=== PATIENT | male | born 1970 | race American Indian/Alaskan Native ===

== ENCOUNTER 2022-09-13 12:18 | Emergency (ER) | payer OTHER, SELFPAY ==
--- NOTE | ~2022-09-13 | XR_ITS ---
EXAMINATION: XR CHEST CLINICAL INFORMATION: Cough COMPARISON: 07/25/2019 TECHNIQUE: AP portable upright view of the chest was obtained. FINDINGS: Chronic airways disease. No focal pneumonia or effusion. Lung volumes improved compared with prior. Stable heart and mediastinum. Lordotic positioning. No pulmonary edema. Nonobstructive gas pattern. Idiopathic scoliosis. XR/XR chest 1V IMPRESSION: Chronic bronchial wall thickening.
[2022-09-13 12:23] VITALS: BP 174/91; PULSE 82; RESP 20; TEMP 36.9; O2SAT 96; BMI 29.2
--- NOTE | 2022-09-13 12:27 | ED_ITS ---
HPI - SOB/Dyspnea General Chief Complaint: Upper Respiratory Symptoms <RANULFO Olmedo - Last Filed: 09/13/22 12:30> Stated Complaint: cough, congestion <RANULFO Olmedo - Last Filed: 09/13/22 12:30> Time Seen by Provider: 09/13/22 13:21 <RANULFO Olmedo - Last Filed: 09/13/22 12:30> Source: patient <Day Mcmanus CNP - Last Filed: 09/13/22 16:51> Limitations: language barrier (Northern Irish-speaking medical payment poster utilized) <Day Mcmanus CNP - Last Filed: 09/13/22 16:51> History of Present Illness HPI Narrative: Patient is a 52-year-old male presents to emergency department for evaluation of fever, cough, congestion, of breath. Onset of symptoms was approximately 3 days ago. Denies any known sick contacts. However does report a history of asthma, he has been using his albuterol inhaler without significant improvement in his symptoms. Currently denies chest pain, palpitations, nausea, vomiting, abdominal pain, generalized weakness or fatigue. <Day muhammad CNP - Last Filed: 09/13/22 16:51> Related Data Home Medications: Previous Rx's Medication Instructions Recorded oseltamivir 75 mg capsule (Tamiflu) 75 mg PO BID 5 days #10 caps 09/13/22 prednisone 20 mg tablet 40 mg PO DAILY #10 tabs 09/13/22 <RANULFO Olmedo - Last Filed: 09/13/22 12:30> Allergies/Adverse Reactions: Allergies Allergy/AdvReac Type Severity Reaction Status Date / Time No Known Allergies Allergy Unverified 07/12/20 19:45 [No Known Allergies*] <RANULFO Olmedo - Last Filed: 09/13/22 12:30> Review of Systems Review of Systems: Constitutional : Positive Fever, No Chills ENT/Mouth : No Hoarseness, No sore throat, No Rhinorrhea Eyes: No Redness, No Discharge, No Vision Changes Cardiovascular : No Chest Pain, positive SOB, positive Dyspnea on Exertion, No Edema Respiratory : positive Cough, No Sputum, positive Wheezing, Gastrointestinal : No Nausea, No Vomiting, No Diarrhea, No abdominal Pain Genitourinary : No Dysuria, No Hematuria Musculoskeletal : No joint pain, No Myalgias Skin : No rash Neuro : No Weakness, No Numbness, No Headache Psych : No anxiety, depression Heme/Lymph: No Bruising, No Bleeding Endocrine : No Polyuria, No Polydipsia <Day Mcmanus CNP - Last Filed: 09/13/22 16:51> Yes all other systems are reviewed and are negative <Day Mcmanus CNP - Last Filed: 09/13/22 16:51> [facility] Past Medical History Attestation statement: The following information was validated with the patient. <Day Mcmanus CNP - Last Filed: 09/13/22 16:51> Source: old records reviewed <Day Mcmanus CNP - Last Filed: 09/13/22 16:51> Social History Social History: Social History Advance Directives: No Advance Directives Information Provided: No <RANULFO Olmedo - Last Filed: 09/13/22 12:30> Physical Exam Vital Signs: Vital Signs: Last Vital Signs Temp 98.0 F 09/13/22 14:26 Pulse 81 09/13/22 15:07 Resp 18 09/13/22 15:07 BP 157/80 H 09/13/22 14:26 Pulse Ox 96 09/13/22 14:26 O2 Del Method 09/13/22 14:26 BMI result Body Mass Index 29.2 <RANULFO Olmedo - Last Filed: 09/13/22 12:30> Vital Signs: Last Vital Signs Temp 98.0 F 09/13/22 14:26 Pulse 81 09/13/22 15:07 Resp 18 09/13/22 15:07 BP 157/80 H 09/13/22 14:26 Pulse Ox 96 09/13/22 14:26 O2 Del Method 09/13/22 14:26 BMI result Body Mass Index 29.2 <Day Mcmanus CNP - Last Filed: 09/13/22 16:51> Appearance: Alert.?Oriented to person, place and time. No acute distress.?Normal affect. Eyes: Pupils equal, round and reactive to light.? ENT: Pharynx normal.??TM normal bilaterally Neck: Normal inspection.? Neck supple.?? CVS: Heart sounds normal. Normal heart rate and rhythm.? Pulses normal.?? Respiratory: Increased work of breathing? Lung sounds with expiratory wheezing bilaterally Abdomen: Soft and non-tender. Normoactive bowel sounds. ? Skin: Skin warm and dry.? Normal skin color.? Extremities: No lower extremity edema.? No calf ttp? Neuro: Moves all extremities spontaneously. Sensation intact bilaterally. No focal neuro deficits. Ambulates with normal steady gait. <Day Mcmanus CNP - Last Filed: 09/13/22 16:51> Course Course Course Narrative: RME--52-year-old male with a past medical history of asthma presenting to the ED complaining of subjective fever, cough, chest congestion x3 days. Has been using inhalers without relief. It is currently visiting from [place]. Notable expiratory wheeze on exam Labs, COVID 19/influenza/RSV, CXR, DuoNeb and IV Solu-Medrol ordered in triage <RANULFO Olmedo - Last Filed: 09/13/22 12:30> Reevaluation(s) Reevaluation #1: Patient is a 52-year-old male with a past medical history of asthma presenting to the emergency department for evaluation of upper respiratory symptoms. Minimal improvement from use of albuterol inhaler. At time of initial examination patient with increased work of breathing, productive cough, expiratory wheezing throughout upon examination. Receive Solu-Medrol IV, DuoNeb updraft, noted to have improvement in work breathing, on subjective improvement in shortness of breath. CBC is overall unremarkable no leukocytosis or anemia. CMP overall unremarkable. Troponin 4.2, EKG reveals normal sinus rhythm no acute ischemic findings, unlikely ACS. PERC negative unlikely PE. Chest x-ray reveals chronic bronchial wall thickening no acute infiltrate consult they patient effusion. COVID-19 and RSV testing are negative, influenza a is positive. Symptoms most consistent with acute asthma exacerbation secondary to influenza virus. <Day Mcmanus CNP - Last Filed: 09/13/22 16:51> Time: 13:57 <Day Mcmanus CNP - Last Filed: 09/13/22 16:51> Reevaluation #2: Ambulatory O2 trial, O2 saturation down to 90% on room air, significant tachycardia into the 150s and reporting significant dyspnea. Will trial additio nal albuterol 10mg nebulizer addition of Mag 2 g IV <Day Mcmanus CNP - Last Filed: 09/13/22 16:51> Time: 14:51 <Day Mcmanus CNP - Last Filed: 09/13/22 16:51> Reevaluation #3: Patient ambulatory with steady gait, O2 saturation ranging between 93-100% on room air. Heart rate up to 110s. Reports feeling well enough to return home. Patient discharged with new prescription for prednisone and Tamiflu, has albuterol inhaler already. Reviewed worrisome signs and symptoms that he should return back to the emergency department for. Advised outpatient follow-up with primary care provider. All questions were answered, he was discharged home in stable condition, no apparent distress. <Day Mcmanus CNP - Last Filed: 09/13/22 16:51> Time: 16:50 <Day Mcmanus CNP - Last Filed: 09/13/22 16:51> Medications Administered Generic Name Dose Route Start Last Admin Trade Name Freq PRN Reason Stop Dose Admin Magnesium Sulfate 2 gm in 50 mls @ 25 mls/hr 09/13/22 15:10 09/13/22 15:56 Magnesium Sulfate/H2o IV 09/13/22 17:09 Infused ONCE ONE Infusion Discontinued Medications Generic Name Dose Route Start Last Admin Trade Name Freq PRN Reason Stop Dose Admin Acetaminophen 975 mg 09/13/22 15:12 09/13/22 15:36 Acetaminophen 325 Mg Tablet PO 09/13/22 15:13 975 mg ONCE ONE Administration Albuterol Sulfate 2.5 mg/ 5 mg 09/13/22 12:27 09/13/22 13:43 Albuterol Sulfate 2.5 mg INHALE 09/13/22 12:28 5 mg ONCE ONE Administration Albuterol Sulfate 7.5 mg/ 10 mg 09/13/22 14:51 09/13/22 15:05 Albuterol Sulfate 2.5 mg INHALE 09/13/22 14:52 5 mg ONCE ONE Administration Albuterol/Ipratropium 3 ml 09/13/22 12:27 09/13/22 13:43 Albuterol/Iprat 2.5/0.5mg 3 Ml Ampul.Neb INHALE 09/13/22 12:28 3 ml ONCE ONE Administration Methylprednisolone Sodium Succinate 125 mg 09/13/22 12:27 09/13/22 13:39 Methylprednisolone Sod Succ 125 Mg/2 Ml Vial IVPUSH 09/13/22 12:28 125 mg ONCE ONE Administration <RANULFO Olmedo - Last Filed: 09/13/22 12:30> Medications Administered Generic Name Dose Route Start Last Admin Trade Name Freq PRN Reason Stop Dose Admin Magnesium Sulfate 2 gm in 50 mls @ 25 mls/hr 09/13/22 15:10 09/13/22 15:56 Magnesium Sulfate/H2o IV 09/13/22 17:09 Infused ONCE ONE Infusion Discontinued Medications Generic Name Dose Route Start Last Admin Trade Name Freq PRN Reason Stop Dose Admin Acetaminophen 975 mg 09/13/22 15:12 09/13/22 15:36 Acetaminophen 325 Mg Tablet PO 09/13/22 15:13 975 mg ONCE ONE Administration Albuterol Sulfate 2.5 mg/ 5 mg 09/13/22 12:27 09/13/22 13:43 Albuterol Sulfate 2.5 mg INHALE 09/13/22 12:28 5 mg ONCE ONE Administration Albuterol Sulfate 7.5 mg/ 10 mg 09/13/22 14:51 09/13/22 15:05 Albuterol Sulfate 2.5 mg INHALE 09/13/22 14:52 5 mg ONCE ONE Administration Albuterol/Ipratropium 3 ml 09/13/22 12:27 09/13/22 13:43 Albuterol/Iprat 2.5/0.5mg 3 Ml Ampul.Neb INHALE 09/13/22 12:28 3 ml ONCE ONE Administration Methylprednisolone Sodium Succinate 125 mg 09/13/22 12:27 09/13/22 13:39 Methylprednisolone Sod Succ 125 Mg/2 Ml Vial IVPUSH 09/13/22 12:28 125 mg ONCE ONE Administration <Day Mcmanus CNP - Last Filed: 09/13/22 16:51> MDM - SOB/Dyspnea Medical Records Attestation: I reviewed the patient's medical records. <Day Mcmanus CNP - Last Filed: 09/13/22 16:51> Lab Data Attestation: I reviewed the patient's lab results. <Day Mcmanus CNP - Last Filed: 09/13/22 16:51> Result diagrams: : 09/13/22 12:35 09/13/22 12:35 <RANULFO Olmedo - Last Filed: 09/13/22 12:30> Labs: Lab Results 09/13/22 09/13/22 09/13/22 Range/Units 12:35 12:35 12:35 WBC 5.9 (4.8-10.8) X10*3/uL RBC 4.63 (4.60-5.80) X10*6/uL Hgb 14.3 (14.0-18.0) g/dl Hct 42.7 (42.0-52.0) % MCV 92.2 (80.0-98.0) fL MCH 30.9 (27.0-33.0) pg MCHC 33.5 (31.0-36.0) g/dl RDW 12.8 (11.0-16.0) % Plt Count 210 (160-400) X10*3/uL MPV 9.4 (9.4-12.4) fL Immature Gran % (Auto) 0.2 (0.0-0.4) % Neut % (Auto) 54.0 (45-73) % Lymph % (Auto) 29.6 (20-40) % [place] % (Auto) 15.4 H (2-11) % Eos % (Auto) 0.5 (0-4) % Baso % (Auto) 0.3 (0-2) % Lymph # (Auto) 1.8 (1.2-4.9) X10*3/uL [place] # (Auto) 0.9 (0.1-1.2) X10*3/uL Eos # (Auto) 0.0 (0.0-0.4) X10*3/uL Baso # (Auto) 0.0 (0.0-0.2) X10*3/uL Abs Immat Gran (auto) 0.01 (0.00-0.03) X10*3/uL Absolute Neuts (auto) 3.2 (2.0-8.3) x10*3/uL Absolute Nucleated RBC 0.000 (0.0-0.012) X10*3/uL Nucleated RBC % (auto) 0.0 (0.0-0.2) /100WBC Sodium 143 (135-145) mmol/L Potassium 3.2 L (3.3-5.1) mmol/L Chloride 106 (96-108) mmol/L Carbon Dioxide 28 (22-29) mmol/L Anion Gap 12 (12-20) BUN 10 (9-16) mg/dL Creatinine 0.91 (0.5-1.4) mg/dL Estim Creat Clear Calc 85.0 Estimated GFR > 60 Random Glucose 96 (60-115) mg/dL Calcium 9.3 (8.4-10.2) mg/dL Troponin I High Sens 4.2 (<3.5-35.0) ng/L B-Natriuretic Peptide (<100) pg/mL Influenza Type A (PCR) (Negative) Influenza Type B (PCR) (Negative) RSV RNA Qual (PCR) (Negative) SARS-CoV-2 RNA (RT-PCR) (Negative) 09/13/22 09/13/22 Range/Units 12:35 12:35 WBC (4.8-10.8) X10*3/uL RBC (4.60-5.80) X10*6/uL Hgb (14.0-18.0) g/dl Hct (42.0-52.0) % MCV (80.0-98.0) fL MCH (27.0-33.0) pg MCHC (31.0-36.0) g/dl RDW (11.0-16.0) % Plt Count (160-400) X10*3/uL MPV (9.4-12.4) fL Immature Gran % (Auto) (0.0-0.4) % Neut % (Auto) (45-73) % Lymph % (Auto) (20-40) % [place] % (Auto) (2-11) % Eos % (Auto) (0-4) % Baso % (Auto) (0-2) % Lymph # (Auto) (1.2-4.9) X10*3/uL [place] # (Auto) (0.1-1.2) X10*3/uL Eos # (Auto) (0.0-0.4) X10*3/uL Baso # (Auto) (0.0-0.2) X10*3/uL Abs Immat Gran (auto) (0.00-0.03) X10*3/uL Absolute Neuts (auto) (2.0-8.3) x10*3/uL Absolute Nucleated RBC (0.0-0.012) X10*3/uL Nucleated RBC % (auto) (0.0-0.2) /100WBC Sodium (135-145) mmol/L Potassium (3.3-5.1) mmol/L Chloride (96-108) mmol/L Carbon Dioxide (22-29) mmol/L Anion Gap (12-20) BUN (9-16) mg/dL Creatinine (0.5-1.4) mg/dL Estim Creat Clear Calc Estimated GFR Random Glucose (60-115) mg/dL Calcium (8.4-10.2) mg/dL Troponin I High Sens (<3.5-35.0) ng/L B-Natriuretic Peptide 12 (<100) pg/mL Influenza Type A (PCR) POSITIVE A (Negative) Influenza Type B (PCR) NEGATIVE (Negative) RSV RNA Qual (PCR) NEGATIVE (Negative) SARS-CoV-2 RNA (RT-PCR) NEGATIVE (Negative) <RANULFO Olmedo - Last Filed: 09/13/22 12:30> Lab Results 09/13/22 09/13/22 09/13/22 Range/Units 12:35 12:35 12:35 WBC 5.9 (4.8-10.8) X10*3/uL RBC 4.63 (4.60-5.80) X10*6/uL Hgb 14.3 (14.0-18.0) g/dl Hct 42.7 (42.0-52.0) % MCV 92.2 (80.0-98.0) fL MCH 30.9 (27.0-33.0) pg MCHC 33.5 (31.0-36.0) g/dl RDW 12.8 (11.0-16.0) % Plt Count 210 (160-400) X10*3/uL MPV 9.4 (9.4-12.4) fL Immature Gran % (Auto) 0.2 (0.0-0.4) % Neut % (Auto) 54.0 (45-73) % Lymph % (Auto) 29.6 (20-40) % [place] % (Auto) 15.4 H (2-11) % Eos % (Auto) 0.5 (0-4) % Baso % (Auto) 0.3 (0-2) % Lymph # (Auto) 1.8 (1.2-4.9) X10*3/uL [place] # (Auto) 0.9 (0.1-1.2) X10*3/uL Eos # (Auto) 0.0 (0.0-0.4) X10*3/uL Baso # (Auto) 0.0 (0.0-0.2) X10*3/uL Abs Immat Gran (auto) 0.01 (0.00-0.03) X10*3/uL Absolute Neuts (auto) 3.2 (2.0-8.3) x10*3/uL Absolute Nucleated RBC 0.000 (0.0-0.012) X10*3/uL Nucleated RBC % (auto) 0.0 (0.0-0.2) /100WBC Sodium 143 (135-145) mmol/L Potassium 3.2 L (3.3-5.1) mmol/L Chloride 106 (96-108) mmol/L Carbon Dioxide 28 (22-29) mmol/L Anion Gap 12 (12-20) BUN 10 (9-16) mg/dL Creatinine 0.91 (0.5-1.4) mg/dL Estim Creat Clear Calc 85.0 Estimated GFR > 60 Random Glucose 96 (60-115) mg/dL Calcium 9.3 (8.4-10.2) mg/dL Troponin I High Sens 4.2 (<3.5-35.0) ng/L B-Natriuretic Peptide (<100) pg/mL Influenza Type A (PCR) (Negative) Influenza Type B (PCR) (Negative) RSV RNA Qual (PCR) (Negative) SARS-CoV-2 RNA (RT-PCR) (Negative) 09/13/22 09/13/22 Range/Units 12:35 12:35 WBC (4.8-10.8) X10*3/uL RBC (4.60-5.80) X10*6/uL Hgb (14.0-18.0) g/dl Hct (42.0-52.0) % MCV (80.0-98.0) fL MCH (27.0-33.0) pg MCHC (31.0-36.0) g/dl RDW (11.0-16.0) % Plt Count (160-400) X10*3/uL MPV (9.4-12.4) fL Immature Gran % (Auto) (0.0-0.4) % Neut % (Auto) (45-73) % Lymph % (Auto) (20-40) % [place] % (Auto) (2-11) % Eos % (Auto) (0-4) % Baso % (Auto) (0-2) % Lymph # (Auto) (1.2-4.9) X10*3/uL [place] # (Auto) (0.1-1.2) X10*3/uL Eos # (Auto) (0.0-0.4) X10*3/uL Baso # (Auto) (0.0-0.2) X10*3/uL Abs Immat Gran (auto) (0.00-0.03) X10*3/uL Absolute Neuts (auto) (2.0-8.3) x10*3/uL Absolute Nucleated RBC (0.0-0.012) X10*3/uL Nucleated RBC % (auto) (0.0-0.2) /100WBC Sodium (135-145) mmol/L Potassium (3.3-5.1) mmol/L Chloride (96-108) mmol/L Carbon Dioxide (22-29) mmol/L Anion Gap (12-20) BUN (9-16) mg/dL Creatinine (0.5-1.4) mg/dL Estim Creat Clear Calc Estimated GFR Random Glucose (60-115) mg/dL Calcium (8.4-10.2) mg/dL Troponin I High Sens (<3.5-35.0) ng/L B-Natriuretic Peptide 12 (<100) pg/mL Influenza Type A (PCR) POSITIVE A (Negative) Influenza Type B (PCR) NEGATIVE (Negative) RSV RNA Qual (PCR) NEGATIVE (Negative) SARS-CoV-2 RNA (RT-PCR) NEGATIVE (Negative) <Day Mcmanus CNP - Last Filed: 09/13/22 16:51> Imaging Data Chest x-ray: Radiologist's impression: FINDINGS: Chronic airways disease. No focal pneumonia or effusion. Lung volumes improved compared with prior. Stable heart and mediastinum. Lordotic positioning. No pulmonary edema. Nonobstructive gas pattern. Idiopathic scoliosis. XR/XR chest 1V IMPRESSION: Chronic bronchial wall thickening. <Day Mcmanus CNP - Last Filed: 09/13/22 16:51> ECG Data Attestation: I personally reviewed and interpreted this ECG as follows: <Day Mcmanus CNP - Last Filed: 09/13/22 16:51> ECG interpretation date: 09/13/22 <Day Mcmanus CNP - Last Filed: 09/13/22 16:51> Interpretation: Rate: 73 Rhythm:? Normal sinus rhythm [place]:? Normal Normal P waves.? Normal TY.?? Normal QRS complex.?? ST T wave :??No ST elevation, no ST depression qTC: 425 prior studies:?2019 The study has been interpreted contemporaneously by me. <Day Mcmanus CNP - Last Filed: 09/13/22 16:51> Discharge Plan Discharge Clinical Impression: Influenza, Asthma exacerbation <RANULFO Olmedo - Last Filed: 09/13/22 12:30> Patient Disposition: Home, Self-Care <RANULFO Olmedo - Last Filed: 09/13/22 12:30> Instructions: Asthma (ED), Influenza (ED), How to Use a Nebulizer (ED) <RANULFO Olmedo - Last Filed: 09/13/22 12:30> Additional Instructions: Use albuterol inhaler every 4 hours as needed. For shortness of breath or wheezing. Take prednisone daily, beginning tomorrow. Take Tamiflu twice daily, beginning this evening. Sure to rest, stay well hydrated, eat small frequent meals. Return to emergency department with any new or worsening symptoms or concerns. Follow-up with primary care provider as needed for persistent symptoms. <RANULFO Olmedo - Last Filed: 09/13/22 12:30> Prescriptions: New prednisone 20 mg tablet 40 mg PO DAILY Qty: 10 0RF oseltamivir [Tamiflu] 75 mg capsule 75 mg PO BID 5 Days Qty: 10 0RF <RANULFO Olmedo - Last Filed: 09/13/22 12:30>
--- NOTE | 2022-09-13 12:27 | ECG_ITS ---
Test Reason : sob Blood Pressure : / mmHG Vent. Rate : 073 BPM Atrial Rate : 073 BPM P-R Int : 122 ms QRS Dur : 070 ms QT Int : 386 ms P-R-T Axes : 079 062 063 degrees QTc Int : 425 ms Poor data quality Normal sinus rhythm Normal ECG When compared with ECG of 25-JUL-2019 16:54, No significant changes seen Referred By: Sarahy Ruiz Electronically Signed By:GUANAKITO AUGUST MD
[2022-09-13 12:40] LABS: MANUAL DIFF FLAG NO
[2022-09-13 12:42] LABS: Basophils Percent Auto 0.3 % (0-2); Eosinophils Percent Auto 0.5 % (0-4); Hematocrit 42.7 % (42.0-52.0); Hemoglobin 14.3 g/dl (14.0-18.0); Imm Gran Abs Auto 0.01 X10*3/uL (0.00-0.03); Imm Gran Pct Auto 0.2 % (0.0-0.4); Lymphocytes Absolute Auto 1.8 X10*3/uL (1.2-4.9); Lymphocytes Percent Auto 29.6 % (20-40); Mean Corpuscular HGB Conc 33.5 g/dl (31.0-36.0); Mean Corpuscular Hemoglobin 30.9 pg (27.0-33.0); Mean Corpuscular Volume 92.2 fL (80.0-98.0); Mean Platelet Volume 9.4 fL (9.4-12.4); Monocytes Absolute Auto 0.9 X10*3/uL (0.1-1.2); Monocytes Percent Auto 15.4 % (2-11); Neutrophils Absolute Auto 3.2 x10*3/uL (2.0-8.3); Platelet Count 210 X10*3/uL (160-400); Red Blood Count 4.63 X10*6/uL (4.60-5.80); Red Cell Distribution Width 12.8 % (11.0-16.0); White Blood Count 5.9 X10*3/uL (4.8-10.8)
[2022-09-13 12:57] LABS: Anion Gap 12 (12-20); Blood Urea Nitrogen 10 mg/dL (9-16); Calcium 9.3 mg/dL (8.4-10.2); Carbon Dioxide 28 mmol/L (22-29); Chloride 106 mmol/L (96-108); Estimated Glomerular Filt Rate > 60; Glucose Random 96 mg/dL (60-115); Potassium 3.2 mmol/L (3.3-5.1); Sodium 143 mmol/L (135-145)
[2022-09-13 13:02] LABS: B Type Natriuretic Peptide 12 pg/mL (<100)
[2022-09-13 13:07] LABS: Troponin-I High Sensitivity 4.2 ng/L (<3.5-35.0)
[2022-09-13 13:31] LABS: Influenza A PCR POSITIVE (Negative); Influenza B PCR NEGATIVE (Negative); Resp Syncy Virus RNA Qual PCR NEGATIVE (Negative); SARS COV2 PCR INHOUSE NEGATIVE (Negative)
[2022-09-13] MEDS: methylPREDNISolone Sod Succ 125 MG/2 ML VIAL IVPUSH (13:39)
[2022-09-13 13:43] VITALS: RESP 22; O2SAT 96
[2022-09-13] MEDS: Albuterol Sulfate 2.5 MG, Albuterol Sulfate (0.083%) 2.5 MG 5 MG INHALE (13:43)
[2022-09-13] MEDS: Albuterol/Iprat 2.5/0.5MG 3 ML AMPUL.NEB INHALE (13:43)
[2022-09-13 14:26] VITALS: BP 157/80; PULSE 84; RESP 18; TEMP 36.7; O2SAT 96
[2022-09-13] MEDS: Albuterol Sulfate 7.5 MG, Albuterol Sulfate (0.083%) 2.5 MG 10 MG INHALE (15:05)
[2022-09-13 15:07] VITALS: PULSE 81; RESP 18; O2SAT 97
[2022-09-13] MEDS: Magnesium Sulfate/H2O 2 GM/50 ML PIGGYBACK IV (15:35)
[2022-09-13] MEDS: Acetaminophen 325 MG TABLET 975 MG PO (15:36)
== END 2022-09-13 16:58 | disposition home or self-care (01) ==
PROVIDERS: Physician Assistant; Emergency Provider Emergency Medicine Emergency Medical Services
DX: J10.1 Influenza due to other identified influenza virus with other respiratory manifestations (principal); J45.901 Unspecified asthma with (acute) exacerbation; R06.02 Shortness of breath; Z20.822 Contact with and (suspected) exposure to COVID-19
CPT/HCPCS: 0241U; 36415; 71045; 80048; 83880; 84484; 85025; 93005; 94640; 96365; 96375; 99285; J2930; J3475

== ENCOUNTER 2022-09-19 12:51 | Inpatient (IN) | payer MEDICAID, SELFPAY ==
[2022-09-19] VITALS (14 sets, daily range): BP systolic 135–172; BP diastolic 87–110; PULSE 75–95; RESP 14–33; TEMP 35.7–36.9; O2SAT 10–99; BMI 29.2
--- NOTE | ~2022-09-19 | XR_ITS ---
EXAMINATION: XR CHEST CLINICAL INFORMATION: Shortness of breath COMPARISON: None TECHNIQUE: 2 views of the chest were obtained. FINDINGS: No significant abnormality is noted involving the heart, lungs, mediastinum, bony thorax or soft tissues. XR/XR chest 2V IMPRESSION: Unremarkable chest examination.
--- NOTE | ~2022-09-19 | CT_ITS ---
EXAMINATION: CT CHEST WITHOUT CONTRAST CLINICAL INFORMATION: Shortness of breath COMPARISON: Chest radiograph earlier today and CT abdomen pelvis 05/13/2019 TECHNIQUE: Multidetector volumetric CT imaging of the chest was done. Axial MIP volume rendering provided. Sagittal and coronal reformatted images were obtained. This CT examination was performed using dose optimization techniques as appropriate, variously including the following: *Automated exposure control *Adjustment of mA and/or kV according to patient size (this includes techniques or standardized protocols for targeted exams where dose is matched to indication/reason for exam; i.e. extremities or head) *Use of iterative reconstruction technique DLP: 29 mGy-cm FINDINGS: LUNGS: Some small nodular densities in the left lung base are present suggesting [id number]-type abnormalities consistent with inflammatory disease (5:326). A tiny 2 mm nodule is present in the right lower lobe (5:263). The lungs are otherwise clear with no evidence of consolidation or worrisome mass. MEDIASTINUM: The mediastinum is normal. CORONARY ARTERY CALCIFICATION: None visualized on this study. PLEURA: There is no pleural effusion. No pleural mass or thickening. AXILLA: No lymphadenopathy. UPPER ABDOMEN: A tiny hiatal hernia is present. The gallbladder is contracted with rim calcification representing either gallstones or gallbladder wall calcification. Findings similar to the prior CT abdomen. OSSEOUS STRUCTURES: Mild degenerative changes noted in the spine. There is some narrowing minimal compression of the superior endplate of T5 along with some mild wedging of T4. No bony destructive lesions. CT/CT chest wo IV con IMPRESSION: 1. Some vvrr-vj-zwz-type abnormalities in the left lower lobe consistent with inflammatory disease. 2. Tiny 2 mm right lower lobe nodule. 3. Incidental note made of contracted gallbladder with either gallstones or gallbladder wall calcification, unchanged. 4. Mild degenerative changes in the spine with mild compression deformities of the superior endplate of T4 and T5. Fleischner guidelines were followed.
--- NOTE | 2022-09-19 13:36 | ED_ITS ---
HPI - SOB/Dyspnea General Chief Complaint: Dyspnea <Day Mcmanus CNP - Last Filed: 09/19/22 13:44> Stated Complaint: sob <Day Mcmanus CNP - Last Filed: 09/19/22 13:44> Time Seen by Provider: 09/19/22 14:07 <Day Mcmanus CNP - Last Filed: 09/19/22 13:44> Source: patient and converting operator <RANULFO Gold - Last Filed: 09/19/22 17:46> Mode of arrival: ambulatory <RANULFO Gold - Last Filed: 09/19/22 17:46> Limitations: no limitations and language barrier <RANULFO Gold - Last Filed: 09/19/22 17:46> History of Present Illness HPI Narrative: Patient is a 52 year old assigned male at with a history of asthma and hipolito's disease presenting to the emergency department today with worsening shortness of breath. Patient states that he was seen here last week and diagnosed with the flu and prescribed prednisone and tamilu but now it is getting worse. Patient denies any dizziness, lightheadedness, abdominal pain, nausea, vomiting, fever, chills, blurry vision, double vision, loss of vision, chest pain, back pain, night sweats, pain with urination, increased urinary frequency, increased urinary urgency, blood in his urine or stool, syncope or a near syncopal episode, recent trauma or falls, bowel incontinence, bladder incontinence, bowel retention, bladder retention, or any other complaints at this time. <RANULFO Gold - Last Filed: 09/19/22 17:46> MD elicited complaint: shortness of breath <RANULFO Gold - Last Filed: 09/19/22 17:46> Pertinent past history: asthma <RANULFO Gold - Last Filed: 09/19/22 17:46> Onset (ago): hour(s) <RANULFO Gold - Last Filed: 09/19/22 17:46> Context: recent illness <RANULFO Gold Last Filed: 09/19/22 17:46> Timing: constant <RANULFO Gold - Last Filed: 09/19/22 17:46> Severity: moderate <RANULFO Gold - Last Filed: 09/19/22 17:46> Exacerbating factors: lying flat and exertion <RANULFO Gold - Last Filed: 09/19/22 17:46> Relieving factors: oxygen and rest <RANULFO Gold - Last Filed: 09/19/22 17:46> Known history of: asthma <RANULFO Gold - Last Filed: 09/19/22 17:46> Associated symptoms: denies other symptoms <RANULFO Gold - Last Filed: 09/19/22 17:46> Treatment prior to arrival: none <RANULFO Gold - Last Filed: 09/19/22 17:46> Related Data Home oxygen amount: none <RANULFO Gold - Last Filed: 09/19/22 17:46> Home Medications: Previous Rx's Medication Instructions Recorded oseltamivir 75 mg capsule (Tamiflu) 75 mg PO BID 5 days #10 caps 09/13/22 prednisone 20 mg tablet 40 mg PO DAILY #10 tabs 09/13/22 <Day Mcmauns DISH PERSON - Last Filed: 09/19/22 13:44> Allergies/Adverse Reactions: Allergies Allergy/AdvReac Type Severity Reaction Status Date / Time No Known Allergies Allergy Verified 09/19/22 13:43 [No Known Allergies*] <Day Mcmanus [facility] - Last Filed: 09/19/22 13:44> Review of Systems Constitutional: Constitutional: Reports no additional constitutional complaints, Denies chills, Denies fever(s) and Denies night sweats <RANULFO Gold - Last Filed: 09/19/22 17:46> Eyes: Eyes: Reports no additional eye complaints, Denies blurry vision, Denies change in vision, Denies diplopia, Denies eye discharge, Denies loss of vision and Denies eye pain <RANULFO Gold - Last Filed: 09/19/22 17:46> ENT: Denies dizziness <RANULFO Gold Last Filed: 09/19/22 17:46> Cardiovascular: Cardiovascular: Reports no additional cardiovascular complaints, Denies chest pain, Denies lightheadedness, Denies Loss of Consciousness and Reports dyspnea <RANULFO Gold Last Filed: 09/19/22 17:46> Respiratory: Respiratory: Reports no additional respiratory complaints, Reports cough and Reports dyspnea <RANULFO Gold Last Filed: 09/19/22 17:46> Gastrointestinal: Gastrointestinal: Reports no additional gastrointestinal co mplaints, Denies abdominal pain, Denies melena, Denies hematochezia, Denies change in bowel habits and Denies change in stool character <RANULFO Gold Last Filed: 09/19/22 17:46> Genitourinary: Genitourinary: Reports no additional male genitourinary complaints, Denies hematuria, Denies oliguria, Denies difficulty urinating, Denies dysuria, Denies urinary frequency, Denies urinary hesitancy, Denies urinary incontinence and Denies urinary urgency <RANULFO Gold - Last Filed: 09/19/22 17:46> Musculoskeletal: Musculoskeletal: Reports no additional musculoskeletal complaints, Denies numbness and Denies tingling <RANULFO Gold Last Filed: 09/19/22 17:46> Neurologic: Denies dizziness, Denies loss of vision, Denies numbness and Denies tingling <RANULFO Gold Last Filed: 09/19/22 17:46> Psychiatric: Psychiatric: Reports no additional psychiatric complaints <RANULFO Gold Last Filed: 09/19/22 17:46> Endocrine: Endocrine: Reports no additional endocrine complaints <RANULFO Gold - Last Filed: 09/19/22 17:46> Hematologic/Lymphatic: Hematologic/Lymphatic: Reports no additional hematol ogic/lymphatic complaints <RANULFO Gold Last Filed: 09/19/22 17:46> Allergic/Immunologic: Allergic/Immunologic: Reports no additional allergic/immunologic complaints <RANULFO Gold Last Filed: 09/19/22 17:46> PMF Past Medical History Attestation statement: The following information was validated with the patient. 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 <Day Mcmanus CNP - Last Filed: 09/19/22 13:44> Social History Social History: Social History Advance Directives: No Advance Directives Information Provided: No <Day Mcmanus CNP - Last Filed: 09/19/22 13:44> Physical Exam Vital Signs: Vital Signs: Last Vital Signs Temp 96.3 F L 09/19/22 13:36 Pulse 83 09/19/22 16:08 Resp 16 09/19/22 16:08 BP 152/90 H 09/19/22 16:08 Pulse Ox 99 09/19/22 16:08 O2 Del Method 09/19/22 16:08 FiO2 24 09/19/22 16:08 BMI result Body Mass Index 29.2 <Day Mcmanus CNP - Last Filed: 09/19/22 13:44> Vital Signs: Last Vital Signs Temp 96.3 F L 09/19/22 13:36 Pulse 83 09/19/22 16:08 Resp 16 09/19/22 16:08 BP 152/90 H 09/19/22 16:08 Pulse Ox 99 09/19/22 16:08 O2 Del Method 09/19/22 16:08 FiO2 24 09/19/22 16:08 BMI result Body Mass Index 29.2 <RANULFO Gold - Last Filed: 09/19/22 17:46> Const: General: cooperative, no acute distress, alert and awake <RANULFO Gold - Last Filed: 09/19/22 17:46> Nutritional Appearance: well nourished <RANULFO Gold - Last Filed: 09/19/22 17:46> Orientation/consciousness: patient oriented x3 <RANULFO Gold - Last Filed: 09/19/22 17:46> Limitations: no limitations <RANULFO Gold - Last Filed: 09/19/22 17:46> HEENT: Head: Yes normal to inspection and Yes atraumatic <RANULFO Gold - Last Filed: 09/19/22 17:46> Ears: hearing grossly normal bilaterally and external ears normal <Cristina Townsend [place] - Last Filed: 09/19/22 17:46> General nose exam: Normal external nose present, no nasal discharge noted and no epistaxis <Cristina AdamsRANULFO forman Last Filed: 09/19/22 17:46> Face and sinus: Yes normal facial exam, No abrasion and No laceration <Cristina Adamsdasia [facility] Last Filed: 09/19/22 17:46> Mouth: Normal oral and palatal mucosa present, no drooling and no muffled voice <Cristinarossy Adamsdasia [place] - Last Filed: 09/19/22 17:46> Eyes: General: appearance normal, both eyes and all related structures <Cristina Townsend [place] - Last Filed: 09/19/22 17:46> Periorbital: periorbital findings normal <Cristina Adamsdasia [place] - Last Filed: 09/19/22 17:46> Eyelids: Yes eyelids normal <Cristina Townsend [place] - Last Filed: 09/19/22 17:46> Conjunctivae: conjunctivae normal <Cristinarossy Adamsdasia [place] - Last Filed: 09/19/22 17:46> Pupils: Equal, round and reactive pupils present <Cristinarossy Adamsdasia [place] - Last Filed: 09/19/22 17:46> EOM: EOMs intact bilaterally <Cristinarossy AdamsRANULFO forman - Last Filed: 09/19/22 1 7:46> Neck: Neck: Yes normal visual inspection, Yes full ROM and Yes no lymphadenopathy <Cristina Townsend [facility] Last Filed: 09/19/22 17:46> Chest: Chest palpation & inspection: normal inspection of the chest <Cristina Townsend [place] - Last Filed: 09/19/22 17:46> Resp: Effort & Inspection: able to speak in complete sentences, labored and tachypneic <RANULFO Gold - Last Filed: 09/19/22 17:46> Auscultation: diminished lung sounds bilateral and diffuse <RANULFO Gold - Last Filed: 09/19/22 17:46> GI: Inspection: Yes normal to inspection <RANULFO Gold - Last Filed: 09/19/22 17:46> Neuro: General: patient oriented x3 and moves all extremities <RANULFO Gold - Last Filed: 09/19/22 17:46> Cranial nerves: Yes Equal, round and reactive pupils present <Cristina ortiz PA - Last Filed: 09/19/22 17:46> Cognition (Neuro): normal cognition <Cristina TownsendRANULFO - Last Filed: 09/19/22 17:46> Motor exam (neuro): 5/5 motor strength present throughout <Cristina TownsendRANULFO - Last Filed: 09/19/22 17:46> Sensory Exam: Normal double simultaneous stimulation for sensation <Cristina TownsendRANULFO - Last Filed: 09/19/22 17:46> Coordination: [id number] test normal <Cristina TownsendRANULFO - Last Filed: 09/19/22 17:46> Extrem: General: Yes normal to inspection, Yes full ROM and Yes capillary refill normal <Cristina TownsendRANULFO - Last Filed: 09/19/22 17:46> Psych: Appearance: grossly normal <Cristina TownsendRANULFO - Last Filed: 09/19/22 17:46> Mental Status: mental status grossly normal <Cristina TownsendRANULFO - Last Filed: 09/19/22 17:46> Affect: normal affect <Cristina TownsendRANULFO - Last Filed: 09/19/22 17:46> Attitude: cooperative <Cristina TownsendRANULFO - Last Filed: 09/19/22 17:46> Thought process: Normal thought process present <Cristina TownsendRANULFO - Last Filed: 09/19/22 17:46> Thought content: Normal thought content present <Cristina TownsendRANULFO - Last Filed: 09/19/22 17:46> Insight: Good insight present (Psych) <Cristina TownsendRANULFO - Last Filed: 09/19/22 17:46> Course Course Course Narrative: RME: Patient is a 52-year-old male presents emergency department for evaluation of shortness of breath/asthma exacerbation. He was seen here 6 days ago diagnosed with influenza and asthma exacerbation. Who states that yesterday he completed the course of prednisone and Tamiflu. However he states that his symptoms started worsening again over the past 2 days. He has ran out of his albuterol inhaler. Reporting tactile fevers PE: Diffuse inspiratory and expiratory wheezing throughout. Increased work of breathing. Plan: Patient brought from triage to [facility], patient to receive albuterol nebulizer, Solu-Medrol, chest x-ray. <Day Mcmanus, DISH PERSON - Last Filed: 09/19/22 13:44> Medications Administered Generic Name Dose Route Start Last Admin Trade Name Freq PRN Reason Stop Dose Admin Dextrose/Lactated Ringer's 1,000 mls @ 100 mls/hr 09/19/22 16:00 09/19/22 17:11 D5lr IVCONT 100 mls/hr .Q10H CHAZ Administration Discontinued Medications Generic Name Dose Route Start Last Admin Trade Name Freq PRN Reason Stop Dose Admin Albuterol Sulfate 5 mg/ 7.5 mg 09/19/22 13:44 09/19/22 14:27 Albuterol Sulfate 2.5 mg INHALE 09/19/22 13:45 7.5 mg ONCE ONE Administration Albuterol/Ipratropium 3 ml 09/19/22 13:44 09/19/22 14:27 Albuterol/Iprat 2.5/0.5mg 3 Ml Ampul.Neb INHALE 09/19/22 13:45 3 ml ONCE ONE Administration Diphenhydramine HCl 25 mg 09/19/22 15:19 09/19/22 15:30 Diphenhydramine Hcl 50 Mg/Ml Vial IVPUSH 09/19/22 15:20 25 mg ONCE ONE Administration Fentanyl 50 mcg 09/19/22 14:28 09/19/22 14:51 Fentanyl Citrate/Pf 100 Mcg/2 Ml Vial IVPUSH 09/19/22 14:29 50 mcg ONCE ONE Administration Protocol Methylprednisolone Sodium Succinate 125 mg 09/19/22 13:44 09/19/22 14:51 Methylprednisolone Sod Succ 125 Mg/2 Ml Vial IVPUSH 09/19/22 13:45 125 mg ONCE ONE Administration Morphine Sulfate 4 mg 09/19/22 14:12 09/19/22 14:53 Morphine Sulfate 4 Mg/Ml Cartridge IVPUSH 09/19/22 14:13 Not Given ONCE ONE Protocol Ondansetron HCl 4 mg 09/19/22 14:12 09/19/22 14:51 Ondansetron Hcl 4 Mg/2 Ml Vial IVPUSH 09/19/22 14:13 4 mg ONCE ONE Administration <Day Mcmanus CNP - Last Filed: 09/19/22 13:44> Medications Administered Generic Name Dose Route Start Last Admin Trade Name Freq PRN Reason Stop Dose Admin Dextrose/Lactated Ringer's 1,000 mls @ 100 mls/hr 09/19/22 16:00 09/19/22 17:11 D5lr IVCONT 100 mls/hr .Q10H CHAZ Administration Discontinued Medications Generic Name Dose Route Start Last Admin Trade Name Freq PRN Reason Stop Dose Admin Albuterol Sulfate 5 mg/ 7.5 mg 09/19/22 13:44 09/19/22 14:27 Albuterol Sulfate 2.5 mg INHALE 09/19/22 13:45 7.5 mg ONCE ONE Administration Albuterol/Ipratropium 3 ml 09/19/22 13:44 09/19/22 14:27 Albuterol/Iprat 2.5/0.5mg 3 Ml Ampul.Neb INHALE 09/19/22 13:45 3 ml ONCE ONE Administration Diphenhydramine HCl 25 mg 09/19/22 15:19 09/19/22 15:30 Diphenhydramine Hcl 50 Mg/Ml Vial IVPUSH 09/19/22 15:20 25 mg ONCE ONE Administration Fentanyl 50 mcg 09/19/22 14:28 09/19/22 14:51 Fentanyl Citrate/Pf 100 Mcg/2 Ml Vial IVPUSH 09/19/22 14:29 50 mcg ONCE ONE Administration Protocol Methylprednisolone Sodium Succinate 125 mg 09/19/22 13:44 09/19/22 14:51 Methylprednisolone Sod Succ 125 Mg/2 Ml Vial IVPUSH 09/19/22 13:45 125 mg ONCE ONE Administration Morphine Sulfate 4 mg 09/19/22 14:12 09/19/22 14:53 Morphine Sulfate 4 Mg/Ml Cartridge IVPUSH 09/19/22 14:13 Not Given ONCE ONE Protocol Ondansetron HCl 4 mg 09/19/22 14:12 09/19/22 14:51 Ondansetron Hcl 4 Mg/2 Ml Vial IVPUSH 09/19/22 14:13 4 mg ONCE ONE Administration <Cristina Townsend PA - Last Filed: 09/19/22 17:46> MDM - SOB/Dyspnea MDM Narrative Medical decision making narrative: Patient is a 52 year old assigned male at with a history of asthma and hipolito's disease presenting to the emergency department today with shortness of breath. Patient's physical exam showed an individual with labored breathing. Patient's blood work showed an elevated WBC count of 20.3 which I believe is in part due to recent steroid use. Patient's EKG was unremarkable. Patient's chest x-ray showed no acute process. Patient's chest CT is pending. Patient is known influenza positive. Patient's clinical presentation is not consistent with sepsis. Patient was given IV magnesium, duoneb, and IV fentanyl. Patient was started on CPAP. I spoke to the pickling solution maker operations chief who agreed to admission. I explained my physical exam findings as well as all test results to the patient. I answered all questions asked by the patient. Patient verbalized agreement and understanding with this treatment plan and admission. <RANULFO Gold - Last Filed: 09/19/22 17:46> Medical Records Attestation: I reviewed the patient's medical records. <RANULFO Gold - Last Filed: 09/19/22 17:46> Lab Data Attestation: I reviewed the patient's lab results. <RANULFO Gold - Last Filed: 09/19/22 17:46> Result diagrams: : 09/19/22 14:39 09/19/22 14:39 <Day Mcmanus CNP - Last Filed: 09/19/22 13:44> Labs: Lab Results 09/19/22 09/19/22 09/19/22 Range/Units 14:38 14:39 14:39 WBC 20.3 H (4.8-10.8) X10*3/uL RBC 4.83 (4.60-5.80) X10*6/uL Hgb 14.7 (14.0-18.0) g/dl Hct 43.7 (42.0-52.0) % MCV 90.5 (80.0-98.0) fL MCH 30.4 (27.0-33.0) pg MCHC 33.6 (31.0-36.0) g/dl RDW 12.4 (11.0-16.0) % Plt Count 428 H D (160-400) X10*3/uL MPV 9.0 L (9.4-12.4) fL Immature Gran % (Auto) 0.5 H (0.0-0.4) % Neut % (Auto) 73.0 (45-73) % Lymph % (Auto) 17.0 L (20-40) % [place] % (Auto) 9.2 (2-11) % Eos % (Auto) 0.1 (0-4) % Baso % (Auto) 0.2 (0-2) % Lymph # (Auto) 3.5 (1.2-4.9) X10*3/uL [place] # (Auto) 1.9 H (0.1-1.2) X10*3/uL Eos # (Auto) 0.0 (0.0-0.4) X10*3/uL Baso # (Auto) 0.0 (0.0-0.2) X10*3/uL Abs Immat Gran (auto) 0.10 H (0.00-0.03) X10*3/uL Absolute Neuts (auto) 14.8 H (2.0-8.3) x10*3/uL Absolute Nucleated RBC 0.000 (0.0-0.012) X10*3/uL Nucleated RBC % (auto) 0.0 (0.0-0.2) /100WBC Smear Tech's Comments VERIFIED PT 11.4 (10.0-13.1) SEC INR 1.0 (0.9-1.1) VBG pH (7.32-7.43) VBG pCO2 mmHg VBG pO2 mmHg VBG HCO3 (22-26) mmol/L VBG O2 Saturation % VBG Base Excess mmol/L Sodium (135-145) mmol/L Potassium (3.3-5.1) mmol/L Chloride (96-108) mmol/L Carbon Dioxide (22-29) mmol/L Anion Gap (12-20) BUN (9-16) mg/dL Creatinine (0.5-1.4) mg/dL Estim Creat Clear Calc Estimated GFR Random Glucose (60-115) mg/dL Lactic Acid (0.5-2.0) mmol/L Calcium (8.4-10.2) mg/dL Total Bilirubin (0.0-1.0) mg/dL Direct Bilirubin (0.0-0.5) mg/dL AST (5-37) U/L ALT (0-40) U/L Alkaline Phosphatase (39-117) U/L Troponin I High Sens (<3.5-35.0) ng/L Total Protein (6.5-8.0) g/dL Albumin (3.5-5.0) g/dL COVID-19 (CRISTHIAN) Negative (Negative) COVID-19 Clin Com See Note 09/19/22 09/19/22 09/19/22 Range/Units 14:39 14:39 14:39 WBC (4.8-10.8) X10*3/uL RBC (4.60-5.80) X10*6/uL Hgb (14.0-18.0) g/dl Hct (42.0-52.0) % MCV (80.0-98.0) fL MCH (27.0-33.0) pg MCHC (31.0-36.0) g/dl RDW (11.0-16.0) % Plt Count (160-400) X10*3/uL MPV (9.4-12.4) fL Immature Gran % (Auto) (0.0-0.4) % Neut % (Auto) (45-73) % Lymph % (Auto) (20-40) % [place] % (Auto) (2-11) % Eos % (Auto) (0-4) % Baso % (Auto) (0-2) % Lymph # (Auto) (1.2-4.9) X10*3/uL [place] # (Auto) (0.1-1.2) X10*3/uL Eos # (Auto) (0.0-0.4) X10*3/uL Baso # (Auto) (0.0-0.2) X10*3/uL Abs Immat Gran (auto) (0.00-0.03) X10*3/uL Absolute Neuts (auto) (2.0-8.3) x10*3/uL Absolute Nucleated RBC (0.0-0.012) X10*3/uL Nucleated RBC % (auto) (0.0-0.2) /100WBC Smear Tech's Comments PT (10.0-13.1) SEC INR (0.9-1.1) VBG pH (7.32-7.43) VBG pCO2 mmHg VBG pO2 mmHg VBG HCO3 (22-26) mmol/L VBG O2 Saturation % VBG Base Excess mmol/L Sodium 142 (135-145) mmol/L Potassium 4.3 D (3.3-5.1) mmol/L Chloride 104 (96-108) mmol/L Carbon Dioxide 27 (22-29) mmol/L Anion Gap 15 (12-20) BUN 15 (9-16) mg/dL Creatinine 0.90 (0.5-1.4) mg/dL Estim Creat Clear Calc 86.0 Estimated GFR > 60 Random Glucose 83 (60-115) mg/dL Lactic Acid 1.4 (0.5-2.0) mmol/L Calcium 10.0 D (8.4-10.2) mg/dL Total Bilirubin 0.9 (0.0-1.0) mg/dL Direct Bilirubin 0.3 (0.0-0.5) mg/dL AST 18 (5-37) U/L ALT 39 (0-40) U/L Alkaline Phosphatase 93 (39-117) U/L Troponin I High Sens 6.1 (<3.5-35.0) ng/L Total Protein 7.5 (6.5-8.0) g/dL Albumin 4.4 (3.5-5.0) g/dL COVID-19 (CRISTHIAN) (Negative) COVID-19 Clin Com 09/19/22 Range/Units 15:45 WBC (4.8-10.8) X10*3/uL RBC (4.60-5.80) X10*6/uL Hgb (14.0-18.0) g/dl Hct (42.0-52.0) % MCV (80.0-98.0) fL MCH (27.0-33.0) pg MCHC (31.0-36.0) g/dl RDW (11.0-16.0) % Plt Count (160-400) X10*3/uL MPV (9.4-12.4) fL Immature Gran % (Auto) (0.0-0.4) % Neut % (Auto) (45-73) % Lymph % (Auto) (20-40) % [place] % (Auto) (2-11) % Eos % (Auto) (0-4) % Baso % (Auto) (0-2) % Lymph # (Auto) (1.2-4.9) X10*3/uL [place] # (Auto) (0.1-1.2) X10*3/uL Eos # (Auto) (0.0-0.4) X10*3/uL Baso # (Auto) (0.0-0.2) X10*3/uL Abs Immat Gran (auto) (0.00-0.03) X10*3/uL Absolute Neuts (auto) (2.0-8.3) x10*3/uL Absolute Nucleated RBC (0.0-0.012) X10*3/uL Nucleated RBC % (auto) (0.0-0.2) /100WBC Smear Tech's Comments PT (10.0-13.1) SEC INR (0.9-1.1) VBG pH 7.47 H (7.32-7.43) VBG pCO2 38 mmHg VBG pO2 48 mmHg VBG HCO3 28 H (22-26) mmol/L VBG O2 Saturation 76.0 % VBG Base Excess 4.3 mmol/L Sodium (135-145) mmol/L Potassium (3.3-5.1) mmol/L Chloride (96-108) mmol/L Carbon Dioxide (22-29) mmol/L Anion Gap (12-20) BUN (9-16) mg/dL Creatinine (0.5-1.4) mg/dL Estim Creat Clear Calc Estimated GFR Random Glucose (60-115) mg/dL Lactic Acid (0.5-2.0) mmol/L Calcium (8.4-10.2) mg/dL Total Bilirubin (0.0-1.0) mg/dL Direct Bilirubin (0.0-0.5) mg/dL AST (5-37) U/L ALT (0-40) U/L Alkaline Phosphatase (39-117) U/L Troponin I High Sens (<3.5-35.0) ng/L Total Protein (6.5-8.0) g/dL Albumin (3.5-5.0) g/dL COVID-19 (CRISTHIAN) (Negative) COVID-19 Clin Com <Day Mcmanus, DISH PERSON - Last Filed: 09/19/22 13:44> Lab Results 09/19/22 09/19/22 09/19/22 Range/Units 14:38 14:39 14:39 WBC 20.3 H (4.8-10.8) X10*3/uL RBC 4.83 (4.60-5.80) X10*6/uL Hgb 14.7 (14.0-18.0) g/dl Hct 43.7 (42.0-52.0) % MCV 90.5 (80.0-98.0) fL MCH 30.4 (27.0-33.0) pg MCHC 33.6 (31.0-36.0) g/dl RDW 12.4 (11.0-16.0) % Plt Count 428 H D (160-400) X10*3/uL MPV 9.0 L (9.4-12.4) fL Immature Gran % (Auto) 0.5 H (0.0-0.4) % Neut % (Auto) 73.0 (45-73) % Lymph % (Auto) 17.0 L (20-40) % [place] % (Auto) 9.2 (2-11) % Eos % (Auto) 0.1 (0-4) % Baso % (Auto) 0.2 (0-2) % Lymph # (Auto) 3.5 (1.2-4.9) X10*3/uL [place] # (Auto) 1.9 H (0.1-1.2) X10*3/uL Eos # (Auto) 0.0 (0.0-0.4) X10*3/uL Baso # (Auto) 0.0 (0.0-0.2) X10*3/uL Abs Immat Gran (auto) 0.10 H (0.00-0.03) X10*3/uL Absolute Neuts (auto) 14.8 H (2.0-8.3) x10*3/uL Absolute Nucleated RBC 0.000 (0.0-0.012) X10*3/uL Nucleated RBC % (auto) 0.0 (0.0-0.2) /100WBC Smear Tech's Comments VERIFIED PT 11.4 (10.0-13.1) SEC INR 1.0 (0.9-1.1) VBG pH (7.32-7.43) VBG pCO2 mmHg VBG pO2 mmHg VBG HCO3 (22-26) mmol/L VBG O2 Saturation % VBG Base Excess mmol/L Sodium (135-145) mmol/L Potassium (3.3-5.1) mmol/L Chloride (96-108) mmol/L Carbon Dioxide (22-29) mmol/L Anion Gap (12-20) BUN (9-16) mg/dL Creatinine (0.5-1.4) mg/dL Estim Creat Clear Calc Estimated GFR Random Glucose (60-115) mg/dL Lactic Acid (0.5-2.0) mmol/L Calcium (8.4-10.2) mg/dL Total Bilirubin (0.0-1.0) mg/dL Direct Bilirubin (0.0-0.5) mg/dL AST (5-37) U/L ALT (0-40) U/L Alkaline Phosphatase (39-117) U/L Troponin I High Sens (<3.5-35.0) ng/L Total Protein (6.5-8.0) g/dL Albumin (3.5-5.0) g/dL COVID-19 (CRISTHIAN) Negative (Negative) COVID-19 Clin Com See Note 09/19/22 09/19/22 09/19/22 Range/Units 14:39 14:39 14:39 WBC (4.8-10.8) X10*3/uL RBC (4.60-5.80) X10*6/uL Hgb (14.0-18.0) g/dl Hct (42.0-52.0) % MCV (80.0-98.0) fL MCH (27.0-33.0) pg MCHC (31.0-36.0) g/dl RDW (11.0-16.0) % Plt Count (160-400) X10*3/uL MPV (9.4-12.4) fL Immature Gran % (Auto) (0.0-0.4) % Neut % (Auto) (45-73) % Lymph % (Auto) (20-40) % [place] % (Auto) (2-11) % Eos % (Auto) (0-4) % Baso % (Auto) (0-2) % Lymph # (Auto) (1.2-4.9) X10*3/uL [place] # (Auto) (0.1-1.2) X10*3/uL Eos # (Auto) (0.0-0.4) X10*3/uL Baso # (Auto) (0.0-0.2) X10*3/uL Abs Immat Gran (auto) (0.00-0.03) X10*3/uL Absolute Neuts (auto) (2.0-8.3) x10*3/uL Absolute Nucleated RBC (0.0-0.012) X10*3/uL Nucleated RBC % (auto) (0.0-0.2) /100WBC Smear Tech's Comments PT (10.0-13.1) SEC INR (0.9-1.1) VBG pH (7.32-7.43) VBG pCO2 mmHg VBG pO2 mmHg VBG HCO3 (22-26) mmol/L VBG O2 Saturation % VBG Base Excess mmol/L Sodium 142 (135-145) mmol/L Potassium 4.3 D (3.3-5.1) mmol/L Chloride 104 (96-108) mmol/L Carbon Dioxide 27 (22-29) mmol/L Anion Gap 15 (12-20) BUN 15 (9-16) mg/dL Creatinine 0.90 (0.5-1.4) mg/dL Estim Creat Clear Calc 86.0 Estimated GFR > 60 Random Glucose 83 (60-115) mg/dL Lactic Acid 1.4 (0.5-2.0) mmol/L Calcium 10.0 D (8.4-10.2) mg/dL Total Bilirubin 0.9 (0.0-1.0) mg/dL Direct Bilirubin 0.3 (0.0-0.5) mg/dL AST 18 (5-37) U/L ALT 39 (0-40) U/L Alkaline Phosphatase 93 (39-117) U/L Troponin I High Sens 6.1 (<3.5-35.0) ng/L Total Protein 7.5 (6.5-8.0) g/dL Albumin 4.4 (3.5-5.0) g/dL COVID-19 (CRISTHIAN) (Negative) COVID-19 Clin Com 09/19/22 Range/Units 15:45 WBC (4.8-10.8) X10*3/uL RBC (4.60-5.80) X10*6/uL Hgb (14.0-18.0) g/dl Hct (42.0-52.0) % MCV (80.0-98.0) fL MCH (27.0-33.0) pg MCHC (31.0-36.0) g/dl RDW (11.0-16.0) % Plt Count (160-400) X10*3/uL MPV (9.4-12.4) fL Immature Gran % (Auto) (0.0-0.4) % Neut % (Auto) (45-73) % Lymph % (Auto) (20-40) % [place] % (Auto) (2-11) % Eos % (Auto) (0-4) % Baso % (Auto) (0-2) % Lymph # (Auto) (1.2-4.9) X10*3/uL [place] # (Auto) (0.1-1.2) X10*3/uL Eos # (Auto) (0.0-0.4) X10*3/uL Baso # (Auto) (0.0-0.2) X10*3/uL Abs Immat Gran (auto) (0.00-0.03) X10*3/uL Absolute Neuts (auto) (2.0-8.3) x10*3/uL Absolute Nucleated RBC (0.0-0.012) X10*3/uL Nucleated RBC % (auto) (0.0-0.2) /100WBC Smear Tech's Comments PT (10.0-13.1) SEC INR (0.9-1.1) VBG pH 7.47 H (7.32-7.43) VBG pCO2 38 mmHg VBG pO2 48 mmHg VBG HCO3 28 H (22-26) mmol/L VBG O2 Saturation 76.0 % VBG Base Excess 4.3 mmol/L Sodium (135-145) mmol/L Potassium (3.3-5.1) mmol/L Chloride (96-108) mmol/L Carbon Dioxide (22-29) mmol/L Anion Gap (12-20) BUN (9-16) mg/dL Creatinine (0.5-1.4) mg/dL Estim Creat Clear Calc Estimated GFR Random Glucose (60-115) mg/dL Lactic Acid (0.5-2.0) mmol/L Calcium (8.4-10.2) mg/dL Total Bilirubin (0.0-1.0) mg/dL Direct Bilirubin (0.0-0.5) mg/dL AST (5-37) U/L ALT (0-40) U/L Alkaline Phosphatase (39-117) U/L Troponin I High Sens (<3.5-35.0) ng/L Total Protein (6.5-8.0) g/dL Albumin (3.5-5.0) g/dL COVID-19 (CRISTHIAN) (Negative) COVID-19 Clin Com <RANULFO Gold - Last Filed: 09/19/22 17:46> Imaging Data Chest x-ray: Attestation: I personally reviewed and interpreted this imaging study as follows: <RANULFO Gold - Last Filed: 09/19/22 17:46> My impression: No acute process. <RANULFO Gold - Last Filed: 09/19/22 17:46> Radiologist's impression: EXAMINATION: XR CHEST CLINICAL INFORMATION: Shortness of breath COMPARISON: None TECHNIQUE: 2 views of the chest were obtained. FINDINGS: No significant abnormality is noted involving the heart, lungs, mediastinum, bony thorax or soft tissues. XR/XR chest 2V IMPRESSION: Unremarkable chest examination. Dictated By: Freddy Granados MD Signed By: Electronically signed by Freddy Granados MD 09/19/22 3222 <RANULFO Gold - Last Filed: 09/19/22 17:46> ECG Data Attestation: I personally reviewed and interpreted this ECG as follows: <RANULFO Gold - Last Filed: 09/19/22 17:46> ECG interpretation date: 09/19/22 <RANULFO Gold - Last Filed: 09/19/22 17:46> ECG interpretation time: 14:26 <RANULFO Gold - Last Filed: 09/19/22 17:46> Prior ECG tracings: available for review <RANULFO Gold - Last Filed: 09/19/22 17:46> Interpretation: Vent. Rate: 098 BPM ? ? Atrial Rate: 098 BPM P-R Int: 082 ms? QRS Dur: 082 ms QT Int: 354 ms ? ? ? P-R-T Axes: 090 044 061 degrees QTc Int: 451 ms ? Sinus rhythm with short SD with Premature supraventricular complexes Nonspecific ST and T wave abnormality Abnormal ECG When compared with ECG of 13-SEP-2022 13:37, Premature supraventricular complexes are now Present Nonspecific T wave abnormality now evident in Inferior leads DD/ 1422 <RANULFO Gold - Last Filed: 09/19/22 17:46> Critical Care Time Critical Care Time Critical Care Time: Yes <RANULFO Gold - Last Filed: 09/19/22 17:46> Total Critical Care Time: 30 <RANULFO Gold - Last Filed: 09/19/22 17:46> Attestation: I spent 30 minutes of Critical Care Time with this patient. This does not include time spent on separately reported billable procedures. <RANULFO Gold - Last Filed: 09/19/22 17:46> Discharge Plan Discharge Clinical Impression: Hipolito's chorea, Status asthmaticus, Influenza <Day Mcmanus CNP - Last Filed: 09/19/22 13:44> Patient Disposition: Admitted As Inpatient <Day Mcmanus CNP - Last Filed: 09/19/22 13:44>
--- NOTE | 2022-09-19 14:13 | ECG_ITS ---
Test Reason : SOB Blood Pressure : / mmHG Vent. Rate : 098 BPM Atrial Rate : 098 BPM P-R Int : 082 ms QRS Dur : 082 ms QT Int : 354 ms P-R-T Axes : 090 044 061 degrees QTc Int : 451 ms Poor data quality Sinus rhythm with short SD with Premature supraventricular complexes Nonspecific ST and T wave abnormality Abnormal ECG When compared with ECG of 13-SEP-2022 13:37, Premature supraventricular complexes are now Present Heart rate has increased Referred By: Tita Moon Electronically Signed By:GUANAKITO AUGUST MD
[2022-09-19] MEDS: Albuterol Sulfate 5 MG, Albuterol Sulfate (0.083%) 2.5 MG 7.5 MG INHALE (14:27)
[2022-09-19] MEDS: Albuterol/Iprat 2.5/0.5MG 3 ML AMPUL.NEB INHALE ×3 (14:27→23:09)
[2022-09-19 14:51] LABS: Basophils Percent Auto 0.2 % (0-2); Eosinophils Percent Auto 0.1 % (0-4); Hematocrit 43.7 % (42.0-52.0); Hemoglobin 14.7 g/dl (14.0-18.0); Imm Gran Pct Auto 0.5 % (0.0-0.4); Lymphocytes Absolute Auto 3.5 X10*3/uL (1.2-4.9); MANUAL DIFF FLAG SCAN; Mean Corpuscular HGB Conc 33.6 g/dl (31.0-36.0); Mean Corpuscular Hemoglobin 30.4 pg (27.0-33.0); Mean Corpuscular Volume 90.5 fL (80.0-98.0); Monocytes Absolute Auto 1.9 X10*3/uL (0.1-1.2); Monocytes Percent Auto 9.2 % (2-11); Neutrophils Absolute Auto 14.8 x10*3/uL (2.0-8.3); Platelet Count 428 X10*3/uL (160-400); Red Blood Count 4.83 X10*6/uL (4.60-5.80); Red Cell Distribution Width 12.4 % (11.0-16.0); SCAN SMEAR FLAG 1; White Blood Count 20.3 X10*3/uL (4.8-10.8)
[2022-09-19] MEDS: methylPREDNISolone Sod Succ 125 MG/2 ML VIAL IVPUSH (14:51)
[2022-09-19] MEDS: fentaNYL citrate/PF 100 MCG/2 ML VIAL 50 MCG IVPUSH (14:51)
[2022-09-19] MEDS: ondansetron HCL 4 MG/2 ML VIAL IVPUSH (14:51)
[2022-09-19 14:54] LABS: Prothrombin Time 11.4 SEC (10.0-13.1)
[2022-09-19 15:02] LABS: Lactic Acid 1.4 mmol/L (0.5-2.0)
[2022-09-19 15:02] LABS: COVID-19 Test Negative (Negative); IDNOW Serial# 9DB6401D
[2022-09-19 15:09] LABS: SLIDE REVIEW VERIFIED
[2022-09-19 15:10] LABS: Alanine Aminotransferase 39 U/L (0-40); Albumin Level 4.4 g/dL (3.5-5.0); Alkaline Phosphatase 93 U/L (39-117); Anion Gap 15 (12-20); Aspartate Amino Transferase 18 U/L (5-37); Bilirubin Direct 0.3 mg/dL (0.0-0.5); Bilirubin Total 0.9 mg/dL (0.0-1.0); Blood Urea Nitrogen 15 mg/dL (9-16); Carbon Dioxide 27 mmol/L (22-29); Chloride 104 mmol/L (96-108); Estimated Glomerular Filt Rate > 60; Glucose Random 83 mg/dL (60-115); Potassium 4.3 mmol/L (3.3-5.1); Sodium 142 mmol/L (135-145); Total Protein 7.5 g/dL (6.5-8.0)
[2022-09-19 15:13] LABS: Troponin-I High Sensitivity 6.1 ng/L (<3.5-35.0)
[2022-09-19] MEDS: diphenhydrAMINE HCL 50 MG/ML VIAL 25 MG IVPUSH (15:30)
--- NOTE | 2022-09-19 16:07 | PM.CCHP ---
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 and and interestingly when I 1st saw him I thought that they had wrong we interpreted some of the chest wall motion as respiratory extremis but this was not really prolonged diaphragmatic effort as much as it was a is sort of it and dyskinetic or choreiform movement involving his chest wall as well as his diaphragm and in the note the is head motion back and forth no and some of the peripheral twitching initial he also made me think that the genome may be and dyskinesis on the basis of antipsychotic toxicity and he is apparently on Seroquel 300 and trazodone 150 mg so I gave him 25 mg of Benadryl of course to no avail because this is all his choreiform movement so 80s on BiPAP he is subjectively better for with is with somewhat less tachypnea than he had before and since introducing the the the PEEP it seems that he is improving to a degree and he has already gotten albuterol at least 2 rounds of high-dose which I think has been helpful in his chest x-ray really does not demonstrate anything specific certainly not any infiltrates and no evidence of barotrauma but because of the chest asymmetry I am going to get a dry CT scan of his chest to make sure not missing a pneumothorax Bedside echo from subxiphoid view which was difficult shows preserved LV and RV function no segmental wall motion abnormality no primary valve or pericardial disease and his inferior vena cava is flat He was very specific that he really barely drinks at all certainly nothing that would precipitated withdrawal issue and he has no other stigmata of withdrawal Had he has no clonus he has no significant rigidity Review of Systems Review of Systems: Yes all other systems are reviewed and are negative [facility] Past Medical History Medical History (Updated 09/19/22 @ 16:12 by Cynthia Alex MD) Reagan's chorea Meds Allergies Allergy/AdvReac Type Severity Reaction Status Date / Time No Known Allergies Allergy Verified 09/19/22 13:43 [No Known Allergies*] Active Medications: Current Medications Albuterol/Ipratropium (Albuterol/Iprat 2.5/0.5mg 3 Ml Ampul.Neb) 3 ml INHALE RQ4H CHAZ Dextrose/Lactated Ringer's (D5lr) 1,000 mls @ 100 mls/hr IVCONT .Q10H CHAZ Physical Exam Vital Signs: Vital Signs: Last Vital Signs Temp 96.3 F L 09/19/22 13:36 Pulse 94 09/19/22 14:47 Resp 33 H 09/19/22 15:16 BP 172/87 H 09/19/22 14:47 Pulse Ox 97 09/19/22 14:47 O2 Del Method 09/19/22 14:47 BMI result Body Mass Index 29.2 His mental status is fine he is awake alert and appropriate but his choreiform movement is severe Cardiac exam by bedside echo is normal as I described including his EKG Chest very difficult to examine but no accessory muscle use and no excessive diaphragmatic effort Abdomen soft with no organomegaly Skin peripheral E no livedo no acrocyanosis no edema Results Labs CBC and Chem 7: 09/19/22 14:39 09/19/22 14:39 Labs: Laboratory Results - last 24 hr 09/19/22 09/19/22 09/19/22 14:38 14:39 14:39 MCV 90.5 MCH 30.4 MCHC 33.6 RDW 12.4 Plt Count 428 H D MPV 9.0 L Immature Gran % (Auto) 0.5 H Neut % (Auto) 73.0 Lymph % (Auto) 17.0 L [place] % (Auto) 9.2 Eos % (Auto) 0.1 Baso % (Auto) 0.2 Lymph # (Auto) 3.5 [place] # (Auto) 1.9 H Eos # (Auto) 0.0 Baso # (Auto) 0.0 Abs Immat Gran (auto) 0.10 H Absolute Neuts (auto) 14.8 H Absolute Nucleated RBC 0.000 Nucleated RBC % (auto) 0.0 Smear Tech's Comments VERIFIED PT 11.4 INR 1.0 Anion Gap Estim Creat Clear Calc Estimated GFR Random Glucose Lactic Acid Calcium Total Bilirubin Direct Bilirubin AST ALT Alkaline Phosphatase Troponin I High Sens Total Protein Albumin COVID-19 (CRISTHIAN) Negative COVID-19 Clin Com See Note 09/19/22 09/19/22 09/19/22 14:39 14:39 14:39 MCV MCH MCHC RDW Plt Count MPV Immature Gran % (Auto) Neut % (Auto) Lymph % (Auto) [place] % (Auto) Eos % (Auto) Baso % (Auto) Lymph # (Auto) [place] # (Auto) Eos # (Auto) Baso # (Auto) Abs Immat Gran (auto) Absolute Neuts (auto) Absolute Nucleated RBC Nucleated RBC % (auto) Smear Tech's Comments PT INR Anion Gap 15 Estim Creat Clear Calc 86.0 Estimated GFR > 60 Random Glucose 83 Lactic Acid 1.4 Calcium 10.0 D Total Bilirubin 0.9 Direct Bilirubin 0.3 AST 18 ALT 39 Alkaline Phosphatase 93 Troponin I High Sens 6.1 Total Protein 7.5 Albumin 4.4 COVID-19 (CRISTHIAN) COVID-19 Clin Com Imaging Radiologist's Impressions: Impressions Chest X-Ray 09/19/22 13:55 IMPRESSION: Unremarkable chest examination. Assessment and Plan (1) Status asthmaticus: Status: Acute (2) Influenza: Status: Acute (3) Reagan's chorea: Status: Acute Plan Difficult to interpret but on going to wait for his blood gas and his CT scan of his chest to be sure were not missing barotrauma and maintain him on BiPAP support along with aggressive bronchodilator therapy
[2022-09-19 16:13] LABS: VBG Base Excess 4.3 mmol/L; VBG HCO3 28 mmol/L (22-26); VBG pCO2 38 mmHg; VBG pH 7.47 (7.32-7.43); VBG pO2 48 mmHg
[2022-09-19 16:15] LABS: Venous Blood Gas Refer to POC result
--- NOTE | 2022-09-19 16:33 | PC.NURSE ---
Patient away for CT scan. Placed on nasal cannula (2 LPM), as instructed by respiratory therapist. Oxygenation remains stable at 98% at this time on nasal cannula. account liaison (Alise Jimenes) also aware of instructions by RT.
[2022-09-19 16:47] LABS: Amphetamine Screen Urine Not Detected (Not Detect); Barbiturates, Urine Not Detected (Not Detect); Benzodiazepines Screen Urine Not Detected (Not Detect); Cannabinoid Screen Urine POSITIVE (Not Detect); Cocaine Screen Urine Not Detected (Not Detect); Fentanyl, urine POSITIVE (Not Detect); Opiate Screen Urine Not Detected (Not Detect); Phencyclidine Screen Urine Not Detected (Not Detect)
[2022-09-19] MEDS: Dextrose 5 % and Lactated Ring 1,000 ML 100 ML IVCONT (17:11)
--- NOTE | 2022-09-19 17:52 | PHA.MEDREC ---
Pharmacy Consult ? Medication Reconciliation Pharmacy has completed the medication reconciliation. Spoke with patient via interpreter for the deaf. Patient states he recently moved from [place] to [place] and is visiting his son here in [place]. He was able to tell me the meds and strenghts of trazodone, seroquel and clonazepam but says he has not taken them in a while because the refills ran out. He could not tell me doctors who prescribed these medications or pharmacies he has used. He said he takes about 5 medications but could not remember all of the names. He said he was in the hospital in [place] and they prescribed him a Psychiatrist but never followed up.
[2022-09-19] MEDS: Acetaminophen 325 MG TABLET 650 MG PO (20:22)
[2022-09-19] MEDS: Famotidine/PF 20 MG/2 ML VIAL IVPUSH (21:09)
[2022-09-20] VITALS (21 sets, daily range): BP systolic 109–157; BP diastolic 47–111; PULSE 55–102; RESP 10–30; TEMP 36.4–37; O2SAT 90–98; BMI 30.3
[2022-09-20] MEDS: Dextrose 5 % and Lactated Ring 1,000 ML 100 ML IVCONT ×2 (04:10→13:46)
--- NOTE | 2022-09-20 05:15 | PC.NURSE ---
ASSUMED CARE OF PT AT 1900. PT ALERT AND ORIENTED TO SITUATION AND PERSON, VAGUE TO PLACE BUT KNEW HE WAS IN A HOSPITAL IN [place], VAGUE TO TIME. PT IN NO ACUTE DISTRESS. LUNGS WITH SCATTERED RHONCHI AND WHEEZING. INTERMITTENT NON PRODUCTIVE COUGH NOTED. RESPIRATIONS EASY AND REGULAR. UDN GIVEN BY RESP THERAPY. BIPAP APPLIED AT APPROX 2230 AND PT ABLE TO TOLERATE THE MASK ALL NIGHT. NO NAUSEA. PT C/O ACID REFLUX AND RECEIVED PEPCID IV. NO NAUSEA NOTED. HOB UP 30-40DEGREES. O2 SAT 97-98% ON O2 OF 24% WHILE ON BIPAP. PT STOOD AT SIDE OF BED TO VOID WITH 1 ASSIST. VOIDING 200-250 ML AT A TIME. D5LR INFUSING AT 100 ML/HR.
[2022-09-20 05:25] LABS: MANUAL DIFF FLAG NO
[2022-09-20 05:26] LABS: VBG Base Excess 8.8 mmol/L; VBG HCO3 35 mmol/L (22-26); VBG pCO2 59 mmHg; VBG pH 7.38 (7.32-7.43); VBG pO2 30 mmHg
[2022-09-20 05:31] LABS: Venous Blood Gas Refer to POC result
[2022-09-20] MEDS: Albuterol/Iprat 2.5/0.5MG 3 ML AMPUL.NEB INHALE ×5 (05:33→23:14)
[2022-09-20 05:41] LABS: Basophils Percent Auto 0.1 % (0-2); Hematocrit 36.3 % (42.0-52.0); Hemoglobin 12.2 g/dl (14.0-18.0); Imm Gran Abs Auto 0.09 X10*3/uL (0.00-0.03); Imm Gran Pct Auto 0.6 % (0.0-0.4); Lymphocytes Absolute Auto 1.5 X10*3/uL (1.2-4.9); Lymphocytes Percent Auto 9.5 % (20-40); Mean Corpuscular HGB Conc 33.6 g/dl (31.0-36.0); Mean Corpuscular Hemoglobin 30.8 pg (27.0-33.0); Mean Corpuscular Volume 91.7 fL (80.0-98.0); Mean Platelet Volume 9.2 fL (9.4-12.4); Monocytes Absolute Auto 0.9 X10*3/uL (0.1-1.2); Monocytes Percent Auto 5.6 % (2-11); Neutrophils Percent Auto 84.2 % (45-73); Platelet Count 352 X10*3/uL (160-400); Red Blood Count 3.96 X10*6/uL (4.60-5.80); Red Cell Distribution Width 12.5 % (11.0-16.0); White Blood Count 15.4 X10*3/uL (4.8-10.8)
[2022-09-20 05:47] LABS: Anion Gap 14 (12-20); Blood Urea Nitrogen 19 mg/dL (9-16); Calcium 9.3 mg/dL (8.4-10.2); Carbon Dioxide 26 mmol/L (22-29); Chloride 105 mmol/L (96-108); Creatinine Clr Calc Pharmacy 95.5; Estimated Glomerular Filt Rate > 60; Glucose Random 134 mg/dL (60-115); Phosphorus 3.4 mg/dL (2.7-4.5); Potassium 4.3 mmol/L (3.3-5.1); Sodium 141 mmol/L (135-145)
[2022-09-20] MEDS: Magnesium Hydrox/Alum Hydrox 30 ML ORAL.SUSP 15 ML PO (06:21)
--- NOTE | 2022-09-20 07:19 | PM.CCPN ---
Subjective Subjective Date of Service: 09/20/22 Interval History: He is 52-year-old with a background history of [place]'s chorea came to the ER because of dyspnea and 6 days earlier presented with influenza and has been treated with Tamiflu him on ice arm he looks severely dystonic a lot of movements that resembled torticollis and I thought there was some unusual movements of his chest wall and and his diaphragm as well as both upper extremities almost a pill rolling effect on the right side similar to a parkinsonism in and when I had the american sign language interpreter there an estimate about medication history he apparently is on Seroquel antipsychotic and he is on trazodone at 150 mg and clonazepam 0 mg t.i.d. and i.e. because of these movement disorder in sister also 1 a toxicology screen and a came up positive for fentanyl and he flatly denied a drinking history There was some degree of tachypnea but I think this combination of movement disorder looked to the ER people like respiratory effort and a really was not a concerted diaphragmatic effort in 0 4 prolonged expiratory time I really think that this was all done dyskinesia and I gave him IV Benadryl and kept him on the support of the of the BiPAP her just a modest inspiratory pressure of 10 but more importantly the peep was the was the benefit and he got some high-dose treatments of nebulized albuterol and that movement disorder disappeared so in retrospect it was not choreiform movement but rather it was a tardive dyskinesia and I believe his anti psychotic was the issue so he has been off the trazodone and the Seroquel and clearly looks much better he subjectively much improved so personally I would keep him off the antipsychotic even though he is actually asking for this medication He did not have significant rigidity he did not have clonus or anything that would make me worry about a serotonin syndrome but I did restore a smaller dose of clonazepam at 0.5 mg t.i.d. Critical Care Time (minutes): 40 Physical Exam Vital Signs: Vital Signs: Last Vital Signs Temp 98.6 F 09/20/22 01:59 Pulse 80 09/20/22 07:00 Resp 14 09/20/22 07:00 BP 118/78 09/20/22 07:00 Pulse Ox 96 09/20/22 07:00 O2 Del Method 09/20/22 06:00 O2 Flow Rate 2 09/19/22 22:00 FiO2 24 09/20/22 06:00 BMI result Body Mass Index 30.3 Vital signs are stable his O2 sat is excellent and he is awake alert nonfocal and just some residual upper extremity choreiform movement but he definitely does not have much of that dyskinesia He no longer has the appearance of respiratory effort No active wheeze and this is of course off the BiPAP Bedside echo with normal LV and RV function and no primary valve or pericardial disease Skin intact with no edema Objective Data Labs CBC & Chem 7: 09/20/22 05:13 09/20/22 05:13 Labs: Laboratory Results - last 24 hr 09/19/22 09/19/22 09/19/22 14:38 14:39 14:39 WBC 20.3 H RBC 4.83 Hgb 14.7 Hct 43.7 MCV 90.5 MCH 30.4 MCHC 33.6 RDW 12.4 Plt Count 428 H D MPV 9.0 L Immature Gran % (Auto) 0.5 H Neut % (Auto) 73.0 Lymph % (Auto) 17.0 L [place] % (Auto) 9.2 Eos % (Auto) 0.1 Baso % (Auto) 0.2 Lymph # (Auto) 3.5 [place] # (Auto) 1.9 H Eos # (Auto) 0.0 Baso # (Auto) 0.0 Abs Immat Gran (auto) 0.10 H Absolute Neuts (auto) 14.8 H Absolute Nucleated RBC 0.000 Nucleated RBC % (auto) 0.0 Smear Tech's Comments VERIFIED PT 11.4 INR 1.0 VBG pH VBG pCO2 VBG pO2 VBG HCO3 VBG O2 Saturation VBG Base Excess Sodium Potassium Chloride Carbon Dioxide Anion Gap BUN Creatinine Estim Creat Clear Calc Estimated GFR Random Glucose Lactic Acid Calcium Phosphorus Magnesium Total Bilirubin Direct Bilirubin AST ALT Alkaline Phosphatase Troponin I High Sens Total Protein Albumin Urine Opiates Screen Urine Fentanyl Screen Ur Barbiturates Screen Ur Phencyclidine Scrn Ur Amphetamines Screen U Benzodiazepines Scrn Urine Cocaine Screen U Marijuana (THC) Screen COVID-19 (CRISTHIAN) Negative COVID-19 Clin Com See Note 09/19/22 09/19/22 09/19/22 14:39 14:39 14:39 WBC RBC Hgb Hct MCV MCH MCHC RDW Plt Count MPV Immature Gran % (Auto) Neut % (Auto) Lymph % (Auto) [place] % (Auto) Eos % (Auto) Baso % (Auto) Lymph # (Auto) [place] # (Auto) Eos # (Auto) Baso # (Auto) Abs Immat Gran (auto) Absolute Neuts (auto) Absolute Nucleated RBC Nucleated RBC % (auto) Smear Tech's Comments PT INR VBG pH VBG pCO2 VBG pO2 VBG HCO3 VBG O2 Saturation VBG Base Excess Sodium 142 Potassium 4.3 D Chloride 104 Carbon Dioxide 27 Anion Gap 15 BUN 15 Creatinine 0.90 Estim Creat Clear Calc 86.0 Estimated GFR > 60 Random Glucose 83 Lactic Acid 1.4 Calcium 10.0 D Phosphorus Magnesium Total Bilirubin 0.9 Direct Bilirubin 0.3 AST 18 ALT 39 Alkaline Phosphatase 93 Troponin I High Sens 6.1 Total Protein 7.5 Albumin 4.4 Urine Opiates Screen Urine Fentanyl Screen Ur Barbiturates Screen Ur Phencyclidine Scrn Ur Amphetamines Screen U Benzodiazepines Scrn Urine Cocaine Screen U Marijuana (THC) Screen COVID-19 (CRISTHIAN) COVID-19 Clin Com 09/19/22 09/19/22 09/20/22 15:45 16:19 05:13 WBC 15.4 H RBC 3.96 L Hgb 12.2 L Hct 36.3 L MCV 91.7 MCH 30.8 MCHC 33.6 RDW 12.5 Plt Count 352 MPV 9.2 L Immature Gran % (Auto) 0.6 H Neut % (Auto) 84.2 H Lymph % (Auto) 9.5 L [place] % (Auto) 5.6 Eos % (Auto) 0.0 Baso % (Auto) 0.1 Lymph # (Auto) 1.5 [place] # (Auto) 0.9 Eos # (Auto) 0.0 Baso # (Auto) 0.0 Abs Immat Gran (auto) 0.09 H Absolute Neuts (auto) 13.0 H Absolute Nucleated RBC 0.000 Nucleated RBC % (auto) 0.0 Smear Tech's Comments PT INR VBG pH 7.47 H VBG pCO2 38 VBG pO2 48 VBG HCO3 28 H VBG O2 Saturation 76.0 VBG Base Excess 4.3 Sodium Potassium Chloride Carbon Dioxide Anion Gap BUN Creatinine Estim Creat Clear Calc Estimated GFR Random Glucose Lactic Acid Calcium Phosphorus Magnesium Total Bilirubin Direct Bilirubin AST ALT Alkaline Phosphatase Troponin I High Sens Total Protein Albumin Urine Opiates Screen Not Detected Urine Fentanyl Screen POSITIVE H Ur Barbiturates Screen Not Detected Ur Phencyclidine Scrn Not Detected Ur Amphetamines Screen Not Detected U Benzodiazepines Scrn Not Detected Urine Cocaine Screen Not Detected U Marijuana (THC) Screen POSITIVE H COVID-19 (CRISTHIAN) COVID-19 Clin Com 09/20/22 09/20/22 05:13 05:20 WBC RBC Hgb Hct MCV MCH MCHC RDW Plt Count MPV Immature Gran % (Auto) Neut % (Auto) Lymph % (Auto) [place] % (Auto) Eos % (Auto) Baso % (Auto) Lymph # (Auto) [place] # (Auto) Eos # (Auto) Baso # (Auto) Abs Immat Gran (auto) Absolute Neuts (auto) Absolute Nucleated RBC Nucleated RBC % (auto) Smear Tech's Comments PT INR VBG pH 7.38 VBG pCO2 59 VBG pO2 30 VBG HCO3 35 H VBG O2 Saturation 42.0 VBG Base Excess 8.8 Sodium 141 Potassium 4.3 Chloride 105 Carbon Dioxide 26 Anion Gap 14 BUN 19 H Creatinine 0.81 Estim Creat Clear Calc 95.5 Estimated GFR > 60 Random Glucose 134 H Lactic Acid Calcium 9.3 D Phosphorus 3.4 Magnesium 2.0 Total Bilirubin Direct Bilirubin AST ALT Alkaline Phosphatase Troponin I High Sens Total Protein Albumin Urine Opiates Screen Urine Fentanyl Screen Ur Barbiturates Screen Ur Phencyclidine Scrn Ur Amphetamines Screen U Benzodiazepines Scrn Urine Cocaine Screen U Marijuana (THC) Screen COVID-19 ([facility]AN) COVID-19 Clin Com Progress Note: A&P Assessment and plan (1) Raymond's chorea: Status: Acute (2) Influenza: Status: Acute (3) Status asthmaticus: Status: Acute (4) Neuroleptic-induced tardive dyskinesia: Status: Acute Plan So I would keep him off the antipsychotic or if he requires 1 I certainly would look to switch to a product that has less incidence of dyskinesia and I think upon reintroducing trazodone I would probably start a lower dose Quality Stroke Does the patient have a stroke diagnosis?: No VTE Prior VTE?: No VTE Risk Level:: Medical - low VTE Device Contraindication: N/A - Device Ordered VTE Drug Contraindication: Treatment Not Indicated
[2022-09-20 07:44] LABS: Venous Blood Gas Refer to POC result
[2022-09-20 07:45] LABS: VBG Base Excess 1.7 mmol/L; VBG HCO3 26 mmol/L (22-26); VBG pCO2 41 mmHg; VBG pH 7.41 (7.32-7.43); VBG pO2 42 mmHg
[2022-09-20] MEDS: clonazePAM 0.5 MG TABLET PO ×3 (08:23→20:55)
--- NOTE | 2022-09-20 08:23 | P.EN_ITS ---
Event Note Date of Service: 09/20/22 Event Note: Discussed with Abi associate genetics professor. Patient admitted with severe dyskinesia likely secondary to Seroquel symptoms relieved with Benadryl. Patient much better at this point. Will consult psychiatry for medication adjustments, will hold off on restarting Seroquel at this time pending recommendation from Psychiatry team.
[2022-09-20] MEDS: Ketorolac Tromethamine 15 MG/ML VIAL IVPUSH ×2 (09:30→21:40)
--- NOTE | 2022-09-20 12:05 | P.CNPS_ITS ---
History of Present Illness Date of Service: 09/21/2022 Chief Complaint: status asthmaticus Reason for Consult: dyskinesia Requesting physician: Cyndee Sykes Discussed with referring provider: Yes Sources of Information: patient interviewed, chart reviewed and crisis/core team assessment reviewed HPI Narrative: Mr. 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 Alex, with whom I spoke directly, described to me that neck was also twisted to side. Pt was given benadryl and symptoms subside. Based on this description and fact that it responded to benadryl makes me suspect pt had dystonic episode not dyskinesia. Then the question becomes whether episode of dystonia is related to antipsychotic use or Charlotte's disease. Today, pt lying in bed. Noticeable roll pin tremor more prominent on left hand but seen on both hands- s/s of parkinsonism. Pt reports seroquel was prescribed for auditory hallucinations with good effect. He also notes that seroquel decrease chorea. He reports problems swallowing. He reports history of suicidal ideation and attempts but denies any SI now. He reports he is here to visit his son but may plan to move here for good. 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 It is noted that he has difficulty remembering some of the history. Medical Evaluation Reviewed: Yes [facility] Medical History (Updated 09/20/22 @ 08:04 by Cynthia Alex MD) Hipolito's chorea Diagnostics Vital Signs (24Hr): Vital Signs - 24 hr 09/21/22 08:20 09/21/22 08:20 09/21/22 11:31 Temperature 99.1 F Pulse Rate 80 95 Respiratory Rate 18 18 18 Blood Pressure 166/89 H Pulse Oximetry 96 Oxygen Delivery Method Room Air 09/21/22 11:38 09/21/22 15:21 09/21/22 15:49 Temperature 98.0 F Pulse Rate 100 89 91 Respiratory Rate 18 18 17 Blood Pressure 137/81 Pulse Oximetry 94 Oxygen Delivery Method Room Air 09/21/22 19:42 09/21/22 19:50 09/22/22 00:00 Temperature 97.8 F 98.4 F Pulse Rate 98 98 78 Respiratory Rate 17 17 17 Blood Pressure 154/76 H Pulse Oximetry 94 94 Oxygen Delivery Method Room Air Room Air 09/22/22 03:38 09/22/22 04:25 09/22/22 07:46 Temperature 97.0 F Pulse Rate 69 69 104 H Respiratory Rate 18 18 18 Blood Pressure 142/86 H Pulse Oximetry 97 Oxygen Delivery Method Room Air BMI result Body Mass Index 30.4 Labs Results: 09/20/22 05:13 09/22/22 06:01 Labs: Laboratory Results - last 48 hr 09/22/22 06:01 Sodium 139 Potassium 4.3 Chloride 103 Carbon Dioxide 26 Anion Gap 14 BUN 16 Creatinine 0.78 Estim Creat Clear Calc 101.2 Estimated GFR > 60 Random Glucose 141 H Calcium 9.3 Imaging Radiology Impressions: ITS Impressions Chest X-Ray 09/19/22 13:55 IMPRESSION: Unremarkable chest examination. Chest CT 09/19/22 16:48 IMPRESSION: 1. Some nxdy-mg-wup-type abnormalities in the left lower lobe consistent with inflammatory disease. 2. Tiny 2 mm right lower lobe nodule. 3. Incidental note made of contracted gallbladder with either gallstones or gallbladder wall calcification, unchanged. 4. Mild degenerative changes in the spine with mild compression deformities of the superior endplate of T4 and T5. Fleischner guidelines were followed. Mental Status Exam Mental Status Exam Narrative: Appearance: lying in bed, wearing hospital gown, roll pin tremor on both hands more noticeable on left. Behavior: cooperative TP: mostly linear TC: no signs of psychosis, feeling better now that he can breath better Mood: good Affect: congruent SI: none HI: none Insight/judgment: none Memory/cog: alert, oriented x 3 but do suspect underlynig cognitive impairments s/s to hipolito's and pt struggling to recall some of history of his disease. Medications Medications Current Medications Albuterol/Ipratropium (Albuterol/Iprat 2.5/0.5mg 3 Ml Ampul.Neb) 3 ml INHALE RQ4H [facility] Last Admin: 09/22/22 07:45 Dose: 3 ml Baclofen (Baclofen 10 Mg Tablet) 10 mg PO TID [facility] Last Admin: 09/21/22 20:48 Dose: 10 mg Benzocaine (Throat Lozenge, Medicated Lozenge) 1 lozenge MUCOUS MEM Q2H PRN PRN Reason: Sore Throat Last Admin: 09/21/22 15:03 Dose: 1 lozenge Clonazepam (Clonazepam 0.5 Mg Tablet) 0.5 mg PO TID [facility] Last Admin: 09/21/22 20:48 Dose: 0.5 mg Enoxaparin Sodium (Enoxaparin Sodium 40 Mg/0.4 Ml Syringe) 40 mg SUBCUT Q24H [facility] Last Admin: 09/21/22 15:04 Dose: 40 mg Guaifenesin (Guaifenesin 100 Mg/5 Ml Liquid) 5 ml PO Q6H PRN PRN Reason: cough Last Admin: 09/22/22 05:01 Dose: 5 ml Methylprednisolone Sodium Succinate (Methylprednisolone Sod Succ 40 Mg/Ml Vial) 40 mg IVPUSH Q6H [facility] Last Admin: 09/22/22 03:46 Dose: 40 mg Quetiapine Fumarate (Quetiapine Fumarate 50 Mg Tablet) 150 mg PO BEDTIME [facility] Last Admin: 09/21/22 20:48 Dose: 150 mg Allergies Allergies Allergy/AdvReac Type Severity Reaction Status Date / Time No Known Allergies Allergy Verified 09/19/22 13:43 [No Known Allergies*] Assessment & Plan Assessment & Plan (1) Charlotte's chorea: Status: Acute Code(s): G10 - Charlotte's disease Plan Mr. Martinez is a 52 year-old male with hx of Charlotte's. Suspect episode witnessed yesterday was dystonia. It is known in Hipolito's to have aside from chorea also dystonia, parkinsonism (specially in late stages), dysphagia, hallucination/delusions, subcortical dementia. Treatment to target chorea mostly dopamine depletion medication like VMAT-inhibitor (like ingrezza) and antipsychotic than can worsen parkinsonism. It is possible dystonia from [place]'s worsened by seroquel to some extend. PLAN -I would recommend scheduling baclofen for dystonia management, lower seroquel to 150mg po qhs. In acute dystonia can give ativan IM, or benadryl IM or cogentin IM. Given that he has hx of suicide attempts and depression, I would be very cautious about starting VMAT-inhibitor as risk of worsening depression and suicidality is significant with this class of medications and in some cases is considered contraindicated. I also recommend that he stays on seroquel even lower dose as it seems to have therapeutic benefit and one of the less high potency antipsychotics. - consult neurology for further management of Charlotte's I spent minutes with the patient and/or on the patient floor today, greater than?50% of which was spent counseling/coordinating care.
[2022-09-20] MEDS: Baclofen 10 MG TABLET PO ×2 (15:09→20:55)
[2022-09-20] MEDS: predniSONE 20 MG TABLET 40 MG PO (15:10)
[2022-09-20] MEDS: QUEtiapine Fumarate 50 MG TABLET 150 MG PO (20:55)
[2022-09-20] MEDS: Magnesium Hydrox/Alum Hydrox 30 ML ORAL.SUSP PO (21:39)
[2022-09-21] VITALS (9 sets, daily range): BP systolic 137–166; BP diastolic 81–91; PULSE 76–100; RESP 17–18; TEMP 36.4–37.3; O2SAT 93–98; BMI 30.4
[2022-09-21] MEDS: Albuterol/Iprat 2.5/0.5MG 3 ML AMPUL.NEB INHALE ×4 (08:18→19:48)
[2022-09-21] MEDS: predniSONE 20 MG TABLET 40 MG PO (09:45)
[2022-09-21] MEDS: clonazePAM 0.5 MG TABLET PO ×3 (09:45→20:48)
[2022-09-21] MEDS: Baclofen 10 MG TABLET PO ×3 (09:45→20:48)
--- NOTE | 2022-09-21 11:04 | MHC.CM.PN ---
with kristopher met with pt who is from [place] he was visiting he is planning to move here from [place] he will stay with son whe he is dcd covid vax x 2
--- NOTE | 2022-09-21 14:17 | HO.PM.IMPN ---
Subjective Subjective Date of Service: 09/21/22 Review of Systems Follow-up dyskinesia, asthma exacerbation Still with coughing and wheeze Physical Exam Vital Signs: Vital Signs: Last Vital Signs Temp 99.1 F 09/21/22 11:31 Pulse 100 09/21/22 11:38 Resp 18 09/21/22 11:38 BP 166/89 H 09/21/22 11:31 Pulse Ox 96 09/21/22 11:31 O2 Del Method 09/21/22 11:31 O2 Flow Rate 2 09/19/22 22:00 FiO2 24 09/20/22 08:00 BMI result Body Mass Index 30.4 Appearing in no acute distress lung sounds are clear to auscultation exp wheezing heart regular rate rhythm, clear S1, S2 positive bowel sounds, abdomen is soft, nontender neuro patient is alert x3, no focal deficits Objective Data Active Medications Albuterol/Ipratropium (Albuterol/Iprat 2.5/0.5mg 3 Ml Ampul.Neb) 3 ml INHALE RQ4H [facility] Last Admin: 09/21/22 11:38 Dose: 3 ml Documented By: JANETTE Baclofen (Baclofen 10 Mg Tablet) 10 mg PO TID [facility] Last Admin: 09/21/22 09:45 Dose: 10 mg Documented By: CHRISTOPHER Benzocaine (Throat Lozenge, Medicated Lozenge) 1 lozenge MUCOUS MEM Q2H PRN PRN Reason: Sore Throat Clonazepam (Clonazepam 0.5 Mg Tablet) 0.5 mg PO TID [facility] Last Admin: 09/21/22 09:45 Dose: 0.5 mg Documented By: CHRISTOPHER Methylprednisolone Sodium Succinate (Methylprednisolone Sod Succ 40 Mg/Ml Vial) 40 mg IVPUSH Q6H [facility] Quetiapine Fumarate (Quetiapine Fumarate 50 Mg Tablet) 150 mg PO BEDTIME [facility] Last Admin: 09/20/22 20:55 Dose: 150 mg Documented By: NERI Labs CBC & Chem 7: 09/20/22 05:13 09/20/22 05:13 Microbiology Microbiology Results: Microbiology 09/19/22 14:38 Blood Culture - Preliminary Blood - Venous No growth after 24 hours. 09/19/22 14:38 Blood Culture - Preliminary Blood - Venous No growth after 24 hours. Assessment and Plan (1) Neuroleptic-induced tardive dyskinesia: Status: Acute (2) Status asthmaticus: Status: Acute Plan 52 year old man withA history [place]'s chorea presented to the ER with dyspnea and influenza treated with Tamiflu. He presented with severe dystonia with movements resembling torticollis and abnormal movements of the chest with parkinsonian type symptoms. He was initially admitted to the ICU due to dyspnea requiring BiPAP. He was treated with IV Benadryl which did see still dystonic type movements Asthma exacerbation, unspecified still with expiratory wheezing Solu-Medrol, scheduled DuoNebs Cepacol lozenges for sore throat May use supplemental oxygen if needed due to hypoxia Dystonia History of [place]'s chorea Discussed with psychiatric nurse practitioner with recommendation to decrease Seroquel to 150 mg bedtime, start baclofen 10 mg t.i.d. no further dystonic type movements noted Mental health Continue home medications DVT prophylaxis are Lovenox Attending Dr. Mckeon Continue hospitalization for treatment of acute asthma exacerbation requiring IV steroids and scheduled DuoNeb treatments Quality Stroke Does the patient have a stroke diagnosis?: No VTE Prior VTE?: No VTE Risk Level:: Medical - low VTE Device Contraindication: N/A - Device Ordered VTE Drug Contraindication: Treatment Not Indicated
[2022-09-21] MEDS: Throat Lozenge, Medicated LOZENGE 1 LOZENGE MUCOUS MEM (15:03)
[2022-09-21] MEDS: methylPREDNISolone Sod Succ 40 MG/ML VIAL IVPUSH ×2 (15:04→20:48)
[2022-09-21] MEDS: Enoxaparin Sodium 40 MG/0.4 ML SYRINGE SUBCUT (15:04)
[2022-09-21] MEDS: QUEtiapine Fumarate 50 MG TABLET 150 MG PO (20:48)
[2022-09-22] VITALS (11 sets, daily range): BP systolic 135–163; BP diastolic 76–97; PULSE 69–112; RESP 16–20; TEMP 36.1–37.4; O2SAT 92–98
[2022-09-22] MEDS: methylPREDNISolone Sod Succ 40 MG/ML VIAL IVPUSH ×4 (03:46→20:53)
[2022-09-22] MEDS: Albuterol/Iprat 2.5/0.5MG 3 ML AMPUL.NEB INHALE ×6 (04:22→23:58)
[2022-09-22] MEDS: guaiFENesin 100 MG/5 ML LIQUID PO (05:01)
[2022-09-22 07:02] LABS: Anion Gap 14 (12-20); Blood Urea Nitrogen 16 mg/dL (9-16); Calcium 9.3 mg/dL (8.4-10.2); Carbon Dioxide 26 mmol/L (22-29); Chloride 103 mmol/L (96-108); Creatinine Clr Calc Pharmacy 101.2; Estimated Glomerular Filt Rate > 60; Glucose Random 141 mg/dL (60-115); Potassium 4.3 mmol/L (3.3-5.1); Sodium 139 mmol/L (135-145)
--- NOTE | 2022-09-22 09:46 | HO.PM.IMPN ---
Subjective Subjective Date of Service: 09/22/22 Review of Systems Follow-up dyskinesia, asthma exacerbation Still with coughing and wheeze Physical Exam Vital Signs: Vital Signs: Last Vital Signs Temp 97.7 F 09/22/22 08:00 Pulse 84 09/22/22 08:00 Resp 20 09/22/22 08:00 BP 141/87 H 09/22/22 08:00 Pulse Ox 97 09/22/22 08:00 O2 Del Method 09/22/22 08:00 O2 Flow Rate 2 09/19/22 22:00 FiO2 24 09/20/22 08:00 BMI result Body Mass Index 30.4 Appearing in no acute distress lung sounds scattered exp wheezing heart regular rate rhythm, clear S1, S2 positive bowel sounds, abdomen is soft, nontender neuro patient is alert x3, no focal deficits Objective Data Active Medications Albuterol/Ipratropium (Albuterol/Iprat 2.5/0.5mg 3 Ml Ampul.Neb) 3 ml INHALE RQ4H [facility] Last Admin: 09/22/22 07:45 Dose: 3 ml Documented By: EMILY Baclofen (Baclofen 10 Mg Tablet) 10 mg PO TID [facility] Last Admin: 09/21/22 20:48 Dose: 10 mg Documented By: PEMA Benzocaine (Throat Lozenge, Medicated Lozenge) 1 lozenge MUCOUS MEM Q2H PRN PRN Reason: Sore Throat Last Admin: 09/21/22 15:03 Dose: 1 lozenge Documented By: CHRISTOPHER Clonazepam (Clonazepam 0.5 Mg Tablet) 0.5 mg PO TID [facility] Last Admin: 09/21/22 20:48 Dose: 0.5 mg Documented By: PEMA Enoxaparin Sodium (Enoxaparin Sodium 40 Mg/0.4 Ml Syringe) 40 mg SUBCUT Q24H [facility] Last Admin: 09/21/22 15:04 Dose: 40 mg Documented By: CHRISTOPHER Guaifenesin (Guaifenesin 100 Mg/5 Ml Liquid) 5 ml PO Q6H PRN PRN Reason: cough Last Admin: 09/22/22 05:01 Dose: 5 ml Documented By: PEMA Methylprednisolone Sodium Succinate (Methylprednisolone Sod Succ 40 Mg/Ml Vial) 40 mg IVPUSH Q6H [facility] Last Admin: 09/22/22 03:46 Dose: 40 mg Documented By: PEMA Quetiapine Fumarate (Quetiapine Fumarate 50 Mg Tablet) 150 mg PO BEDTIME [facility] Last Admin: 09/21/22 20:48 Dose: 150 mg Documented By: PEMA Labs CBC & Chem 7: 09/20/22 05:13 09/22/22 06:01 Labs: Laboratory Results - last 24 hr 09/22/22 06:01 Anion Gap 14 Estim Creat Clear Calc 101.2 Estimated GFR > 60 Random Glucose 141 H Calcium 9.3 Microbiology Microbiology Results: Microbiology 09/19/22 14:38 Blood Culture - Preliminary Blood - Venous No growth after 48 hours. 09/19/22 14:38 Blood Culture - Preliminary Blood - Venous No growth after 48 hours. Assessment and Plan (1) Neuroleptic-induced tardive dyskinesia: Status: Acute (2) Status asthmaticus: Status: Acute Plan 52 year old man withA history [place]'s chorea presented to the ER with dyspnea and influenza treated with Tamiflu. He presented with severe dystonia with movements resembling torticollis and abnormal movements of the chest with parkinsonian type symptoms. He was initially admitted to the ICU due to dyspnea requiring BiPAP. He was treated with IV Benadryl which did see still dystonic type movements Asthma exacerbation, unspecified improving still with expiratory wheezing Solu-Medrol, scheduled DuoNebs Cepacol lozenges for sore throat May use supplemental oxygen if needed due to hypoxia Dystonia History of [place]'s chorea (patients reports dx in [place] but saw another provider who said he didnt have it) f/u o/p with neurology Discussed with psychiatric nurse practitioner with recommendation to decrease Seroquel to 150 mg bedtime, start baclofen 10 mg t.i.d. no further dystonic type movements noted Mental health Continue home medications DVT prophylaxis are Lovenox Attending Dr. Rakesh REYNOLDS one more day of IV steroids then possibly home tomorrow when medically cleared Continue hospitalization for treatment of acute asthma exacerbation requiring IV steroids and scheduled DuoNeb treatments Quality Stroke Does the patient have a stroke diagnosis?: No VTE Prior VTE?: No VTE Risk Level:: Medical - low VTE Device Contraindication: N/A - Device Ordered VTE Drug Contraindication: Treatment Not Indicated
[2022-09-22] MEDS: clonazePAM 0.5 MG TABLET PO ×3 (10:05→20:53)
[2022-09-22] MEDS: Baclofen 10 MG TABLET PO ×3 (10:05→20:53)
--- NOTE | 2022-09-22 13:19 | MHC.CM.PN ---
Per ROUNDS discussion, Patient is on IV Steroids and is not yet medically cleared for dc. Home is the goal and CM will continue to follow.
[2022-09-22] MEDS: Enoxaparin Sodium 40 MG/0.4 ML SYRINGE SUBCUT (14:04)
[2022-09-22] MEDS: QUEtiapine Fumarate 50 MG TABLET 150 MG PO (20:53)
[2022-09-22] MEDS: traMADoL HCL 50 MG TABLET PO (22:59)
[2022-09-23] VITALS: BP 126/90; PULSE 96; PULSE 98; RESP 20; TEMP 37.2; O2SAT 93; O2SAT 94
[2022-09-23] MEDS: methylPREDNISolone Sod Succ 40 MG/ML VIAL IVPUSH (03:59)
[2022-09-23 04:00] VITALS: BP 164/81; PULSE 84; RESP 20; TEMP 36.8; O2SAT 94
[2022-09-23] MEDS: Albuterol/Iprat 2.5/0.5MG 3 ML AMPUL.NEB INHALE ×2 (04:24→07:34)
[2022-09-23 04:25] VITALS: PULSE 84; RESP 20; O2SAT 94
[2022-09-23 07:32] VITALS: BP 157/88; PULSE 89; RESP 20; TEMP 37; O2SAT 94
[2022-09-23 07:35] VITALS: PULSE 89; RESP 20; O2SAT 93
[2022-09-23] MEDS: Baclofen 10 MG TABLET PO (08:42)
[2022-09-23] MEDS: clonazePAM 0.5 MG TABLET PO (08:42)
[2022-09-23] MEDS: predniSONE 20 MG TABLET 40 MG PO (08:43)
--- NOTE | 2022-09-23 10:17 | P.DS_ITS ---
DS: Providers Provider Date of Service: 09/23/22 Date of admission: 09/19/22 16:00 Primary care physician: Unknown Physician Consults: 09/20/22 08:22 Consult to Psychiatry Routine Consulting Provider: Psych Covering Reason for consultation: Severe dyskinesia secondary to Seroquel Has provider been notified: No 09/20/22 14:15 Consult to Neurology Routine Consulting Provider: [facility] Reason for consultation: dystonia Has provider been notified: No Attending physician on discharge: Alonso Cameron Discharging clinician: Cyndee Sykes DS: Diagnosis Discharge Diagnosis (1) Neuroleptic-induced tardive dyskinesia: Status: Acute (2) Status asthmaticus: Status: Acute DS: Summary Hospital Course Hospital Course: History and physical as per admitting provider 52-year-old male who apparently has [place]'s chorea and and interestingly when I 1st saw him I thought that they had wrong we interpreted some of the chest wall motion as respiratory extremis but this was not really prolonged diaphragmatic effort as much as it was a is sort of it and dyskinetic or choreiform movement involving his chest wall as well as his diaphragm and in the note the is head motion back and forth no and some of the peripheral twitching initial he also made me think that the genome may be and dyskinesis on the basis of antipsychotic toxicity and he is apparently on Seroquel 300 and trazodone 150 mg so I gave him 25 mg of Benadryl of course to no avail because this is all his choreiform movement so 80s on BiPAP he is subjectively better for with is with somewhat less tachypnea than he had before and since introducing the the the PEEP it seems that he is improving to a degree and he has already gotten albuterol at least 2 rounds of high-dose which I think has been helpful in his chest x-ray really does not demonstrate anything specific certainly not any infiltrates and no evidence of barotrauma but because of the chest asymmetry I am going to get a dry CT scan of his chest to make sure not missing a pneumothorax Bedside echo from subxiphoid view which was difficult shows preserved LV and RV function no segmental wall motion abnormality no primary valve or pericardial disease and his inferior vena cava is flat He was very specific that he really barely drinks at all certainly nothing that would precipitated withdrawal issue and he has no other stigmata of withdrawal Had he has no clonus he has no significant rigidity Asthma exacerbation,? unspecified improving Treated with Solu-Medrol, scheduled DuoNebs Cepacol lozenges for sore throat Home with prednisone taper and 3 days of azithromycin May use Robitussin for cough Dystonia History of Raymond's chorea (patients reports dx in [place] but saw another provider who said he didnt have it) f/u o/p with neurology Discussed with psychiatric nurse practitioner with recommendation to decrease Seroquel to 150 mg bedtime, start baclofen 10 mg t.i.d. no further dystonic type movements noted Influenza a Treated with Tamiflu, supportive care Mental health Seroquel decreased to 150 mg daily Time Spent with Patient Time attestation: Total time spent providing and/or coordinating discharge services: Discharge coordination time: Greater than 30 minutes Quality: Safe Use of Opioids Does Pt have an Active Cancer Diagnosis on the Problem List?: No Quality: Stroke Does the patient have a stroke diagnosis?: No Physical Exam Vital Signs: Vital Signs: Last Vital Signs Temp 98.6 F 09/23/22 07:32 Pulse 89 09/23/22 07:35 Resp 20 09/23/22 07:35 BP 157/88 H 09/23/22 07:32 Pulse Ox 94 09/23/22 07:32 O2 Del Method 09/23/22 07:32 O2 Flow Rate 2 09/19/22 22:00 FiO2 24 09/20/22 08:00 BMI result Body Mass Index 30.4 Appearing in no acute distress head is normocephalic atraumatic eyes pupils are PERRLA sclera is anicteric mouth throat mucous membranes are intact and moist neck is supple no lymphadenopathy, no JVD noted lung sounds are clear to auscultation heart regular rate rhythm, clear S1, S2 positive bowel sounds, abdomen is soft, nontender neuro patient is alert x3, no focal deficits DS: Data Data Completed and Pending Labs on day of discharge: Preliminary micro results at discharge 09/19/22 14:38 Blood Culture - Preliminary Blood - Venous No growth after 48 hours. 09/19/22 14:38 Blood Culture - Preliminary Blood - Venous No growth after 48 hours. 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) Discharge Medications: New guaifenesin 100 mg/5 mL Liquid 100 mg PO Q6H PRN (Reason: cough) Qty: 473 0RF baclofen 10 mg Tablet 10 mg PO TID Qty: 90 0RF quetiapine 50 mg Tablet 150 mg PO BEDTIME Qty: 90 0RF azithromycin 500 mg tablet 500 mg PO DAILY 3 Days Qty: 3 0RF prednisone 10 mg tablet See Taper PO DAILY Qty: 30 0RF Taper: Prednisone 40 mg daily for 3 Days and 0 Hour 30 mg daily for 3 Days and 0 Hour 20 mg daily for 3 Days and 0 Hour 10 mg daily for 3 Days and 0 Hour Continued clonazepam 1 mg Tablet 1 mg PO TID PRN (Reason: Anxiety) ascorbic acid (vitamin C) 250 mg Tablet 500 mg PO DAILY trazodone 150 mg Tablet 150 mg PO BEDTIME PRN (Reason: Sleep) albuterol sulfate [ProAir HFA] 90 mcg/actuation Hfa Aerosol Inhaler 2 puff INHALATION Q4-6H PRN (Reason: Shortness Of Breath) Discontinued quetiapine [Seroquel] 300 mg Tablet 300 mg PO BEDTIME Discharge Orders: Discharge Order (Routine); Ordered 09/23/22 Ordered By: Cyndee Sykes Diet: Advance to usual diet Activity on Discharge: As tolerated Stand Alone Forms: Patient Portal Discharge page Care Plan Goals: Take all medications as prescribed Health Concerns: Asthma exacerbation/status asthmaticus Dystonia Influenza A Plan of Treatment: Follow-up with primary care provider as needed Follow-up with neurologist for further workup out of Sanders's Chorea You have been started on a new medication called baclofen should help with frequent body movements You will be on a prednisone taper for 12 days, take as prescribed Assessment: See discharge summary
== END 2022-09-23 11:15 | disposition home or self-care (01) | DRG 141 ==
LOC: HO.ED 16:29 → HO.EDOVER 16:34 → HO.ICU 16:35 → HO.IMC 09-21 00:30
PROVIDERS: Nurse Practitioner Family; Physician Assistant Medical; Admitting Provider Internal Medicine Cardiovascular Disease; Emergency Provider Emergency Medicine Emergency Medical Services; Visit Provider Nurse Practitioner Acute Care
DX: J45.901 Unspecified asthma with (acute) exacerbation (principal); G10 Huntington's disease; G24.09 Other drug induced dystonia; J10.1 Influenza due to other identified influenza virus with other respiratory manifestations; F17.210 Nicotine dependence, cigarettes, uncomplicated; G24.01 Drug induced subacute dyskinesia; T43.595A Adverse effect of other antipsychotics and neuroleptics, initial encounter; Z20.822 Contact with and (suspected) exposure to COVID-19; Z71.6 Tobacco abuse counseling; Z79.899 Other long term (current) drug therapy
CPT/HCPCS: 36415; 71046; 71250; 80048; 80076; 80307; 82803; 83605; 83735; 84100; 84484; 85025; 85610; 87040; 87635; 93005; 94640; 94660; 96374; 96375; 99285; J1200; J1650; J1885; J2405; J2920; J2930; J3010

== ENCOUNTER 2022-10-05 23:59 | Observation (INO) | payer MEDICAID, SELFPAY ==
--- NOTE | ~2022-10-05 | CT_ITS ---
EXAMINATION: CT HEAD WITHOUT CONTRAST CLINICAL INFORMATION: Altered mental status. Fall. History of [place]'s. COMPARISON: CT head 07/25/2019. TECHNIQUE: Contiguous axial imaging was performed from the skull base to vertex without intravenous administration of contrast. This CT examination was performed using dose optimization techniques as appropriate, variously including the following: *Automated exposure control *Adjustment of mA and/or kV according to patient size (this includes techniques or standardized protocols for targeted exams where dose is matched to indication/reason for exam; i.e. extremities or head) *Use of iterative reconstruction technique DLP: 705 mGy-cm FINDINGS: No intracranial hemorrhage, tumors or acute infarcts noted. Mild diffuse commensurate prominence of ventricles and sulci noted and is within expected limits of normal anatomic variation. No definitive atrophy of the caudate heads identified. The orbits and globes are normal in appearance. Partial visualization is made of a lobulated density likely representing mucosal retention cyst within the right maxillary sinus. No mastoid or middle ear cavity effusions identified. CT/CT head/brain wo IV con IMPRESSION: Normal unenhanced CT of the head.
--- NOTE | ~2022-10-05 | XR_ITS ---
EXAMINATION: XR CHEST CLINICAL INFORMATION: Mild bilateral crackles. COMPARISON: CT chest 09/19/2022. TECHNIQUE: Frontal view of the chest was obtained. FINDINGS: Low lung lines are present with the fifth anterior rib segments terminating projection with the lung bases. Normal appearance of the cardiomediastinal structures. No effusions or pneumothoraces. Normal pattern of pulmonary vasculature. No focal pulmonary consolidation. Making allowances for low lung volumes, no definitive reticulonodular pulmonary opacities identified. No definitive findings to correlate with the pulmonary findings noted on the comparison CT of the chest 09/19/2022. XR/XR chest 1V IMPRESSION: Low lung volumes; otherwise, normal chest.
[2022-10-06] VITALS (10 sets, daily range): BP systolic 127–174; BP diastolic 65–107; PULSE 57–112; RESP 12–18; TEMP 36.4–37; O2SAT 94–100; BMI 24.4; BMI 29.2
--- NOTE | 2022-10-06 00:28 | ECG_ITS ---
Test Reason : SYNCOPE Blood Pressure : / mmHG Vent. Rate : 107 BPM Atrial Rate : 107 BPM P-R Int : 126 ms QRS Dur : 072 ms QT Int : 308 ms P-R-T Axes : 045 023 028 degrees QTc Int : 411 ms Sinus tachycardia with Premature supraventricular complexes Otherwise normal ECG When compared with ECG of 19-SEP-2022 14:22, No significant changes seen Referred By: Janelle Chavez Electronically Signed By:QUINCY RILEY
--- NOTE | 2022-10-06 00:30 | ED_ITS ---
HPI - Syncope General Chief Complaint: Syncope Stated Complaint: AMS Time Seen by Provider: 10/06/22 00:18 Source: patient and EMS Mode of arrival: EMS Limitations: other (Raymond's disease) History of Present Illness HPI narrative: Patient comes to emergency room via ambulance after having a syncopal episode. EMS reports that the family found the patient in the bathroom. Patient went to the bathroom by himself, patient did not, out of the bathroom for 20+ minutes, family found him locked in the bathroom, the family had to break the door to get in. EMS states that the patient was found in his bed when they arrived to emergency room. Patient is awake and alert, states that he has no pain, no headache, no neck pain, no chest pain or shortness of breath. Related Data Home Medications Medication Instructions Recorded Confirmed albuterol sulfate 90 mcg/actuation 2 puff inhalation Q4-6H PRN 09/19/22 09/19/22 aerosol inhaler (ProAir HFA) Shortness Of Breath ascorbic acid (vitamin C) 250 mg 500 mg PO DAILY 09/19/22 09/19/22 tablet clonazepam 1 mg tablet 1 mg PO TID PRN Anxiety 09/19/22 09/19/22 trazodone 150 mg tablet 150 mg PO BEDTIME PRN Sleep 09/19/22 09/19/22 Previous Rx's Medication Instructions Recorded azithromycin 500 mg tablet 500 mg PO DAILY 3 days #3 tabs 09/23/22 baclofen 10 mg tablet 10 mg PO TID #90 tabs 09/23/22 guaifenesin 100 mg/5 mL oral liquid 100 mg (5 mL) PO Q6H PRN cough 09/23/22 #473 mL prednisone 10 mg tablet See Taper PO DAILY #30 tabs 09/23/22 quetiapine 50 mg tablet 150 mg PO BEDTIME #90 tabs 09/23/22 Allergies Allergy/AdvReac Type Severity Reaction Status Date / Time No Known Allergies Allergy Verified 09/19/22 13:43 [No Known Allergies*] Review of Systems Review of Systems: Constitutional : No Weight loss, No Fever, No Chills, No Night Sweats, No Fatigue, No Malaise ENT/Mouth : No Hearing loss, No Ear Pain, No Nasal Congestion, No Sinus Pain, No Hoarseness, No sore throat, No Rhinorrhea, No Swallowing Difficulty Eyes: No Eye Pain, No Swelling, No Redness, No Foreign Body, No Discharge, No Vision Changes Cardiovascular : No Chest Pain, No SOB, No Dyspnea on Exertion, No Orthopnea, No Edema, No Palpitations Respiratory : No Cough, No Sputum, No Wheezing, No Smoke Exposure, No Dyspnea Gastrointestinal : No Nausea, No Vomiting, No Diarrhea, No Constipation, No abdominal Pain, No Hematochezia, No Melena Genitourinary : no irregular bleeding, No Dysuria, No Urinary Frequency, No Hematuria, No Urinary Incontinence, No Urgency, No Flank Pain, No Urinary Flow Changes, No Hesitancy Musculoskeletal : No joint pain, No Myalgias, No Joint Swelling Skin : No Skin Lesions, No rash Neuro : No Weakness, No Numbness, No Paresthesias, No Loss of Consciousness, no dizziness, had 1 syncopal episode, no headache Psych : No Anxiety/Panic, No Depression, No SI/HI/AH/VH, No Social Issues, Heme/Lymph: No Bruising, No Bleeding,No Lymphadenopathy Endocrine : No Polyuria, No Polydipsia, No Temperature Intolerance [facility] Past Medical History Medical History Keller's chorea Social History Social History Household Members: Friend(s) Household Members Other:: 6 Housing: House Do you presently have visiting nurse or other home services: No Patient Tobacco Use Status: Current someday Tobacco user Tobacco use type: Cigarette Cigarettes Per Day: 3 Smoked in Last 30 Days: No e-Cigarette/Vaping Use: Never Used Substance Use Type: Marijuana Substance Use Frequency: Monthly Last Used Substance: Weeks (ago) Any prior treatment program specific to substance use: No Advance Directives: No service: No Physical Exam Vital Signs: Vital Signs: Last Vital Signs Temp 97.9 F 10/06/22 04:00 Pulse 86 10/06/22 04:00 Resp 14 10/06/22 04:00 BP 142/85 H 10/06/22 04:00 Pulse Ox 94 10/06/22 04:00 O2 Del Method 10/06/22 04:00 Oxygen Flow Rate 2 10/06/22 00:06 BMI result Body Mass Index 24.4 Const: Other: Appearance: Alert. Oriented X3. No acute distress. Patient is somnolent, keeps nodding off Eyes: Borderline pinpoint pupils, Pupils equal, round and reactive to light. ENT: Pharynx normal. Neck: Normal inspection. Neck supple. No lymph nodes noted. No crepitus CVS: Regular rhythm, tachycardic between 110 and 120, Pulses normal. Normal S1 and S2 Respiratory: No respiratory distress. Breath sounds normal. No Wheezing. No rales Abdomen: Soft and nontender. No rigidity. No distention. Skin: Skin warm and dry. Normal skin color. Normal skin turgor. Extremities: No lower extremity edema. No Lacerations. No Rash Neuro: Oriented X 2, patient has Raymond's chorea. Psych: calm, cooperative Course Course Course Narrative: It is unclear why patient is tachycardic, no fever. All of patient's labs and imaging pending. Patient answering questions appropriately D-dimer is negative. Patient's bowel blood cell count is trending downward from patient's previous admission. Patient's electrolytes within normal limits. Patient's troponin is slightly bumped at 41.7. However, patient has an elevation in creatinine kinase of 210, no renal dysfunction. We will repeat a 2nd troponin. EKG within normal limits Patient's urinalysis was positive for narcotics, fentanyl, marijuana. Patient takes several psychiatric meds, possibly giving a false positive for fentanyl. However, patient does not have any prescribed narcotics. Possibly it is a true positive test for fentanyl. Also, when patient arrived, physical exam, patient was dozing off, had borderline pinpoint pupils. A few hours after arrival, patient is alert and oriented Patient's 2nd troponin doubled from the 1st troponin. Patient remains asymptomatic. I discussed the patient with Dr. Dean, patient will be admitted under observation status. I discussed with the patient he tested positive for opiates and fentanyl. Patient states that he found an oxycodone tablet and ingested. Likely laced with fentanyl At this time, patient is awake, alert and oriented x4, no acute distress. Medical Decision Making Medical Decision Making Differential Diagnoses: Differential diagnosis (Syncope, pulmonary embolism, substance abuse, acute coronary syndrome) Consideration of admission/observation: Consideration of Admission/Observation (Patient's troponin doubled, patient remains asymptomatic, we will keep him under observation status) Discussion of management with other physician/healthcare provider/other source (e.g., hospitalist, product safety consultant, behavioral health): Discussion w/other physician/healthcare provider (I discussed the patient with Dr. Dean, will trend troponins, repeat EKG, admitted under observation) Management of the patient was discussed with: Hospitalist My interpretation is Lab Attestation: I reviewed the patient's lab results. (Patient's U tox positive for fentanyl, opiates, marijuana. Troponin doubled from the 1st troponin. Patient asymptomatic) Independent interpretation of EKG, rhythm strip, radiology study: Independent interp EKG,rhythm strip, radiology study I performed an independent interpretation of the: EKG My interpretation is sinus rhythm, heart rate 107, no ST segment depressions or elevations, nonspecific T-wave abnormalities, QTC 411 Critical Care Time Critical Care Time Critical Care Time: Yes Total Critical Care Time: 45 Attestation: I have personally provided critical care time. Time includes review of lab data, radiology results, discussion with consultants, and monitoring for potential decompensation. Intervention performed as documented. Discharge Plan Discharge Clinical Impression: Elevated troponin, Substance abuse, Accidental overdose Patient Disposition: Admitted as Observation Prescriptions: No Action clonazepam 1 mg Tablet 1 mg PO TID PRN (Reason: Anxiety) ascorbic acid (vitamin C) 250 mg Tablet 500 mg PO DAILY trazodone 150 mg Tablet 150 mg PO BEDTIME PRN (Reason: Sleep) albuterol sulfate [ProAir HFA] 90 mcg/actuation Hfa Aerosol Inhaler 2 puff INHALATION Q4-6H PRN (Reason: Shortness Of Breath) guaifenesin 100 mg/5 mL Liquid 100 mg PO Q6H PRN (Reason: cough) Qty: 473 0RF baclofen 10 mg Tablet 10 mg PO TID Qty: 90 0RF quetiapine 50 mg Tablet 150 mg PO BEDTIME Qty: 90 0RF azithromycin 500 mg tablet 500 mg PO DAILY 3 Days Qty: 3 0RF prednisone 10 mg tablet See Taper PO DAILY Qty: 30 0RF Taper: Prednisone 40 mg daily for 3 Days and 0 Hour 30 mg daily for 3 Days and 0 Hour 20 mg daily for 3 Days and 0 Hour 10 mg daily for 3 Days and 0 Hour
[2022-10-06 00:51] LABS: MANUAL DIFF FLAG NO
[2022-10-06 00:54] LABS: Basophils Percent Auto 0.3 % (0-2); Eosinophils Absolute Auto 0.1 X10*3/uL (0.0-0.4); Eosinophils Percent Auto 0.5 % (0-4); Hematocrit 43.7 % (42.0-52.0); Hemoglobin 13.9 g/dl (14.0-18.0); Imm Gran Abs Auto 0.13 X10*3/uL (0.00-0.03); Imm Gran Pct Auto 0.9 % (0.0-0.4); Lymphocytes Absolute Auto 1.9 X10*3/uL (1.2-4.9); Lymphocytes Percent Auto 13.6 % (20-40); Mean Corpuscular HGB Conc 31.8 g/dl (31.0-36.0); Mean Corpuscular Hemoglobin 30.3 pg (27.0-33.0); Mean Corpuscular Volume 95.2 fL (80.0-98.0); Mean Platelet Volume 8.7 fL (9.4-12.4); Monocytes Percent Auto 7.5 % (2-11); Neutrophils Absolute Auto 10.6 x10*3/uL (2.0-8.3); Neutrophils Percent Auto 77.2 % (45-73); Platelet Count 262 X10*3/uL (160-400); Red Blood Count 4.59 X10*6/uL (4.60-5.80); Red Cell Distribution Width 13.6 % (11.0-16.0); White Blood Count 13.7 X10*3/uL (4.8-10.8)
[2022-10-06 01:00] LABS: INTERNATIONAL NORM RATIO 0.9 (0.9-1.1); Prothrombin Time 10.4 SEC (10.0-13.1)
[2022-10-06 01:02] LABS: D Dimer High Sensitivity 198 NG/ML
[2022-10-06 01:03] LABS: Appearance Urine Cloudy; Color Urine Yellow; Glucose Urine UA Negative (Negative); Leukocyte Esterase Urine Negative (Negative); Nitrite Urine Negative (Negative); Specific Gravity - Urine 1.025 (1.005-1.025); UMIC TRIGGER UACC YES; Urine Blood Trace (Negative); Urine Ketones Negative (Negative); Urine Protein 30 (1+) mg/dL (Neg-Trace)
[2022-10-06 01:08] LABS: COVID-19 Test Negative (Negative); IDNOW Serial# BCCEAD1C
[2022-10-06 01:11] LABS: Lactic Acid 1.2 mmol/L (0.5-2.0)
[2022-10-06 01:16] LABS: Amphetamine Screen Urine Not Detected (Not Detect); Barbiturates, Urine Not Detected (Not Detect); Benzodiazepines Screen Urine Not Detected (Not Detect); Cannabinoid Screen Urine POSITIVE (Not Detect); Cocaine Screen Urine Not Detected (Not Detect); Fentanyl, urine POSITIVE (Not Detect); Opiate Screen Urine POSITIVE (Not Detect); Phencyclidine Screen Urine Not Detected (Not Detect)
[2022-10-06 01:17] LABS: Bacteria Urine None Seen (None Seen); Calcium Oxalate Crystals Urine Present; Granular Casts Urine Present; Hyaline Casts Urine >20 /LPF (0-2); WBC Urine 0-5 /HPF (0-5)
[2022-10-06 01:21] LABS: Alanine Aminotransferase 84 U/L (0-40); Alkaline Phosphatase 89 U/L (39-117); Anion Gap 16 (12-20); Aspartate Amino Transferase 43 U/L (5-37); B Type Natriuretic Peptide 17 pg/mL (<100); Bilirubin Direct 0.2 mg/dL (0.0-0.5); Bilirubin Total 0.5 mg/dL (0.0-1.0); Blood Urea Nitrogen 20 mg/dL (9-16); Calcium 9.1 mg/dL (8.4-10.2); Carbon Dioxide 27 mmol/L (22-29); Chloride 103 mmol/L (96-108); Creatinine Clr Calc Pharmacy 70.5; Estimated Glomerular Filt Rate 58; Ethanol < 10 mg/dL; Glucose Random 110 mg/dL (60-115); Magnesium 1.9 mg/dL (1.6-2.6); Potassium 4.1 mmol/L (3.3-5.1); Sodium 142 mmol/L (135-145); Total Protein 6.7 g/dL (6.5-8.0); Troponin-I High Sensitivity 41.7 ng/L (<3.5-35.0)
[2022-10-06 04:02] LABS: Troponin-I High Sensitivity 88.4 ng/L (<3.5-35.0)
--- NOTE | 2022-10-06 04:28 | P.HPHOSP_ITS ---
History of Present Illness Date of Service: 10/06/22 Chief Complaint: Altered mentation This is a 52-year-old male with pertinent history of opioid use disorder, tobacco use disorder, Spade's disease, asthma who was brought to the emergency department for decreased mentation. Patient is drowsy and lethargic at the time of my examination and hence history is limited. States he took some Percocet and passed out. Does not know how long he was passed out for. As per chart review, his family found him locked in the bathroom and had to break the door to get in. States he did not mean to harm himself. Only wanted to relieve his back pain. Does not have prescription for Percocet, gets it off the streets . He denies fever, chills, chest discomfort, palpitations, shortness of breath, abdominal pain, changes in urinary bowel habits. Denies injection of drugs. Denies alcohol use. Does smoke cigarettes occasionally. Review of Systems Review of Systems: Yes Unobtainable due to mental status [facility] Medical History (Updated 10/06/22 @ 05:31 by Jeanette Dean MD) Spade's chorea Pertinent family history: Unable to obtain Social History Household Members: Friend(s) Household Members Other:: 6 Housing: House Do you presently have visiting nurse or other home services: No Patient Tobacco Use Status: Current someday Tobacco user Tobacco use type: Cigarette Cigarettes Per Day: 3 Smoked in Last 30 Days: No e-Cigarette/Vaping Use: Never Used Substance Use Type: Marijuana Substance Use Frequency: Monthly Last Used Substance: Weeks (ago) Any prior treatment program specific to substance use: No Advance Directives: No service: No Meds Allergies Allergy/AdvReac Type Severity Reaction Status Date / Time No Known Allergies Allergy Verified 09/19/22 13:43 [No Known Allergies*] Home Medications Medication Instructions Recorded Confirmed Last Taken Type albuterol sulfate 90 mcg/actuation 2 puff inhalation Q4-6H PRN 09/19/22 09/19/22 Unknown History aerosol inhaler (ProAir HFA) Shortness Of Breath ascorbic acid (vitamin C) 250 mg 500 mg PO DAILY 09/19/22 09/19/22 Unknown History tablet clonazepam 1 mg tablet 1 mg PO TID PRN Anxiety 09/19/22 09/19/22 Unknown History trazodone 150 mg tablet 150 mg PO BEDTIME PRN Sleep 09/19/22 09/19/22 Unknown History Physical Exam Vital Signs and Narrative: Vital Signs: Last Vital Signs Temp 97.9 F 10/06/22 04:00 Pulse 86 10/06/22 04:00 Resp 14 10/06/22 04:00 BP 142/85 H 10/06/22 04:00 Pulse Ox 94 10/06/22 04:00 O2 Del Method 10/06/22 04:00 Oxygen Flow Rate 2 10/06/22 00:06 BMI result Body Mass Index 24.4 Middle-aged male lying in bed in no distress Neck supple, no JVD Regular rate and rhythm, S1-S2 heard Regular breath sounds bilaterally, no wheezing or crackles appreciated Abdomen soft nontender, no guarding, no rigidity Patient is drowsy awakens to verbal stimulus Results Labs CBC and Chem 7: 10/06/22 00:47 10/06/22 00:47 Labs: Laboratory Results - last 24 hr 10/06/22 10/06/22 10/06/22 00:46 00:47 00:47 MCV 95.2 MCH 30.3 MCHC 31.8 RDW 13.6 Plt Count 262 D MPV 8.7 L Immature Gran % (Auto) 0.9 H Neut % (Auto) 77.2 H Lymph % (Auto) 13.6 L [place] % (Auto) 7.5 Eos % (Auto) 0.5 Baso % (Auto) 0.3 Lymph # (Auto) 1.9 [place] # (Auto) 1.0 Eos # (Auto) 0.1 Baso # (Auto) 0.0 Abs Immat Gran (auto) 0.13 H Absolute Neuts (auto) 10.6 H Absolute Nucleated RBC 0.000 Nucleated RBC % (auto) 0.0 PT INR D-Dimer High Sensitivty 198 Anion Gap Estim Creat Clear Calc Estimated GFR Random Glucose Lactic Acid Calcium Magnesium Total Bilirubin Direct Bilirubin AST ALT Alkaline Phosphatase Total Creatine Kinase Troponin I High Sens B-Natriuretic Peptide Total Protein Albumin Urine Color Urine Appearance Urine pH Ur Specific [place] Urine Protein Urine Glucose (UA) Urine Ketones Urine Blood Urine Nitrite Ur Leukocyte Esterase Urine RBC Urine WBC Ur Squamous Epith Cells Calcium Oxalate Crystal Urine Bacteria Hyaline Casts Granular Casts Urine Opiates Screen Urine Fentanyl Screen Ur Barbiturates Screen Ur Phencyclidine Scrn Ur Amphetamines Screen U Benzodiazepines Scrn Urine Cocaine Screen U Marijuana (THC) Screen Ethyl Alcohol COVID-19 ([facility]) Negative COVID-[employer] See Note 10/06/22 10/06/22 10/06/22 00:47 00:47 00:47 MCV MCH MCHC RDW Plt Count MPV Immature Gran % (Auto) Neut % (Auto) Lymph % (Auto) [place] % (Auto) Eos % (Auto) Baso % (Auto) Lymph # (Auto) [place] # (Auto) Eos # (Auto) Baso # (Auto) Abs Immat Gran (auto) Absolute Neuts (auto) Absolute Nucleated RBC Nucleated RBC % (auto) PT 10.4 INR 0.9 D-Dimer High Sensitivty Anion Gap Cancelled Estim Creat Clear Calc Cancelled Estimated GFR Cancelled Random Glucose Cancelled Lactic Acid 1.2 Calcium Cancelled Magnesium Cancelled Total Bilirubin Cancelled Direct Bilirubin Cancelled AST Cancelled ALT Cancelled Alkaline Phosphatase Cancelled Total Creatine Kinase Troponin I High Sens B-Natriuretic Peptide Total Protein Cancelled Albumin Cancelled Urine Color Urine Appearance Urine pH Ur Specific [place] Urine Protein Urine Glucose (UA) Urine Ketones Urine Blood Urine Nitrite Ur Leukocyte Esterase Urine RBC Urine WBC Ur Squamous Epith Cells Calcium Oxalate Crystal Urine Bacteria Hyaline Casts Granular Casts Urine Opiates Screen Urine Fentanyl Screen Ur Barbiturates Screen Ur Phencyclidine Scrn Ur Amphetamines Screen U Benzodiazepines Scrn Urine Cocaine Screen U Marijuana (THC) Screen Ethyl Alcohol COVID-19 ([facility]) COVID-[employer] 10/06/22 10/06/22 10/06/22 00:47 00:47 00:47 MCV MCH MCHC RDW Plt Count MPV Immature Gran % (Auto) Neut % (Auto) Lymph % (Auto) [place] % (Auto) Eos % (Auto) Baso % (Auto) Lymph # (Auto) [place] # (Auto) Eos # (Auto) Baso # (Auto) Abs Immat Gran (auto) Absolute Neuts (auto) Absolute Nucleated RBC Nucleated RBC % (auto) PT INR D-Dimer High Sensitivty Anion Gap 16 Estim Creat Clear Calc 70.5 Estimated GFR 58 Random Glucose 110 Lactic Acid Calcium 9.1 Magnesium 1.9 Total Bilirubin 0.5 Direct Bilirubin 0.2 AST 43 H ALT 84 H Alkaline Phosphatase 89 Total Creatine Kinase 210 H Troponin I High Sens 41.7 H B-Natriuretic Peptide 17 Total Protein 6.7 Albumin 4.0 Urine Color Urine Appearance Urine pH Ur Specific [place] Urine Protein Urine Glucose (UA) Urine Ketones Urine Blood Urine Nitrite Ur Leukocyte Esterase Urine RBC Urine WBC Ur Squamous Epith Cells Calcium Oxalate Crystal Urine Bacteria Hyaline Casts Granular Casts Urine Opiates Screen Urine Fentanyl Screen Ur Barbiturates Screen Ur Phencyclidine Scrn Ur Amphetamines Screen U Benzodiazepines Scrn Urine Cocaine Screen U Marijuana (THC) Screen Ethyl Alcohol < 10 COVID-19 ([facility]) COVID-19 Clin Com 10/06/22 10/06/22 10/06/22 00:55 00:55 03:33 MCV MCH MCHC RDW Plt Count MPV Immature Gran % (Auto) Neut % (Auto) Lymph % (Auto) [place] % (Auto) Eos % (Auto) Baso % (Auto) Lymph # (Auto) [place] # (Auto) Eos # (Auto) Baso # (Auto) Abs Immat Gran (auto) Absolute Neuts (auto) Absolute Nucleated RBC Nucleated RBC % (auto) PT INR D-Dimer High Sensitivty Anion Gap Estim Creat Clear Calc Estimated GFR Random Glucose Lactic Acid Calcium Magnesium Total Bilirubin Direct Bilirubin AST ALT Alkaline Phosphatase Total Creatine Kinase Troponin I High Sens 88.4 H D B-Natriuretic Peptide Total Protein Albumin Urine Color Yellow Urine Appearance Cloudy Urine pH 5.0 Ur Specific [place] 1.025 Urine Protein 30 (1+) H Urine Glucose (UA) Negative Urine Ketones Negative Urine Blood Trace H Urine Nitrite Negative Ur Leukocyte Esterase Negative Urine RBC 3-5 H Urine WBC 0-5 Ur Squamous Epith Cells 3-5 Calcium Oxalate Crystal Present Urine Bacteria None Seen Hyaline Casts >20 Granular Casts Present Urine Opiates Screen POSITIVE H Urine Fentanyl Screen POSITIVE H Ur Barbiturates Screen Not Detected Ur Phencyclidine Scrn Not Detected Ur Amphetamines Screen Not Detected U Benzodiazepines Scrn Not Detected Urine Cocaine Screen Not Detected U Marijuana (THC) Screen POSITIVE H Ethyl Alcohol COVID-19 ([facility]) COVID-19 Clin Com Imaging Radiologist's Impressions: Impressions Head CT 10/06/22 01:31 IMPRESSION: Normal unenhanced CT of the head. Chest X-Ray 10/06/22 01:33 IMPRESSION: Low lung volumes; otherwise, normal chest. Assessment and Plan (1) Accidental overdose: Status: Acute (2) Substance abuse: Status: Acute (3) Elevated troponin: Status: Acute (4) Raymond's chorea: Status: Acute Plan This is a 52-year-old male with pertinent history of opioid use disorder, tobacco use disorder, Spade's disease, asthma who was brought to the emergency department for decreased mentation. #. Acute toxic encephalopathy due to opioid use disorder: Accidental overdose. Monitor for improvement over time. CARE team and addiction to consulted. Closely monitor hemodynamics and monitor withdrawal. #. Elevated troponin: Likely type 2 in the setting of increased demand. Patient without chest discomfort. Repeat troponin in a.m. #. Reactive leukocytosis DVT prophylaxis: Lovenox 40 mg daily NPO until mentation improves Full code Time Spent With Patient Time: Total time managing care of this patient today ____ minutes. Quality Stroke Does the patient have a stroke diagnosis?: No VTE Prior VTE?: No VTE Risk Level:: Medical - moderate - high VTE Device Contraindication: Treatment Not Indicated VTE Drug Contraindication: N/A - Med Ordered
[2022-10-06] MEDS: 0.9 % Sodium Chloride 1,000 ML 999 ML IV (04:48)
[2022-10-06] MEDS: Acetaminophen 325 MG TABLET 650 MG PO ×2 (05:11→20:27)
[2022-10-06] MEDS: Magnesium Hydrox/Alum Hydrox 30 ML ORAL.SUSP PO (05:41)
[2022-10-06 06:18] LABS: MANUAL DIFF FLAG NO
[2022-10-06 06:27] LABS: Basophils Percent Auto 0.4 % (0-2); Eosinophils Absolute Auto 0.1 X10*3/uL (0.0-0.4); Eosinophils Percent Auto 1.2 % (0-4); Hematocrit 37.5 % (42.0-52.0); Hemoglobin 11.8 g/dl (14.0-18.0); Imm Gran Abs Auto 0.07 X10*3/uL (0.00-0.03); Imm Gran Pct Auto 0.7 % (0.0-0.4); Lymphocytes Absolute Auto 2.6 X10*3/uL (1.2-4.9); Mean Corpuscular HGB Conc 31.5 g/dl (31.0-36.0); Mean Corpuscular Hemoglobin 30.3 pg (27.0-33.0); Mean Corpuscular Volume 96.4 fL (80.0-98.0); Mean Platelet Volume 9.3 fL (9.4-12.4); Monocytes Absolute Auto 0.8 X10*3/uL (0.1-1.2); Monocytes Percent Auto 8.6 % (2-11); Neutrophils Percent Auto 62.1 % (45-73); Platelet Count 228 X10*3/uL (160-400); Red Blood Count 3.89 X10*6/uL (4.60-5.80); Red Cell Distribution Width 13.4 % (11.0-16.0); White Blood Count 9.7 X10*3/uL (4.8-10.8)
[2022-10-06 06:44] LABS: Anion Gap 10 (12-20); Blood Urea Nitrogen 18 mg/dL (9-16); Calcium 8.6 mg/dL (8.4-10.2); Carbon Dioxide 26 mmol/L (22-29); Chloride 104 mmol/L (96-108); Creatinine Clr Calc Pharmacy 103.3; Estimated Glomerular Filt Rate > 60; Glucose Random 75 mg/dL (60-115); Potassium 4.1 mmol/L (3.3-5.1); Sodium 136 mmol/L (135-145)
--- NOTE | 2022-10-06 07:23 | PHA.MEDREC ---
Pharmacy Consult ? Medication Reconciliation Pharmacy has reviewed the medication reconciliation completed by Allison. Patient recently discharge 09/23. Home list matches discharge summary. Heydi Fields, [employer]
[2022-10-06] MEDS: Enoxaparin Sodium 40 MG/0.4 ML SYRINGE SUBCUT (08:14)
[2022-10-06] MEDS: 0.9 % Sodium Chloride Flush 3 ML SYRINGE IVFLUSH ×3 (08:15→20:10)
--- NOTE | 2022-10-06 09:50 | HO.PM.IMPN ---
Subjective Subjective Date of Service: 10/06/22 Interval History: Pt seen for f/u for lethargy and decreased mentation after accidental overdose on percocet. Interval history: Pt reports feeling much better. No longer drowsy or lethargic and capable of carrying on a full conversation. [employer] services used. Pt complains only of some minor wheezing. Denies F/C, N/V, lacrimation or rhinorrhea. No chest pain or pressure, palpitations, or shortness of breath. Denies SI. Patient capable self ambulating and was just seen returning from the bathroom. Review of Systems Minor wheezing No fevers or chills, nausea or vomiting Chest pain/pressure, palpitations, SOB Physical Exam Vital Signs: Vital Signs: Last Vital Signs Temp 97.9 F 10/06/22 05:59 Pulse 85 10/06/22 07:55 Resp 17 10/06/22 07:55 BP 134/65 10/06/22 07:55 Pulse Ox 99 10/06/22 07:55 O2 Del Method 10/06/22 05:59 Oxygen Flow Rate 2 10/06/22 00:06 BMI result Body Mass Index 24.4 General: AOx3, no acute distress Resp: Diffuse wheezing bilaterally CVS: S1, S2, RRR GI: +BS, NT, no distention Skin: No rash Neuro: Motor grossly intact Psych: Appropriate affect Objective Data Active Medications Acetaminophen (Acetaminophen 325 Mg Tablet) 650 mg PO Q6H PRN PRN Reason: Pain, Mild (Pain Scale 1-3) Last Admin: 10/06/22 05:11 Dose: 650 mg Documented By: TERRANCE Albuterol/Ipratropium (Albuterol/Iprat 2.5/0.5mg 3 Ml Ampul.Neb) 3 ml INHALE RQ4H PRN PRN Reason: wheezing Enoxaparin Sodium (Enoxaparin Sodium 40 Mg/0.4 Ml Syringe) 40 mg SUBCUT Q24H [facility] Last Admin: 10/06/22 08:14 Dose: 40 mg Documented By: JAMAAL Melatonin (Melatonin 3 Mg Tablet) 6 mg PO BEDTIME PRN PRN Reason: Insomnia Ondansetron HCl (Ondansetron Hcl 4 Mg/2 Ml Vial) 4 mg IVPUSH Q8H PRN PRN Reason: Nausea and Vomiting Pharmacy Consult (Consult Rx Perform Med Rec) 1 each MISCELLANE ONCE PRN PRN Reason: Consult order Sodium Chloride (0.9 % Sodium Chloride Flush 3 Ml Syringe) 3 ml IVFLUSH QSHIFT CHAZ Last Admin: 10/06/22 08:15 Dose: 3 ml Documented By: JAMAAL Labs CBC & Chem 7: 10/06/22 05:38 10/06/22 05:38 Labs: Laboratory Results - last 24 hr 10/06/22 10/06/22 10/06/22 00:46 00:47 00:47 MCV 95.2 MCH 30.3 MCHC 31.8 RDW 13.6 Plt Count 262 D MPV 8.7 L Immature Gran % (Auto) 0.9 H Neut % (Auto) 77.2 H Lymph % (Auto) 13.6 L Island % (Auto) 7.5 Eos % (Auto) 0.5 Baso % (Auto) 0.3 Lymph # (Auto) 1.9 Island # (Auto) 1.0 Eos # (Auto) 0.1 Baso # (Auto) 0.0 Abs Immat Gran (auto) 0.13 H Absolute Neuts (auto) 10.6 H Absolute Nucleated RBC 0.000 Nucleated RBC % (auto) 0.0 PT INR D-Dimer High Sensitivty 198 Anion Gap Estim Creat Clear Calc Estimated GFR Random Glucose Lactic Acid Calcium Magnesium Total Bilirubin Direct Bilirubin AST ALT Alkaline Phosphatase Total Creatine Kinase Troponin I High Sens B-Natriuretic Peptide Total Protein Albumin Urine Color Urine Appearance Urine pH Ur Specific [place] Urine Protein Urine Glucose (UA) Urine Ketones Urine Blood Urine Nitrite Ur Leukocyte Esterase Urine RBC Urine WBC Ur Squamous Epith Cells Calcium Oxalate Crystal Urine Bacteria Hyaline Casts Granular Casts Urine Opiates Screen Urine Fentanyl Screen Ur Barbiturates Screen Ur Phencyclidine Scrn Ur Amphetamines Screen U Benzodiazepines Scrn Urine Cocaine Screen U Marijuana (THC) Screen Ethyl Alcohol COVID-19 (CRISTHIAN) Negative COVID-19 Clin Com See Note 10/06/22 10/06/22 10/06/22 00:47 00:47 00:47 MCV MCH MCHC RDW Plt Count MPV Immature Gran % (Auto) Neut % (Auto) Lymph % (Auto) Island % (Auto) Eos % (Auto) Baso % (Auto) Lymph # (Auto) Island # (Auto) Eos # (Auto) Baso # (Auto) Abs Immat Gran (auto) Absolute Neuts (auto) Absolute Nucleated RBC Nucleated RBC % (auto) PT 10.4 INR 0.9 D-Dimer High Sensitivty Anion Gap Cancelled Estim Creat Clear Calc Cancelled Estimated GFR Cancelled Random Glucose Cancelled Lactic Acid 1.2 Calcium Cancelled Magnesium Cancelled Total Bilirubin Cancelled Direct Bilirubin Cancelled AST Cancelled ALT Cancelled Alkaline Phosphatase Cancelled Total Creatine Kinase Troponin I High Sens B-Natriuretic Peptide Total Protein Cancelled Albumin Cancelled Urine Color Urine Appearance Urine pH Ur Specific [place] Urine Protein Urine Glucose (UA) Urine Ketones Urine Blood Urine Nitrite Ur Leukocyte Esterase Urine RBC Urine WBC Ur Squamous Epith Cells Calcium Oxalate Crystal Urine Bacteria Hyaline Casts Granular Casts Urine Opiates Screen Urine Fentanyl Screen Ur Barbiturates Screen Ur Phencyclidine Scrn Ur Amphetamines Screen U Benzodiazepines Scrn Urine Cocaine Screen U Marijuana (THC) Screen Ethyl Alcohol COVID-19 ([facility]ISTHIAN) COVID-19 [place] 10/06/22 10/06/22 10/06/22 00:47 00:47 00:47 MCV MCH MCHC RDW Plt Count MPV Immature Gran % (Auto) Neut % (Auto) Lymph % (Auto) Island % (Auto) Eos % (Auto) Baso % (Auto) Lymph # (Auto) Island # (Auto) Eos # (Auto) Baso # (Auto) Abs Immat Gran (auto) Absolute Neuts (auto) Absolute Nucleated RBC Nucleated RBC % (auto) PT INR D-Dimer High Sensitivty Anion Gap 16 Estim Creat Clear Calc 70.5 Estimated GFR 58 Random Glucose 110 Lactic Acid Calcium 9.1 Magnesium 1.9 Total Bilirubin 0.5 Direct Bilirubin 0.2 AST 43 H ALT 84 H Alkaline Phosphatase 89 Total Creatine Kinase 210 H Troponin I High Sens 41.7 H B-Natriuretic Peptide 17 Total Protein 6.7 Albumin 4.0 Urine Color Urine Appearance Urine pH Ur Specific [place] Urine Protein Urine Glucose (UA) Urine Ketones Urine Blood Urine Nitrite Ur Leukocyte Esterase Urine RBC Urine WBC Ur Squamous Epith Cells Calcium Oxalate Crystal Urine Bacteria Hyaline Casts Granular Casts Urine Opiates Screen Urine Fentanyl Screen Ur Barbiturates Screen Ur Phencyclidine Scrn Ur Amphetamines Screen U Benzodiazepines Scrn Urine Cocaine Screen U Marijuana (THC) Screen Ethyl Alcohol < 10 COVID-19 (CRISTHIAN) COVID-19 [place] 10/06/22 10/06/22 10/06/22 00:55 00:55 03:33 MCV MCH MCHC RDW Plt Count MPV Immature Gran % (Auto) Neut % (Auto) Lymph % (Auto) Island % (Auto) Eos % (Auto) Baso % (Auto) Lymph # (Auto) Island # (Auto) Eos # (Auto) Baso # (Auto) Abs Immat Gran (auto) Absolute Neuts (auto) Absolute Nucleated RBC Nucleated RBC % (auto) PT INR D-Dimer High Sensitivty Anion Gap Estim Creat Clear Calc Estimated GFR Random Glucose Lactic Acid Calcium Magnesium Total Bilirubin Direct Bilirubin AST ALT Alkaline Phosphatase Total Creatine Kinase Troponin I High Sens 88.4 H D B-Natriuretic Peptide Total Protein Albumin Urine Color Yellow Urine Appearance Cloudy Urine pH 5.0 Ur Specific [place] 1.025 Urine Protein 30 (1+) H Urine Glucose (UA) Negative Urine Ketones Negative Urine Blood Trace H Urine Nitrite Negative Ur Leukocyte Esterase Negative Urine RBC 3-5 H Urine WBC 0-5 Ur Squamous Epith Cells 3-5 Calcium Oxalate Crystal Present Urine Bacteria None Seen Hyaline Casts >20 Granular Casts Present Urine Opiates Screen POSITIVE H Urine Fentanyl Screen POSITIVE H Ur Barbiturates Screen Not Detected Ur Phencyclidine Scrn Not Detected Ur Amphetamines Screen Not Detected U Benzodiazepines Scrn Not Detected Urine Cocaine Screen Not Detected U Marijuana (THC) Screen POSITIVE H Ethyl Alcohol COVID-19 (CRISTHIAN) COVID-19 Clin Com 10/06/22 10/06/22 10/06/22 05:38 05:38 05:38 MCV 96.4 MCH 30.3 MCHC 31.5 RDW 13.4 Plt Count 228 MPV 9.3 L Immature Gran % (Auto) 0.7 H Neut % (Auto) 62.1 Lymph % (Auto) 27.0 Island % (Auto) 8.6 Eos % (Auto) 1.2 Baso % (Auto) 0.4 Lymph # (Auto) 2.6 Island # (Auto) 0.8 Eos # (Auto) 0.1 Baso # (Auto) 0.0 Abs Immat Gran (auto) 0.07 H Absolute Neuts (auto) 6.0 Absolute Nucleated RBC 0.000 Nucleated RBC % (auto) 0.0 PT INR D-Dimer High Sensitivty Anion Gap 10 L Estim Creat Clear Calc 103.3 Estimated GFR > 60 Random Glucose 75 Lactic Acid Calcium 8.6 Magnesium Total Bilirubin Direct Bilirubin AST ALT Alkaline Phosphatase Total Creatine Kinase Troponin I High Sens 73.0 H B-Natriuretic Peptide Total Protein Albumin Urine Color Urine Appearance Urine pH Ur Specific [place] Urine Protein Urine Glucose (UA) Urine Ketones Urine Blood Urine Nitrite Ur Leukocyte Esterase Urine RBC Urine WBC Ur Squamous Epith Cells Calcium Oxalate Crystal Urine Bacteria Hyaline Casts Granular Casts Urine Opiates Screen Urine Fentanyl Screen Ur Barbiturates Screen Ur Phencyclidine Scrn Ur Amphetamines Screen U Benzodiazepines Scrn Urine Cocaine Screen U Marijuana (THC) Screen Ethyl Alcohol COVID-19 (CRISTHIAN) COVID-19 [place]IE[place] Com 10/06/22 05:38 MCV MCH MCHC RDW Plt Count MPV Immature Gran % (Auto) Neut % (Auto) Lymph % (Auto) Island % (Auto) Eos % (Auto) Baso % (Auto) Lymph # (Auto) Island # (Auto) Eos # (Auto) Baso # (Auto) Abs Immat Gran (auto) Absolute Neuts (auto) Absolute Nucleated RBC Nucleated RBC % (auto) PT INR D-Dimer High Sensitivty Anion Gap Estim Creat Clear Calc Estimated GFR Random Glucose Lactic Acid Calcium Magnesium Total Bilirubin Direct Bilirubin AST ALT Alkaline Phosphatase Total Creatine Kinase 327 H Troponin I High Sens B-Natriuretic Peptide Total Protein Albumin Urine Color Urine Appearance Urine pH Ur Specific [place] Urine Protein Urine Glucose (UA) Urine Ketones Urine Blood Urine Nitrite Ur Leukocyte Esterase Urine RBC Urine WBC Ur Squamous Epith Cells Calcium Oxalate Crystal Urine Bacteria Hyaline Casts Granular Casts Urine Opiates Screen Urine Fentanyl Screen Ur Barbiturates Screen Ur Phencyclidine Scrn Ur Amphetamines Screen U Benzodiazepines Scrn Urine Cocaine Screen U Marijuana (THC) Screen Ethyl Alcohol COVID-19 (CRISTHIAN) COVID-19 Clin Com Assessment and Plan (1) Substance abuse: Status: Acute (2) Accidental overdose: Status: Acute Plan Pt is a 52-year-old male with pertinent history of opioid use disorder, tobacco use disorder, [place]'s disease, and asthma who was brought to the emergency department for decreased mentation and lethargy after an accidental overdose on percocet. Pt states he only wanted to relieve the pain and does not know how many pills he took. Pt was admitted for observation for opioid withdrawal. #.? Acute toxic encephalopathy due to opioid use disorder -- accidental overdose -- continue to monitor for improvement over time -- closely monitor hemodynamics and monitor withdrawal -- CARE team and addiction consult #.? Elevated troponin:? -- likely type 2 in the setting of demand ischemia -- pt without chest pain/pressure -- third troponin decreasing #.? Reactive leukocytosis #. Asthma -- continue home meds DVT prophylaxis:? Lovenox 40 mg daily NPO until mentation improves Full code Time Spent With Patient Time: Total time managing care of this patient today ____ minutes. Quality Stroke Does the patient have a stroke diagnosis?: No VTE Prior VTE?: No VTE Risk Level:: Medical - moderate - high VTE Device Contraindication: Treatment Not Indicated VTE Drug Contraindication: N/A - Med Ordered
[2022-10-06] MEDS: Albuterol/Iprat 2.5/0.5MG 3 ML AMPUL.NEB INHALE (10:54)
--- NOTE | 2022-10-06 12:00 | MHC.CM.PN ---
pt lives with sister he is covid vax x 3 no servcies are expected to be needed dc plan home no servceis
--- NOTE | 2022-10-06 12:01 | MHC.RECOVRN ---
Met with pt in ED2 after consult placed to CARE Team and Addiction Medicine. Per reports, pt did not receive Narcan nor overdose, pt had syncopal episode. Upon reviewing the chart and meeting with pt, it does not appear that pt has OUD. Pt did, however, take an unknown pill this morning to help relieve back pain. Pt had tested positive for fentanyl on 09/19, however, this was after pt received fentanyl IV push. Per pt, this is the only time having taken an unknown pill and states Never again. Pt denies hx OUD or utilizing opiates for pain in the past. Pt educated regarding Narcan, fentanyl, risk for overdose. Denies questions or concerns at this time. Discussed with Shelby Duggan APRN.
--- NOTE | 2022-10-06 12:23 | MHC.CM.PN ---
pt lives with son is independent servceis are not expected cleo needed has own ride home
--- NOTE | 2022-10-06 14:09 | PM.EVENT ---
Event Note Date of Service: 10/06/22 Event Note: Addiction consult: Please see Recovery Support RN note Time Spent With Patient Time: Total time managing care of this patient today ____ minutes.
--- NOTE | 2022-10-06 14:13 | PC.NURSE ---
alert, speech clear, nad, no complaints, skin wpd, awaiting lunch
--- NOTE | 2022-10-06 16:12 | PC.NURSE ---
Pt is resting comfortably on stretcher at this time, awaiting bed placement. This RN talked with pt son in room and updated him on plan of care
[2022-10-06] MEDS: QUEtiapine Fumarate 50 MG TABLET 150 MG PO (22:06)
[2022-10-06] MEDS: traZODone HCL 50 MG TABLET 150 MG PO (22:06)
[2022-10-06] MEDS: clonazePAM 1 MG TABLET PO (22:06)
[2022-10-07 03:49] VITALS: BP 154/95; PULSE 92; RESP 18; TEMP 36.8; O2SAT 97
--- NOTE | 2022-10-07 04:11 | PC.NURSE ---
Pt seen at start of the shift alert and oriented, also noted with tics and tremors as relate to his [place]. Pt requested for his Klonopin, Seroquel and Trazodone for sleep, Dr. Beyer was notifed, meds ordered and tolerated, slept fairly.
[2022-10-07 07:30] VITALS: BP 130/77; PULSE 63; RESP 17; TEMP 36.8; O2SAT 96
[2022-10-07] MEDS: Enoxaparin Sodium 40 MG/0.4 ML SYRINGE SUBCUT (07:55)
[2022-10-07] MEDS: 0.9 % Sodium Chloride Flush 3 ML SYRINGE IVFLUSH (07:57)
--- NOTE | 2022-10-07 09:47 | PM.DS ---
DS: Providers Provider Date of Service: 10/07/22 Date of admission: 10/06/22 04:35 Date of discharge: 10/07/22 Primary care physician: Nonstaff Physician Consults: 10/06/22 05:30 Addiction Medicine Routine Consulting Provider: Erin Daily Reason for consultation: opioid use disorder Consult to Care Team Routine Comment: Reason for consultation: opioid use disorder DS: Diagnosis Discharge Diagnosis (1) Substance abuse: Status: Acute (2) Accidental overdose: Status: Acute DS: Summary Hospital Course Hospital Course: Presenting HPI: Chief Complaint: Altered mentation This is a 52-year-old male with pertinent history of opioid use disorder, tobacco use disorder, [place]'s disease, asthma who was brought to the emergency department for decreased mentation.? Patient is drowsy and lethargic at the time of my examination and hence history is limited. States he took some Percocet and passed out.? Does not know how long he was passed out for.? As per chart review, his family found him locked in the bathroom and had to break the door to get in.? States he did not mean to harm himself.? Only wanted to relieve his back pain.? Does not have prescription for Percocet, gets it off the streets.? He denies fever, chills, chest discomfort, palpitations, shortness of breath, abdominal pain, changes in urinary bowel habits.? Denies injection of drugs.? Denies alcohol use.? Does smoke cigarettes occasionally. Hospital Course: In the hospital labs showed leukocytosis, likely reactionary, and mildly elevated troponins, the 3rd which was already downtrending, likely type 2 in the setting of demand ischemia. The patient was treated with supportive care only and showed clinical improvement by the morning. Patient's mentation and lethargy improved, and patient was able to ambulate on his during the day. Patient never complained of any opioid withdrawal symptoms and was hemodynamically stable throughout his stay. Patient seen and evaluated by the care team and addiction medicine. Patient was educated concerning Narcan, fentanyl, and risk for overdose. Patient on DuoNeb at home and received 2 treatments in hospital for wheezing. Patient now appears back to baseline and will be discharged to home he should follow-up with his PCP about his back pain. Status at Discharge Functional status at discharge: independent ambulation Overall status at discharge: patient is back to baseline Time Spent with Patient Time attestation: Total time managing care of this patient today ____ minutes. Discharge coordination time: Greater than 30 minutes Quality: Safe Use of Opioids Does Pt have an Active Cancer Diagnosis on the Problem List?: No Quality: Stroke Does the patient have a stroke diagnosis?: No Physical Exam Vital Signs: Vital Signs: Last Vital Signs Temp 98.2 F 10/07/22 07:30 Pulse 63 10/07/22 07:30 Resp 17 10/07/22 07:30 BP 130/77 10/07/22 07:30 Pulse Ox 96 10/07/22 07:30 O2 Del Method 10/07/22 07:30 Oxygen Flow Rate 2 10/06/22 00:06 BMI result Body Mass Index 29.2 General: AOx3, no acute distress Resp: Diffuse wheezing bilaterally CVS: S1, S2, RRR GI: +BS, NT, no distention Skin: No rash Neuro: Motor grossly intact Psych: Appropriate affect DS: Data Data Completed and Pending Completed studies during hospitalization [Text1]: Procedures Assistance with Respiratory Ventilation, Less than 24 Consecutive Hours, Continuous Positive Airway Pressure (09/19/22) Discharge Plan Discharge Patient Disposition: Home, Self-Care Discharge Diagnosis: Accidental overdose Referrals: Physician,Nonstaff [Primary Care Provider] - 1 Week Discharge Medications: Continued clonazepam 1 mg Tablet 1 mg PO TID PRN (Reason: Anxiety) ascorbic acid (vitamin C) 250 mg Tablet 500 mg PO DAILY trazodone 150 mg Tablet 150 mg PO BEDTIME PRN (Reason: Sleep) albuterol sulfate [ProAir HFA] 90 mcg/actuation Hfa Aerosol Inhaler 2 puff INHALATION Q4-6H PRN (Reason: Shortness Of Breath) baclofen 10 mg Tablet 10 mg PO TID Qty: 90 0RF quetiapine 50 mg Tablet 150 mg PO BEDTIME Qty: 90 0RF Discharge Orders: Discharge Order (Routine); Ordered 10/07/22 Ordered By: Kimi Mir Diet: Advance to usual diet Activity on Discharge: As tolerated Stand Alone Forms: Patient Portal Discharge page Care Plan Goals: Full recover from altered mentation Resume all home meds Health Concerns: Monitor for symptoms of opioid withdrawal: Nausea/vomiting, headache, runny nose, excessive tearing, abdominal pain, diarrhea, rapid heart rate, excessive yawning Opioid use disorder Plan of Treatment: Follow-up with PCP about back pain Assessment: See discharge summary
[2022-10-07] MEDS: Albuterol/Iprat 2.5/0.5MG 3 ML AMPUL.NEB INHALE (10:00)
[2022-10-07 10:02] VITALS: PULSE 84; RESP 18; O2SAT 96
--- NOTE | 2022-10-07 10:13 | MHC.CM.PN ---
DP: PATIENT HAS BEEN MEDICALLY CLEARED FOR DISCHARGE HOME, NO SERVICES. PT HAS RIDE HOME.
== END 2022-10-07 11:37 | disposition home or self-care (01) ==
LOC: HO.ED 10-06 04:19 → HO.EDOVER 10-06 04:51 → HO.S3 10-06 18:04
PROVIDERS: Admitting Provider Student in an Organized Health Care Education/Training Program; Emergency Provider Emergency Medicine; Visit Provider Student in an Organized Health Care Education/Training Program
DX: T40.1X1A Poisoning by heroin, accidental (unintentional), initial encounter (principal); F11.19 Opioid abuse with unspecified opioid-induced disorder; G10 Huntington's disease; R41.82 Altered mental status, unspecified; R77.8 Other specified abnormalities of plasma proteins; R51.9 Headache, unspecified; R07.89 Other chest pain; R06.02 Shortness of breath; Y92.9 Unspecified place or not applicable; Z20.822 Contact with and (suspected) exposure to COVID-19; Z79.899 Other long term (current) drug therapy; Z71.51 Drug abuse counseling and surveillance of drug abuser
CPT/HCPCS: 36415; 70450; 71045; 80048; 80076; 80307; 81001; 82077; 82550; 83605; 83735; 83880; 84484; 85025; 85379; 85610; 87635; 93005; 94640; 96372; 96374; 99218; 99285; J1650

== ENCOUNTER 2022-10-08 12:36 | Emergency (ER) | payer MEDICAID, SELFPAY ==
--- NOTE | ~2022-10-08 | XR_ITS ---
EXAMINATION: XR CHEST CLINICAL INFORMATION: Shortness of breath COMPARISON: Previous chest x-ray 10/06/2022 TECHNIQUE: Frontal view of the chest was obtained. FINDINGS: No significant abnormality is noted involving the heart, lungs, mediastinum, bony thorax or soft tissues. XR/XR chest 1V IMPRESSION: Unremarkable examination.
[2022-10-08 12:40] VITALS: BP 00/00; PULSE 137; RESP 24; TEMP 36.7; O2SAT 98; BMI 29.7
--- NOTE | 2022-10-08 12:40 | ED_ITS ---
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 Patient reports some mild nausea and shortness of breath but otherwise denies any other symptoms. <Vilma Sanchez MD - Last Filed: 10/08/22 15:28> Related Data Home Medications: Home Medications Medication Instructions Recorded Confirmed albuterol sulfate 90 mcg/actuation 2 puff inhalation Q4-6H PRN 09/19/22 10/06/22 aerosol inhaler (ProAir HFA) Shortness Of Breath ascorbic acid (vitamin C) 250 mg 500 mg PO DAILY 09/19/22 10/06/22 tablet clonazepam 1 mg tablet 1 mg PO TID PRN Anxiety 09/19/22 10/06/22 trazodone 150 mg tablet 150 mg PO BEDTIME PRN Sleep 09/19/22 10/06/22 Previous Rx's Medication Instructions Recorded baclofen 10 mg tablet 10 mg PO TID #90 tabs 09/23/22 quetiapine 50 mg tablet 150 mg PO BEDTIME #90 tabs 09/23/22 clonazepam 1 mg tablet 1 mg PO TID PRN Anxiety #7 tabs 10/08/22 quetiapine 150 mg tablet 150 mg PO BEDTIME #14 tabs 10/08/22 trazodone 150 mg tablet 150 mg PO BEDTIME PRN sleep #7 tabs 10/08/22 <Tita Moon NP - Last Filed: 10/08/22 12:47> Allergies/Adverse Reactions: Allergies Allergy/AdvReac Type Severity Reaction Status Date / Time No Known Allergies Allergy Verified 10/06/22 05:45 [No Known Allergies*] <Tita Moon NP - Last Filed: 10/08/22 12:47> Review of Systems Review of Systems: Pertinent positives and negatives as stated in HPI 10 point review of systems is otherwise negative. <Vilma Sanchez MD - Last Filed: 10/08/22 15:28> PMFSH Past Medical History Source: nursing notes reviewed <Vilma Sanchez MD - Last Filed: 10/08/22 15:28> Medical History: Medical History Beemer's chorea <Tita Moon NP - Last Filed: 10/08/22 12:47> Social History Social History: Social History Household Members: Family Household Members Other:: son Housing: Apartment Do you presently have visiting nurse or other home services: No Patient Tobacco Use Status: Former Tobacco user Tobacco use type: Cigarette Cigarettes Per Day: 3 e-Cigarette/Vaping Use: Never Used Substance Use Type: Marijuana Advance Directives: No Advance Directives Information Provided: Yes service: No <Tita Moon NP - Last Filed: 10/08/22 12:47> Physical Exam Vital Signs: Vital Signs: Last Vital Signs Temp 98.0 F 10/08/22 12:40 Pulse 115 H 10/08/22 13:07 Resp 20 10/08/22 13:07 BP 00/00 L 10/08/22 12:40 Pulse Ox 98 10/08/22 12:40 O2 Del Method 10/08/22 12:40 BMI result Body Mass Index 29.7 <Tita Moon NP - Last Filed: 10/08/22 12:47> Vital Signs: Last Vital Signs Temp 98.0 F 10/08/22 12:40 Pulse 115 H 10/08/22 13:07 Resp 20 10/08/22 13:07 BP 00/00 L 10/08/22 12:40 Pulse Ox 98 10/08/22 12:40 O2 Del Method 10/08/22 12:40 BMI result Body Mass Index 29.7 VITAL SIGNS: Reviewed. GENERAL: Well developed, well nourished, in no acute distress. HEAD: Normocephalic/atraumatic EYES: PERRLA, EOMI EARS: Ext canals without abnormality OROPHARYNX: no oral lesions noted, posterior pharynx clear NECK: Supple, no adenopathy LUNGS: Decreased bilaterally with expiratory wheeze and tachypnea present no rhonchi or crackles noted. SpO2<98> CARDIOVASCULAR: Regular rate and rhythm without noted murmurs, no JVD or lower extremity edema. ABDOMEN: Soft, non-tender, non-distended with bowel sounds. MUSCULOSKELETAL: No tenderness, deformities, or effusions noted on gross inspection. EXTREMITIES: No cyanosis, clubbing or edema. SKIN: Inspection of the skin reveals no rashes, diaphoretic NEUROLOGIC: Alert and oriented x 4, abnormal chorea movements, appears somewhat tardive dyskinesis, Strength and sensation to light touch were grossly intact x 4. <Vilma Sanchez MD - Last Filed: 10/08/22 15:28> Course Course Course Narrative: This is a rapid medical exam. Deferred additional HPI, ROS, PE to primary provider. 52 yo male with history of asthma, huntingtons disease here with SOB since last evening. Denies cough, fever, chest pain. In triage +diaphoresis, tachypnea, tachycardia. Will obtain labs, EKG, CXR, covid/flu/covid screen. d/denzel 10/07 after being admitted for accidental drug overdose. Patient to be immediately brought back. Charge nurse aware. <Tita Moon NP - Last Filed: 10/08/22 12:47> This is a rapid medical exam. Deferred additional HPI, ROS, PE to primary provider. 52 yo male with history of asthma, huntingtons disease here with SOB since last evening. Denies cough, fever, chest pain. In triage +diaphoresis, tachypnea, tachycardia. Will obtain labs, EKG, CXR, covid/flu/covid screen. d/denzel 10/07 after being admitted for accidental drug overdose. Patient to be immediately brought back. Charge nurse aware. 52-year-old male who presents with unclear picture as to whether this is strictly Raymond's chorea or if there is a component of tardive dyskinesis. I reviewed psychiatry is note which describes the latter, but I do not see a note from Neurology as the son suggested. Patient with obvious signs asthma, will receive breathing treatment, chest x-ray and will evaluate for other contributing factors to his respiratory status as he was discharged yesterday. In addition, patient will be viral tested and received 25 mg of Benadryl IV for presumptive tardive dyskinesis component. I read psychiatry is note that is dated 09/22 wherein there is some suspicion for possible dystonia verses dyskinesia. The recommendation was that patient be started on baclofen for dystonia and lower Seroquel to 150 mg at bedtime. In addition for treatment of acute dystonia IM Ativan or Benadryl or recommended. Dr. Vasquez also recommended Neurology consult. The diagnosis on further discussion with the son and patient at bedside seems vague patient reports being evaluated further in [place] and being told that he did not have Beemer's. I read over the discharge summary which outlines a continuation of medications that patient states he did not have at home which includes his Seroquel, clonazepam, trazodone. Patient appears to be dystonic or dyskinetic and although he continues to complain of shortness of breath, he is oxygenating well on room air breath sounds are significantly improved after 10 mg DuoNeb, chest x-ray is negative for acute pathology. I went in and discussed with the patient and his son at bedside and informed them that I would be providing the patient with 2 weeks of his home medications under strict understanding that he was not to purchase any more oxycodone off of the street. Patient acknowledges and states that he will not do that again. Auscultation of breath sounds and re-evaluation tachypnea as well as oxygenation on room air with demonstrated improvement in all 3. Patient states that he is feeling better and is been speaking with his family at great length. His abnormal movements have improved after 50 mg of Benadryl. I did not appreciate a Neurology referral and patient is discharged from yesterday but will provide 1 today. <Vilma Sanchez MD - Last Filed: 10/08/22 15:28> Medications Administered Discontinued Medications Generic Name Dose Route Start Last Admin Trade Name Buddy PRN Reason Stop Dose Admin Al Hydroxide/Mg Hydroxide 30 ml 10/08/22 13:59 10/08/22 14:08 Magnesium Hydrox/Alum Hydrox 30 Ml Oral.Susp PO 10/08/22 14:00 30 ml ONCE ONE Administration Albuterol Sulfate 2 puff 10/08/22 14:21 10/08/22 14:57 Albuterol Sulfate 90 Mcg 8 Gm Inhaler INHALE 10/08/22 14:22 2 puff ONCE ONE Administration Albuterol Sulfate 7.5 mg/ 0 mg 10/08/22 12:53 10/08/22 13:06 Albuterol/Ipratropium 3 ml INHALE 10/08/22 12:54 10 each ONCE ONE Administration Diphenhydramine HCl 25 mg 10/08/22 13:08 10/08/22 13:29 Diphenhydramine Hcl 50 Mg/Ml Vial IVPUSH 10/08/22 13:09 25 mg ONCE ONE Administration Diphenhydramine HCl 25 mg 10/08/22 13:58 10/08/22 14:08 Diphenhydramine Hcl 50 Mg/Ml Vial IVPUSH 10/08/22 13:59 25 mg ONCE ONE Administration Lidocaine HCl 10 ml 10/08/22 13:59 10/08/22 14:08 Lidocaine Hcl Viscous 2 % 15 Ml Solution MUCOUS MEM 10/08/22 14:00 10 ml ONCE ONE Administration <Tita Moon NP - Last Filed: 10/08/22 12:47> Medications Administered Discontinued Medications Generic Name Dose Route Start Last Admin Trade Name Buddy PRN Reason Stop Dose Admin Al Hydroxide/Mg Hydroxide 30 ml 10/08/22 13:59 10/08/22 14:08 Magnesium Hydrox/Alum Hydrox 30 Ml Oral.Susp PO 10/08/22 14:00 30 ml ONCE ONE Administration Albuterol Sulfate 2 puff 10/08/22 14:21 10/08/22 14:57 Albuterol Sulfate 90 Mcg 8 Gm Inhaler INHALE 10/08/22 14:22 2 puff ONCE ONE Administration Albuterol Sulfate 7.5 mg/ 0 mg 10/08/22 12:53 10/08/22 13:06 Albuterol/Ipratropium 3 ml INHALE 10/08/22 12:54 10 each ONCE ONE Administration Diphenhydramine HCl 25 mg 10/08/22 13:08 10/08/22 13:29 Diphenhydramine Hcl 50 Mg/Ml Vial IVPUSH 10/08/22 13:09 25 mg ONCE ONE Administration Diphenhydramine HCl 25 mg 10/08/22 13:58 10/08/22 14:08 Diphenhydramine Hcl 50 Mg/Ml Vial IVPUSH 10/08/22 13:59 25 mg ONCE ONE Administration Lidocaine HCl 10 ml 10/08/22 13:59 10/08/22 14:08 Lidocaine Hcl Viscous 2 % 15 Ml Solution MUCOUS MEM 10/08/22 14:00 10 ml ONCE ONE Administration <Vilma Sanchez MD - Last Filed: 10/08/22 15:28> Medical Decision Making Lab Data Result Diagrams: : 10/08/22 13:22 10/08/22 14:01 <Tita Moon NP - Last Filed: 10/08/22 12:47> Labs: Lab Results 10/08/22 10/08/22 10/08/22 Range/Units 13:22 13:22 13:22 WBC 13.9 H (4.8-10.8) X10*3/uL RBC 4.86 D (4.60-5.80) X10*6/uL Hgb 14.8 D (14.0-18.0) g/dl Hct 45.4 D (42.0-52.0) % MCV 93.4 (80.0-98.0) fL MCH 30.5 (27.0-33.0) pg MCHC 32.6 (31.0-36.0) g/dl RDW 13.2 (11.0-16.0) % Plt Count 271 (160-400) X10*3/uL MPV 8.9 L (9.4-12.4) fL Immature Gran % (Auto) 0.6 H (0.0-0.4) % Neut % (Auto) 72.4 (45-73) % Lymph % (Auto) 19.4 L (20-40) % [place] % (Auto) 6.7 (2-11) % Eos % (Auto) 0.6 (0-4) % Baso % (Auto) 0.3 (0-2) % Lymph # (Auto) 2.7 (1.2-4.9) X10*3/uL [place] # (Auto) 0.9 (0.1-1.2) X10*3/uL Eos # (Auto) 0.1 (0.0-0.4) X10*3/uL Baso # (Auto) 0.0 (0.0-0.2) X10*3/uL Abs Immat Gran (auto) 0.08 H (0.00-0.03) X10*3/uL Absolute Neuts (auto) 10.1 H (2.0-8.3) x10*3/uL Absolute Nucleated RBC 0.000 (0.0-0.012) X10*3/uL Nucleated RBC % (auto) 0.0 (0.0-0.2) /100WBC PT 10.4 (10.0-13.1) SEC INR 0.9 (0.9-1.1) D-Dimer High Sensitivty 158 NG/ML Sodium (135-145) mmol/L Potassium (3.3-5.1) mmol/L Chloride (96-108) mmol/L Carbon Dioxide (22-29) mmol/L Anion Gap (12-20) BUN (9-16) mg/dL Creatinine (0.5-1.4) mg/dL Estim Creat Clear Calc Estimated GFR Random Glucose (60-115) mg/dL Lactic Acid (0.5-2.0) mmol/L Calcium (8.4-10.2) mg/dL Magnesium (1.6-2.6) mg/dL Total Bilirubin (0.0-1.0) mg/dL Direct Bilirubin (0.0-0.5) mg/dL AST (5-37) U/L ALT (0-40) U/L Alkaline Phosphatase (39-117) U/L Troponin I High Sens 7.0 D (<3.5-35.0) ng/L B-Natriuretic Peptide (<100) pg/mL Total Protein (6.5-8.0) g/dL Albumin (3.5-5.0) g/dL Influenza Type A (PCR) (Negative) Influenza Type B (PCR) (Negative) RSV RNA Qual (PCR) (Negative) SARS-CoV-2 RNA (RT-PCR) (Negative) 10/08/22 10/08/22 10/08/22 Range/Units 13:22 13:23 14:01 WBC (4.8-10.8) X10*3/uL RBC (4.60-5.80) X10*6/uL Hgb (14.0-18.0) g/dl Hct (42.0-52.0) % MCV (80.0-98.0) fL MCH (27.0-33.0) pg MCHC (31.0-36.0) g/dl RDW (11.0-16.0) % Plt Count (160-400) X10*3/uL MPV (9.4-12.4) fL Immature Gran % (Auto) (0.0-0.4) % Neut % (Auto) (45-73) % Lymph % (Auto) (20-40) % [place] % (Auto) (2-11) % Eos % (Auto) (0-4) % Baso % (Auto) (0-2) % Lymph # (Auto) (1.2-4.9) X10*3/uL [place] # (Auto) (0.1-1.2) X10*3/uL Eos # (Auto) (0.0-0.4) X10*3/uL Baso # (Auto) (0.0-0.2) X10*3/uL Abs Immat Gran (auto) (0.00-0.03) X10*3/uL Absolute Neuts (auto) (2.0-8.3) x10*3/uL Absolute Nucleated RBC (0.0-0.012) X10*3/uL Nucleated RBC % (auto) (0.0-0.2) /100WBC PT (10.0-13.1) SEC INR (0.9-1.1) D-Dimer High Sensitivty NG/ML Sodium 142 (135-145) mmol/L Potassium 4.5 (3.3-5.1) mmol/L Chloride 108 (96-108) mmol/L Carbon Dioxide 25 (22-29) mmol/L Anion Gap 14 (12-20) BUN 17 H (9-16) mg/dL Creatinine 1.01 (0.5-1.4) mg/dL Estim Creat Clear Calc 77.3 Estimated GFR > 60 Random Glucose 121 H (60-115) mg/dL Lactic Acid (0.5-2.0) mmol/L Calcium 9.8 D (8.4-10.2) mg/dL Magnesium 1.7 (1.6-2.6) mg/dL Total Bilirubin 0.5 (0.0-1.0) mg/dL Direct Bilirubin 0.2 (0.0-0.5) mg/dL AST 26 (5-37) U/L ALT 53 H (0-40) U/L Alkaline Phosphatase 90 (39-117) U/L Troponin I High Sens (<3.5-35.0) ng/L B-Natriuretic Peptide < 10 (<100) pg/mL Total Protein 6.9 (6.5-8.0) g/dL Albumin 4.2 (3.5-5.0) g/dL Influenza Type A (PCR) NEGATIVE (Negative) Influenza Type B (PCR) NEGATIVE (Negative) RSV RNA Qual (PCR) NEGATIVE (Negative) SARS-CoV-2 RNA (RT-PCR) NEGATIVE (Negative) 10/08/22 Range/Units 14:01 WBC (4.8-10.8) X10*3/uL RBC (4.60-5.80) X10*6/uL Hgb (14.0-18.0) g/dl Hct (42.0-52.0) % MCV (80.0-98.0) fL MCH (27.0-33.0) pg MCHC (31.0-36.0) g/dl RDW (11.0-16.0) % Plt Count (160-400) X10*3/uL MPV (9.4-12.4) fL Immature Gran % (Auto) (0.0-0.4) % Neut % (Auto) (45-73) % Lymph % (Auto) (20-40) % [place] % (Auto) (2-11) % Eos % (Auto) (0-4) % Baso % (Auto) (0-2) % Lymph # (Auto) (1.2-4.9) X10*3/uL [place] # (Auto) (0.1-1.2) X10*3/uL Eos # (Auto) (0.0-0.4) X10*3/uL Baso # (Auto) (0.0-0.2) X10*3/uL Abs Immat Gran (auto) (0.00-0.03) X10*3/uL Absolute Neuts (auto) (2.0-8.3) x10*3/uL Absolute Nucleated RBC (0.0-0.012) X10*3/uL Nucleated RBC % (auto) (0.0-0.2) /100WBC PT (10.0-13.1) SEC INR (0.9-1.1) D-Dimer High Sensitivty NG/ML Sodium (135-145) mmol/L Potassium (3.3-5.1) mmol/L Chloride (96-108) mmol/L Carbon Dioxide (22-29) mmol/L Anion Gap (12-20) BUN (9-16) mg/dL Creatinine (0.5-1.4) mg/dL Estim Creat Clear Calc Estimated GFR Random Glucose (60-115) mg/dL Lactic Acid 1.4 (0.5-2.0) mmol/L Calcium (8.4-10.2) mg/dL Magnesium (1.6-2.6) mg/dL Total Bilirubin (0.0-1.0) mg/dL Direct Bilirubin (0.0-0.5) mg/dL AST (5-37) U/L ALT (0-40) U/L Alkaline Phosphatase (39-117) U/L Troponin I High Sens (<3.5-35.0) ng/L B-Natriuretic Peptide (<100) pg/mL Total Protein (6.5-8.0) g/dL Albumin (3.5-5.0) g/dL Influenza Type A (PCR) (Negative) Influenza Type B (PCR) (Negative) RSV RNA Qual (PCR) (Negative) SARS-CoV-2 RNA (RT-PCR) (Negative) <Tita Moon, HONEY - Last Filed: 10/08/22 12:47> Lab Results 10/08/22 10/08/22 10/08/22 Range/Units 13:22 13:22 13:22 WBC 13.9 H (4.8-10.8) X10*3/uL RBC 4.86 D (4.60-5.80) X10*6/uL Hgb 14.8 D (14.0-18.0) g/dl Hct 45.4 D (42.0-52.0) % MCV 93.4 (80.0-98.0) fL MCH 30.5 (27.0-33.0) pg MCHC 32.6 (31.0-36.0) g/dl RDW 13.2 (11.0-16.0) % Plt Count 271 (160-400) X10*3/uL MPV 8.9 L (9.4-12.4) fL Immature Gran % (Auto) 0.6 H (0.0-0.4) % Neut % (Auto) 72.4 (45-73) % Lymph % (Auto) 19.4 L (20-40) % [place] % (Auto) 6.7 (2-11) % Eos % (Auto) 0.6 (0-4) % Baso % (Auto) 0.3 (0-2) % Lymph # (Auto) 2.7 (1.2-4.9) X10*3/uL [place] # (Auto) 0.9 (0.1-1.2) X10*3/uL Eos # (Auto) 0.1 (0.0-0.4) X10*3/uL Baso # (Auto) 0.0 (0.0-0.2) X10*3/uL Abs Immat Gran (auto) 0.08 H (0.00-0.03) X10*3/uL Absolute Neuts (auto) 10.1 H (2.0-8.3) x10*3/uL Absolute Nucleated RBC 0.000 (0.0-0.012) X10*3/uL Nucleated RBC % (auto) 0.0 (0.0-0.2) /100WBC PT 10.4 (10.0-13.1) SEC INR 0.9 (0.9-1.1) D-Dimer High Sensitivty 158 NG/ML Sodium (135-145) mmol/L Potassium (3.3-5.1) mmol/L Chloride (96-108) mmol/L Carbon Dioxide (22-29) mmol/L Anion Gap (12-20) BUN (9-16) mg/dL Creatinine (0.5-1.4) mg/dL Estim Creat Clear Calc Estimated GFR Random Glucose (60-115) mg/dL Lactic Acid (0.5-2.0) mmol/L Calcium (8.4-10.2) mg/dL Magnesium (1.6-2.6) mg/dL Total Bilirubin (0.0-1.0) mg/dL Direct Bilirubin (0.0-0.5) mg/dL AST (5-37) U/L ALT (0-40) U/L Alkaline Phosphatase (39-117) U/L Troponin I High Sens 7.0 D (<3.5-35.0) ng/L B-Natriuretic Peptide (<100) pg/mL Total Protein (6.5-8.0) g/dL Albumin (3.5-5.0) g/dL Influenza Type A (PCR) (Negative) Influenza Type B (PCR) (Negative) RSV RNA Qual (PCR) (Negative) SARS-CoV-2 RNA (RT-PCR) (Negative) 10/08/22 10/08/22 10/08/22 Range/Units 13:22 13:23 14:01 WBC (4.8-10.8) X10*3/uL RBC (4.60-5.80) X10*6/uL Hgb (14.0-18.0) g/dl Hct (42.0-52.0) % MCV (80.0-98.0) fL MCH (27.0-33.0) pg MCHC (31.0-36.0) g/dl RDW (11.0-16.0) % Plt Count (160-400) X10*3/uL MPV (9.4-12.4) fL Immature Gran % (Auto) (0.0-0.4) % Neut % (Auto) (45-73) % Lymph % (Auto) (20-40) % [place] % (Auto) (2-11) % Eos % (Auto) (0-4) % Baso % (Auto) (0-2) % Lymph # (Auto) (1.2-4.9) X10*3/uL [place] # (Auto) (0.1-1.2) X10*3/uL Eos # (Auto) (0.0-0.4) X10*3/uL Baso # (Auto) (0.0-0.2) X10*3/uL Abs Immat Gran (auto) (0.00-0.03) X10*3/uL Absolute Neuts (auto) (2.0-8.3) x10*3/uL Absolute Nucleated RBC (0.0-0.012) X10*3/uL Nucleated RBC % (auto) (0.0-0.2) /100WBC PT (10.0-13.1) SEC INR (0.9-1.1) D-Dimer High Sensitivty NG/ML Sodium 142 (135-145) mmol/L Potassium 4.5 (3.3-5.1) mmol/L Chloride 108 (96-108) mmol/L Carbon Dioxide 25 (22-29) mmol/L Anion Gap 14 (12-20) BUN 17 H (9-16) mg/dL Creatinine 1.01 (0.5-1.4) mg/dL Estim Creat Clear Calc 77.3 Estimated GFR > 60 Random Glucose 121 H (60-115) mg/dL Lactic Acid (0.5-2.0) mmol/L Calcium 9.8 D (8.4-10.2) mg/dL Magnesium 1.7 (1.6-2.6) mg/dL Total Bilirubin 0.5 (0.0-1.0) mg/dL Direct Bilirubin 0.2 (0.0-0.5) mg/dL AST 26 (5-37) U/L ALT 53 H (0-40) U/L Alkaline Phosphatase 90 (39-117) U/L Troponin I High Sens (<3.5-35.0) ng/L B-Natriuretic Peptide < 10 (<100) pg/mL Total Protein 6.9 (6.5-8.0) g/dL Albumin 4.2 (3.5-5.0) g/dL Influenza Type A (PCR) NEGATIVE (Negative) Influenza Type B (PCR) NEGATIVE (Negative) RSV RNA Qual (PCR) NEGATIVE (Negative) SARS-CoV-2 RNA (RT-PCR) NEGATIVE (Negative) 10/08/22 Range/Units 14:01 WBC (4.8-10.8) X10*3/uL RBC (4.60-5.80) X10*6/uL Hgb (14.0-18.0) g/dl Hct (42.0-52.0) % MCV (80.0-98.0) fL MCH (27.0-33.0) pg MCHC (31.0-36.0) g/dl RDW (11.0-16.0) % Plt Count (160-400) X10*3/uL MPV (9.4-12.4) fL Immature Gran % (Auto) (0.0-0.4) % Neut % (Auto) (45-73) % Lymph % (Auto) (20-40) % [place] % (Auto) (2-11) % Eos % (Auto) (0-4) % Baso % (Auto) (0-2) % Lymph # (Auto) (1.2-4.9) X10*3/uL [place] # (Auto) (0.1-1.2) X10*3/uL Eos # (Auto) (0.0-0.4) X10*3/uL Baso # (Auto) (0.0-0.2) X10*3/uL Abs Immat Gran (auto) (0.00-0.03) X10*3/uL Absolute Neuts (auto) (2.0-8.3) x10*3/uL Absolute Nucleated RBC (0.0-0.012) X10*3/uL Nucleated RBC % (auto) (0.0-0.2) /100WBC PT (10.0-13.1) SEC INR (0.9-1.1) D-Dimer High Sensitivty NG/ML Sodium (135-145) mmol/L Potassium (3.3-5.1) mmol/L Chloride (96-108) mmol/L Carbon Dioxide (22-29) mmol/L Anion Gap (12-20) BUN (9-16) mg/dL Creatinine (0.5-1.4) mg/dL Estim Creat Clear Calc Estimated GFR Random Glucose (60-115) mg/dL Lactic Acid 1.4 (0.5-2.0) mmol/L Calcium (8.4-10.2) mg/dL Magnesium (1.6-2.6) mg/dL Total Bilirubin (0.0-1.0) mg/dL Direct Bilirubin (0.0-0.5) mg/dL AST (5-37) U/L ALT (0-40) U/L Alkaline Phosphatase (39-117) U/L Troponin I High Sens (<3.5-35.0) ng/L B-Natriuretic Peptide (<100) pg/mL Total Protein (6.5-8.0) g/dL Albumin (3.5-5.0) g/dL Influenza Type A (PCR) (Negative) Influenza Type B (PCR) (Negative) RSV RNA Qual (PCR) (Negative) SARS-CoV-2 RNA (RT-PCR) (Negative) <Vilma Sanchez MD - Last Filed: 10/08/22 15:28> Independent Interpretation I performed an independent interpretation of an: EKG <Vilma Sanchez MD - Last Filed: 10/08/22 15:28> Interpretation: Poor data quality due to underlying dyskinetic movement, this is not a junctional rhythm, HR-113, no STEMI, NV/QRS/QTC is within normal limits. <Vilma Sanchez MD - Last Filed: 10/08/22 15:28> Critical Care Time Critical Care Time Critical Care Time: Yes <Vilma Sanchez MD - Last Filed: 10/08/22 15:28> Total Critical Care Time: 30 <Vilma Sanchez MD - Last Filed: 10/08/22 15:28> Attestation: I personally attest to this time spent taking care of the patient. <Vilma Sanchez MD - Last Filed: 10/08/22 15:28> Discharge Plan Discharge Clinical Impression: Raymond's chorea, Neuroleptic-induced tardive dyskinesia, Substance abuse, Asthma <Tita Moon NP - Last Filed: 10/08/22 12:47> Patient Disposition: Home, Self-Care <Tita Moon NP - Last Filed: 10/08/22 12:47> Instructions: Asthma (ED), Extrapyramidal Symptoms (ED) <Tita Moon NP - Last Filed: 10/08/22 12:47> Additional Instructions: 1. Reanudar todos los medicamentos caseros seg?n lo prescrito. 2. Se le sunshine proporcionado jessica referencia para Neurolog?a, debe llamar a la oficina por la ma?kailee para programar jessica giovanni para jessica reevaluaci?n. 3. Complete el curso de esteroides que le tse recetado para thomas asma. Regrese a la susan de emergencias por cualquier empeoramiento de los s?ntomas. 1. Resume all home medications as prescribed. 2. You have been provided with a referral for Neurology, you should call the office in the morning to set up an appointment for re-evaluation. 3. Complete the course of steroids that you have been prescribed for your asthma. Return to the ER for any worsening of symptoms. <Tita Moon NP - Last Filed: 10/08/22 12:47> Prescriptions: New clonazepam 1 mg tablet 1 mg PO TID PRN (Reason: Anxiety) Qty: 7 0RF trazodone 150 mg tablet 150 mg PO BEDTIME PRN (Reason: sleep) Qty: 7 0RF quetiapine 150 mg tablet 150 mg PO BEDTIME Qty: 14 0RF No Action clonazepam 1 mg Tablet 1 mg PO TID PRN (Reason: Anxiety) ascorbic acid (vitamin C) 250 mg Tablet 500 mg PO DAILY trazodone 150 mg Tablet 150 mg PO BEDTIME PRN (Reason: Sleep) albuterol sulfate [ProAir HFA] 90 mcg/actuation Hfa Aerosol Inhaler 2 puff INHALATION Q4-6H PRN (Reason: Shortness Of Breath) baclofen 10 mg Tablet 10 mg PO TID Qty: 90 0RF quetiapine 50 mg Tablet 150 mg PO BEDTIME Qty: 90 0RF <Tita Moon NP - Last Filed: 10/08/22 12:47> Referrals: Abe Cornejo MD [Physician] - (52M with dystonic vs dyskinesis and recently moved here from [place] with a vague history of Beemer's. He was recently admitted and during his stay was evaluated by Dr Vasquez. Thank you for evaluating this patient.) <Tita Moon NP - Last Filed: 10/08/22 12:47> Print Language: Macedonian <Tita Moon NP - Last Filed: 10/08/22 12:47>
--- NOTE | 2022-10-08 12:42 | ECG_ITS ---
Test Reason : SOB Blood Pressure : / mmHG Vent. Rate : 113 BPM Atrial Rate : 000 BPM P-R Int : 000 ms QRS Dur : 066 ms QT Int : 312 ms P-R-T Axes : 000 039 042 degrees QTc Int : 427 ms Artifact in tracing Normal sinus rhythm Likely normal EKG When compared with ECG of 06-OCT-2022 00:26, No significant changes seen Referred By: Tita Moon Electronically Signed By:QUINCY RILEY
[2022-10-08] MEDS: Albuterol Sulfate 7.5 MG, Albuterol/Iprat 2.5/0.5MG 3 ML 3 ML INHALE (13:06)
[2022-10-08 13:07] VITALS: PULSE 115; RESP 20
[2022-10-08] MEDS: diphenhydrAMINE HCL 50 MG/ML VIAL 25 MG IVPUSH ×2 (13:29→14:08)
[2022-10-08 13:30] LABS: MANUAL DIFF FLAG NO
[2022-10-08 13:31] LABS: Basophils Percent Auto 0.3 % (0-2); Eosinophils Absolute Auto 0.1 X10*3/uL (0.0-0.4); Eosinophils Percent Auto 0.6 % (0-4); Hematocrit 45.4 % (42.0-52.0); Hemoglobin 14.8 g/dl (14.0-18.0); Imm Gran Abs Auto 0.08 X10*3/uL (0.00-0.03); Imm Gran Pct Auto 0.6 % (0.0-0.4); Lymphocytes Absolute Auto 2.7 X10*3/uL (1.2-4.9); Lymphocytes Percent Auto 19.4 % (20-40); Mean Corpuscular HGB Conc 32.6 g/dl (31.0-36.0); Mean Corpuscular Hemoglobin 30.5 pg (27.0-33.0); Mean Corpuscular Volume 93.4 fL (80.0-98.0); Mean Platelet Volume 8.9 fL (9.4-12.4); Monocytes Absolute Auto 0.9 X10*3/uL (0.1-1.2); Monocytes Percent Auto 6.7 % (2-11); Neutrophils Absolute Auto 10.1 x10*3/uL (2.0-8.3); Neutrophils Percent Auto 72.4 % (45-73); Platelet Count 271 X10*3/uL (160-400); Red Blood Count 4.86 X10*6/uL (4.60-5.80); Red Cell Distribution Width 13.2 % (11.0-16.0); White Blood Count 13.9 X10*3/uL (4.8-10.8)
[2022-10-08 13:42] LABS: INTERNATIONAL NORM RATIO 0.9 (0.9-1.1); Prothrombin Time 10.4 SEC (10.0-13.1)
[2022-10-08 13:58] LABS: B Type Natriuretic Peptide < 10 pg/mL (<100)
[2022-10-08] MEDS: Magnesium Hydrox/Alum Hydrox 30 ML ORAL.SUSP PO (14:08)
[2022-10-08] MEDS: Lidocaine HCl Viscous 2 % 15 ML SOLUTION 10 ML MUCOUS MEM (14:08)
[2022-10-08 14:16] LABS: Lactic Acid 1.4 mmol/L (0.5-2.0)
[2022-10-08 14:27] LABS: Influenza A PCR NEGATIVE (Negative); Influenza B PCR NEGATIVE (Negative); Resp Syncy Virus RNA Qual PCR NEGATIVE (Negative); SARS COV2 PCR INHOUSE NEGATIVE (Negative)
[2022-10-08 14:29] LABS: Alanine Aminotransferase 53 U/L (0-40); Albumin Level 4.2 g/dL (3.5-5.0); Alkaline Phosphatase 90 U/L (39-117); Anion Gap 14 (12-20); Aspartate Amino Transferase 26 U/L (5-37); Bilirubin Direct 0.2 mg/dL (0.0-0.5); Bilirubin Total 0.5 mg/dL (0.0-1.0); Blood Urea Nitrogen 17 mg/dL (9-16); Calcium 9.8 mg/dL (8.4-10.2); Carbon Dioxide 25 mmol/L (22-29); Chloride 108 mmol/L (96-108); Creatinine Clr Calc Pharmacy 77.3; Estimated Glomerular Filt Rate > 60; Glucose Random 121 mg/dL (60-115); Magnesium 1.7 mg/dL (1.6-2.6); Potassium 4.5 mmol/L (3.3-5.1); Sodium 142 mmol/L (135-145); Total Protein 6.9 g/dL (6.5-8.0)
[2022-10-08] MEDS: Albuterol Sulfate 90 MCG 8 GM INHALER 2 PUFF INHALE (14:57)
[2022-10-08 15:01] LABS: D Dimer High Sensitivity 158 NG/ML
== END 2022-10-08 16:12 | disposition home or self-care (01) ==
PROVIDERS: Nurse Practitioner Family; Emergency Provider Student in an Organized Health Care Education/Training Program
DX: G10 Huntington's disease (principal); G24.01 Drug induced subacute dyskinesia; F19.10 Other psychoactive substance abuse, uncomplicated; J45.909 Unspecified asthma, uncomplicated; R06.02 Shortness of breath; Z20.822 Contact with and (suspected) exposure to COVID-19; Z87.891 Personal history of nicotine dependence
CPT/HCPCS: 0241U; 36415; 71045; 80048; 80076; 83605; 83735; 83880; 84484; 85025; 85379; 85610; 87040; 93005; 94640; 96374; 96376; 99284; 99285; J1200

== ENCOUNTER 2022-10-26 13:48 | Emergency (ER) | payer MEDICAID, SELFPAY ==
--- NOTE | ~2022-10-26 | XR_ITS ---
EXAMINATION: XR chest 1V CLINICAL INFORMATION: Reason for Exam SOB COMPARISON: 10/08/2022 TECHNIQUE: XR chest 1V Tubes and lines: None Lungs and pleura: Both lungs are clear. Heart and mediastinum: The mediastinum is within normal limits.. Bones/soft tissue: Skeletal structures included are normal for patient's age. XR/XR chest 1V IMPRESSION: No radiographic evidence of acute cardiopulmonary disease.
[2022-10-26 13:55] VITALS: PULSE 91; RESP 24; TEMP 36.6; O2SAT 98; BMI 30.9
--- NOTE | 2022-10-26 14:02 | ED.GENADULT ---
HPI - General Adult General Chief complaint: Upper Respiratory Symptoms <RANULFO Gold - Last Filed: 10/26/22 14:05> Stated complaint: trouble breathing <RANULFO Gold - Last Filed: 10/26/22 14:05> Time Seen by Provider: 10/26/22 14:13 <RANULFO Gold Last Filed: 10/26/22 14:05> Source: patient and transit man <RANULFO Gold Last Filed: 10/26/22 14:05> Mode of arrival: ambulatory <RANULFO Gold Last Filed: 10/26/22 14:05> Limitations: language barrier <RANULFO Gold Last Filed: 10/26/22 14:05> History of Present Illness HPI narrative: 52yoM c PMHx of opioid use disorder, tobacco use disorder, Raymond disease, asthma who is [place]-speaking who is presenting to the ER with son at bedside with complaints of generalized fatigue/malaise, sore throat with a cough with shortness of breath/wheezing for the past few days worse today. Son reports that he has been using his albuterol inhalers and albuterol updraft and no symptomatic relief. They deny any recent drug usage. Patient reports that he tried to make the appointment with a new primary care provider at [facility] although they told him it will take up to 3 months. He ran out of his Seroquel, clonazepam and trazodone that he needs a refill on. He denies any measured fevers, dizziness, headaches, neck pain/stiffness, trouble swallowing, chest pain, palpitations, paresthesias, nausea/vomiting/diarrhea constipation, black or bloody stools, abdominal pain, back pain, flank pain, dysuria, lower extremity edema or calf tenderness, recent travel or sick contacts, rashes or any other symptoms complaints or concerns at this time. <RANULFO Aviles - Last Filed: 10/26/22 17:58> MD complaint: URI symptoms/asthma exacerbation <RANLUFO Aviles - Last Filed: 10/26/22 17:58> Onset (ago): day(s) (For the past few days worse today) <RANULFO Aviles Last Filed: 10/26/22 17:58> Related Data Home medications: Home Medications Medication Instructions Recorded Confirmed albuterol sulfate 90 mcg/actuation 2 puff inhalation Q4-6H PRN 09/19/22 10/06/22 aerosol inhaler (ProAir HFA) Shortness Of Breath ascorbic acid (vitamin C) 250 mg 500 mg PO DAILY 09/19/22 10/06/22 tablet clonazepam 1 mg tablet 1 mg PO TID PRN Anxiety 09/19/22 10/06/22 trazodone 150 mg tablet 150 mg PO BEDTIME PRN Sleep 09/19/22 10/06/22 Previous Rx's Medication Instructions Recorded baclofen 10 mg tablet 10 mg PO TID #90 tabs 09/23/22 quetiapine 50 mg tablet 150 mg PO BEDTIME #90 tabs 09/23/22 clonazepam 1 mg tablet 1 mg PO TID PRN Anxiety #7 tabs 10/08/22 quetiapine 150 mg tablet 150 mg PO BEDTIME #14 tabs 10/08/22 trazodone 150 mg tablet 150 mg PO BEDTIME PRN sleep #7 tabs 10/08/22 albuterol sulfate 0.63 mg/3 mL 0.63 mg (3 mL) inhalation QID PRN 10/26/22 solution for nebulization shortness of breath or wheezing #75 mL albuterol sulfate 90 mcg/actuation 1 inh inhalation QID PRN shortness 10/26/22 aerosol inhaler of breath or wheezing #8.5 grams cefuroxime axetil 500 mg tablet 500 mg PO BID 10 days #20 tabs 10/26/22 clonazepam 1 mg tablet 1 mg PO TID #90 tabs 10/26/22 prednisone 20 mg tablet 40 mg PO DAILY inflammation 5 days 10/26/22 #10 tabs quetiapine 150 mg tablet,extended 150 mg PO BEDTIME #30 tabs 10/26/22 release 24 hr (Seroquel XR) trazodone 150 mg tablet 150 mg PO BEDTIME PRN insomnia #30 10/26/22 tabs <RANULFO Gold - Last Filed: 10/26/22 14:05> Allergies/adverse reactions: Allergies Allergy/AdvReac Type Severity Reaction Status Date / Time No Known Allergies Allergy Verified 10/06/22 05:45 [No Known Allergies*] <RANULFO Gold - Last Filed: 10/26/22 14:05> Review of Systems Review of Systems: Constitutional : + chills/fatigue/malaise, No Weight loss, No Fever, No Night Sweats ENT/Mouth : No Hearing loss, No Ear Pain, No Nasal Congestion, No Sinus Pain, No Hoarseness, + sore throat, No Rhinorrhea, No Swallowing Difficulty Eyes: No Eye Pain, No Swelling, No Redness, No Foreign Body, No Discharge, No Vision Changes Cardiovascular : No Chest Pain, + SOB, No Dyspnea on Exertion, No Orthopnea, No Edema, No Palpitations Respiratory : + Cough, No Sputum, + Wheezing, No Smoke Exposure, + Dyspnea Gastrointestinal : No Nausea, No Vomiting, No Diarrhea, No Constipation, No abdominal Pain, No Hematochezia, No Melena Genitourinary : no irregular bleeding, No Dysuria, No Urinary Frequency, No Hematuria, No Urinary Incontinence, No Urgency, No Flank Pain, No Urinary Flow Changes, No Hesitancy Musculoskeletal : No joint pain, + Myalgias, No Joint Swelling Skin : No Skin Lesions, No rash Neuro : No Weakness, No Numbness, No Paresthesias, No Loss of Consciousness, No Dizziness, No Headache Psych : No Anxiety/Panic, No Depression, No SI/HI/AH/VH, No Social Issues, Heme/Lymph: No Bruising, No Bleeding,No Lymphadenopathy Endocrine : No Polyuria, No Polydipsia, No Temperature Intolerance <RANULFO Aviles - Last Filed: 10/26/22 17:58> Yes all other systems are reviewed and are negative <RANULFO Aviles - Last Filed: 10/26/22 17:58> [facility] Past Medical History Attestation statement: The following information was validated with the patient. <RANULFO Aviles - Last Filed: 10/26/22 17:58> Source: old records reviewed, obtained from family and nursing notes reviewed <RANULFO Aviles - Last Filed: 10/26/22 17:58> Medical History: Medical History Raymond's chorea Substance abuse <RANULFO Gold - Last Filed: 10/26/22 14:05> Social History Social History: Social History Household Members: Family Household Members Other:: son Housing: Apartment Do you presently have visiting nurse or other home services: No Patient Tobacco Use Status: Former Tobacco user Tobacco use type: Cigarette Cigarettes Per Day: 3 e-Cigarette/Vaping Use: Never Used Substance Use Type: Marijuana Advance Directives: No Advance Directives Information Provided: Yes service: No <RANULFO Gold - Last Filed: 10/26/22 14:05> Physical Exam ED Vital Signs: Vital Signs - 24 hr 10/26/22 13:55 10/26/22 14:12 10/26/22 14:32 Temperature 98 F Pulse Rate 91 93 Respiratory Rate 24 H 27 H 29 H Blood Pressure Pulse Oximetry 98 Oxygen Delivery Method Room Air 10/26/22 17:17 Temperature 98.1 F Pulse Rate 78 Respiratory Rate 14 Blood Pressure 120/65 Pulse Oximetry 98 Oxygen Delivery Method Room Air BMI result Body Mass Index 30.9 <RANULFO Gold - Last Filed: 10/26/22 14:05> Vital Signs - 24 hr 10/26/22 13:55 10/26/22 14:12 10/26/22 14:32 Temperature 98 F Pulse Rate 91 93 Respiratory Rate 24 H 27 H 29 H Blood Pressure Pulse Oximetry 98 Oxygen Delivery Method Room Air 10/26/22 17:17 Temperature 98.1 F Pulse Rate 78 Respiratory Rate 14 Blood Pressure 120/65 Pulse Oximetry 98 Oxygen Delivery Method Room Air BMI result Body Mass Index 30.9 vital signs have been reviewed as normal and appeared to be correct. Blood pressure normal. Heart rate normal. Respiration rate 24. Temperature normal. Oxygen saturation normal. <RANULFO Aviles - Last Filed: 10/26/22 17:58> Appearance: Alert. Oriented X3. In acute respiratory distress. Head: Normal external exam. Normocephalic. Atraumatic. Eyes: PERRLA. EOMI. Conjunctiva and sclera normal. Eyelids normal. ENT: EAC normal. TM's Normal. Pharynx normal. Uvula midline. Moist mucous membranes. No lesions/ulcerations or masses noted on the tongue. Normal voice. No trismus noted. No drooling noted. No muffled voice noted. Neck: Normal inspection. Neck supple. FROM. No adenopathy. Thyroid Normal. No tracheal deviation noted. No crepitus is noted. No meningeal signs. No neck mass noted. No signs of trauma noted. CVS: Normal heart rate and rhythm. Heart sound normal. Pulses normal throughout. No murmurs/rales/gallops. Respiratory: In acute respiratory distress with decreased breath sounds and inspiratory and expiratory wheezing throughout. No rales/rhonchi noted. No crepitus is noted. Chest is nontender. No signs of trauma noted. Patient noted to have accessory muscle usage along with tracheal tugging and abdominal retractions. Abdomen: Soft and nontender. Bowel sounds normal in all 4 quadrants. No distention noted. No organomegaly noted. No visible injury noted. Back: No CVA tenderness. Full range of motion noted. Nontender. No signs of trauma. Patient neuro intact bilaterally and distally on all 4 extremities. Patient's reflexes intact bilaterally and distally on all 4 extremities. No rashes/lesion/induration/fluctuance or signs of infection noted. Skin: Skin warm and dry. Normal skin color. Normal skin turgor. No rashes/lesions/lacerations noted. Extremities: No lower extremity edema. No calf tenderness is noted. Extremities exhibit normal range of motion and nontender. Neuro: Oriented X 3. No motor deficit. No sensory deficit. Reflexes normal. Normal steady gait. No focal neuro deficits noted. CN's II-XII intact bilaterally? Vascular: + radial pulses/+ 2 distal pedal pulses/+2 dorsalis pedis b/l. Normal cap refill. No cyanosis noted to upper extremity nails and lower extremity toes nails. <RANULFO Aviles - Last Filed: 10/26/22 17:58> Course Course Course Narrative: RME performed by Cristina Townsend PA-C. Patient is a 52 year old male with an extensive admission history here presenting to the ED with shortness of breath. Work up ordered - patient taken directly back to a room. <RANULFO Gold - Last Filed: 10/26/22 14:05> Reevaluation(s) Reevaluation #1: 52yoM c PMHx of opioid use disorder, tobacco use disorder, [place] disease, asthma who is [place]-speaking who is presenting to the ER with son at bedside with complaints of generalized fatigue/malaise, sore throat with a cough with shortness of breath/wheezing for the past few days worse today. Son reports that he has been using his albuterol inhalers and albuterol updraft and no symptomatic relief. They deny any recent drug usage. Patient reports that he tried to make the appointment with a new primary care provider at [facility] although they told him it will take up to 3 months. He ran out of his Seroquel, clonazepam and trazodone that he needs a refill on. Patient had labs, chest x-ray, blood cultures, lactic acid, 125 mg Solu-Medrol IV, an hour long breathing treatment and 2 g of magnesium ordered while he was in triage. On evaluation patient noted to be in acute respiratory distress with decreased breath sounds and inspiratory and expiratory wheezing throughout therefore the patient went directly to a room was placed on a BiPAP. He is also requesting his medications to control his [place]'s movements. Therefore will give him his prescribed Seroquel 150 mg and clonazepam 1 mg and re-evaluate. <RANULFO Aviles - Last Filed: 10/26/22 17:58> Time: 14:30 <RANULFO Aviles - Last Filed: 10/26/22 17:58> Reevaluation #2: Labs reviewed - anemia with an H&H of 13.7/40.6 which is similar compared to prior. - chloride 109. - anion gap 10. - troponin 5.7. Otherwise all other labs are within normal limits. Imaging Chest x-ray WNL acute processes are noted. EKG is normal sinus rhythm with ventricular rate of 92 with normal UT interval normal QRS duration normal QT/QTC interval. No acute ischemic change are noted. Mild artifact due to patient's movement due to his [place]'s disease. Similar compared to prior EKGs. The BiPAP was removed and patient's oxygen saturations 97-98% on room air. He appears much better and comfortable. Reports he feels much better. Therefore will monitor for approximately 1 hour if he continues to feel better the patient can possibly be discharge. <RANULFO Aviles - Last Filed: 10/26/22 17:58> Time: 16:01 <RANULFO Aviles - Last Filed: 10/26/22 17:58> Reevaluation #3: Oxygen saturation is still at 98% on room air. Patient is much better. Therefore at this time will DC home with prednisone cough medicine and refill on his medications and instructions return if any new or worsening symptoms to follow up with primary care provider. Patient understands agrees with this plan. <RANULFO Aviles - Last Filed: 10/26/22 17:58> Time: 17:51 <RANULFO Aviles - Last Filed: 10/26/22 17:58> Medications Administered Discontinued Medications Generic Name Dose Route Start Last Admin Trade Name Freq PRN Reason Stop Dose Admin Albuterol Sulfate 2.5 mg/ 5 mg 10/26/22 14:23 10/26/22 14:30 Albuterol Sulfate 2.5 mg INHALE 10/26/22 14:24 5 mg ONCE ONE Administration Clonazepam 1 mg 10/26/22 14:22 10/26/22 14:35 Clonazepam 1 Mg Tablet PO 10/26/22 14:23 1 mg ONCE ONE Administration Albuterol Sulfate 5 mg/ 0 mg 10/26/22 14:02 10/26/22 14:09 Albuterol/Ipratropium 3 ml INHALE 10/26/22 14:03 5 each ONCE ONE Administration Magnesium Sulfate 2 gm in 50 mls @ 25 mls/hr 10/26/22 14:02 10/26/22 16:57 Magnesium Sulfate/H2o IV 10/26/22 16:01 Infused ONCE ONE Infusion Methylprednisolone Sodium Succinate 125 mg 10/26/22 14:17 10/26/22 14:36 Methylprednisolone Sod Succ 125 Mg/2 Ml Vial IVPUSH 10/26/22 14:18 125 mg ONCE ONE Administration Quetiapine Fumarate 150 mg 10/26/22 14:22 10/26/22 14:35 Quetiapine Fumarate 50 Mg Tablet PO 10/26/22 14:23 150 mg ONCE ONE Administration <RANULFO Gold - Last Filed: 10/26/22 14:05> Medications Administered Discontinued Medications Generic Name Dose Route Start Last Admin Trade Name Freq PRN Reason Stop Dose Admin Albuterol Sulfate 2.5 mg/ 5 mg 10/26/22 14:23 10/26/22 14:30 Albuterol Sulfate 2.5 mg INHALE 10/26/22 14:24 5 mg ONCE ONE Administration Clonazepam 1 mg 10/26/22 14:22 10/26/22 14:35 Clonazepam 1 Mg Tablet PO 10/26/22 14:23 1 mg ONCE ONE Administration Albuterol Sulfate 5 mg/ 0 mg 10/26/22 14:02 10/26/22 14:09 Albuterol/Ipratropium 3 ml INHALE 10/26/22 14:03 5 each ONCE ONE Administration Magnesium Sulfate 2 gm in 50 mls @ 25 mls/hr 10/26/22 14:02 10/26/22 16:57 Magnesium Sulfate/H2o IV 10/26/22 16:01 Infused ONCE ONE Infusion Methylprednisolone Sodium Succinate 125 mg 10/26/22 14:17 10/26/22 14:36 Methylprednisolone Sod Succ 125 Mg/2 Ml Vial IVPUSH 10/26/22 14:18 125 mg ONCE ONE Administration Quetiapine Fumarate 150 mg 10/26/22 14:22 10/26/22 14:35 Quetiapine Fumarate 50 Mg Tablet PO 10/26/22 14:23 150 mg ONCE ONE Administration <RANULFO Aviles - Last Filed: 10/26/22 17:58> Medical Decision Making Differential Diagnosis Differential Diagnoses: The differential diagnosis associated with the presentation includes <RANULFO Aviles - Last Filed: 10/26/22 17:58> This patient presents with dyspnea, most likely secondary to asthma exacerbation. Differential diagnosis includes but not limited to viral syndrome versus pneumonia. Presentation not consistent with acute cardiac etiologies to include ACS, CHF, pericardial effusion / tamponade . Presentation not consistent with acute respiratory etiologies to include acute PE, pneumothorax , allergic etiologies. Presentation also not consistent with non-cardiopulmonary causes to include toxidromes, metabolic etiologies such as acidemia or electrolyte derangements, sepsis, neurologic causes (i.e. demyelinating diseases). <RANULFO Aviles - Last Filed: 10/26/22 17:58> Lab Data MDM Lab Attestation statement: I reviewed the patient's lab results. <RANULFO Aviles - Last Filed: 10/26/22 17:58> Result Diagrams: : 10/26/22 14:23 10/26/22 14:23 <RANULFO Gold - Last Filed: 10/26/22 14:05> Labs: Lab Results 01/01/23 01/01/23 01/01/23 Range/Units 14:23 14:23 14:23 WBC 9.4 (4.8-10.8) X10*3/uL RBC 4.45 L (4.60-5.80) X10*6/uL Hgb 13.7 L (14.0-18.0) g/dl Hct 40.6 L (42.0-52.0) % MCV 91.2 (80.0-98.0) fL MCH 30.8 (27.0-33.0) pg MCHC 33.7 (31.0-36.0) g/dl RDW 12.8 (11.0-16.0) % Plt Count 295 (160-400) X10*3/uL MPV 9.1 L (9.4-12.4) fL Immature Gran % (Auto) 0.4 (0.0-0.4) % Neut % (Auto) 71.0 (45-73) % Lymph % (Auto) 16.3 L (20-40) % [place] % (Auto) 10.5 (2-11) % Eos % (Auto) 1.4 (0-4) % Baso % (Auto) 0.4 (0-2) % Lymph # (Auto) 1.5 (1.2-4.9) X10*3/uL [place] # (Auto) 1.0 (0.1-1.2) X10*3/uL Eos # (Auto) 0.1 (0.0-0.4) X10*3/uL Baso # (Auto) 0.0 (0.0-0.2) X10*3/uL Abs Immat Gran (auto) 0.04 H (0.00-0.03) X10*3/uL Absolute Neuts (auto) 6.7 (2.0-8.3) x10*3/uL Absolute Nucleated RBC 0.000 (0.0-0.012) X10*3/uL Nucleated RBC % (auto) 0.0 (0.0-0.2) /100WBC Sodium 142 (135-145) mmol/L Potassium 4.3 (3.3-5.1) mmol/L Chloride 109 H (96-108) mmol/L Carbon Dioxide 27 (22-29) mmol/L Anion Gap 10 L (12-20) BUN 15 (9-16) mg/dL Creatinine 0.87 (0.5-1.4) mg/dL Estim Creat Clear Calc 91.5 Estimated GFR > 60 Random Glucose 100 (60-115) mg/dL Lactic Acid 1.4 (0.5-2.0) mmol/L Calcium 9.3 (8.4-10.2) mg/dL Magnesium 1.7 (1.6-2.6) mg/dL Total Bilirubin 0.6 (0.0-1.0) mg/dL AST 18 (5-37) U/L ALT 17 (0-40) U/L Alkaline Phosphatase 84 (39-117) U/L Troponin I High Sens (<3.5-35.0) ng/L B-Natriuretic Peptide (<100) pg/mL Total Protein 6.5 (6.5-8.0) g/dL Albumin 4.2 (3.5-5.0) g/dL Ethyl Alcohol < 10 mg/dL Influenza Type A (PCR) (Negative) Influenza Type B (PCR) (Negative) RSV RNA Qual (PCR) (Negative) SARS-CoV-2 RNA (RT-PCR) (Negative) 10/26/22 10/26/22 10/26/22 Range/Units 14:23 14:23 15:07 WBC (4.8-10.8) X10*3/uL RBC (4.60-5.80) X10*6/uL Hgb (14.0-18.0) g/dl Hct (42.0-52.0) % MCV (80.0-98.0) fL MCH (27.0-33.0) pg MCHC (31.0-36.0) g/dl RDW (11.0-16.0) % Plt Count (160-400) X10*3/uL MPV (9.4-12.4) fL Immature Gran % (Auto) (0.0-0.4) % Neut % (Auto) (45-73) % Lymph % (Auto) (20-40) % [place] % (Auto) (2-11) % Eos % (Auto) (0-4) % Baso % (Auto) (0-2) % Lymph # (Auto) (1.2-4.9) X10*3/uL [place] # (Auto) (0.1-1.2) X10*3/uL Eos # (Auto) (0.0-0.4) X10*3/uL Baso # (Auto) (0.0-0.2) X10*3/uL Abs Immat Gran (auto) (0.00-0.03) X10*3/uL Absolute Neuts (auto) (2.0-8.3) x10*3/uL Absolute Nucleated RBC (0.0-0.012) X10*3/uL Nucleated RBC % (auto) (0.0-0.2) /100WBC Sodium (135-145) mmol/L Potassium (3.3-5.1) mmol/L Chloride (96-108) mmol/L Carbon Dioxide (22-29) mmol/L Anion Gap (12-20) BUN (9-16) mg/dL Creatinine (0.5-1.4) mg/dL Estim Creat Clear Calc Estimated GFR Random Glucose (60-115) mg/dL Lactic Acid (0.5-2.0) mmol/L Calcium (8.4-10.2) mg/dL Magnesium (1.6-2.6) mg/dL Total Bilirubin (0.0-1.0) mg/dL AST (5-37) U/L ALT (0-40) U/L Alkaline Phosphatase (39-117) U/L Troponin I High Sens 5.7 (<3.5-35.0) ng/L B-Natriuretic Peptide 12 (<100) pg/mL Total Protein (6.5-8.0) g/dL Albumin (3.5-5.0) g/dL Ethyl Alcohol mg/dL Influenza Type A (PCR) NEGATIVE (Negative) Influenza Type B (PCR) NEGATIVE (Negative) RSV RNA Qual (PCR) NEGATIVE (Negative) SARS-CoV-2 RNA (RT-PCR) NEGATIVE (Negative) <RANULFO Gold - Last Filed: 10/26/22 14:05> Lab Results 10/26/22 10/26/22 10/26/22 Range/Units 14:23 14:23 14:23 WBC 9.4 (4.8-10.8) X10*3/uL RBC 4.45 L (4.60-5.80) X10*6/uL Hgb 13.7 L (14.0-18.0) g/dl Hct 40.6 L (42.0-52.0) % MCV 91.2 (80.0-98.0) fL MCH 30.8 (27.0-33.0) pg MCHC 33.7 (31.0-36.0) g/dl RDW 12.8 (11.0-16.0) % Plt Count 295 (160-400) X10*3/uL MPV 9.1 L (9.4-12.4) fL Immature Gran % (Auto) 0.4 (0.0-0.4) % Neut % (Auto) 71.0 (45-73) % Lymph % (Auto) 16.3 L (20-40) % [place] % (Auto) 10.5 (2-11) % Eos % (Auto) 1.4 (0-4) % Baso % (Auto) 0.4 (0-2) % Lymph # (Auto) 1.5 (1.2-4.9) X10*3/uL [place] # (Auto) 1.0 (0.1-1.2) X10*3/uL Eos # (Auto) 0.1 (0.0-0.4) X10*3/uL Baso # (Auto) 0.0 (0.0-0.2) X10*3/uL Abs Immat Gran (auto) 0.04 H (0.00-0.03) X10*3/uL Absolute Neuts (auto) 6.7 (2.0-8.3) x10*3/uL Absolute Nucleated RBC 0.000 (0.0-0.012) X10*3/uL Nucleated RBC % (auto) 0.0 (0.0-0.2) /100WBC Sodium 142 (135-145) mmol/L Potassium 4.3 (3.3-5.1) mmol/L Chloride 109 H (96-108) mmol/L Carbon Dioxide 27 (22-29) mmol/L Anion Gap 10 L (12-20) BUN 15 (9-16) mg/dL Creatinine 0.87 (0.5-1.4) mg/dL Estim Creat Clear Calc 91.5 Estimated GFR > 60 Random Glucose 100 (60-115) mg/dL Lactic Acid 1.4 (0.5-2.0) mmol/L Calcium 9.3 (8.4-10.2) mg/dL Magnesium 1.7 (1.6-2.6) mg/dL Total Bilirubin 0.6 (0.0-1.0) mg/dL AST 18 (5-37) U/L ALT 17 (0-40) U/L Alkaline Phosphatase 84 (39-117) U/L Troponin I High Sens (<3.5-35.0) ng/L B-Natriuretic Peptide (<100) pg/mL Total Protein 6.5 (6.5-8.0) g/dL Albumin 4.2 (3.5-5.0) g/dL Ethyl Alcohol < 10 mg/dL Influenza Type A (PCR) (Negative) Influenza Type B (PCR) (Negative) RSV RNA Qual (PCR) (Negative) SARS-CoV-2 RNA (RT-PCR) (Negative) 10/26/22 10/26/22 10/26/22 Range/Units 14:23 14:23 15:07 WBC (4.8-10.8) X10*3/uL RBC (4.60-5.80) X10*6/uL Hgb (14.0-18.0) g/dl Hct (42.0-52.0) % MCV (80.0-98.0) fL MCH (27.0-33.0) pg MCHC (31.0-36.0) g/dl RDW (11.0-16.0) % Plt Count (160-400) X10*3/uL MPV (9.4-12.4) fL Immature Gran % (Auto) (0.0-0.4) % Neut % (Auto) (45-73) % Lymph % (Auto) (20-40) % [place] % (Auto) (2-11) % Eos % (Auto) (0-4) % Baso % (Auto) (0-2) % Lymph # (Auto) (1.2-4.9) X10*3/uL [place] # (Auto) (0.1-1.2) X10*3/uL Eos # (Auto) (0.0-0.4) X10*3/uL Baso # (Auto) (0.0-0.2) X10*3/uL Abs Immat Gran (auto) (0.00-0.03) X10*3/uL Absolute Neuts (auto) (2.0-8.3) x10*3/uL Absolute Nucleated RBC (0.0-0.012) X10*3/uL Nucleated RBC % (auto) (0.0-0.2) /100WBC Sodium (135-145) mmol/L Potassium (3.3-5.1) mmol/L Chloride (96-108) mmol/L Carbon Dioxide (22-29) mmol/L Anion Gap (12-20) BUN (9-16) mg/dL Creatinine (0.5-1.4) mg/dL Estim Creat Clear Calc Estimated GFR Random Glucose (60-115) mg/dL Lactic Acid (0.5-2.0) mmol/L Calcium (8.4-10.2) mg/dL Magnesium (1.6-2.6) mg/dL Total Bilirubin (0.0-1.0) mg/dL AST (5-37) U/L ALT (0-40) U/L Alkaline Phosphatase (39-117) U/L Troponin I High Sens 5.7 (<3.5-35.0) ng/L B-Natriuretic Peptide 12 (<100) pg/mL Total Protein (6.5-8.0) g/dL Albumin (3.5-5.0) g/dL Ethyl Alcohol mg/dL Influenza Type A (PCR) NEGATIVE (Negative) Influenza Type B (PCR) NEGATIVE (Negative) RSV RNA Qual (PCR) NEGATIVE (Negative) SARS-CoV-2 RNA (RT-PCR) NEGATIVE (Negative) <RANULFO Aviles - Last Filed: 10/26/22 17:58> Independent Interpretation I performed an independent interpretation of an: EKG (Normal sinus rhythm with ventricular rate of 92 with a normal UT interval normal QRS duration normal QT/QTC interval. No acute ischemic change are noted. Similar compared to prior EKG 10/08/2022. Mild artifact noted.) and Plain X-Ray <RANULFO Aviles - Last Filed: 10/26/22 17:58> Interpretation: Chest x-ray TECHNIQUE: XR chest 1V Tubes and lines: None Lungs and pleura: Both lungs are clear. Heart and mediastinum: The mediastinum is within normal limits.. Bones/soft tissue: Skeletal structures included are normal for patient's age. XR/XR chest 1V IMPRESSION: No radiographic evidence of acute cardiopulmonary disease. <RANULFO Aviles - Last Filed: 10/26/22 17:58> Radiology Impression Discussion of test interpretation with radiology: I have reviewed the radiologist's reading. <RANULFO Aviles - Last Filed: 10/26/22 17:58> Independent Historian Clinical information obtained from an independent historian. History obtained from or confirmed by: Other (Son) <RANULFO Aviles - Last Filed: 10/26/22 17:58> External Record Review External record reviewed: Inpatient record, Office record, Outpatient record, Prior outpatient labs, Prior outpatient radiology, Primary care record and Outside ED record <RANULFO Aviles - Last Filed: 10/26/22 17:58> Critical Care Time Critical Care Time Critical Care Time: Yes <RANULFO Aviles - Last Filed: 10/26/22 17:58> Total Critical Care Time: 60 <RANULFO Aviles - Last Filed: 10/26/22 17:58> Attestation: I personally attest to this time spent taking care of the patient <RANULFO Aviles - Last Filed: 10/26/22 17:58> Discharge Plan Discharge Clinical Impression: Asthma exacerbation, Acute bronchospasm, Medication refill <RANULFO Gold Last Filed: 10/26/22 14:05> Patient Disposition: Home, Self-Care <RANULFO Gold Last Filed: 10/26/22 14:05> Instructions: Asthma (ED), Bronchospasm (ED), Medicine Refill (ED) <RANULFO Gold Last Filed: 10/26/22 14:05> Prescriptions: New cefuroxime axetil 500 mg tablet 500 mg PO BID 10 Days Qty: 20 0RF prednisone 20 mg tablet 40 mg PO DAILY 5 Days Qty: 10 0RF albuterol sulfate 0.63 mg/3 mL solution for nebulization 0.63 mg inhalation QID PRN (Reason: shortness of breath or wheezing) Qty: 75 0RF albuterol sulfate 90 mcg/actuation HFA aerosol inhaler 1 inh inhalation QID PRN (Reason: shortness of breath or wheezing) Qty: 8.5 0RF trazodone 150 mg tablet 150 mg PO BEDTIME PRN (Reason: insomnia) Qty: 30 2RF quetiapine [Seroquel XR] 150 mg tablet extended release 24 hr 150 mg PO BEDTIME Qty: 30 2RF clonazepam 1 mg tablet 1 mg PO TID Qty: 90 2RF No Action clonazepam 1 mg Tablet 1 mg PO TID PRN (Reason: Anxiety) ascorbic acid (vitamin C) 250 mg Tablet 500 mg PO DAILY trazodone 150 mg Tablet 150 mg PO BEDTIME PRN (Reason: Sleep) albuterol sulfate [ProAir HFA] 90 mcg/actuation Hfa Aerosol Inhaler 2 puff INHALATION Q4-6H PRN (Reason: Shortness Of Breath) baclofen 10 mg Tablet 10 mg PO TID Qty: 90 0RF quetiapine 50 mg Tablet 150 mg PO BEDTIME Qty: 90 0RF clonazepam 1 mg tablet 1 mg PO TID PRN (Reason: Anxiety) Qty: 7 0RF trazodone 150 mg tablet 150 mg PO BEDTIME PRN (Reason: sleep) Qty: 7 0RF quetiapine 150 mg tablet 150 mg PO BEDTIME Qty: 14 0RF <RANULFO Gold - Last Filed: 10/26/22 14:05> Referrals: Physician,None [Primary Care Provider] - (Your PCP when you establish 1) <RANULFO Gold - Last Filed: 10/26/22 14:05> Print Language: Kittitian <RANULFO Gold - Last Filed: 10/26/22 14:05>
--- NOTE | 2022-10-26 14:03 | ECG_ITS ---
Test Reason : SOB Blood Pressure : / mmHG Vent. Rate : 092 BPM Atrial Rate : 092 BPM P-R Int : 140 ms QRS Dur : 072 ms QT Int : 338 ms P-R-T Axes : 049 049 037 degrees QTc Int : 417 ms Poor data quality Possible Normal sinus rhythm Likely Normal ECG When compared with ECG of 08-OCT-2022 13:09, Poor data quality in current ECG precludes serial comparison Referred By: Cristina Townsend Electronically Signed By:ED ANGLIN MD
[2022-10-26] MEDS: Albuterol Sulfate 5 MG, Albuterol/Iprat 2.5/0.5MG 3 ML 3 ML INHALE (14:09)
[2022-10-26 14:12] VITALS: PULSE 93; RESP 27; O2SAT 97
[2022-10-26 14:29] LABS: MANUAL DIFF FLAG NO
[2022-10-26 14:30] LABS: Basophils Percent Auto 0.4 % (0-2); Eosinophils Absolute Auto 0.1 X10*3/uL (0.0-0.4); Eosinophils Percent Auto 1.4 % (0-4); Hematocrit 40.6 % (42.0-52.0); Hemoglobin 13.7 g/dl (14.0-18.0); Imm Gran Abs Auto 0.04 X10*3/uL (0.00-0.03); Imm Gran Pct Auto 0.4 % (0.0-0.4); Lymphocytes Absolute Auto 1.5 X10*3/uL (1.2-4.9); Lymphocytes Percent Auto 16.3 % (20-40); Mean Corpuscular HGB Conc 33.7 g/dl (31.0-36.0); Mean Corpuscular Hemoglobin 30.8 pg (27.0-33.0); Mean Corpuscular Volume 91.2 fL (80.0-98.0); Mean Platelet Volume 9.1 fL (9.4-12.4); Monocytes Percent Auto 10.5 % (2-11); Neutrophils Absolute Auto 6.7 x10*3/uL (2.0-8.3); Platelet Count 295 X10*3/uL (160-400); Red Blood Count 4.45 X10*6/uL (4.60-5.80); Red Cell Distribution Width 12.8 % (11.0-16.0); White Blood Count 9.4 X10*3/uL (4.8-10.8)
[2022-10-26] MEDS: Albuterol Sulfate 2.5 MG, Albuterol Sulfate (0.083%) 2.5 MG 5 MG INHALE (14:30)
[2022-10-26 14:32] VITALS: PULSE 100; RESP 29; O2SAT 93
[2022-10-26] MEDS: clonazePAM 1 MG TABLET PO (14:35)
[2022-10-26] MEDS: QUEtiapine Fumarate 50 MG TABLET 150 MG PO (14:35)
[2022-10-26] MEDS: methylPREDNISolone Sod Succ 125 MG/2 ML VIAL IVPUSH (14:36)
[2022-10-26] MEDS: Magnesium Sulfate/H2O 2 GM/50 ML PIGGYBACK IV (14:36)
--- NOTE | 2022-10-26 14:40 | PC.NURSE ---
pt tremorous - hx hipolito's, vss, 20G IV placed left AC, labs drawn, medicated per provider order. pt needs cultures drawn. resp at bedside w breathing treatment/bipap.
[2022-10-26 14:41] LABS: Lactic Acid 1.4 mmol/L (0.5-2.0)
[2022-10-26 14:48] LABS: Alanine Aminotransferase 17 U/L (0-40); Albumin Level 4.2 g/dL (3.5-5.0); Alkaline Phosphatase 84 U/L (39-117); Anion Gap 10 (12-20); Aspartate Amino Transferase 18 U/L (5-37); Bilirubin Total 0.6 mg/dL (0.0-1.0); Blood Urea Nitrogen 15 mg/dL (9-16); Calcium 9.3 mg/dL (8.4-10.2); Carbon Dioxide 27 mmol/L (22-29); Chloride 109 mmol/L (96-108); Creatinine Clr Calc Pharmacy 91.5; Estimated Glomerular Filt Rate > 60; Ethanol < 10 mg/dL; Glucose Random 100 mg/dL (60-115); Magnesium 1.7 mg/dL (1.6-2.6); Potassium 4.3 mmol/L (3.3-5.1); Sodium 142 mmol/L (135-145); Total Protein 6.5 g/dL (6.5-8.0)
[2022-10-26 14:52] LABS: Troponin-I High Sensitivity 5.7 ng/L (<3.5-35.0)
[2022-10-26 16:21] LABS: Influenza A PCR NEGATIVE (Negative); Influenza B PCR NEGATIVE (Negative); Resp Syncy Virus RNA Qual PCR NEGATIVE (Negative); SARS COV2 PCR INHOUSE NEGATIVE (Negative)
[2022-10-26 16:34] LABS: B Type Natriuretic Peptide 12 pg/mL (<100)
--- NOTE | 2022-10-26 16:58 | PC.NURSE ---
pt resting comfortably off bipap, vss, pt pending urine.
[2022-10-26 17:17] VITALS: BP 120/65; PULSE 78; RESP 14; TEMP 36.7; O2SAT 98
== END 2022-10-26 19:49 | disposition home or self-care (01) ==
PROVIDERS: Physician Assistant Medical; Emergency Provider Emergency Medicine
DX: J45.901 Unspecified asthma with (acute) exacerbation (principal); R06.02 Shortness of breath; R53.81 Other malaise; Z76.0 Encounter for issue of repeat prescription; Z20.822 Contact with and (suspected) exposure to COVID-19; Z79.899 Other long term (current) drug therapy
CPT/HCPCS: 0241U; 71045; 80053; 82077; 83605; 83735; 83880; 84484; 85025; 87040; 93005; 94640; 94660; 96365; 96366; 96372; 99284; J2930; J3475

== ENCOUNTER 2023-02-11 15:00 | Outpatient (RCR) | payer MEDICAID, SELFPAY ==
[2022-12-10 11:52] VITALS: BP 117/78; PULSE 86; O2SAT 98
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
--- NOTE | 2023-02-11 15:59 | MHC.PT.DC ---
[facility] [place] Office [place] Office [place] Office [address] Lino Huntley [address] [phone] F: [phone] F: [phone] F: [phone] F: [phone] Physical Therapy Discharge Report Diagnosis: Acute bilateral thoracic back pain Date of Surgery: N/A Date of Evaluation: 12/10/22 Date of Discharge: 02/11/23 Treatments to Date: 9 Cancellations to Date: No Shows to Date: Discharge Status: Improved Function Independent with HEP Discharge Summary: Pt was seen for PT from 12/10/22-02/11/23. He has made fair progress since SOC. He continues to have back pain that is likely related to chorea movements that may be contributing to muscle spasms and pain. He followed up with PCP today and reports he was prescribed a new medication and is also being referred to pain management. Pt is being D/C from PT as he has reached a functional plateau with skilled PT. He is I with HEP. He has printed copy of HEP and GTB. Pt is being D/C from PT at this time. Pt reports no further questions or concerns for PT at this time. Electronically signed by: Bebe Mahoney, PT, DPT Please sign and return to therapist. Thank you for your referral.
== END 2023-02-11 15:59 | disposition home or self-care (01) ==
LOC: HO.PT 15:00
PROVIDERS: PCP Registered Nurse; Visit Provider Registered Nurse
DX: M54.6 Pain in thoracic spine (principal)
CPT/HCPCS: 97110; 97140; 97162

== ENCOUNTER → 2023-03-09 12:44 | Outpatient (BNVA) | payer MEDICAID, SELFPAY | PROVIDERS: PCP Registered Nurse; Visit Provider Nurse Practitioner Family | DX: M25.512 Pain in left shoulder (principal); M47.816 Spondylosis without myelopathy or radiculopathy, lumbar region; M54.6 Pain in thoracic spine; M47.812 Spondylosis without myelopathy or radiculopathy, cervical region; G10 Huntington's disease; R06.09 Other forms of dyspnea | CPT/HCPCS: 99202 ==

== ENCOUNTER 2023-03-09 13:53 | Emergency (ER) | payer MEDICAID, SELFPAY ==
--- NOTE | ~2023-03-09 | XR_ITS ---
EXAMINATION: XR CHEST CLINICAL INFORMATION: SOB COMPARISON: Chest x-ray 10/26/2022 TECHNIQUE: Frontal view of the chest was obtained. FINDINGS: No significant abnormality is noted involving the heart, lungs, mediastinum, bony thorax or soft tissues. XR/XR chest 1V IMPRESSION: Unremarkable chest examination.
[2023-03-09 13:58] VITALS: BP 131/64; BP 162/81; PULSE 87; PULSE 90; RESP 24; TEMP 36.8; O2SAT 100; O2SAT 99; BMI 34.2
--- NOTE | 2023-03-09 14:06 | ECG_ITS ---
Test Reason : SOB Blood Pressure : / mmHG Vent. Rate : 089 BPM Atrial Rate : 089 BPM P-R Int : 128 ms QRS Dur : 072 ms QT Int : 402 ms P-R-T Axes : 085 038 070 degrees QTc Int : 489 ms Normal sinus rhythm Nonspecific T wave abnormality Abnormal ECG When compared with ECG of 26-OCT-2022 14:12, Nonspecific T wave abnormality now evident in Anterolateral leads QT has lengthened Referred By: Yevgeniy Vitale Electronically Signed By:Reggie Rodriguez
[2023-03-09 14:10] VITALS: PULSE 86; RESP 20; O2SAT 100
[2023-03-09] MEDS: Albuterol Sulfate (0.083%) 2.5 MG/3 ML VIAL.NEB 10 MG INHALE (14:11)
--- NOTE | 2023-03-09 14:13 | ED_ITS ---
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 Patient follows with the Pain Management Clinic for chronic neck/lower back pain no procedure was done today on the patient. Patient is a smoker about 2 cigarettes a day, known history of asthma, do not feel flu-like symptoms, coughing with some production of clear sputum, no fever, no chills. Patient was admitted in the past for dystonic reaction of antipsychotic medication. Related Data Home Medications Medication Instructions Recorded Confirmed albuterol sulfate 90 mcg/actuation 2 puff inhalation Q4-6H PRN 09/19/22 10/06/22 aerosol inhaler (ProAir HFA) Shortness Of Breath ascorbic acid (vitamin C) 250 mg 500 mg PO DAILY 09/19/22 10/06/22 tablet clonazepam 1 mg tablet 1 mg PO TID PRN Anxiety 09/19/22 10/06/22 trazodone 150 mg tablet 150 mg PO BEDTIME PRN Sleep 09/19/22 10/06/22 celecoxib 200 mg capsule mg PO BID 03/09/23 diclofenac sodium 1 % topical gel g topical BID 03/09/23 fluticasone propionate 110 2 puff inhalation BID 03/09/23 mcg/actuation HFA aerosol inhaler (Flovent HFA) Previous Rx's Medication Instructions Recorded baclofen 10 mg tablet 10 mg PO TID #90 tabs 09/23/22 quetiapine 50 mg tablet 150 mg PO BEDTIME #90 tabs 09/23/22 clonazepam 1 mg tablet 1 mg PO TID PRN Anxiety #7 tabs 10/08/22 quetiapine 150 mg tablet 150 mg PO BEDTIME #14 tabs 10/08/22 trazodone 150 mg tablet 150 mg PO BEDTIME PRN sleep #7 tabs 10/08/22 albuterol sulfate 0.63 mg/3 mL 0.63 mg (3 mL) inhalation QID PRN 10/26/22 solution for nebulization shortness of breath or wheezing #75 mL albuterol sulfate 90 mcg/actuation 1 inh inhalation QID PRN shortness 10/26/22 aerosol inhaler of breath or wheezing #8.5 grams cefuroxime axetil 500 mg tablet 500 mg PO BID 10 days #20 tabs 10/26/22 clonazepam 1 mg tablet 1 mg PO TID #90 tabs 10/26/22 prednisone 20 mg tablet 40 mg PO DAILY inflammation 5 days 10/26/22 #10 tabs quetiapine 150 mg tablet,extended 150 mg PO BEDTIME #30 tabs 10/26/22 release 24 hr (Seroquel XR) trazodone 150 mg tablet 150 mg PO BEDTIME PRN insomnia #30 10/26/22 tabs albuterol sulfate 2.5 mg/3 mL 2.5 mg (3 mL) inhalation Q4-6H PRN 03/09/23 (0.083 %) solution for nebulization shortness of breath or wheezing #90 mL albuterol sulfate 90 mcg/actuation 1 inh inhalation QID PRN shortness 03/09/23 aerosol inhaler of breath or wheezing #8.5 grams azithromycin 250 mg tablet See Rx Instructions PO .COMPLEX #6 03/09/23 (Zithromax Z-Aníbal) tabs nabumetone 750 mg tablet 750 mg PO BID pain #60 tabs 03/09/23 prednisone 20 mg tablet 20 mg PO BID #10 tabs 03/09/23 Allergies Allergy/AdvReac Type Severity Reaction Status Date / Time No Known Allergies Allergy Verified 03/09/23 13:04 [No Known Allergies*] Review of Systems Review of Systems: All other systems are reviewed and are negative Constitutional: Reports as per HPI and Reports no additional constitutional complaints Eyes: Reports as per HPI and Reports no additional eye complaints Reports system reviewed and no additional complaints, except as documented Cardiovascular: Reports as per HPI and Reports no additional cardiovascular complaints Respiratory: Reports as per HPI and Reports no additional respiratory complaints Gastrointestinal: Reports as per HPI and Reports no additional gastrointestinal complaints Genitourinary: Reports no additional female genitourinary complaints Musculoskeletal: Reports no additional musculoskeletal complaints Skin/Breast: Reports system reviewed and no additional complaints, except as docu Psychiatric: Reports no additional psychiatric complaints Endocrine: Reports no additional endocrine complaints Hematologic/Lymphatic: Reports no additional hematologic/lymphatic complaints Allergic/Immunologic: Reports no additional allergic/immunologic complaints Reports system reviewed and no additional complaints, except as documented and Reports Abnormal speech present [facility] Past Medical History Medical History Mahoning's chorea Substance abuse Social History Social History Household Members: Family Household Members Other:: son Housing: Apartment Do you presently have visiting nurse or other home services: No Patient Tobacco Use Status: Former Tobacco user Tobacco use type: Cigarette Cigarettes Per Day: 3 Smoked in Last 30 Days: Yes e-Cigarette/Vaping Use: Never Used Substance Use Type: Marijuana Advance Directives: No Advance Directives Information Provided: Yes service: No Physical Exam Vital Signs: Vital Signs: Last Vital Signs Temp 98.2 F 03/09/23 13:58 Pulse 86 03/09/23 14:10 Resp 20 03/09/23 14:10 BP 131/64 03/09/23 13:58 Pulse Ox 94 03/09/23 16:50 O2 Del Method Aerosol Mask 03/09/23 13:58 BMI result Body Mass Index 34.2 Vital signs have been reviewed as appeared to be correct. Blood pressure normal. Heart rate normal. Respiration rate normal. Temperature normal. Oxygen saturation normal. Appearance: Alert. Oriented X3. No acute distress. Head: Normal external exam. Normocephalic. Atraumatic. No Waters signs noted. No raccoon eyes noted Eyes: PERRLA. EOMI. Conjunctiva and sclera normal. Eyelids normal. ENT: TM's Normal. Pharynx normal. Uvula midline. Moist mucous membranes. No trismus noted. No drooling noted. No muffled voice noted. Neck: Normal inspection. Neck supple. FROM. No adenopathy. Thyroid Normal. No meningeal signs. No neck mass noted. CVS: Normal heart rate and rhythm. Heart sound normal. No murmurs noted. Pulses normal throughout. Respiratory: Mild respiratory distress. Painless inspiration. Breath sounds normal. Diffuse bilateral expiratory wheezing with prolonged expiration.. No accessory muscle usage noted or decreased air movement noted. Abdomen: Soft and nontender. Bowel sounds normal in all 4 quadrants. No distention noted. No organomegaly noted. No visible injury noted. Back: No CVA tenderness. Full range of motion noted. Skin: Skin warm and dry. Normal skin color. Normal skin turgor. No rashes/lesions/lacerations noted. Extremities: No lower extremity edema. Extremities exhibit normal range of motion. Extremities nontender. Neuro: Oriented X 3. Cranial nerve exam: II-XII are grossly intact No motor deficit. No sensory deficit. Reflexes normal. Course Course Course Narrative: 53-year-old male with history of asthma, currently active smoker came in for shortness of breath and asthma exacerbation, x-ray showing no pneumonia, unremarkable labs, patient received bronchodilator and prednisone, patient feels better able to ambulate in the emergency department with O2 sat of 94-96 on room air with ambulation. Improvement of the wheezing will discharge the patient on Z-Aníbal/prednisone/bronchodilator. Medications Administered Discontinued Medications Generic Name Dose Route Start Last Admin Trade Name Freq PRN Reason Stop Dose Admin Albuterol Sulfate 10 mg 03/09/23 14:06 03/09/23 14:11 Albuterol Sulfate (0.083%) 2.5 Mg/3 Ml Vial.Neb INHALE 03/09/23 14:07 10 mg ONCE ONE Administration Methylprednisolone Sodium Succinate 125 mg 03/09/23 14:06 03/09/23 14:36 Methylprednisolone Sod Succ 125 Mg/2 Ml Vial IVPUSH 03/09/23 14:07 125 mg ONCE ONE Administration Medical Decision Making Differential Diagnosis Differential Diagnoses: The differential diagnosis associated with the presentation includes (Acute asthma exacerbation, pneumonia, pneumothorax, elec trolyte abnormalities, severe anemia.) Admission/Observation Consideration of admission/observation: Escalation of care including admission/observation considered Lab Data MDM Lab Attestation statement: I reviewed the patient's lab results. 03/09/23 14:33 03/09/23 14:32 Labs: Lab Results 03/09/23 03/09/23 03/09/23 Range/Units 14:32 14:32 14:32 WBC (4.8-10.8) X10*3/uL RBC (4.60-5.80) X10*6/uL Hgb (14.0-18.0) g/dl Hct (42.0-52.0) % MCV (80.0-98.0) fL MCH (27.0-33.0) pg MCHC (31.0-36.0) g/dl RDW (11.0-16.0) % Plt Count (160-400) X10*3/uL MPV (9.4-12.4) fL Immature Gran % (Auto) (0.0-0.4) % Neut % (Auto) (45-73) % Lymph % (Auto) (20-40) % Baldwin % (Auto) (2-11) % Eos % (Auto) (0-4) % Baso % (Auto) (0-2) % Lymph # (Auto) (1.2-4.9) X10*3/uL Baldwin # (Auto) (0.1-1.2) X10*3/uL Eos # (Auto) (0.0-0.4) X10*3/uL Baso # (Auto) (0.0-0.2) X10*3/uL Abs Immat Gran (auto) (0.00-0.03) X10*3/uL Absolute Neuts (auto) (2.0-8.3) x10*3/uL Absolute Nucleated RBC (0.0-0.012) X10*3/uL Nucleated RBC % (auto) (0.0-0.2) /100WBC Sodium 142 (135-145) mmol/L Potassium 3.6 (3.3-5.1) mmol/L Chloride 107 (96-108) mmol/L Carbon Dioxide 27 (22-29) mmol/L Anion Gap 12 (12-20) BUN 14 (9-16) mg/dL Creatinine 0.96 (0.5-1.4) mg/dL Estim Creat Clear Calc 86.0 Estimated GFR > 60 Random Glucose 109 (60-115) mg/dL Lactic Acid (0.5-2.0) mmol/L Calcium 9.0 (8.4-10.2) mg/dL Total Bilirubin 0.8 (0.0-1.0) mg/dL Direct Bilirubin 0.2 (0.0-0.5) mg/dL AST 21 (5-37) U/L ALT 15 (0-40) U/L Alkaline Phosphatase 81 (39-117) U/L Troponin I High Sens 5.8 (<3.5-35.0) ng/L B-Natriuretic Peptide 20 (<100) pg/mL Total Protein 6.1 L (6.5-8.0) g/dL Albumin 3.8 (3.5-5.0) g/dL Lipase 29 (8-78) U/L COVID-19 (CRISTHIAN) (Negative) COVID-19 Clin Com 03/09/23 03/09/23 03/09/23 Range/Units 14:33 14:33 14:33 WBC 7.4 (4.8-10.8) X10*3/uL RBC 4.42 L (4.60-5.80) X10*6/uL Hgb 13.0 L (14.0-18.0) g/dl Hct 39.9 L (42.0-52.0) % MCV 90.3 (80.0-98.0) fL MCH 29.4 (27.0-33.0) pg MCHC 32.6 (31.0-36.0) g/dl RDW 12.9 (11.0-16.0) % Plt Count 284 (160-400) X10*3/uL MPV 8.8 L (9.4-12.4) fL Immature Gran % (Auto) 0.3 (0.0-0.4) % Neut % (Auto) 44.7 L (45-73) % Lymph % (Auto) 42.7 H (20-40) % Baldwin % (Auto) 9.2 (2-11) % Eos % (Auto) 2.6 (0-4) % Baso % (Auto) 0.5 (0-2) % Lymph # (Auto) 3.2 (1.2-4.9) X10*3/uL Baldwin # (Auto) 0.7 (0.1-1.2) X10*3/uL Eos # (Auto) 0.2 (0.0-0.4) X10*3/uL Baso # (Auto) 0.0 (0.0-0.2) X10*3/uL Abs Immat Gran (auto) 0.02 (0.00-0.03) X10*3/uL Absolute Neuts (auto) 3.3 (2.0-8.3) x10*3/uL Absolute Nucleated RBC 0.000 (0.0-0.012) X10*3/uL Nucleated RBC % (auto) 0.0 (0.0-0.2) /100WBC Sodium (135-145) mmol/L Potassium (3.3-5.1) mmol/L Chloride (96-108) mmol/L Carbon Dioxide (22-29) mmol/L Anion Gap (12-20) BUN (9-16) mg/dL Creatinine (0.5-1.4) mg/dL Estim Creat Clear Calc Estimated GFR Random Glucose (60-115) mg/dL Lactic Acid 2.0 (0.5-2.0) mmol/L Calcium (8.4-10.2) mg/dL Total Bilirubin (0.0-1.0) mg/dL Direct Bilirubin (0.0-0.5) mg/dL AST (5-37) U/L ALT (0-40) U/L Alkaline Phosphatase (39-117) U/L Troponin I High Sens (<3.5-35.0) ng/L B-Natriuretic Peptide (<100) pg/mL Total Protein (6.5-8.0) g/dL Albumin (3.5-5.0) g/dL Lipase (8-78) U/L COVID-19 (CRISTHIAN) Negative (Negative) COVID-19 Clin Com See Note Independent Interpretation I performed an independent interpretation of an: Plain X-Ray (Chest: No acute intrathoracic pathology.) Radiology Impression Discussion of test interpretation with radiology: I have reviewed the radiologist's reading. Discharge Plan Discharge Clinical Impression: Asthma with exacerbation Patient Disposition: Home, Self-Care Instructions: Wheezing (ED) Prescriptions: New albuterol sulfate 2.5 mg /3 mL (0.083 %) solution for nebulization 2.5 mg inhalation Q4-6H PRN (Reason: shortness of breath or wheezing) Qty: 90 0RF albuterol sulfate 90 mcg/actuation HFA aerosol inhaler 1 inh inhalation QID PRN (Reason: shortness of breath or wheezing) Qty: 8.5 0RF azithromycin [Zithromax Z-Aníbal] 250 mg tablet See Rx Instructions .ROUTE .COMPLEX Qty: 6 0RF Rx Instructions: For 250 mg dose pack: take 500 mg today (day 1), then 250 mg for 4 days (days 2-5) prednisone 20 mg tablet 20 mg PO BID Qty: 10 0RF No Action clonazepam 1 mg Tablet 1 mg PO TID PRN (Reason: Anxiety) ascorbic acid (vitamin C) 250 mg Tablet 500 mg PO DAILY trazodone 150 mg Tablet 150 mg PO BEDTIME PRN (Reason: Sleep) albuterol sulfate [ProAir HFA] 90 mcg/actuation Hfa Aerosol Inhaler 2 puff INHALATION Q4-6H PRN (Reason: Shortness Of Breath) baclofen 10 mg Tablet 10 mg PO TID Qty: 90 0RF quetiapine 50 mg Tablet 150 mg PO BEDTIME Qty: 90 0RF clonazepam 1 mg tablet 1 mg PO TID PRN (Reason: Anxiety) Qty: 7 0RF trazodone 150 mg tablet 150 mg PO BEDTIME PRN (Reason: sleep) Qty: 7 0RF quetiapine 150 mg tablet 150 mg PO BEDTIME Qty: 14 0RF cefuroxime axetil 500 mg tablet 500 mg PO BID 10 Days Qty: 20 0RF prednisone 20 mg tablet 40 mg PO DAILY 5 Days Qty: 10 0RF albuterol sulfate 0.63 mg/3 mL solution for nebulization 0.63 mg inhalation QID PRN (Reason: shortness of breath or wheezing) Qty: 75 0RF albuterol sulfate 90 mcg/actuation HFA aerosol inhaler 1 inh inhalation QID PRN (Reason: shortness of breath or wheezing) Qty: 8.5 0RF trazodone 150 mg tablet 150 mg PO BEDTIME PRN (Reason: insomnia) Qty: 30 2RF quetiapine [Seroquel XR] 150 mg tablet extended release 24 hr 150 mg PO BEDTIME Qty: 30 2RF clonazepam 1 mg tablet 1 mg PO TID Qty: 90 2RF nabumetone 750 mg tablet 750 mg PO BID Qty: 60 0RF Rx Instructions: Take it with food and glass of water. diclofenac sodium 1 % gel topical BID celecoxib 200 mg capsule PO BID fluticasone propionate [Flovent HFA] 110 mcg/actuation HFA aerosol inhaler 2 puff inhalation BID Referrals: Physician,Unknown J [Primary Care Provider] -
[2023-03-09] MEDS: methylPREDNISolone Sod Succ 125 MG/2 ML VIAL IVPUSH (14:36)
[2023-03-09 14:45] LABS: MANUAL DIFF FLAG NO
[2023-03-09 14:50] LABS: Basophils Percent Auto 0.5 % (0-2); Eosinophils Absolute Auto 0.2 X10*3/uL (0.0-0.4); Eosinophils Percent Auto 2.6 % (0-4); Hematocrit 39.9 % (42.0-52.0); Imm Gran Abs Auto 0.02 X10*3/uL (0.00-0.03); Imm Gran Pct Auto 0.3 % (0.0-0.4); Lymphocytes Absolute Auto 3.2 X10*3/uL (1.2-4.9); Lymphocytes Percent Auto 42.7 % (20-40); Mean Corpuscular HGB Conc 32.6 g/dl (31.0-36.0); Mean Corpuscular Hemoglobin 29.4 pg (27.0-33.0); Mean Corpuscular Volume 90.3 fL (80.0-98.0); Mean Platelet Volume 8.8 fL (9.4-12.4); Monocytes Absolute Auto 0.7 X10*3/uL (0.1-1.2); Monocytes Percent Auto 9.2 % (2-11); Neutrophils Absolute Auto 3.3 x10*3/uL (2.0-8.3); Neutrophils Percent Auto 44.7 % (45-73); Platelet Count 284 X10*3/uL (160-400); Red Blood Count 4.42 X10*6/uL (4.60-5.80); Red Cell Distribution Width 12.9 % (11.0-16.0); White Blood Count 7.4 X10*3/uL (4.8-10.8)
[2023-03-09 14:59] LABS: COVID-19 Test Negative (Negative); IDNOW Serial# 08D9AD1C
[2023-03-09 15:02] LABS: Alanine Aminotransferase 15 U/L (0-40); Albumin Level 3.8 g/dL (3.5-5.0); Alkaline Phosphatase 81 U/L (39-117); Anion Gap 12 (12-20); Aspartate Amino Transferase 21 U/L (5-37); Bilirubin Direct 0.2 mg/dL (0.0-0.5); Bilirubin Total 0.8 mg/dL (0.0-1.0); Blood Urea Nitrogen 14 mg/dL (9-16); Carbon Dioxide 27 mmol/L (22-29); Chloride 107 mmol/L (96-108); Estimated Glomerular Filt Rate > 60; Glucose Random 109 mg/dL (60-115); Lipase 29 U/L (8-78); Potassium 3.6 mmol/L (3.3-5.1); Sodium 142 mmol/L (135-145); Total Protein 6.1 g/dL (6.5-8.0)
[2023-03-09 15:08] LABS: B Type Natriuretic Peptide 20 pg/mL (<100)
[2023-03-09 15:09] LABS: Troponin-I High Sensitivity 5.8 ng/L (<3.5-35.0)
[2023-03-09 16:50] VITALS: O2SAT 94
== END 2023-03-09 18:13 | disposition home or self-care (01) ==
PROVIDERS: Emergency Provider Emergency Medicine
DX: J45.901 Unspecified asthma with (acute) exacerbation (principal); R94.31 Abnormal electrocardiogram [ECG] [EKG]; R06.02 Shortness of breath; Z20.822 Contact with and (suspected) exposure to COVID-19; Z20.828 Contact with and (suspected) exposure to other viral communicable diseases; Z79.899 Other long term (current) drug therapy
CPT/HCPCS: 36415; 71045; 80048; 80076; 83605; 83690; 83880; 84484; 85025; 87040; 87635; 93005; 94640; 96374; 99284; 99285; J2930

== ENCOUNTER → 2023-04-16 09:47 | Outpatient (BNVA) | payer MEDICAID, SELFPAY | PROVIDERS: PCP Registered Nurse; Visit Provider Internal Medicine Pulmonary Disease | DX: R06.09 Other forms of dyspnea (principal); J45.909 Unspecified asthma, uncomplicated; R91.8 Other nonspecific abnormal finding of lung field; G10 Huntington's disease; Z79.899 Other long term (current) drug therapy | CPT/HCPCS: 99202 ==

== ENCOUNTER 2023-04-23 14:14 | Outpatient (REF) | payer MEDICAID, SELFPAY ==
--- NOTE | 2023-04-23 | PFT_ITS ---
FLOWS: 1. FEV1 86% of predicted at 2.51 L. 2. FVC 92% of predicted at 3.49 L. 3. FEV1 to FVC ratio of 0.72. 4. Positive bronchodilator response. LUNG VOLUMES: 1. Patient was unable to perform lung volume maneuver secondary to frequent coughing. 2. Diffusion capacity is normal. IMPRESSION: Reversible moderate obstructive ventilatory defect with positive bronchodilator response. Patient was unable to perform lung volume maneuver secondary to significant coughing. Maximilian Trevino MD AP/MODL / [id number]
== END 2023-04-23 14:15 | disposition home or self-care (01) ==
LOC: HO.RESP 14:14
PROVIDERS: Visit Provider Internal Medicine Pulmonary Disease
DX: J45.909 Unspecified asthma, uncomplicated (principal)
CPT/HCPCS: 94060; 94727; 94729

== ENCOUNTER 2023-05-22 08:48 | Outpatient (REF) | payer MEDICAID, SELFPAY ==
[2023-05-22 12:05] LABS: Alanine Aminotransferase 18 U/L (0-40); Alkaline Phosphatase 86 U/L (39-117); Anion Gap 18 (12-20); Aspartate Amino Transferase 24 U/L (5-37); Bilirubin Total 1.2 mg/dL (0.0-1.0); Blood Urea Nitrogen 13 mg/dL (9-16); Calcium 9.6 mg/dL (8.4-10.2); Carbon Dioxide 23 mmol/L (22-29); Chloride 100 mmol/L (96-108); Cholesterol 116 mg/dL; Estimated Glomerular Filt Rate > 60; Glucose Random 103 mg/dL (60-115); HDL Cholesterol 50 mg/dL; LDL Cholesterol Calculated 55 mg/dl; Potassium 3.5 mmol/L (3.3-5.1); Sodium 137 mmol/L (135-145); Total Protein 7.1 g/dL (6.5-8.0); Triglycerides 56 mg/dL
== END 2023-05-22 08:49 | disposition home or self-care (01) ==
LOC: HO.HHCL 08:48
PROVIDERS: Visit Provider Registered Nurse
DX: E78.1 Pure hyperglyceridemia (principal)
CPT/HCPCS: 36415; 80053; 80061

== ENCOUNTER 2023-05-28 19:40 | Emergency (ER) | payer MEDICAID, SELFPAY ==
--- NOTE | ~2023-05-28 | US_ITS ---
EXAMINATION: US SCROTUM CLINICAL INFORMATION: Pain, swelling. COMPARISON: CT abdomen/pelvis 05/13/2019. Scrotal ultrasound 05/13/2019. TECHNIQUE: A sonogram of the scrotum was performed assessing auguste-scale appearance and color Doppler flow. Spectral Doppler analysis of the arterial and venous flow were performed in the testes bilaterally. FINDINGS: RIGHT: Limited examination secondary to compression from a large right hydrocele. Right testicle measures 3.9 x 2.1 x 3.6 cm, volume 16 mL. No focal testicular parenchymal lesions are visualized. Spectral Doppler analysis of the arterial and venous flow is normal in the right testis. Right epididymal head is not well visualized in view of limitations secondary to a large hydrocele. Very large complex hydrocele with thickened britt and floating debris. No varicocele. LEFT: Left testicle measures 4.1 x 2.3 x 2.3 cm, volume 11.2 mL. No focal testicular parenchymal lesions are visualized. Spectral Doppler analysis of the arterial and venous flow is normal in the left testis. Left epididymal head is normal in size. No left hydrocele or varicocele is seen. Left epididymal Doppler flow is normal. US/US scrotum doppler IMPRESSION: Very large complex right hydrocele with thickened britt and floating debris suggesting of pyocele/hematocele in the appropriate clinical context.
--- NOTE | ~2023-05-28 | US_ITS ---
EXAMINATION: US SCROTUM CLINICAL INFORMATION: Pain, swelling. COMPARISON: CT abdomen/pelvis 05/13/2019. Scrotal ultrasound 05/13/2019. TECHNIQUE: A sonogram of the scrotum was performed assessing auguste-scale appearance and color Doppler flow. Spectral Doppler analysis of the arterial and venous flow were performed in the testes bilaterally. FINDINGS: RIGHT: Limited examination secondary to compression from a large right hydrocele. Right testicle measures 3.9 x 2.1 x 3.6 cm, volume 16 mL. No focal testicular parenchymal lesions are visualized. Spectral Doppler analysis of the arterial and venous flow is normal in the right testis. Right epididymal head is not well visualized in view of limitations secondary to a large hydrocele. Very large complex hydrocele with thickened britt and floating debris. No varicocele. LEFT: Left testicle measures 4.1 x 2.3 x 2.3 cm, volume 11.2 mL. No focal testicular parenchymal lesions are visualized. Spectral Doppler analysis of the arterial and venous flow is normal in the left testis. Left epididymal head is normal in size. No left hydrocele or varicocele is seen. Left epididymal Doppler flow is normal. US/US scrotum IMPRESSION: Very large complex right hydrocele with thickened britt and floating debris suggesting of pyocele/hematocele in the appropriate clinical context.
[2023-05-28 19:43] VITALS: BP 143/92; PULSE 84; RESP 18; TEMP 36; O2SAT 97; BMI 31.0
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
[2023-05-28 20:28] VITALS: PULSE 95; RESP 18; TEMP 37; O2SAT 94
[2023-05-28 21:07] VITALS: RESP 16
[2023-05-28] MEDS: Morphine Sulfate 4 MG/ML CARTRIDGE IVPUSH (21:07)
[2023-05-28 21:08] LABS: MANUAL DIFF FLAG NO
[2023-05-28] MEDS: 0.9 % Sodium Chloride 1,000 ML 999 ML IV (21:08)
[2023-05-28 21:10] LABS: Basophils Absolute Auto 0.1 X10*3/uL (0.0-0.2); Basophils Percent Auto 0.8 % (0-2); Eosinophils Absolute Auto 0.1 X10*3/uL (0.0-0.4); Eosinophils Percent Auto 1.1 % (0-4); Hematocrit 40.1 % (42.0-52.0); Hemoglobin 13.3 g/dl (14.0-18.0); Imm Gran Abs Auto 0.03 X10*3/uL (0.00-0.03); Imm Gran Pct Auto 0.4 % (0.0-0.4); Lymphocytes Absolute Auto 2.1 X10*3/uL (1.2-4.9); Lymphocytes Percent Auto 27.9 % (20-40); Mean Corpuscular HGB Conc 33.2 g/dl (31.0-36.0); Mean Corpuscular Hemoglobin 29.8 pg (27.0-33.0); Mean Corpuscular Volume 89.9 fL (80.0-98.0); Mean Platelet Volume 8.6 fL (9.4-12.4); Monocytes Absolute Auto 0.6 X10*3/uL (0.1-1.2); Monocytes Percent Auto 8.2 % (2-11); Neutrophils Absolute Auto 4.7 x10*3/uL (2.0-8.3); Neutrophils Percent Auto 61.6 % (45-73); Platelet Count 328 X10*3/uL (160-400); Red Blood Count 4.46 X10*6/uL (4.60-5.80); Red Cell Distribution Width 12.2 % (11.0-16.0); White Blood Count 7.6 X10*3/uL (4.8-10.8)
[2023-05-28 21:17] LABS: Prothrombin Time 12.1 SEC (11.1-13.3)
[2023-05-28 21:20] LABS: Partial Thromboplastin Time 36.4 SEC (26.0-36.4)
[2023-05-28 21:26] LABS: Alanine Aminotransferase 17 U/L (0-40); Albumin Level 4.1 g/dL (3.5-5.0); Alkaline Phosphatase 88 U/L (39-117); Anion Gap 16 (12-20); Aspartate Amino Transferase 22 U/L (5-37); Bilirubin Total 0.4 mg/dL (0.0-1.0); Blood Urea Nitrogen 13 mg/dL (9-16); Calcium 9.6 mg/dL (8.4-10.2); Carbon Dioxide 25 mmol/L (22-29); Chloride 109 mmol/L (96-108); Creatinine Clr Calc Pharmacy 100.9; Estimated Glomerular Filt Rate > 60; Glucose Random 94 mg/dL (60-115); Potassium 3.9 mmol/L (3.3-5.1); Sodium 146 mmol/L (135-145)
[2023-05-28 21:35] VITALS: BP 136/89; PULSE 88; RESP 18; TEMP 36.8; O2SAT 97
[2023-05-28 21:59] LABS: Appearance Urine Cloudy; Color Urine Yellow; Glucose Urine UA Negative (Negative); Leukocyte Esterase Urine Negative (Negative); Nitrite Urine Negative (Negative); Urine Blood Negative (Negative); Urine Ketones Negative (Negative); Urine Protein Negative (Neg-Trace)
--- NOTE | 2023-05-28 22:06 | PHA.MEDREC ---
Pharmacy Consult ? Medication Reconciliation Pharmacy has completed the medication reconciliation. Pt was being discharged as med rec was being done.
== END 2023-05-28 22:11 | disposition home or self-care (01) ==
PROVIDERS: Emergency Provider Emergency Medicine
DX: K40.90 Unilateral inguinal hernia, without obstruction or gangrene, not specified as recurrent (principal); M54.50 Low back pain, unspecified; N50.89 Other specified disorders of the male genital organs; N43.3 Hydrocele, unspecified; R10.2 Pelvic and perineal pain; Z79.899 Other long term (current) drug therapy
CPT/HCPCS: 36415; 76870; 80053; 81003; 85025; 85610; 85730; 93975; 96374; 99284; J2270

== ENCOUNTER 2023-05-29 12:44 | Outpatient (REF) | payer MEDICAID, SELFPAY ==
--- NOTE | ~2023-05-29 | XR_ITS ---
EXAMINATION: XR SHOULDER, LEFT CLINICAL INFORMATION: Left shoulder pain. COMPARISON: None available. TECHNIQUE: Three views of the left shoulder. FINDINGS: The bones and soft tissues appear unremarkable. No fracture appreciated. Glenohumeral and acromioclavicular alignment is anatomic with normal joint space. No abnormal soft tissue calcifications. XR/XR shoulder LT min 2V IMPRESSION: Normal plain film examination of the left shoulder.
--- NOTE | ~2023-05-29 | CT_ITS ---
EXAMINATION: CT CHEST WITHOUT CONTRAST CLINICAL INFORMATION: Pulmonary nodules with dyspnea on exertion. COMPARISON: CT chest 09/19/2022. TECHNIQUE: Multidetector volumetric CT imaging of the chest was done. Axial MIP volume rendering provided. Sagittal and coronal reformatted images were obtained. This CT examination was performed using dose optimization techniques as appropriate, variously including the following: *Automated exposure control *Adjustment of mA and/or kV according to patient size (this includes techniques or standardized protocols for targeted exams where dose is matched to indication/reason for exam; i.e. extremities or head) *Use of iterative reconstruction technique. DLP: 239 mGy-cm. FINDINGS: LUNGS: The previously seen tree-in-bud densities at the left lung base (5:326). A tiny 2 mm nodule is present in the right lower lobe (prior 5:263) have resolved consistent with inflammatory disease. There is some new minimal lingular and right middle lobe atelectasis (6:345 and 360). A small 4 mm nodule at the right lung base has decreased in size from 5 mm (6:381 compare prior 5:328 (The lungs are otherwise clear with no evidence of consolidation or new/worrisome mass. MEDIASTINUM: The mediastinum is normal. CORONARY ARTERY CALCIFICATION: None visualized on this study. PLEURA: There is no pleural effusion. No pleural mass or thickening. AXILLA: No lymphadenopathy. UPPER ABDOMEN: A tiny hiatal hernia is present. The gallbladder is again noted to be contracted with rim calcification representing either gallstones or gallbladder wall calcification. There is marked respiratory motion artifact interfering with diagnostic quality. Small punctate calcifications in the left kidney seen previously are not included on the current study. OSSEOUS STRUCTURES: Mild degenerative changes noted in the spine. Unchanged minimal compression of the superior endplate of T5. No bony destructive lesions. CT/CT chest wo IV con IMPRESSION: 1. Previously seen tree-in-bud densities at the left lung base have resolved. 2. A small 4 mm nodule at the right lung base has decreased in size from 5 mm to 4 mm. 3. Incidental note made of contracted gallbladder with either gallstones or gallbladder wall calcification, tiny hiatal hernia and degenerative changes in the spine with unchanged minimal compression of T5. 4. No worrisome pulmonary nodules are seen. Fleischner guidelines were followed.
--- NOTE | ~2023-05-29 | XR_ITS ---
EXAMINATION: XR CERVICAL SPINE CLINICAL INFORMATION: Neck pain. COMPARISON: None available. TECHNIQUE: 3 views of the cervical spine were obtained. FINDINGS: Moderate disc degenerative change and anterior osteophyte formation are most notable at C5-C7. Mild disc space narrowing and anterior osteophyte formation are seen at C3-C5. There may be mild reversal of the normal cervical doses centered at C4-C5. No fracture or subluxation is seen. No lytic or sclerotic bony lesion is identified. The prevertebral soft tissues appear unremarkable. XR/XR cervical spine 3V IMPRESSION: Degenerative change.
--- NOTE | ~2023-05-29 | XR_ITS ---
EXAMINATION: XR THORACIC SPINE CLINICAL INFORMATION: Thoracic spinal pain. COMPARISON: None available. TECHNIQUE: 3 views of the thoracic spine were obtained. FINDINGS: No fracture or bone destruction is seen, and the vertebral alignment appears unremarkable. Mild mid thoracic disc space narrowing. No abnormality of the paraspinal soft tissues is appreciated. XR/XR thoracic spine 3V IMPRESSION: Mild degenerative change.
--- NOTE | ~2023-05-29 | XR_ITS ---
EXAMINATION: XR LUMBOSACRAL SPINE WITH OBLIQUES CLINICAL INFORMATION: Lumbar spondylolysis without myelopathy or radiculopathy. COMPARISON: None available. TECHNIQUE: AP, both oblique, and lateral views of the lumbar spine. Lateral views obtained in flexion, neutral, and extension. Lateral view of the lumbosacral junction. 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 Moderate disc space narrowing and Grade 1-grade 2 anterolisthesis at this level, stable in flexion, neutral, extension. Mild to moderate disc space narrowing at L3-L5. Vertebral body heights appear maintained. No lytic or sclerotic bony lesion identified. Mildly atherosclerotic aorta.
== END 2023-05-29 12:45 | disposition home or self-care (01) ==
LOC: HO.CT 12:44
PROVIDERS: Visit Provider Internal Medicine Pulmonary Disease
DX: R06.09 Other forms of dyspnea (principal); R91.8 Other nonspecific abnormal finding of lung field; M25.512 Pain in left shoulder; M54.6 Pain in thoracic spine; M47.812 Spondylosis without myelopathy or radiculopathy, cervical region; M47.816 Spondylosis without myelopathy or radiculopathy, lumbar region
CPT/HCPCS: 71250; 72040; 72072; 72114; 73030

== ENCOUNTER 2023-06-19 09:25 | Outpatient (AMB) | payer MEDICAID, SELFPAY ==
[2023-06-19 09:27] VITALS: BP 132/70; PULSE 67; O2SAT 97; BMI 30.3
--- NOTE | 2023-06-19 09:27 | MHC.OFFVIS ---
Intake Vital Signs 06/19/23 09:27 Height 5 ft 3 in Weight 170 lb 13.732 oz BMI 30.3 BP 132/70 Blood Pressure Location Rt brachial Position Sitting Pulse 67 Pulse Source Pulse Oximeter Pulse Oximetry (%) 97 Oxygen Delivery Method Room Air Intake Visit Reasons: CT Chest Follow Up Allergies No Known Allergies [No Known Allergies*] Allergy (Verified 06/19/23 09:28) HPI CT Chest Follow Up HPI Details 53-year-old gentleman, recent 30 pack-year smoker, followed for asthma/COPD overlap syndrome with significant bronchodilator response and pulmonary nodules. At the last office visit patient was switched to Trelegy, but has not received it yet. He did completed his pulmonary function test and CT chest. He denies recent exacerbations. [facility] Medical History Asthma Cumberland's chorea Substance abuse Social History (Updated 06/19/23 @ 09:30 by LAUREN Silva) Household Members: Family Household Members Other:: son Housing: Apartment Do you presently have visiting nurse or other home services: No Patient Tobacco Use Status: Current everyday Tobacco user Tobacco use type: Cigarette Cigarettes Per Day: 3 e-Cigarette/Vaping Use: Never Used Substance Use Type: Marijuana service: No Review of Systems Const Denies daytime sleepiness, Denies excessive sweating, Denies fatigue, Denies fever(s), Denies lethargy, Denies malaise, Denies night sweats, Denies snoring and Denies weight loss Eyes Denies blurry vision and Denies itchy eyes ENT Denies nasal congestion, Denies post nasal drip, Denies sinus pain, Denies sinus pressure and Denies other ( Thrush) Card Denies chest pain, Denies pedal edema, Denies dyspnea, Denies orthopnea and Denies paroxysmal nocturnal dyspnea Resp Denies cough, Denies hemoptysis, Denies excessive phlegm production, Denies dyspnea, Denies snoring and Denies wheezing GI Denies abdominal pain and Denies heartburn Musc Denies myalgias, Denies arthralgias and Denies joint swelling Skin/Breast Denies rash Neuro Denies memory loss Psych Denies abnormal sleep pattern, Denies anxiety and Denies memory loss Endo Denies excessive sweating, Denies fatigue and Denies heat intolerance Johnnie/Lymph Denies easy bruising Aller/Immun Denies itchy eyes, Denies seasonal rhinorrhea and Denies wheezing Physical Exam Vital Signs: Last Vital Signs Pulse 67 06/19/23 09:27 BP 132/70 06/19/23 09:27 Pulse Ox 97 06/19/23 09:27 Oxygen Delivery Method Room Air 06/19/23 09:27 BMI result Body Mass Index 30.3 Const General: no acute distress and alert Nutritional Appearance: not obese Orientation/consciousness: Other orientation findings ( oriented) HEENT Head: Yes atraumatic Eyes General: appearance normal, both eyes and all related structures Sclerae: sclerae normal EOM: EOMs intact bilaterally Neck Neck: Yes supple Lymphatic: no lymphadenopathy noted Resp Effort & Inspection: normal respiratory effort and no use of accessory muscles Auscultation: clear to auscultation bilaterally Cardio Rate: regular rate Rhythm: regular rhythm Heart sounds: no gallops, no murmurs and no rubs Skin General skin exam: other ( warm) Extrem General: No clubbing, No cyanosis and No edema Assessment & Plan Assessment & Plan (1) Pulmonary nodules: Code(s): R91.8 - Other nonspecific abnormal finding of lung field Plan: Results of CT chest reviewed. No worrysome nodules at this time. Will repeat CT chest in 12 months. (2) Asthma-COPD overlap syndrome: Code(s): J44.9 - Chronic obstructive pulmonary disease, unspecified Plan: Suboptimal control Symbicort, switched to Trelegy. Continue albuterol MDI/nebs. Coding Level of Care Code Est Pt Level 4 (83604) Diagnoses Pulmonary nodules R91.8 Asthma-COPD overlap syndrome J44.9
== END 2023-06-19 09:42 | disposition home or self-care (01) ==
PROVIDERS: Visit Provider Internal Medicine Pulmonary Disease
DX: R91.8 Other nonspecific abnormal finding of lung field (principal); J44.9 Chronic obstructive pulmonary disease, unspecified
CPT/HCPCS: 99214

== ENCOUNTER → 2023-06-19 09:25 | Outpatient (BNVA) | payer MEDICAID, SELFPAY | PROVIDERS: Visit Provider Internal Medicine Pulmonary Disease | DX: J44.9 Chronic obstructive pulmonary disease, unspecified (principal); R91.8 Other nonspecific abnormal finding of lung field | CPT/HCPCS: 99212 ==

== ENCOUNTER 2023-06-21 18:55 | Emergency (ER) | payer MEDICAID, SELFPAY ==
--- NOTE | ~2023-06-21 | XR_ITS ---
EXAMINATION: XR CHEST CLINICAL INFORMATION: Shortness of breath COMPARISON: None available. TECHNIQUE: 2 views of the chest were obtained. FINDINGS: No significant abnormality is noted involving the heart, lungs, mediastinum, bony thorax or soft tissues. XR/XR chest 2V IMPRESSION: Unremarkable examination.
[2023-06-21 19:01] VITALS: BP 160/90; PULSE 87; RESP 22; TEMP 36.1; O2SAT 97; BMI 31.0
--- NOTE | 2023-06-21 19:01 | ED.SOB ---
HPI - SOB/Dyspnea General Chief Complaint: Dyspnea Stated Complaint: Diff breathing Time Seen by Provider: 06/21/23 21:08 Source: patient and family Mode of arrival: wheelchair Limitations: no limitations History of Present Illness HPI Narrative: Patient comes to the emergency room accompanied by his son. For about a week, patient has been having worsening Raymond chorea movements. Patient states that he was recently cut off from his Klonopin supply. Patient usually takes 1 mg Klonopin t.i.d.. Patient states that he does not know why his Klonopin was no longer prescribed. However, patient does admit that he used cocaine, and it is possible that he tested positive and possibly the reason that he got cut off from a supply. And states that he has been using Klonopin for many years. Patient states that since he stopped taking Klonopin, the chorea movements have gotten much worse. Patient has been having control his movements, patient now invite system more often and has difficulty time eating. Related Data Home Medications Medication Instructions Recorded Confirmed ascorbic acid (vitamin C) 250 mg 500 mg PO DAILY 09/19/22 10/06/22 tablet celecoxib 200 mg capsule mg PO BID 03/09/23 diclofenac sodium 1 % topical gel 2 g topical BID 03/09/23 amlodipine 2.5 mg tablet 5 mg PO QAM 05/28/23 atorvastatin 10 mg tablet 10 mg PO QAM 05/28/23 budesonide-formoterol HFA 80 inh inhalation BID 05/28/23 mcg-4.5 mcg/actuation aerosol inhaler (Symbicort) montelukast 10 mg tablet 10 mg PO BEDTIME 05/28/23 omeprazole 20 mg capsule,delayed 20 mg PO DAILY@0630 05/28/23 release ipratropium bromide 17 0 mcg inhalation 06/19/23 mcg/actuation HFA aerosol inhaler (Atrovent HFA) Previous Rx's Medication Instructions Recorded baclofen 10 mg tablet 10 mg PO TID #90 tabs 09/23/22 quetiapine 150 mg tablet 150 mg PO BEDTIME #14 tabs 10/08/22 clonazepam 1 mg tablet 1 mg PO TID #90 tabs 10/26/22 quetiapine 150 mg tablet,extended 150 mg PO BEDTIME #30 tabs 10/26/22 release 24 hr (Seroquel XR) albuterol sulfate 90 mcg/actuation 1 inh inhalation QID PRN shortness 03/09/23 aerosol inhaler of breath or wheezing #8.5 grams albuterol sulfate 2.5 mg/3 mL 2.5 mg (3 mL) inhalation Q4-6H PRN 04/16/23 (0.083 %) solution for nebulization shortness of breath or wheezing #270 mL fluticasone fur. 200 mcg-umeclid 1 inh inhalation DAILY 30 days #1 04/16/23 62.5 mcg-vilant 25 mcg ea inhalat.powder (Trelegy Ellipta) oxycodone 5 mg tablet 5 mg PO Q8H PRN pain #10 tabs 05/28/23 clonazepam 1 mg tablet 1 mg PO TID #9 tabs 06/21/23 Allergies Allergy/AdvReac Type Severity Reaction Status Date / Time No Known Allergies Allergy Verified 06/21/23 19:06 [No Known Allergies*] Review of Systems Review of Systems: Constitutional : No Weight loss, No Fever, No Chills, No Night Sweats, No Fatigue, No Malaise ENT/Mouth : No Hearing loss, No Ear Pain, No Nasal Congestion, No Sinus Pain, No Hoarseness, No sore throat, No Rhinorrhea, No Swallowing Difficulty Eyes: No Eye Pain, No Swelling, No Redness, No Foreign Body, No Discharge, No Vision Changes Cardiovascular : No Chest Pain, No SOB, No Dyspnea on Exertion, No Orthopnea, No Edema, No Palpitations Respiratory : No cough, complaining of wheezing, mild shortness of breath Gastrointestinal : No Nausea, No Vomiting, No Diarrhea, No Constipation, No abdominal Pain, No Hematochezia, No Melena Genitourinary : no irregular bleeding, No Dysuria, No Urinary Frequency, No Hematuria, No Urinary Incontinence, No Urgency, No Flank Pain, No Urinary Flow Changes, No Hesitancy Musculoskeletal : No joint pain, No Myalgias, No Joint Swelling Skin : No Skin Lesions, No rash Neuro : Complaining of worsening Triplett's chorea movements, No Weakness, No Numbness, No Paresthesias, No Loss of Consciousness, No Dizziness, No Headache Psych : Complaining of worsening anxiety, no depression, no SI or HI Heme/Lymph: No Bruising, No Bleeding,No Lymphadenopathy Endocrine : No Polyuria, No Polydipsia, No Temperature Intolerance PMFSH Past Medical History Medical History Asthma Raymond's chorea Substance abuse Social History Social History (Updated 06/19/23 @ 09:30 by Sindy Evans Channing) Household Members: Family Household Members Other:: son Housing: Apartment Do you presently have visiting nurse or other home services: No Alcohol intake: never Patient Tobacco Use Status: Current everyday Tobacco user Tobacco use type: Cigarette Cigarettes Per Day: 3 Smoked in Last 30 Days: Yes e-Cigarette/Vaping Use: Never Used Use of substances other than those prescribed or required for medical reasons: No Substance Use Type: Marijuana Advance Directives: No Advance Directives Information Provided: No service: No Physical Exam Vital Signs: Vital Signs: Last Vital Signs Temp 97.0 F 06/21/23 19:01 Pulse 77 06/21/23 20:57 Resp 14 06/21/23 20:57 BP 142/99 H 06/21/23 20:57 Pulse Ox 98 06/21/23 20:57 O2 Del Method Room Air 06/21/23 20:57 BMI result Body Mass Index 31.0 Const: Other: Appearance: Alert. Oriented X3. No acute distress. Eyes: Pupils equal, round and reactive to light. ENT: Pharynx normal. Neck: Normal inspection. Neck supple. No lymph nodes noted. No crepitus CVS: Normal heart rate and rhythm. Pulses normal. Normal S1 and S2 Respiratory: No respiratory distress. Speaking in full sentences, oxygen saturation 90% on room air, bilateral wheezing Abdomen: Soft and nontender. No rigidity. No distention. Skin: Skin warm and dry. Normal skin color. Normal skin turgor. Extremities: No lower extremity edema. No Lacerations. No Rash Neuro: Oriented X 3. No motor deficit. No sensory deficit. Moving all extremities. No slurred speech. CN 2 through 12 grossly intact, chorea like movements present Psych: calm, cooperative, normal affect Course Course Course Narrative: This is an RME: Additional HPI, ROS, PE not included below will be deferred to primary provider. Patient is a 53 old male presents emergency department for evaluation of difficulty breathing. He reports that this has been progressing over the past week. Per his family member this began after he stopped taking Klonopin that was previously being prescribed by his primary care provider reportedly due to concern for Triplett's. He has been using his inhalers with minimal relief. Denies CP. LS with rhonchi and exp wheezing. Plan: labs, CXR, EKG Medications Administered Generic Name Dose Route Start Last Admin Trade Name Freq PRN Reason Stop Dose Admin Magnesium Sulfate 2 gm in 50 mls @ 25 mls/hr 06/21/23 21:31 06/21/23 21:57 Magnesium Sulfate/H2o IV 06/21/23 23:30 25 mls/hr ONCE ONE Administration Discontinued Medications Generic Name Dose Route Start Last Admin Trade Name Freq PRN Reason Stop Dose Admin Clonazepam 1 mg 06/21/23 21:31 06/21/23 21:56 Clonazepam 1 Mg Tablet PO 06/21/23 21:32 1 mg ONCE ONE Administration Methylprednisolone Sodium Succinate 125 mg 06/21/23 21:31 06/21/23 21:57 Methylprednisolone Sod Succ 125 Mg/2 Ml Vial IVPUSH 06/21/23 21:32 125 mg ONCE ONE Administration Medical Decision Making Medical Decision Making MDM Narrative: -my interpretation of chest x-ray: No infiltrates -my interpretation of EKG: Normal sinus rhythm, heart rate 80, notices the patient elevation, no T-wave inversion, QTC 470 -patient receiving an albuterol treatment, Solu-Medrol, magnesium. Patient likely having an asthma exacerbation rather than COPD, patient does not have increased cough or sputum production, patient not in need of additional oxygen -discussed with the patient that he will get 1 dose of Klonopin here, and a small prescription for the next couple of days until he can talk to his primary care physician about Klonopin. Id discussed with the patient that if he tests positive for drugs, there is a chance that he will not be getting any further prescriptions for Klonopin to his primary care physician. Patient states that he has not used cocaine, states he was a 1 time thing to help with the pain in the tongue after biting himself -I checked [facility], patient was getting 1 mg t.i.d. -physical exam on discharge, patient breathing much better. Patient being treated for asthma exacerbation, not COPD. Patient states that he has all of his inhalers at home. Differential Diagnosis Differential Diagnoses: The differential diagnosis associated with the presentation includes (-Klonopin withdrawal, Raymond's disease. Also, asthma, chronic lung disease, reactive airway) Admission/Observation Consideration of admission/observation: Escalation of care including admission/observation considered (Patient quite wheezy on arrival, admission has been considered) Lab Data MDM Lab Attestation statement: I reviewed the patient's lab results. 06/21/23 20:12 06/21/23 20:12 Labs: Lab Results 06/21/23 06/21/23 06/21/23 Range/Units 20:12 20:12 20:12 WBC 7.5 (4.8-10.8) X10*3/uL RBC 4.44 L (4.60-5.80) X10*6/uL Hgb 13.1 L (14.0-18.0) g/dl Hct 39.9 L (42.0-52.0) % MCV 89.9 (80.0-98.0) fL MCH 29.5 (27.0-33.0) pg MCHC 32.8 (31.0-36.0) g/dl RDW 12.4 (11.0-16.0) % Plt Count 266 (160-400) X10*3/uL MPV 9.1 L (9.4-12.4) fL Immature Gran % (Auto) 0.3 (0.0-0.4) % Neut % (Auto) 56.0 (45-73) % Lymph % (Auto) 31.9 (20-40) % [place] % (Auto) 10.1 (2-11) % Eos % (Auto) 1.3 (0-4) % Baso % (Auto) 0.4 (0-2) % Lymph # (Auto) 2.4 (1.2-4.9) X10*3/uL [place] # (Auto) 0.8 (0.1-1.2) X10*3/uL Eos # (Auto) 0.1 (0.0-0.4) X10*3/uL Baso # (Auto) 0.0 (0.0-0.2) X10*3/uL Abs Immat Gran (auto) 0.02 (0.00-0.03) X10*3/uL Absolute Neuts (auto) 4.2 (2.0-8.3) x10*3/uL Absolute Nucleated RBC 0.000 (0.0-0.012) X10*3/uL Nucleated RBC % (auto) 0.0 (0.0-0.2) /100WBC Sodium 145 (135-145) mmol/L Potassium 3.7 (3.3-5.1) mmol/L Chloride 111 H (96-108) mmol/L Carbon Dioxide 27 (22-29) mmol/L Anion Gap 11 L (12-20) BUN 11 (9-16) mg/dL Creatinine 0.95 (0.5-1.4) mg/dL Estim Creat Clear Calc 82.8 Estimated GFR > 60 Random Glucose 97 (60-115) mg/dL Calcium 9.6 (8.4-10.2) mg/dL Total Bilirubin 0.6 (0.0-1.0) mg/dL AST 41 H (5-37) U/L ALT 37 (0-40) U/L Alkaline Phosphatase 84 (39-117) U/L Troponin I High Sens (<3.5-35.0) ng/L B-Natriuretic Peptide (<100) pg/mL Total Protein 7.3 (6.5-8.0) g/dL Albumin 4.4 (3.5-5.0) g/dL COVID-19 ([facility]HIAN) Negative (Negative) COVID-19 Clin Com See Note 06/21/23 06/21/23 Range/Units 20:12 20:12 WBC (4.8-10.8) X10*3/uL RBC (4.60-5.80) X10*6/uL Hgb (14.0-18.0) g/dl Hct (42.0-52.0) % MCV (80.0-98.0) fL MCH (27.0-33.0) pg MCHC (31.0-36.0) g/dl RDW (11.0-16.0) % Plt Count (160-400) X10*3/uL MPV (9.4-12.4) fL Immature Gran % (Auto) (0.0-0.4) % Neut % (Auto) (45-73) % Lymph % (Auto) (20-40) % [place] % (Auto) (2-11) % Eos % (Auto) (0-4) % Baso % (Auto) (0-2) % Lymph # (Auto) (1.2-4.9) X10*3/uL [place] # (Auto) (0.1-1.2) X10*3/uL Eos # (Auto) (0.0-0.4) X10*3/uL Baso # (Auto) (0.0-0.2) X10*3/uL Abs Immat Gran (auto) (0.00-0.03) X10*3/uL Absolute Neuts (auto) (2.0-8.3) x10*3/uL Absolute Nucleated RBC (0.0-0.012) X10*3/uL Nucleated RBC % (auto) (0.0-0.2) /100WBC Sodium (135-145) mmol/L Potassium (3.3-5.1) mmol/L Chloride (96-108) mmol/L Carbon Dioxide (22-29) mmol/L Anion Gap (12-20) BUN (9-16) mg/dL Creatinine (0.5-1.4) mg/dL Estim Creat Clear Calc Estimated GFR Random Glucose (60-115) mg/dL Calcium (8.4-10.2) mg/dL Total Bilirubin (0.0-1.0) mg/dL AST (5-37) U/L ALT (0-40) U/L Alkaline Phosphatase (39-117) U/L Troponin I High Sens 8.3 (<3.5-35.0) ng/L B-Natriuretic Peptide 29 (<100) pg/mL Total Protein (6.5-8.0) g/dL Albumin (3.5-5.0) g/dL COVID-19 ([facility]AN) (Negative) COVID-19 Clin Com Independent Historian Clinical information obtained from an independent historian. History obtained from or confirmed by: Other (Son) External Record Review External record reviewed: Inpatient record (Psychiatric consult is and recommendations for medications for Triplett's) Chronic Conditions Patient?s care impacted by: Other (Triplett's and parkinsonism) Critical Care Time Critical Care Time Critical Care Time: Yes Total Critical Care Time: 60 Attestation: I have personally provided critical care time. Time includes review of lab data, radiology results, discussion with consultants, and monitoring for potential decompensation. Intervention performed as documented. Discharge Plan Discharge Clinical Impression: Benzodiazepine withdrawal, Chronic lung disease Patient Disposition: Home, Self-Care Instructions: Clonazepam (By mouth) Additional Instructions: Please do not use any street drugs. If you test positive with your PCP, it is likely that you will not be getting any further prescriptions for clonazepam. Please follow-up with your primary care physician tomorrow. If you have any worsening or new symptoms, please return to the emergency room or call 911 Prescriptions: New clonazepam 1 mg tablet 1 mg PO TID Qty: 9 0RF No Action ascorbic acid (vitamin C) 250 mg Tablet 500 mg PO DAILY baclofen 10 mg Tablet 10 mg PO TID Qty: 90 0RF quetiapine 150 mg tablet 150 mg PO BEDTIME Qty: 14 0RF quetiapine [Seroquel XR] 150 mg tablet extended release 24 hr 150 mg PO BEDTIME Qty: 30 2RF clonazepam 1 mg tablet 1 mg PO TID Qty: 90 2RF albuterol sulfate 90 mcg/actuation HFA aerosol inhaler 1 inh inhalation QID PRN (Reason: shortness of breath or wheezing) Qty: 8.5 0RF atorvastatin 10 mg tablet 10 mg PO QAM amlodipine 2.5 mg tablet 5 mg PO QAM omeprazole 20 mg capsule,delayed release(DR/EC) 20 mg PO DAILY@0630 montelukast 10 mg tablet 10 mg PO BEDTIME budesonide-formoterol [Symbicort] 80-4.5 mcg/actuation HFA aerosol inhaler inhalation BID oxycodone 5 mg tablet 5 mg PO Q8H PRN (Reason: pain) Qty: 10 0RF Rx Instructions: Partial Fill upon patient request. diclofenac sodium 1 % gel 2 g topical BID celecoxib 200 mg capsule PO BID Atrovent HFA 17 mcg/actuation HFA aerosol inhaler 0 mcg inhalation Trelegy Ellipta 200-62.5-25 mcg blister with device 1 inh inhalation DAILY 30 Days Qty: 1 6RF albuterol sulfate 2.5 mg /3 mL (0.083 %) solution for nebulization 2.5 mg inhalation Q4-6H PRN (Reason: shortness of breath or wheezing) Qty: 270 6RF
--- NOTE | 2023-06-21 19:06 | ECG_ITS ---
Test Reason : CHEST PAIN Blood Pressure : / mmHG Vent. Rate : 080 BPM Atrial Rate : 080 BPM P-R Int : 128 ms QRS Dur : 072 ms QT Int : 408 ms P-R-T Axes : 087 031 011 degrees QTc Int : 470 ms Normal sinus rhythm Normal ECG When compared with ECG of 09-MAR-2023 14:24, Nonspecific T wave abnormality no longer evident in Anterolateral leads Referred By: Day Mcmanus Electronically Signed By:ROSE ROSAS
[2023-06-21 20:19] LABS: MANUAL DIFF FLAG NO
[2023-06-21 20:20] LABS: Basophils Percent Auto 0.4 % (0-2); Eosinophils Absolute Auto 0.1 X10*3/uL (0.0-0.4); Eosinophils Percent Auto 1.3 % (0-4); Hematocrit 39.9 % (42.0-52.0); Hemoglobin 13.1 g/dl (14.0-18.0); Imm Gran Abs Auto 0.02 X10*3/uL (0.00-0.03); Imm Gran Pct Auto 0.3 % (0.0-0.4); Lymphocytes Absolute Auto 2.4 X10*3/uL (1.2-4.9); Lymphocytes Percent Auto 31.9 % (20-40); Mean Corpuscular HGB Conc 32.8 g/dl (31.0-36.0); Mean Corpuscular Hemoglobin 29.5 pg (27.0-33.0); Mean Corpuscular Volume 89.9 fL (80.0-98.0); Mean Platelet Volume 9.1 fL (9.4-12.4); Monocytes Absolute Auto 0.8 X10*3/uL (0.1-1.2); Monocytes Percent Auto 10.1 % (2-11); Neutrophils Absolute Auto 4.2 x10*3/uL (2.0-8.3); Platelet Count 266 X10*3/uL (160-400); Red Blood Count 4.44 X10*6/uL (4.60-5.80); Red Cell Distribution Width 12.4 % (11.0-16.0); White Blood Count 7.5 X10*3/uL (4.8-10.8)
[2023-06-21 20:34] LABS: COVID-19 Test Negative (Negative); IDNOW Serial# BCCEAD1C
[2023-06-21 20:47] LABS: Alanine Aminotransferase 37 U/L (0-40); Albumin Level 4.4 g/dL (3.5-5.0); Alkaline Phosphatase 84 U/L (39-117); Anion Gap 11 (12-20); Aspartate Amino Transferase 41 U/L (5-37); Bilirubin Total 0.6 mg/dL (0.0-1.0); Blood Urea Nitrogen 11 mg/dL (9-16); Calcium 9.6 mg/dL (8.4-10.2); Carbon Dioxide 27 mmol/L (22-29); Chloride 111 mmol/L (96-108); Creatinine Clr Calc Pharmacy 82.8; Estimated Glomerular Filt Rate > 60; Glucose Random 97 mg/dL (60-115); Potassium 3.7 mmol/L (3.3-5.1); Sodium 145 mmol/L (135-145); Total Protein 7.3 g/dL (6.5-8.0)
[2023-06-21 20:53] LABS: B Type Natriuretic Peptide 29 pg/mL (<100)
[2023-06-21 20:54] LABS: Troponin-I High Sensitivity 8.3 ng/L (<3.5-35.0)
[2023-06-21 20:57] VITALS: BP 142/99; PULSE 77; RESP 14; O2SAT 98
[2023-06-21] MEDS: clonazePAM 1 MG TABLET PO (21:56)
[2023-06-21] MEDS: Magnesium Sulfate/H2O 2 GM/50 ML PIGGYBACK IV (21:57)
[2023-06-21] MEDS: methylPREDNISolone Sod Succ 125 MG/2 ML VIAL IVPUSH (21:57)
[2023-06-21] MEDS: Albuterol Sulfate (0.083%) 2.5 MG/3 ML VIAL.NEB 10 MG INHALE (22:40)
[2023-06-21 22:41] VITALS: PULSE 77; RESP 98; O2SAT 18
--- NOTE | 2023-06-21 22:54 | PC.NURSE ---
Pt's discharge papers are ready. Per Dr Chavez, pt will finish IV medication then can be discharged.
== END 2023-06-21 23:56 | disposition home or self-care (01) ==
PROVIDERS: Nurse Practitioner Family; Emergency Provider Emergency Medicine; PCP Registered Nurse
DX: F15.93 Other stimulant use, unspecified with withdrawal (principal); J98.4 Other disorders of lung; G10 Huntington's disease
CPT/HCPCS: 36415; 71046; 80053; 83880; 84484; 85025; 87635; 93005; 94640; 96365; 96375; 99285; J2930; J3475

== ENCOUNTER 2023-12-31 17:48 | Outpatient (REF) | payer MEDICAID, SELFPAY ==
--- NOTE | ~2023-12-31 | MR_ITS ---
EXAMINATION: MR LUMBAR SPINE WITHOUT CONTRAST Motion degraded sagittal T1 and sagittal T2 images acquired, which are nondiagnostic for interpretation. Patient with significant tremors. This study was prematurely terminated and aborted.
== END 2023-12-31 17:49 | disposition home or self-care (01) ==
LOC: HO.MRI 17:48
PROVIDERS: PCP Registered Nurse; Visit Provider Nurse Practitioner Family
DX: M47.816 Spondylosis without myelopathy or radiculopathy, lumbar region (principal); M43.17 Spondylolisthesis, lumbosacral region
CPT/HCPCS: 72148

== ENCOUNTER 2024-04-01 11:15 | Outpatient (AMB) | payer MEDICAID, SELFPAY ==
--- NOTE | 2024-04-01 11:18 | A.OFFVIS_ITS ---
Vital Signs 04/01/24 11:21 Height 5 ft 3 in Weight 175 lb 6 oz BMI 31.1 BP 129/70 Blood Pressure Location Lt brachial Position Sitting Pulse 85 Pulse Source Pulse Oximeter Pulse Oximetry (%) 98 Oxygen Delivery Method Room Air Intake Visit Reasons: MUSCLE SPASMS OF NECK Intake Note: Pain today 08/04 Stock Supervisor Required: Yes Stock Supervisor Language: Android Ios Developer Name: Son Accompanied by: Son Allergies No Known Allergies [No Known Allergies*] Allergy (Verified 04/01/24 11:21) HPI Comments Details: Patient presents today for follow-up for worsening neck pain. Denies any recent trauma, injury, or falls. He was initially seen in our office one year ago and completed spine x-rays in the summer of 2022 and attempted to complete lumbar spine MRI in December, which was canceled due to significant tremors. He states he completed physical therapy and neck trigger point injections at his PCP office without any improvement. Patient reports his neck pain has been more troublesome and he is interested to proceed with interventional treatments to address his axial cervical spine pain. He requests injections to be done under sedation due to Red River's chorea and significant tremors which will not allow him to stay still for the procedure. Patient denies any numbness, tingling, or weakness in his upper extremities. He reports low back pain is leg pain and uses cane with ambulation. Denies any bladder or bowel dysfunction or saddle anesthesia. PRIOR 03/09/23: Patient is a 53 years old Sudanese with prior history of Red River's chorea, asthma and arthritis presents today for initial evaluation of neck and back pain. Patient's son is present during this visit and assists with translation per patient's request. Denies any previous trauma, injury or falls. Patient and family reports patient did not make any gains regarding pain or function with physical therapy for the past 2 months. Denies any bladder or bowel incontinence or saddle anesthesia. Patient presents in acute respiratory, wears facial masks and is noted to have hard time breathing and becomes diaphoretic during history intake and limited exam. Upon rechecking of his vital signs, his heart rate is noted to be 180-206, tachypneic, pale and lightheaded. Patient denies any chest pain, tightness or pressure. Audible wheezing is presents with inspiration. O2 at 2L via nasal cannula was applied. Patient's family reports his father moved from [place] to [place] 6 months ago and has been seen by hr administrator Dr. Reynoso several times and that his inhalers have been changed due to persistent asthma exacerbations and shortness of breaths. Family states that due to Raymond's chorea disease, his breathing with shortness of breaths has been chronic but family is concerned that patient becomes dyspneic with minimal exertion, activity or increase in his pain. Given acute respiratory distress, immediate call was placed to [facility] and [facility] was given verbal report to triage staff via phone. Report was handed off to EMS personal as well. Patient was transferred via stretcher and ambulance to local ER. [facility] Medical History Asthma Substance abuse Red River's chorea Social History Household Members: Family Household Members Other:: son Housing: Apartment Do you presently have visiting nurse or other home services: No Alcohol intake: never Patient Tobacco Use Status: Current everyday Tobacco user Tobacco use type: Cigarette Cigarettes Per Day: 3 e-Cigarette/Vaping Use: Never Used Substance Use Type: Marijuana service: No Review of Systems Const All systems reviewed & are unremarkable except as noted in HPI and below Denies body aches, Denies chills, Reports difficulty sleeping, Denies fatigue, Denies fever(s), Reports headache(s), Denies malaise, Denies night sweats and Denies weight loss ENT Reports headache(s) and Reports neck pain Card Denies dyspnea on exertion Resp Denies cough and Denies dyspnea on exertion Musc Reports as per HPI, Reports back pain, Denies myalgias, Reports arthralgias, Denies joint swelling, Reports limited range of motion, Denies muscle weakness, Reports neck pain, Denies numbness, Denies radiating pain into limb, Reports stiffness and Denies tingling Neuro Reports headache(s), Denies numbness and Denies tingling Endo Denies fatigue Physical Exam Vital Signs: Last Vital Signs Pulse 85 04/01/24 11:21 BP 129/70 04/01/24 11:21 Pulse Ox 98 04/01/24 11:21 Oxygen Delivery Method Room Air 04/01/24 11:21 BMI result Body Mass Index 31.1 Results Reviewed Results Reviewed: XR CERVICAL SPINE 05/29/23 CLINICAL INFORMATION: Neck pain. FINDINGS: Moderate disc degenerative change and anterior osteophyte formation are most notable at C5-C7. Mild disc space narrowing and anterior osteophyte formation are seen at C3-C5. There may be mild reversal of the normal cervical doses centered at C4-C5. No fracture or subluxation is seen. No lytic or sclerotic bony lesion is identified. The prevertebral soft tissues appear unremarkable. IMPRESSION: Degenerative change. XR THORACIC SPINE 05/29/24 CLINICAL INFORMATION: Thoracic spinal pain. FINDINGS: No fracture or bone destruction is seen, and the vertebral alignment appears unremarkable. Mild mid thoracic disc space narrowing. No abnormality of the paraspinal soft tissues is appreciated. IMPRESSION: Mild degenerative change. XR LUMBOSACRAL SPINE WITH OBLIQUES 05/29/23 CLINICAL INFORMATION: Lumbar spondylolysis without myelopathy or radiculopathy. FINDINGS/IMPRESSION: Suspect bilateral spondylolysis at L5-S1. Moderate disc space narrowing and Grade 1-grade 2 anterolisthesis at this level, stable in flexion, neutral, extension. Mild to moderate disc space narrowing at L3-L5. Vertebral body heights appear maintained. No lytic or sclerotic bony lesion identified. Mildly atherosclerotic aorta. MR LUMBAR SPINE WITHOUT CONTRAST 12/31/23 Motion degraded sagittal T1 and sagittal T2 images acquired, which are nondiagnostic for interpretation. Patient with significant tremors. This study was prematurely terminated and aborted. 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 Category: Medical (2) Lumbar spondylosis: Code(s): M47.816 - Spondylosis without myelopathy or radiculopathy, lumbar region Category: Medical (3) Cervical spondylosis: Code(s): M47.812 - Spondylosis without myelopathy or radiculopathy, cervical region Category: Medical (4) Muscle spasm: Code(s): M62.838 - Other muscle spasm Category: Medical (5) Degenerative disc disease, cervical: Code(s): M50.30 - Other cervical disc degeneration, unspecified cervical region Category: Medical Plan Schedule Bilateral Diagnostic C4-C5-C6 MBB with sedation (Raymond chorea with significant tremors) and fluoroscopy for potential therapeutic or RFA procedures. Sprint PNS trial was also reviewed, patient declined. Expectations, risks and benefits were reviewed with patient and his son. Patient and family are aware that patient will be contacted to schedule this procedure. Script sent for tizanidine p.r.n. muscle spasms and neck stiffness. Side effects and precautions were reviewed with patient and his family. All questions were answered and the patient is in agreement of plan. Follow-up after injections and sooner as needed. Medications: New tizanidine 2 mg PO TID 30 days PRN 90 tabs 0RF muscle spasm G10 - Red River's disease, M47.812 - Spondylosis without myelopathy or radiculopathy, cervical region, M47.816 - Spondylosis without myelopathy or radiculopathy, lumbar region, M62.838 - Other muscle spasm Discontinued baclofen Discontinued Reason: Patient no longer taking 10 mg PO TID 90 tabs 0RF G10 - Red River's disease, G24.01 - Drug induced subacute dyskinesia, T43.505A - Adverse effect of unspecified antipsychotics and neuroleptics, initial encounter Coding Level of Care Code Est Pt Level 4 (78920) Diagnoses Red River's chorea G10 Lumbar spondylosis M47.816 Cervical spondylosis M47.812 Muscle spasm M62.838 Degenerative disc disease, cervical M50.30
[2024-04-01 11:21] VITALS: BP 129/70; PULSE 85; O2SAT 98; BMI 31.1
== END 2024-04-01 11:49 | disposition home or self-care (01) ==
PROVIDERS: PCP General Practice; Referring Provider General Practice; Visit Provider Nurse Practitioner Family
DX: G10 Huntington's disease (principal); M47.816 Spondylosis without myelopathy or radiculopathy, lumbar region; M47.812 Spondylosis without myelopathy or radiculopathy, cervical region; M62.838 Other muscle spasm; M50.30 Other cervical disc degeneration, unspecified cervical region
CPT/HCPCS: 99214

== ENCOUNTER → 2024-04-01 11:15 | Outpatient (BNVA) | payer MEDICAID, SELFPAY | PROVIDERS: PCP General Practice; Referring Provider General Practice; Visit Provider Nurse Practitioner Family | DX: G10 Huntington's disease (principal); M47.816 Spondylosis without myelopathy or radiculopathy, lumbar region; M47.812 Spondylosis without myelopathy or radiculopathy, cervical region; M62.838 Other muscle spasm; M50.30 Other cervical disc degeneration, unspecified cervical region | CPT/HCPCS: 99212 ==

== ENCOUNTER 2024-12-05 18:08 | Outpatient (REF) | payer MEDICAID, SELFPAY ==
--- OUTSIDE RECORDS SUMMARY | 2024-12-05 18:10 | XMS_ITS | Encounter Summary ---
Author Organization [email or web address] Address [address] [facility] 7t [place] [address] Care Team Providers Care Identifier Horse Name Role Phone Lolis Augustine MD Primary Care Provider [phone] Reason for Visit * Reason Comments Med Refill Encounter Details Date Type Department Care Team ([facility] Contact Info) Description 10/26/2024 Refill [facility] [address] [place], [place] [phone] Lolis Augustine MD [address] [place] [address] Social History Tobacco Use Types Packs/Day Years Used Date Smoking Tobacco: Some Days Cigarettes Smokeless Tobacco: Never Alcohol Use Standard Drinks/Week Comments Never 0 (1 standard drink = 0.6 oz pur e alcohol) Depression Answer Date Recorded Patient Health Questionnaire-9 Score 0 07/18/2024 Patient Health Questionnaire-9 Score 0 07/18/2024 Last PHQ-9: Questionnaire Data Not on file 0 07/18/2024 Housing Stability Answer Date Recorded What is your housing situation today? I have lis bosch 08/17/[address] you li ve. Do you have problems with any of the following? None of the above 08/17/2023 Food Insecurity Answer Date Recorded Within the past 12 months, y ou worried that your food would run out before you got money to buy more: Never True 08/17/2023 Within the past 12 months,th e food you bought just didn't last and you didn't have enough money to get more: Never True Transportation Answer Date Recorded In the past 12 months, has l ack of transportation kept you from medical appts, meetings, work or from getting things needed for daily living? No 08/17/2023 Utilities Answer Date Recorded In the past 12 months, has t he electric, gas, oil or water company threatened to shut off services in your home? No 08/17/2023 Depression Answer Date Recorded Patient Health Questionnaire-2 Score 0 07/18/2024 Sex and Gender Information Value Date Recorded Sex Assigned at Male 11/13/2022 2:00 PM EST Legal Sex Male 11:05 AM EST Gender Identity Male 11/13/2022 2:00 PM EST Sexual Orientation Straight 11/13/2022 2: 01 PM EST documented as of this encounter Plan of Treatment Upcoming Encounters Date Type Department Care Team (Late st Contact Info) Description 12/07/2024 4:00 PM EST Office Visit [facility] [address] [place] [address] Lolis Augustine MD [address] [place] [address] 12/08/2024 9:00 AM EST Office Visit [facility] [address] [place] [address] Omid Jacinto, ARVIND [address] [place] [address] 12/14/2024 2:00 PM EST Clinical Support [facility] [address] [place] [address] Kim Donald RN 01/11/2025 2:00 PM EDT Office Visit [facility] [address] [place] [address] Gaviota Mendes [address] [place] [address] documented as of this encounter Visit Diagnoses Not on filedocumented in this encounter Additional Health Concerns Assessment Noted Time PHQ-9 Depression Total Score: 0 07/18/20 24 2:10 PM EDT documented as of this encounter Care Teams Identifier Horse Relationship Specialty Start Date End Date Lolis Augustine MD [address] [place] [address] PCP - General Family Medicine 07/16/23 documented as of this encounter
--- OUTSIDE RECORDS SUMMARY | 2024-12-05 18:10 | XMS_ITS | Encounter Summary ---
Author Organization [employer] Address [address] [facility] 7t [place] [address] Care Team Providers Care Battery Assembler Dry Cell Name Role Phone Lolis Augustine MD Primary Care Provider [phone] Reason for Visit * Reason Onset Date Comments Recomend PROCESS PUMPER Tier 1 12/05/2024 Encounter Details Date Type Department Care Team (Late st Contact Info) Description 12/05/2024 Telephone [facility] [address] [place] [address] Kim Donald, TAZ Recomend PROCESS PUMPER Tier 1 Social History Tobacco Use Types Packs/Day Years [...] PM EST documented as of this encounter Miscellaneous Notes * Telephone Encounter - Kim Donald RN - 12/05/2024 7:45 AM EST What PROCESS PUMPER Tier would you like this patient to be? I recommend Tier 1, please let me know if you agree or would rather patient be in another PROCESS PUMPER Tier. Tier 1 = HIGH RISK, Monthly PROCESS PUMPER visits Tier 2 = MODerate RISK, Q3 Month visits Tier 3 = LOW RISK = Q4-6 month visits documented in this encounter Plan of Treatment Upcoming Encounters Date Type Department Care Team (Late st Contact Info) Description 12/07/2024 4:00 PM EST Office Visit [facility] [address] [place] [phone] Lolis Augustine MD [address] [place] [address] 12/08/2024 9:00 AM EST Office Visit [facility] ADULT DENTAL [address] [place] [address] Omid Jacinto, ARVIND [address] [place] [address] 12/14/2024 2:00 PM EST Clinical Support [facility] [address] [place] [address] Kim Donald RN 01/11/2025 2:00 PM EDT Office Visit [facility] [address] [place] [address] Gaviota Mendes [address] [place] [address] documented as of this encounter Visit Diagnoses Not on filedocumented in this encounter Additional Health Concerns Assessment Noted Time PHQ-9 Depression Total Score: 0 07/18/20 24 2:10 PM EDT documented as of this encounter Care Teams Battery Assembler Dry Cell Relationship Specialty Start Date End Date Lolis Augustine MD [address] [place] [address] PCP - General Family Medicine 07/16/23 documented as of this encounter
--- OUTSIDE RECORDS SUMMARY | 2024-12-05 18:10 | XMS_ITS | Encounter Summary ---
Author Organization [employer] Address [address] [place] [address] 7 [place] [address] Care Team Providers Care Sheep Farm Worker Name Role Phone Vargas Reynoso Primary Care Provider Unavail Avril Richey Primary Care Provider [phone] Lolis Augustine MD Primary Care Provider [phone] Encounter Details Date Type Department Care Team ([facility] Contact Info) Description 03/24/2023 Abstract [facility] ADULT DENTAL [address] [place] [address] Cinthya, Gaviota [address] [place] [address] Social History Tobacco Use Types Packs/Day Years Used Date Smoking Tobacco: Some Days Cigarettes Smokeless Tobacco: Never Alcohol Use Standard Drinks/Week Comments Never 0 (1 standard drink = 0.6 oz pur e alcohol) Depression Answer Date Recorded Patient Health Questionnaire-9 Score 5 12/12/2022 Depression Answer Date Recorded Patient Health Questionnaire-2 Score 2 12/12/2022 Sex and Gender Information Value Date Recorded Sex Assigned at Male 11/13/2022 2:00 PM EST Legal Sex Male 11:05 AM EST Gender Identity Male 11/13/2022 2:00 PM EST Sexual Orientation Straight 11/13/2022 2: 01 PM EST COVID-19 Exposure Response Date Recorded In the last 10 days, have yo u been in contact with someone who was confirmed or suspected to have Coronavirus/COVID-19? No / Unsure 03/27/2023 1:16 PM EDT documented as of this encounter Plan of Treatment Upcoming Encounters Date Type Department Care Team ([facility] Contact Info) Description 12/07/2024 4:00 PM EST Office Visit [facility] [address] [facility] [place] [address] Lolis Augustine MD [address] [facility] [place] [address] 12/08/2024 9:00 AM EST Office Visit [facility]ULT DENT[facility] [address] [place] [address] Omid Jacinto, DMD [address] [place] [address] 12/14/2024 2:00 PM EST Clinical Support [facility] [address] [place] [address] Kim Donald RN 01/11/2025 2:00 PM EDT Office Visit [facility]ULT DENT[facility] [address] [place] [address] Gaviota Mendes [address] [place] [address] documented as of this encounter Visit Diagnoses Not on filedocumented in this encounter Additional Health Concerns Assessment Noted Time PHQ-9 Depression Total Score: 5 12/12/19 23 2:22 PM EST documented as of this encounter Care Teams Sheep Farm Worker Relationship Specialty Start Date End Date Vargas Reynoso AGNP PCP - General Family Medicine 12/01/22 07/05/23 Avril Campa FNP [facility] [place] [place] [address] PCP - General Family Medicine 07/06/23 07/15/23 Lolis Augustine MD [facility] [place], [place] [phone] PCP - General Family Medicine 07/16/23 documented as of this encounter
--- OUTSIDE RECORDS SUMMARY | 2024-12-05 18:10 | XMS_ITS | Encounter Summary ---
Author Organization [employer] Address [address] [facility] 7 [place] [address] Care Team Providers Care Golf Teacher Name Role Phone Lolis Augustine MD Primary Care Provider [phone] Reason for Visit * Reason Onset Date Comments Med Refill Schedule FLOOR WINDER Initial appt 11/07/2024 Encounter Details Date Type Department Care Team ([facility] st Contact Info) Description 11/07/2024 Refill [facility] [address] [place] [address] Lolis Augustine MD [address] [place], [place] [phone] Anxiety Social History Tobacco Use Types Packs/Day Years [...] is your housing situation today? I have lisalicia bosch 08/17/[address] you [...] Telephone Encounter - Kim Donald RN - 11/07/2024 2:57 PM EST TC to pat, interpretation by SHIRA Granda Initial appt scheduled for 12/05/24 @ 1:30pm. Reminded to bring his Clonazepam to the appt and to check in on red team. documented in this encounter Plan of Treatment Upcoming Encounters Date Type Department Care Team (Late st Contact Info) Description 12/07/2024 4:00 PM EST Office Visit [facility] [address] [place] [address] Lolis Augustine MD [address] [place] [address] 12/08/2024 9:00 AM EST Office Visit [facility] ADULT DENTAL [address] [place] [address] Omid Jacinto, ARVIND [address] [place] [address] 12/14/2024 2:00 PM EST Clinical Support [facility] [address] [place] [address] Kim Donald RN 01/11/2025 2:00 PM EDT Office Visit [facility]ULT D[facility] [address] [place] [address] Gaviota Mendes [address] [place] [address] documented as of this encounter Visit Diagnoses Diagnosis Anxiety Anxiety state, unspecified documented in this encounter Additional Health Concerns Assessment Noted Time PHQ-9 Depression Total Score: 0 07/18/20 24 2:10 PM EDT documented as of this encounter Care Teams Golf Teacher Relationship Specialty Start Date End Date Lolis Augustine MD 230 [place] [address] PCP - General Family Medicine 07/16/23 documented as of this encounter
--- OUTSIDE RECORDS SUMMARY | 2024-12-05 18:10 | XMS_ITS | Encounter Summary ---
Author Organization [employer] Address [address] [place] [address] 7 [place] [address] Care Team Providers Care Director Of Corporate Marketing Name Role Phone Vargas Reynoso Primary Care Provider Unavail Avril Richey Primary Care Provider [phone] Lolis Augustine MD Primary Care Provider [phone] Encounter Details Date Type Department Care Team (Late Contact Info) Description 03/04/2023 Abstract [facility] ADULT DENTAL [address] [place] [address] Cinthya, Gaviota [address] [place] [address] Social History Tobacco Use Types Packs/Day Years Used Date Smoking Tobacco: Former Cigarettes Smokeless Tobacco: Never Alcohol Use Standard [...] suspected to have Coronavirus/COVID-19? No / Unsure 02/27/2023 10:01 AM EDT documented as of this encounter Plan of Treatment Upcoming Encounters Date Type Department Care Team ([facility] Contact Info) Description 12/07/2024 4:00 PM EST Office Visit [facility] [address] [place] [address] Lolis Augustine MD 230 [facility] [place] [address] 12/08/2024 9:00 AM EST Office Visit [facility] ADULT DENTAL [address] [place] [address] Omid Jacinto, DMD [address] [place] [address] 12/14/2024 2:00 PM EST Clinical Support [facility] [address] [place] [address] Kim Donald RN 01/11/2025 2:00 PM EDT Office Visit [facility] ADULT DENT[facility] [address] [place] [address] Gaviota Mendes [address] [place] [address] documented as of this encounter Visit Diagnoses Not on filedocumented in this encounter Additional Health Concerns Assessment Noted Time PHQ-9 Depression Total Score: 5 12/12/19 2:22 PM EST documented as of this encounter Care Teams Director Of Corporate Marketing Relationship Specialty Start Date End Date Vargas Reynoso AGNP PCP - General Family Medicine 12/01/22 07/05/23 Avril [place] [address] PCP - General Family Medicine 07/06/23 07/15/23 Lolis Augustine MD [address] [place] [phone] PCP - General Family Medicine 07/16/23 documented as of this encounter
--- OUTSIDE RECORDS SUMMARY | 2024-12-05 18:10 | XMS_ITS | Encounter Summary ---
Author Organization [employer] Address [address] [facility] 7t [place] [address] Care Team Providers Care Painting Technician Name Role Phone Lolis Augustine MD Primary Care Provider [phone] Reason for Visit * Reason Comments STRAW BOSS Initial STRAW BOSS Initial Encounter Details Date Type Department Care Team (Latest Contact Info) Description 12/05/2024 1:30 PM EST Clinical Support [facility] [address] [place] [address] Kim Donald RN Anxiety (Primary Dx) Social History Tobacco Use Types Packs/Day Years [...] PM EST documented as of this encounter Progress Notes * Kim Donald RN - 12/05/2024 1:30 PM EST S: Pt here for initial STRAW BOSS Visit, accompanied by his son/PHP WORDPRESS DEVELOPER Marky Rangel and his girlfriend [place]. Interpretation provided by medical record assistant Xi. Prescribed Clonazepam 1mg Q8hr PRN. States he has been taking medication as prescribed, last dose taken was this morning at 8am. He smokes 2 cigarettes a day and has smoked since he was 11 years old. He denies ETOH and illicit drug use. He smokes marijuana nightly to help him sleep. He and his son state he gets his marijuana from a dispensary only and denies having a medical marijuana card. He has been diagnosed with Catawba's disease afew years ago. He relocated to this area from [place] a few years ago as well. States he's traveling to [place] 12/20/24 and has no date for return as of now. O: STRAW BOSS Tier 1. Pt currently prescribed Clonazepam 1mg Q8hr PRN. W[employer]ANT MECHANIC verified today. Rx last filled on 11/09/24. Pill count performed. Pt has 8.5 pills as this time, 5 at least expected. Medication is not overused by Pt. UTOX completed. Positive for BZO, ALMA, FENT and THC, Negative for AMP, BAR, BUP,MDMA, MET, MOP, MTD, OXY, PCP, TCA. UTOX not as expected. Reviewed his UTOX results. Patient initially stated he doesn't know why his urine tested positive for ALMA. After a few minutes he said he used cocaine recently. Asked patient if he smokes it or sniffs it, he stated he sniffs it. He initiallystated he was using cocaine monthly. After further discussion, he stated he did street drugs years ago and only recently did it one time. Discussed the dangers FENT being found in street drugs. Provided some FENT test strips, educated on how to test his drugs prior to use. Offered referral to [facility] and educated on cocaine support group offered as well. Pt stated he doesn't need this because he doesn't have a problem with drugs. STEFFEN-7 assessment completed this visit. Pt scored 14. Opioid risk asses sment completed, pt scored a 4. Narcan medication reviewed, how it's administered and when it's used. Pt, son and son's gf stated they understood and asked how they could get some. Call placed to ,pt scheduled to speak with a clinician 12/15/24 @ 1:30pm. Pt asking about a psychiatrist, said he had one in [place] but hasn't been able to get one here. Will update PCP with UTOX results, request Narcan Rx and a referral to Pablo Collado technical report writer prescriber. Last PCP visit was 07/18/24, scheduled next 12/07/24. A: STRAW BOSS Contract Initiation Visit, Chronic BZO use r/t anxiety. P: STRAW BOSS contract reviewed and signed, pt declined copy. Pt to continue taking medication only as prescribed; Next STRAW BOSS RV appointment scheduled for 12/14/24 @ 2pm, F/U sooner PRN. Appointment reminder given. Pt verbalized understanding and agreed to plan. documented in this encounter Plan of Treatment Upcoming Encounters Date Type Department Care Team (Late st Contact Info) Description 12/07/2024 4:00 PM EST Office Visit [facility] [address] [place] [address] Lolis Augustine MD 230 [place] [address] 12/08/2024 9:00 AM EST Office Visit [facility] ADULT DENTAL [address] [place] [address] Omid Jacinto DMD [address] [place] [address] 12/14/2024 2:00 PM EST Clinical Support [facility] [address] [place] [address] Kim Donald RN 01/11/2025 2:00 PM EDT Office Visit [facility] ADULT DENT[facility] [address] [place] [address] Gaviota Mendes [address] [place] [address] Scheduled Orders Name Type Priority Associated Diagnoses Orde r Schedule Drug Monitoring, Cocaine Metabolite, Quantitative, Urine Lab Routine Anxiety Ordered: 12/05/2024 Drug Monitoring, Fentanyl, with Confirmation, Urine Lab Routine Anxiety Ordered: 12/05/2024 documented as of this encounter Procedures Procedure Name Priority Date/Time Associated Diagnosis Comments POCT MARIA G-14 URINE DRUG SCREEN Routine 12/05/2024 1:44 PM EST Anxiety documented in this encounter Results * (ABNORMAL) POCT MARIA G-14 Urine Drug Screen (12/05/2024 1:44 PM EST) THC Positive Cocaine Screen, Urine Positive Benzodiazepines Screen, Urine Positive Fentanyl, Urine Positive Urine Urine specimen obtained by clean catch procedure / Unknown 12/05/2024 1:44 PM EST Narrative Kim Donald, RN - 12/05/2024 1:44 PM EST UTOX cup Lot#[id number] Exp. 07/20/26 Internal Pass Control Lolis Augustine MD POINT OF CARE TEST ENTER/EDIT ORDERABLES Final Result documented in this encounter Visit Diagnoses Diagnosis Anxiety- Primary Anxiety state, unspecified documented in this encounter Additional Health Concerns Assessment Noted Time PHQ-9 Depression Total Score: 0 07/18/20 24 2:10 PM EDT documented as of this encounter Care Teams Painting Technician Relationship Specialty Start Date End Date Lolis Augustine MD [address] [place] [address] PCP - General Family Medicine 07/16/23 documented as of this encounter
--- OUTSIDE RECORDS SUMMARY | 2024-12-05 18:10 | XMS_ITS | Encounter Summary ---
Author Organization [employer] Address [address] [facility] 7t [place] [address] Care Team Providers Care Window Installer Name Role Phone Lolis Augustine MD Primary Care Provider [phone] Reason for Visit * Reason Comments Med Refill Encounter Details Date Type Department Care Team ([facility] Contact Info) Description 11/24/2024 Refill [facility] [address] [place], [place] [phone] Lolis Augustine MD [address] [place] [address] Unspecified mood (affective) disorder (CMS/HCC) Social History Tobacco Use Types Packs/Day Years [...] Description 12/07/2024 4:00 PM EST Office Visit [facility] [address] [place] [address] Lolis Augustine MD [address] [place] [address] 12/08/2024 9:00 AM EST Office Visit [facility] [address] [place] [address] Omid Jacinto DMD [address] [place] [address] 12/14/2024 2:00 PM EST Clinical Support [facility] [address] [place] [address] Kim Donald RN 01/11/2025 2:00 PM EDT Office Visit [facility] [address] [place] [address] Gaviota Mendes [address] [place] [address] documented as of this encounter Visit Diagnoses Diagnosis Unspecified mood (affective) disorder (CMS/HCC) documented in this encounter Additional Health Concerns Assessment Noted Time PHQ-9 Depression Total Score: 0 07/18/20 24 2:10 PM EDT documented as of this encounter Care Teams Window Installer Relationship Specialty Start Date End Date Lolis Augustine MD [address] [place] [address] PCP - General Family Medicine 07/16/23 documented as of this encounter
--- OUTSIDE RECORDS SUMMARY | 2024-12-05 18:10 | XMS_ITS | Encounter Summary ---
Author Organization [employer] Address [address] [place] [address] 7 [place] [address] Care Team Providers Care Glove Maker Name Role Phone Avril Campa Primary Care Provider [phone] Lolis Augustine MD Primary Care Provider [phone] Encounter Details Date Type Department Care Team (Late Contact Info) Description 07/07/2023 Orders Only [facility] [address] [place], [place] [phone] Avril Campa FNP [address] [place] [address] Social History Tobacco Use Types Packs/Day Years [...] Encounters Date Type Department Care Team (Late Contact Info) Description 12/07/2024 4:00 PM EST Office Visit [facility] MED[facility] [address] [place], [place] [phone] Lolis Augustine MD [address] [place] [address] 12/08/2024 9:00 AM EST Office Visit [facility] ADULT DENTAL [address] [place] [address] Omid Jacinto, DMD [address] [place] [address] 12/14/2024 2:00 PM EST Clinical Support [facility] MED[facility] [address] [place] [address] Kim Donald, TAZ 01/11/2025 2:00 PM EDT Office Visit [facility] ADULT DENTAL [address] [place] [address] Gaviota Mendes [address] [place] [address] documented as of this encounter Visit Diagnoses Not on filedocumented in this encounter Additional Health Concerns Assessment Noted Time PHQ-9 Depression Total Score: 5 12/12/19 23 2:22 PM EST documented as of this encounter Care Teams Glove Maker Relationship Specialty Start Date End Date Avril Campa FNP [address] [place] [address] PCP - General Family Medicine 07/06/23 07/15/23 Lolis Augustine MD [address] [place] [address] PCP - General Family Medicine 07/16/23 documented as of this encounter
--- OUTSIDE RECORDS SUMMARY | 2024-12-05 18:10 | XMS_ITS | Continuity of Care Document ---
Author Organization [facility] Address [address] [place] [address] Phone Care Team Providers Care Fundraising Assistant Name Role Phone José Miguel Posada Unavailable Unavailable Procedures Procedure Date INITIAL HOSPITAL VISIT LEVEL 2 16 Advance Directives Directive Yes / No Effective Date File Name No Information Encounters Encounter Description Practice Location Reason(s) For Visit Diagnoses Date Provider Providers Copied on Encounter INITIAL HOSPITAL VISIT LEVEL 2 [facility], [address] [place], [id number], tel:[phone] [facility] No Information 4-201 [address] [place], [place], [id number] , [place]. tel:[phone] Referring Provider: Emma [address], [address]. tel:[phone] Family History Family Member Type Diagnosis Age At Onset No Information Payers Payer name Insurance type Covered republican ID Authoriza tiglo(s) [place] Medicaid Plan [id number] Social History Type Description Quantity Date Captured Comments Sex Male Smoking Status No Information Chief Complaint And Reason For Visit No Information Reason For Referral Reason For Referral No Information History Of Present Illness Encounter Date Complaint History Of Prese nt Illness No Information Functional Status Date Functional Assessmen t No Information Instructions Date Instruction Additional Infor mation No Information Assessments Type Assessment Date No Information Patient Care Teams Name Effective Dates (start - stop) Status Members No Information
--- OUTSIDE RECORDS SUMMARY | 2024-12-05 18:10 | XMS_ITS | Encounter Summary ---
Author Organization [employer] Address [address] [facility] 7t [place] [address] Care Team Providers Care Sewing Machine Repairer Name Role Phone Lolis Augustine MD Primary Care Provider Encounter Details Date Type Department Care Team (Latest Contact Info) Description 12/05/2024 Travel Social History Tobacco Use Types Packs/Day Years [...] Description 12/07/2024 4:00 PM EST Office Visit [facility] [address] [place] [address] Lolis Augustine MD [address] [place] [address] 12/08/2024 9:00 AM EST Office Visit [facility] [address] [place] [address] Omid Jacinto DMD [address] [place] [address] 12/14/2024 2:00 PM EST Clinical Support [facility] [address] [place] [address] Kim Donald, TAZ 01/11/2025 2:00 PM EDT Office Visit [facility] [address] [place] [address] Gaviota Mendes [address] [place] [address] documented as of this encounter Visit Diagnoses Not on filedocumented in this encounter Additional Health Concerns Assessment Noted Time PHQ-9 Depression Total Score: 0 07/18/20 24 2:10 PM EDT documented as of this encounter Care Teams Sewing Machine Repairer Relationship Specialty Start Date End Date Lolis Augustine MD [address] [place] [address] PCP - General Family Medicine 07/16/23 documented as of this encounter
--- OUTSIDE RECORDS SUMMARY | 2024-12-05 18:10 | XMS_ITS | Encounter Summary ---
Author Organization [facility] Address [address] [place] [address] 7t [place] [address] Care Team Providers Care Production Manager Name Role Phone Vargas Reynoso Primary Care Provider Unavail Avril Richey Primary Care Provider [phone] Lolis Augustine MD Primary Care Provider [phone] Reason for Visit * Reason Comments Med Refill Encounter Details Date Type Department Care Team (Late st Contact Info) Description 03/10/2023 Refill [facility] [address] [place] [address] Vargas Reynoso AGNP Acute bilateral thoracic back pain Social History Tobacco Use Types Packs/Day Years [...] suspected to have Coronavirus/COVID-19? No / Unsure 03/13/2023 1:39 PM EDT documented as of this encounter Miscellaneous Notes * Telephone Encounter - JONAS Martinez - 03/10/2023 1:59 PM EDT Patient was referred to pain management. This was a short term prescription. documented in this encounter Plan of Treatment Upcoming Encounters Date Type Department Care Team (Late st Contact Info) Description 12/07/2024 4:00 PM EST Office Visit [facility] [address] [place] [address] Lolis Augustine MD [address] [place] [address] 12/08/2024 9:00 AM EST Office Visit [facility] [address] [place] [address] Omid Jacinto DMD [address] [place] [address] 12/14/2024 2:00 PM EST Clinical Support [facility] [address] [place] [address] Kim Donald, TAZ 01/11/2025 2:00 PM EDT Office Visit [facility] [address] [place] [address] Gaviota Mendes [address] [place] [address] documented as of this encounter Visit Diagnoses Diagnosis Acute bilateral thoracic back pain documented in this encounter Additional Health Concerns Assessment Noted Time PHQ-9 Depression Total Score: 5 12/12/19 2:22 PM EST documented as of this encounter Care Teams Production Manager Relationship Specialty Start Date End Date Vargas Reynoso AGNP PCP - General Family Medicine 12/01/22 07/05/23 Avril Campa FNP [address] [place] [address] PCP - General Family Medicine 07/06/23 07/15/23 Lolis Augustine MD [address] [place] [address] PCP - General Family Medicine 07/16/23 documented as of this encounter
--- OUTSIDE RECORDS SUMMARY | 2024-12-05 18:10 | XMS_ITS | Encounter Summary ---
Author Organization [employer] Address [address] [facility] 7t [place] [address] Care Team Providers Care Stamp Clerk Name Role Phone Lolis Augustine MD Primary Care Provider [phone] Reason for Visit * Reason Onset Date Comments BOWL SANDER Initial appt today 12/05/2024 UTOX Pos ALMA & FENT 12/05/2024 Pt would like referral to Pablo Ramirez TALENT ACQUISITION LEAD 12/05 Med Refill 12/05/2024 Encounter Details Date Type Department Care Team (Late st Contact Info) Description 12/05/2024 Refill [facility] [address] [place] [address] Kim Donald RN Anxiety (Primary Dx) Social [...] your housing situation today? I have lis sing 08/17/[address] you li [...] Encounter - Kim Donald RN - 12/05/2024 2:20 PM EST Pt had BOWL SANDER Initial appt today UTOX pos BZO, ALMA, FENT and THC. Sent out for confirmation. STEFFEN-7 assessment completed this visit. Pt scored 14. Opioid risk assessment completed, pt scored a 4. Call placed to , pt scheduled to speak with a clinician 12/15/24 @ 1:30pm. Pt asking about a psychiatrist, said he had one in [place] but hasn't been able to get one here. Would you send referral for Pablo Ramirez TALENT ACQUISITION LEAD documented in this encounter Plan of Treatment Upcoming Encounters Date Type Department Care Team (Late st Contact Info) Description 12/07/2024 4:00 PM EST Office Visit [facility] [address] [place] [address] Lolis Augustine MD [address] [place] [address] 12/08/2024 9:00 AM EST Office Visit [facility] [address] [place] [address] Omid Jacinto DMD [address] [place] [address] 12/14/2024 2:00 PM EST Clinical Support [facility] [address] [place] [address] Kim Donald RN 01/11/2025 2:00 PM EDT Office Visit [facility] [address] [place] [address] CinthyaGaviota [address] [place] [address] documented as of this encounter Visit Diagnoses Diagnosis Anxiety- Primary Anxiety state, unspecified documented in this encounter Additional Health Concerns Assessment Noted Time PHQ-9 Depression Total Score: 0 07/18/20 24 2:10 PM EDT documented as of this encounter Care Teams Stamp Clerk Relationship Specialty Start Date End Date Lolis Augustine MD [address] [place] [address] PCP - General Family Medicine 07/16/23 documented as of this encounter
--- OUTSIDE RECORDS SUMMARY | 2024-12-05 18:10 | XMS_ITS | Clinical Summary ---
Author Organization [employer] Address [address] [facility] 7t [place] [address] Care Team Providers Care Insurance Verifier Name Role Phone Lolis Augustine MD Primary Care Provider [phone] Allergies No known active allergies Medications * This document contains information received from the source organization and may not represent a complete record from that organization. Blood Pressure Monitoring (Blood Pressure Monitor 3) deviceIndication s:Elevated blood pressure reading USE TWICE DAILY 1 each 03/16/20 23 Active Spacer/Aero-Hold ing Chambers (Pro Comfort Spacer Adult) miscIndications: Moderate persistent asthma without complication Use as directed with inhaler 1 each 03/27/20 23 Active albuterol (2.5 MG/3ML) 0.083% nebulizer solution INHALE 2.5 MG (3 ML) INHALED EVERY 4 TO 6 HOURS NEEDED FOR SHORTNESS OF BREATH OR WHEEZING 07/05/20 23 Active omeprazole (PriLOSEC) [address] capsule TOME RANGEL CAPSULA TODOS LOS SANCHES EN LA MANANA 90 capsule 3 01/20/20 24 Active Atrovent HFA 17 MCG/ACT inhalerIndicatio ns:Moderate persistent asthma without complication INHALE 2 PUFFS IN THE MORNING, AT NOON, IN THE EVENING, AND AT BEDTIME. 12.9 g 02/01/20 24 Active traZODone (Desyrel) 150 MG tablet TAKE 1 TABLET BY MOUTH AT BEDTIME 90 tablet 3 02/24/20 24 Active atorvastatin (Lipitor) 10 MG tabletIndication s:Hypertriglycer idemia Take 1 tablet (10 mg) by mouth Once per day. 90 tablet 3 03/18/20 24 025 Active budesonide-formo terol (Symbicort) 80-4.5 MCG/ACT inhalerIndicatio ns:Moderate persistent asthma without complication Inhale 2 puffs in the morning and at bedtime. Rinse mouth with water after use to reduce aftertaste and incidence of candidiasis. Do not swallow. 1 each 11 03/18/20 24 025 Active montelukast (Singulair) 10 MG tabletIndication s:Moderate persistent asthma without complication Take 1 tablet (10 mg) by mouth at bedtime. 90 tablet 3 03/18/20 24 025 Active amLODIPine (Norvasc) 2.5 MG tabletIndication s:Elevated blood pressure reading TAKE 2 TABLETS BY MOUTH EVERY MORNING 180 tablet 3 04/26/20 24 Active tiZANidine (Zanaflex) 2 MG tablet TOME 1 TABLETA POR V A ORAL DANE VECES AL D A PARA EL ESPASMO MUSCULAR CUANDO SEA NECESARIO 06/02/20 24 Active Diclofenac Sodium 1 % gelIndications:A cute bilateral thoracic back pain APPLY 2 G TOPICALLY IF NEEDED IN THE MORNING AND AT BEDTIME (MUSCLE PAIN). 100 g 3 08/30/20 24 Active albuterol (Ventolin HFA) 108 (90 Base) MCG/ACT inhalerIndicatio ns:Moderate persistent asthma without complication INHALE 2 PUFFS EVERY 6 HOURS IF NEEDED FOR WHEEZING OR SHORTNESS OF BREATH 18 g 3 09/09/20 24 Active clonazePAM (KlonoPIN) 1 MG tabletIndication s:Anxiety TOME 1 TABLETA POR VIA ORAL DANE VECES AL FILI 84 tablet 11/07/19 25 Active celecoxib (CeleBREX) 50 MG capsule TAKE 1 CAPSULE (50 MG) BY MOUTH 2 TIMES DAILY. FOR ARTHRITIS PAIN 60 capsule 3 11/25/19 25 025 Active QUEtiapine XR (SEROquel XR) 150 MG 24 hr tabletIndication s:Unspecified mood (affective) disorder (CMS/HCC) TOME 1 TABLETA POR VIA ORAL TODOS LOS SANCHES AL ACOSTARSE 90 tablet 3 11/25/19 25 Active QUEtiapine XR (SEROquel XR) 150 MG 24 hr tabletIndication s:Unspecified mood (affective) disorder (CMS/HCC) TAKE 1 TABLET BY MOUTH AT BEDTIME 90 tablet 3 02/24/20 24 025 Discontinued celecoxib (CeleBREX) 50 MG capsule Take 1 capsule (50 mg) by mouth 2 times daily. For arthritis pain 60 capsule 3 07/18/20 24 025 Discontinued clonazePAM (KlonoPIN) 1 MG tabletIndication s:Anxiety TOME 1 TABLETA POR VIA ORAL DANE VECES AL FILI 21 tablet 10/28/19 25 025 Discontinued Active Problems Problem Noted Date Diagnosed Date Generalized gingival recession 07/07/2024 Missing teeth, acquired 04/05/2024 Jerking movements of extremities 03/22/2024 Assessment & Plan (07/20/2024 10:44 AM EDT): The differential for this is tardive dyskinesia verus Raymond's. Patient would be a candidate for VMAT2 inhibitors once either diagnosis is established. - explained to son that we need neurology to make the distinction between these two diagnoses before we can request a PA for specific therapy - in the meantime will continue to current regimen of low dose Seroquel and benzodiazepine TID Muscle spasms of neck 12/09/2023 Assessment & Plan (01/21/2024 12:37 PM EDT): Trigger point injections as above Continue to try to get into Neuro clinic Assessment & Plan (12/09/2023 1:04 PM EST): Declines muscle relaxer medications Naproxen sent for anti-inflammatory Continue patches and creams Trigger point injections at next available Anxiety 07/23/2023 Assessment & Plan (07/20/2024 10:42 AM EDT): Instructed son to call psychiatry provider in [place] where patient was referred To continue low dose Seroquel 150mg for auditory hallucinations, with Klonopin 1mg TID Assessment & Plan (03/22/2024 1:40 PM EDT): Sent a message to to reach out to him for OP therapy and psych prescriber referrals Assessment & Plan (01/21/2024 12:37 PM EDT): Currently taking Klonopin 1mg TID Elevated blood pressure reading 03/13/2023 Assessment & Plan (05/15/2023 9:23 AM EDT): Blood pressure in stable today in clinic. I have not seen his home blood pressures. Counseled low-salt diet, advised increase in exercise to 30 min/ day most days, weight loss if applicable. Call clinic for high BP >170/90 or low <90/60. Assessment & Plan (03/27/2023 2:48 PM EDT): BP not well managed, but close. He is to start amlodipine 2.5 mg daily and report back with BP logs in one month. Counseled low-salt diet, advised increase in exercise to 30 min/ day most days, weight loss if applicable. Call clinic for high BP >170/90 or low <90/60. Assessment & Plan (03/13/2023 3:21 PM EDT): Ordered patient BP cuff and gave log and instructions to check BP twice a day and come back in 2. Shortness of breath 03/13/2023 Periodontal disease 02/13/2023 Dental calculus 02/13/2023 Sleep apnea 02/11/2023 Assessment & Plan (02/11/2023 1:20 PM EDT): Patient concerned about difficulty sleeping. First step in sleep study, they we will discuss other options. Stop bang score = 4 [place] = 9 F/up: 1 month Gastroesophageal reflux disease 02/11/2023 Assessment & Plan (03/13/2023 6:12 PM EDT): Patient ran out of omeprazole. I try not to keep patients on it for long periods of time. This jacob has so much going on though, I decided to give him 2 months worth. At least give him some relief. We will address stopping then. Assessment & Plan (02/11/2023 1:12 PM EDT): I had placed patient on famotidine to try and manage her GERD. He states is in not helping. He also mentioned that the Omeprazole he took before helped him a lot. I explained to him that I put him on the famotidine because I wanted to avoid placing him on usp omeprazole. skilled nursing omeprazole use can have negative side effects such as reduced magnesium levels the levels of magnesium in your blood may fall. Low magnesium can make you feel tired, confused, dizzy and cause muscle twitches, shakiness and an irregular heartbeat. He stated he understood this and wanted the omeprazole. Acute bilateral thoracic back pain 02/11/2023 Assessment & Plan (02/11/2023 1:23 PM EDT): Back pain is still not managed. Patient has failed conservative treatments. I sent a referral to pain management, refilled patients diclofenac gel and prescribed him some baclofen to help bridge his pain management until he can get to pain management. Hypertriglyceridemia 02/10/2023 Assessment & Plan (05/15/2023 8:44 AM EDT): Patient was instructed at last visit to have labs drawn one week prior to this visit. He was unable to do this. We will print out new lab orders for him. Assessment & Plan (03/27/2023 1:25 PM EDT): Ordered new lipid panel, instructed patient to get labs drawn 1 week before next visit. CMP for statin. Assessment & Plan (03/13/2023 6:13 PM EDT): The 10-year ASCVD risk score (Zhanna DK, et al., 2019) is: 6.3% Values used to calculate the score: Age: 53 years Sex: Male Is Non- : No Diabetic: No Tobacco smoker: No Systolic Blood Pressure: 162 mmHg Is BP treated: No HDL Cholesterol: 47 mg/dL Total Cholesterol: 162 mg/dL ASCVD risk calculator: states May consider moderate intensity statin for patients with LDL 70-189 mg/dL (1.7 to 4.8 mmol/L) and presence of risk-enhancing factors. - (IIb, B-R) Patients LDL = 82 Component Ref Range & Units 1 mo ago Cholesterol, Total <200 mg/dL 162 HDL Cholesterol > OR = 40 mg/dL 47 Triglycerides <150 mg/dL 238??High?? Comment: ?? If a non-fasting specimen was collected, consider repeat triglyceride testing on a fasting specimen if clinically indicated. Bishop et al. J. of Clin. Lipidol. 2015;9:129-169. ?? LDL Cholesterol mg/dL (calc) 82 Prescribed atorvastatin 10 mg and follow up in 6 weeks. Hallucinations 12/12/2022 Assessment & Plan (12/12/2022 6:06 PM EST): Patient reports hearing voices. Denies SI/HI. Referral to [facility] sent Crawford disease 11/13/2022 Assessment & Plan (12/09/2023 1:03 PM EST): Per pt, no records available Gave son number to call neurology again Assessment & Plan (05/15/2023 5:17 PM EDT): Patient reports that he never heard from neurology. His son reports that he had gone to neurology back in October but due to how poor his breathing was they sent him to the ED and there was no follow up. His previous referral is closed, I will send a new referral. Assessment & Plan (12/12/2022 6:00 PM EST): Patient has a lot of passive physical movement. He understands all of my questions and gives appropriate answers. Patient has active referral to Neurology. Asthma 11/13/2022 Assessment & Plan (05/15/2023 5:15 PM EDT): ACT = 8 Patient reports breathing is greatly improved from earlier in the year, and they are very grateful for the progress we have made. However, his asthma is still not well controlled and he really needs to see pulmonology. Patients report they still haven't heard from pulmonology. We gave patient the contact information for pulmonology. He had missed an appointment previously but his referral is still active. F/up 2 months RTC PRN if symptoms worsen ED precautions advised. Assessment & Plan (03/27/2023 2:50 PM EDT): Patients asthma is not well controlled. I added Symbicort and gave him a referral to pulmonology. F/up 1 month. Assessment & Plan (03/13/2023 6:10 PM EDT): DDx: procixmal nocturna dyspnea? Hf? He is only using his rescue inhaler around sleep. Before bed and when he gets up in the morning. Trying montelukast to help address his asthma, ordering an echo incase this is CHF. Assessment & Plan (12/12/2022 5:58 PM EST): Patient still waiting on PFT. Heartburn 11/13/2022 Full thickness burn of back 11/13/2022 Encounters Date Type Department Care Team Description 12/05/2024 1:30 PM EST Clinical Support [facility] [address] [place] [address] Kim Donald RN Anxiety (Primary Dx) 12/05/2024 Refill [facility] [address] [place] [address] Kim Donald RN Anxiety (Primary Dx) 12/05/2024 Travel 12/05/2024 Telephone [facility] [address] [place] [address] Kim Donald RN Recomend BILL OF MATERIALS CLERK Tier 1 11/24/2024 Refill [facility] [address] [place] [address] Lolis Augustine MD Unspecified mood (affective) disorder ([facility]) 11/07/2024 Refill [facility] [address] [place] [address] Lolis Augustine MD Anxiety 11/04/2024 Telephone [facility] [address] [place] [address] Lolis Augustine MD No Show 11/03/2024 Travel 10/27/2024 Refill [facility] [address] [place] [address] Lolis Augustine MD Anxiety 10/26/2024 Refill [facility] [address] [place] [address] Lolis Augustine MD 09/19/2024 Refill [facility] [address] [place] [address] Lolis Augustine MD Anxiety 09/09/2024 Refill [facility] [address] [place] [address] Shelby Galvan MD Moderate persistent asthma without complication from Last 3 Months Immunizations Name Administration Dates Next Due Influenza, seasonal, injectable, preservative fr ee 07/18/2024 Social History Tobacco Use Types Packs/Day Years Used Date Smoking Tobacco: Some Days Cigarettes Smokeless Tobacco: Never Tobacco Cessation:Ready to Q uit: Not Asked; Counseling Given: Not Answered Alcohol Use Standard Drinks/Week Comments Never 0 [...] Orientation Straight 11/13/2022 2: 01 PM EST Last Filed Vital Signs Vital Sign Reading Time Taken Comments Blood Pressure 111/74 07/18/2024 2:09 PM EDT Pulse 84 07/18/2024 2:09 PM EDT Temperature 36.6 ??C (97.8 ??F) 07/18/2024 2:09 PM ED T Respiratory Rate 20 07/18/2024 2:09 PM EDT Oxygen Saturation 98% 07/18/2024 2:09 PM EDT Inhaled Oxygen Concentration - - Weight 74.8 kg (164 lb 12.8 oz) 07/18/2024 2:09 PM EDT Height 160 cm (5' 3 ) 07/18/2024 2:09 PM EDT Body Mass Index 29.19 07/18/2024 2:09 PM EDT Plan of Treatment Upcoming Encounters Date Type Department Care Team (Late st Contact Info) Description 12/07/2024 4:00 PM EST Office Visit [facility] [address] [place] [address] Lolis Augustine MD [address] [place] [address] 12/08/2024 9:00 AM EST Office Visit [facility] [address] [place] [address] Omid Jacinto DMD [address] [place] [address] 12/14/2024 2:00 PM EST Clinical Support [facility] [address] [place] [address] Kim Donald, TAZ 01/11/2025 2:00 PM EDT Office Visit [facility] [address] [place] [address] Gaviota Mendes [address] [place] [address] Health Maintenance Due Date Last Done Comments CT Colonography 1969 Colonoscopy 1969 Colorectal Cancer Screening 1969 FIT DNA/Cologuard 1969 FIT 1969 FOBT 1969 HIV Screening 1969 Sigmoidoscopy 1969 Alcohol/Substance Use Screening 1981 Hepatitis C Screening 1987 DTaP/Tdap/Td Vaccines (1 - Tdap) 01/05/1988 Hepatitis A Vaccines (1 of 2 - Risk 2-dose series) 01/05/1988 Hepatitis B Vaccines (1 of 3 - 19+ 3-dose series) 01/05/1988 Pneumococcal Vaccine: 50+ Years (1 of 2 - PCV) 01/05/1988 Zoster Vaccines (1 of 2) 2019 Dental X-Ray: Bitewings 12/28/2023 12/26/2022 COVID-19 Vaccine (1 - 2023-2 5 season) 2024 SDOH Screening 12/02/2024 12/02/2023 Dental Oral Exam 12/17/2024 06/15/2024, 01/01/2024, 12/26/2022 Dental Prophylaxis 01/05/2025 07/07/2024, 02/13/2023 Depression Screening 07/18/2025 07/18/2024, 07/18/2024 Tobacco Screening 07/18/2025 07/18/2024 Dental X-Ray: Full Mouth 12/27/2025 12/26/2022 Lipid Panel 05/22/2028 05/22/2023, 02/02/2023 RSV Patients and Patients Aged 60 years or older (1 - 1-dose 75+ series) 01/05/2044 Influenza Vaccine Completed 07/18/2024 Anal Pap Discontinued HIB Vaccines Aged Out No longer eligi ble based on patient's age to complete this topic HPV Vaccines Aged Out No longer eligi ble based on patient's age to complete this topic IPV Vaccines Aged Out No longer eligi ble based on patient's age to complete this topic Meningococcal Vaccine Aged Out No lex tish eligible based on patient's age to complete this topic RSV under 20 months Aged Out No longe r eligible based on patient's age to complete this topic Rotavirus Vaccines Aged Out No longer eligible based on patient's age to complete this topic Procedures Procedure Name Priority Date/Time Associated Diagnosis Comments POCT MARIA G-14 URINE DRUG SCREEN Routine 12/05/2024 1:44 PM EST Anxiety PROPHYLAXIS - ADULT Routine 07/07/2024 1 0:00 AM EDT Periodontal disease PERIODIC ORAL EVALUATION - ESTABLISHED PATIENT Routine 06/15/2024 11:00 AM EDT LIPID PANEL, STANDARD Routine 05/22/2023 8:53 AM EDT Hypertriglyceridem ia DIAGNOSTIC - DIAGNOSTIC IMAGING - INTRAORAL - COMPREHENSIVE SERIES OF RADIOGRAPHIC IMAGES Routine 12/26/2022 9:00 AM EST from Last 3 Months or Most Recently Relevant to Health Maintenance Results * (ABNORMAL) POCT MARIA G-14 Urine Drug Screen (12/05/2024 1:44 PM EST) THC Positive Cocaine Screen, Urine Positive Benzodiazepines Screen, Urine Positive Fentanyl, Urine Positive Urine Urine specimen obtained by clean catch procedure / Unknown 12/05/2024 1:44 PM EST Kim Bartlett RN - 12/05/2024 1:44 PM EST UTOX cup Lot#[id number] Exp. 07/20/26 Internal Pass Control Lolis Augustine MD POINT OF CARE TEST ENTER/EDIT ORDERABLES Final Result * Lipid Panel, Standard (05/22/2023 8:53 AM EDT) Triglycerides 56 mg/dL [facility] Comment:Desirable Triglyceri de: less than 150 mg/dLBorderline High Triglyceride 150-199 mg/dLHigh Triglyceride: 200-499 mg/dLVery High Triglyceride: greater than or equal to 5OO mg/dL Cholesterol 116 mg/dL [facility] Comment:Desirable Cholestero l: less than 200 mg/dLBorderline High Cholesterol: 200-239 mg/dLHigh Cholesterol: greater than 239 mg/dL LDL Cholesterol Calculated 55 mg/dl [facility] Comment:Desirable LDL: less than 100 mg/dLNear Optimal/Above Optimal LDL: 110- 129 mg/dLBorderline High LDL: 130-159 mg/dLHigh LDL: 160-189 mg/dLVery High LDL: greater than or equal to 190 mg/dL HDL Cholesterol 50 mg/dL [facility] Comment:Desirable HDL: great er than 40 mg/dL Note: This HDL assay may give artificially low results in patients with liver disease. Blood Venous blood specimen / Unknown 05/22/2023 8:53 AM EDT 05/22/2023 11:20 AM EDT Vargas MCDANIEL LAB BLOOD ORDERABLES Final Res ult [facility] [address] [place] [address] [phone] from Last 3 Months or Most Recently Relevant to Health Maintenance [place] [address] [place] [address] C3 D[facility]AL[facility] MEDICAID STAND ADULT Advance Directives Documents on File Type Date Recorded Patient Teletype Operator Expl anation Advance Directives and Living Will 05/07/2023 HCP Care Teams Insurance Verifier Relationship Specialty Start Date End Date Lolis Augustine MD [address] [place] [address] PCP - General Family Medicine 07/16/23
--- OUTSIDE RECORDS SUMMARY | 2024-12-05 18:10 | XMS_ITS | Continuity of Care Document ---
Author Organization [facility] Address [address] [place] [address] Phone Care Team Providers Care Gymnastic Coach Name Role Phone Jaren SANTIAGO MD, Jose Luis Unavailable Unavailabl e Procedures Procedure Date TTE W/DOPPLER, COMPLETE HOSPITAL DISCHARGE DAY SUBSEQUENT HOSPITAL CARE SUBSEQUENT HOSPITAL CARE SUBSEQUENT HOSPITAL CARE SUBSEQUENT HOSPITAL CARE OBSERVATION CARE SUBSEQUENT OBSERVATION CARE Advance Directives Directive Yes / No Effective Date File Name No Information Encounters Encounter Description Practice Location Reason(s) For Visit Diagnoses Date Provider Providers Copied on Encounter [facility], [address] [place], [place], [id number], [place] tel:[phone] [facility] No Information Jaren Amaya. [address] [place], [place], [id number], [place]. tel:[phone] Referring Provider: Kiana Oscar, [facility] [place], [address]. tel:[phone] HOSPITAL DISCHARGE DAY [facility], [address] [place] [address], [place], [id number], [place] tel:[phone] [facility] No Information Radha Figueroa. [address] [place], [place], [id number], [place]. tel:[phone] SUBSEQUENT HOSPITAL CARE [facility], [address] [place] [address], [place], [id number], [place] tel:[phone] [facility] No Information Shamim Jim. [address], [place], [id number], [place]. tel:[phone] SUBSEQUENT HOSPITAL CARE [facility], [address] [place] [address], [place], [id number], [place] tel:[phone] [facility] No Information Cam Elena. [address] [place], [place], [id number], [place]. tel:[phone] OBSERVATION CARE [facility], [address] [place] [address], [place], [id number], [place] tel:[phone] [facility] No Information Shamim Jim. [address] [place], [place], [id number], [place]. tel:[phone] Family History Family Member Type Diagnosis Age At Onset No Information Payers Payer name Insurance type Covered alliance party ID Ronald swartzglo(s) [place] [id number] Social History Type Description Quantity Date Captured Comments Sex Female Smoking Status No Information Chief Complaint And [...]
--- OUTSIDE RECORDS SUMMARY | 2024-12-05 18:10 | XMS_ITS | Encounter Summary ---
Author Organization [facility] Address [address] [place] [address] 7 [place] [address] Care Team Providers Care Broadcast News Producer Name Role Phone Vargas Reynoso Primary Care Provider Unavail able Avril Campa Primary Care Provider [phone] Lolis Augustine MD Primary Care Provider [phone] Reason for Visit * Reason Comments Med Change Request Encounter Details Date Type Department Care Team ([facility] Contact Info) Description 03/13/2023 Refill [facility] MEDICINE [address] [place] [address] Vargas Reynoso AGNP Gastroesophageal reflux disease, unspecified whether esophagitis present Social History Tobacco Use Types Packs/Day Years [...] Upcoming Encounters Date Type Department Care Team ([facility] Contact Info) Description 12/07/2024 4:00 PM EST Office Visit [facility] MEDICINE [address] [place] [address] Lolis Augustine MD [address] [place] [address] 12/08/2024 9:00 AM EST Office Visit [facility] ADULT DENTAL [address] [place] [address] Omid Jacinto, ARVIND [address] [place] [address] 12/14/2024 2:00 PM EST Clinical Support [facility] MEDICINE [address] [place] [address] Kmi Donald RN 01/11/2025 2:00 PM EDT Office Visit [facility] ADULT DENTAL [address] [place] [address] Gaviota Mendes [address] [place] [address] documented as of this encounter Visit Diagnoses Diagnosis Gastroesophageal reflux disease, unspecified whether esophagitis present documented in this encounter Additional Health Concerns Assessment Noted Time PHQ-9 Depression Total Score: 5 12/12/19 2:22 PM EST documented as of this encounter Care Teams Broadcast News Producer Relationship Specialty Start Date End Date Vargas Reynoso AGNP PCP - General Family Medicine 12/01/22 07/05/23 Avril Campa FNP [address] [place] [address] PCP - General Family Medicine 07/06/23 07/15/23 Lolis Augustine MD [address] [place] [address] PCP - General Family Medicine 07/16/23 documented as of this encounter
[2024-12-09 11:00] LABS: Benzoylecgonine 559
[2024-12-12 11:41] LABS: Fentanyl, Ur 0.5; Norfentanyl, Ur 5.6
== END 2024-12-05 18:09 | disposition home or self-care (01) ==
LOC: HO.HHCLNP 18:08
PROVIDERS: Visit Provider General Practice
DX: F41.9 Anxiety disorder, unspecified (principal)
CPT/HCPCS: 80353; 80354

== ENCOUNTER 2024-12-14 16:38 | Outpatient (REF) | payer MEDICAID, SELFPAY ==
--- OUTSIDE RECORDS SUMMARY | 2024-12-14 16:41 | XMS_ITS | Encounter Summary ---
Author Organization [employer] Address [address] [place] [address] 7 [place] [address] Care Team Providers Care Materials Management Manager Name Role Phone Avril Campa Primary Care Provider [phone] Lolis Augustine MD Primary Care Provider [phone] Encounter Details Date Type Department Care Team (Late Contact Info) Description 07/07/2023 Orders Only [facility] CH[facility] MED & PEDS [address] [place], [place] [phone] Avril Campa FNP [address] [place] [address] Social History Tobacco Use Types Packs/Day Years [...] Department Care Team (Late Contact Info) Description 01/11/2025 2:00 PM EDT Office Visit [facility] ADULT DENTAL [address] [place], [place] [phone] Gaviota Mendes [address] [place] [address] 01/19/2025 2:00 PM EDT Clinical Support [facility] MEDICINE [address] [place] [address] Kim Donald RN 03/07/2025 11:00 AM EDT Office Visit [address] [address] Lolis Augustine MD [address] [place] [address] documented as of this encounter Visit Diagnoses Not on filedocumented in this encounter Additional Health Concerns Assessment Noted Time PHQ-9 Depression Total Score: 5 12/12/19 23 2:22 PM EST documented as of this encounter Care Teams Materials Management Manager Relationship Specialty Start Date End Date Avril Campa FNP [address] [place] [address] PCP - General Family Medicine 07/06/23 07/15/23 Lolis Augustine MD [address] [place] [address] PCP - General Family Medicine 07/16/23 documented as of this encounter
--- OUTSIDE RECORDS SUMMARY | 2024-12-14 16:41 | XMS_ITS | Encounter Summary ---
Author Organization [facility] Address [address] [place] [address] 7 [place] [address] Care Team Providers Care Ghost Writer Name Role Phone Vargas Reynoso Primary Care Provider Unavail able Avril Campa Primary Care Provider [phone] Lolis Augustine MD Primary Care Provider [phone] Reason for Visit * Reason Comments Med Refill Encounter Details Date Type Department Care Team (Late Contact Info) Description 06/12/2023 Refill [facility] [address] [place] [address] Avril Campa FNP [address] [place] [address] Acute bilateral thoracic back pain Social History [...] Description 01/11/2025 2:00 PM EDT Office Visit [facility] ADULT DENTAL [address] [place] [address] Vipul Mendesaris [address] [place] [address] 01/19/2025 2:00 PM EDT Clinical Support [address] [phone] Kim Donald, RN 03/07/2025 11:00 AM EDT Office Visit [address] [address] Lolis Augustine MD [address] [place] [address] documented as of this encounter Visit Diagnoses Diagnosis Acute bilateral thoracic back pain documented in this encounter Additional Health Concerns Assessment Noted Time PHQ-9 Depression Total Score: 5 12/12/19 2:22 PM EST documented as of this encounter Care Teams Ghost Writer Relationship Specialty Start Date End Date Vargas Reynoso AGNP PCP - General Family Medicine 12/01/22 07/05/23 Avril Campa FNP [address] [place] [address] PCP - General Family Medicine 07/06/23 07/15/23 Lolis Augustine MD [address] [place] [address] [phone] PCP - General Family Medicine 07/16/23 documented as of this encounter
--- OUTSIDE RECORDS SUMMARY | 2024-12-14 16:43 | XMS_ITS | Encounter Summary ---
Author Organization [employer] Address [address] [facility] 7t [place] [address] Care Team Providers Care Six Pack Loader Operator Name Role Phone Lolis Augustine MD Primary Care Provider [phone] Reason for Visit * Reason Onset Date Comments Recomend AGENTS' RECORDS CLERK Tier 1 12/05/2024 Encounter Details Date Type Department Care Team (Late st Contact Info) Description 12/05/2024 Telephone [facility] MEDICINE [address] [place] [address] Kim Donald, TAZ Recomend AGENTS' RECORDS CLERK Tier 1 Social History Tobacco Use Types [...] RN - 12/05/2024 7:45 AM EST What AGENTS' RECORDS CLERK Tier would you like this patient to be? I recommend Tier 1, please let me know if you agree or would rather patient be in another AGENTS' RECORDS CLERK Tier. Tier 1 = HIGH RISK, Monthly AGENTS' RECORDS CLERK visits Tier 2 = MODerate RISK, Q3 Month visits Tier 3 = LOW RISK = Q4-6 month visits documented in this encounter Plan of Treatment Upcoming Encounters Date Type Department Care Team (Late st Contact Info) Description 01/11/2025 2:00 PM EDT Office Visit [facility] ADULT DENTAL [address] [place] [address] Gaviota Mendes [address] [place] [address] 01/19/2025 2:00 PM EDT Clinical Support [facility] MEDICINE [address] [place] [address] Kim Donald RN 03/07/2025 11:00 AM EDT Office Visit [facility] MEDICINE [address] [place] [address] Lolis Augustine MD [address] [place] [address] documented as of this encounter Visit Diagnoses Not on filedocumented in this encounter Additional Health Concerns Assessment Noted Time PHQ-9 Depression Total Score: 0 07/18/20 24 2:10 PM EDT documented as of this encounter Care Teams Six Pack Loader Operator Relationship Specialty Start Date End Date Lolis Augustine MD [address] [place] [address] PCP - General Family Medicine 07/16/23 documented as of this encounter
--- OUTSIDE RECORDS SUMMARY | 2024-12-14 16:43 | XMS_ITS | Encounter Summary ---
Author Organization [employer] Address [address] [place] [address] 7t [place] [address] Care Team Providers Care Student Assistant Name Role Phone Lolis Augustine MD Primary Care Provider [phone] Reason for Referral * Consultation (Routine) - Pending Review Specialty Diagnoses / Procedures Referred By Geovany t Referred To Contact Psychiatry Diagnoses Anxiety Lolis Augustine MD [address] [place] [address] Phone: tel: fax: Pablo Collado, PMHNP [address] [place] [address] Phone: tel: fax: Referral ID Status Reason Start Date Expiration Date Visits Requested Visits Authorized [id number] Pending Review Specialty Services Required 12/06/2024 12/06/2025 1 1 Reason for Visit * Reason Onset Date Comments Results 12/06/2024 + utox Encounter Details Date Type Department Care Team (Late st Contact Info) Description 12/06/2024 Telephone [facility] MED[facility]INE [address] [place], [place] [phone] Lolis Augustine MD [address] [place], [place] [phone] Results (+ utox) Social History Tobacco Use Types Packs/Day Years [...] encounter Miscellaneous Notes * Telephone Encounter - Lolis Augustine MD - 12/06/2024 12:03 PM EST Patient seen for initial SIGN CARPENTER visit 12/05/24 with positive utox at visit for cocaine and fentanyl. Clonazepam count was correct. Due to severity of possible interactions with cocaine, fentanyl, and benzo, I ordered short term 10-day script to provide medication to patient until his next SIGN CARPENTER visit. Also sent patient referral to psychiatrist. documented in this encounter Plan of Treatment Upcoming Encounters Date Type Department Care Team (Late st Contact Info) Description 01/11/2025 2:00 PM EDT Office Visit [facility] ADULT DENTAL [address] [place] [address] Vipul Mendesaris [address] [place] [address] 01/19/2025 2:00 PM EDT Clinical Support [facility] MEDICINE [address] [place] [address] Kim Donald RN 03/07/2025 11:00 AM EDT Office Visit [facility] MEDICINE [address] [place] [address] Lolis Augustine MD [address] [place] [address] Scheduled Referrals Name Type Priority Associated Diagnoses Order Schedule Referral to Psychiatry Outpatient Referral Routine Anxiety Expected: 12/06/2024 (Approximate), Expires: 12/06/2025 documented as of this encounter Visit Diagnoses Diagnosis Anxiety- Primary Anxiety state, unspecified documented in this encounter Additional Health Concerns Assessment Noted Time PHQ-9 Depression Total Score: 0 07/18/20 24 2:10 PM EDT documented as of this encounter Care Teams Student Assistant Relationship Specialty Start Date End Date Lolis Augustine MD [address] [place] [address] PCP - General Family Medicine 07/16/23 documented as of this encounter
--- OUTSIDE RECORDS SUMMARY | 2024-12-14 16:43 | XMS_ITS | Encounter Summary ---
Author Organization [employer] Address [address] [facility] 7t [place] [address] Care Team Providers Care Sign Painter Helper Name Role Phone Lolis Augustine MD Primary Care Provider [phone] Reason for Visit * Reason Onset Date Comments [facility] Initial appt today 12/05/2024 UTOX Pos ALMA & FENT 12/05/2024 Pt would like referral to Pablo Ramirez JUNIOR LINUX ADMINISTRATOR 12/05 Med Refill 12/05/2024 Encounter Details Date Type Department Care Team (Late st Contact Info) Description 12/05/2024 Refill [facility] MEDICINE [address] [place] [address] Kim Donald RN Anxiety (Primary Dx) Social [...] - 12/05/2024 2:20 PM EST Pt had [facility]ORATORY [facility] Initial appt today UTOX pos BZO, ALMA, FENT and THC. Sent out for confirmation. STEFFEN-7 assessment completed this visit. Pt scored 14. Opioid risk assessment completed, pt scored a 4. Call placed to , pt scheduled to speak with a clinician 12/15/24 @ 1:30pm. Pt asking about a psychiatrist, said he had one in [place] but hasn't been able to get one here. Would you send referral for Pablo Ramirez JUNIOR LINUX ADMINISTRATOR documented in this encounter Plan of Treatment Upcoming Encounters Date Type Department Care Team (Late st Contact Info) Description 01/11/2025 2:00 PM EDT Office Visit [facility] ADULT DENTAL [address] [place] [address] Gaviota Mendes [address] [place] [address] 01/19/2025 2:00 PM EDT Clinical Support [facility] MEDICINE [address] [place] [address] Kim Donald RN 03/07/2025 11:00 AM EDT Office Visit [facility] MED[facility]INE [address] [place] [address] Lolis Augustine MD [address] [place] [address] documented as of this encounter Visit Diagnoses Diagnosis Anxiety- Primary Anxiety state, unspecified documented in this encounter Additional Health Concerns Assessment Noted Time PHQ-9 Depression Total Score: 0 07/18/20 24 2:10 PM EDT documented as of this encounter Care Teams Sign Painter Helper Relationship Specialty Start Date End Date Lolis Augustine MD [address] [place] [address] PCP - General Family Medicine 07/16/23 documented as of this encounter
--- OUTSIDE RECORDS SUMMARY | 2024-12-14 16:43 | XMS_ITS | Encounter Summary ---
Author Organization [employer] Address [address] [facility] 7t [place] [address] Care Team Providers Care Supplemental Manager Name Role Phone Lolis Augustine MD Primary Care Provider [phone] Encounter Details Date Type Department Care Team [...] Description 01/11/2025 2:00 PM EDT Office Visit [facility] ADULT DENTAL [address] [place] [address] Cinthya Gaviota [address] [place] [address] 01/19/2025 2:00 PM EDT Clinical Support [facility] MEDICINE [address] [place] [address] Kim Donald RN 03/07/2025 11:00 AM EDT Office Visit [facility] MEDICINE [address] [place] [address] Lolis Augustine MD [address] [place] [address] documented as of this encounter Visit Diagnoses Not on filedocumented in this encounter Additional Health Concerns Assessment Noted Time PHQ-9 Depression Total Score: 0 07/18/20 24 2:10 PM EDT documented as of this encounter Care Teams Supplemental Manager Relationship Specialty Start Date End Date Lolis Augustine MD [address] [place] [address] PCP - General Family Medicine 07/16/23 documented as of this encounter
--- OUTSIDE RECORDS SUMMARY | 2024-12-14 16:43 | XMS_ITS | Encounter Summary ---
Author Organization [employer] Address [address] [place] [address] 7 [place] [address] Care Team Providers Care Zigzagger Name Role Phone Vargas Reynoso Primary Care Provider Unavail Avril Richey Primary Care Provider [phone] Lolis Augustine MD Primary Care Provider [phone] Encounter Details Date Type Department Care Team ([facility] Contact Info) Description 03/24/2023 Abstract [facility] ADULT DENTAL [address] [place] [address] Cinthya, Gaviota [address] [place] [address] Social History Tobacco Use Types Packs/Day Years [...] Upcoming Encounters Date Type Department Care Team ([facility] Contact Info) Description 01/11/2025 2:00 PM EDT Office Visit [facility] ADULT DENTAL [address] [place] [address] Vipul Mendesaris [address] [place] [address] 01/19/2025 2:00 PM EDT Clinical Support [facility] [address] [place] [address] Kim Donald RN 03/07/2025 11:00 AM EDT Office Visit [address] [address] Lolis Augustine MD [address] [place], [place] [phone] documented as of this encounter Visit Diagnoses Not on filedocumented in this encounter Additional Health Concerns Assessment Noted Time PHQ-9 Depression Total Score: 5 12/12/19 23 2:22 PM EST documented as of this encounter Care Teams Zigzagger Relationship Specialty Start Date End Date Vargas Reynoso AGNP PCP - General Family Medicine 12/01/22 07/05/23 Avril Campa FNP [address] [place] [phone] PCP - General Family Medicine 07/06/23 07/15/23 Lolis Augustine MD [address] [place] [phone] PCP - General Family Medicine 07/16/23 documented as of this encounter
--- OUTSIDE RECORDS SUMMARY | 2024-12-14 16:43 | XMS_ITS | Encounter Summary ---
Author Organization [employer] Address [address] [place] [address] 7 [place] [address] Care Team Providers Care Clerk Television Production Name Role Phone Lolis Augustine MD Primary Care Provider [phone] Reason for Referral * Consultation (Routine) - Authorized Specialty Diagnoses / Procedures Referred By Contjn egan Referred To Contact Psychiatry Diagnoses Anxiety Jerking movements of extremities Lolis Augustine MD [address] [place] [address] Phone: tel: fax: Referral ID Status Reason Start Date Expiration Date Visits Requested Visits Authorized [id number] Authorized Specialty Services Required 12/12/2024 12/12/2025 1 1 Reason for Visit * Reason Comments Follow-up Encounter Details Date Type Department Care Team (Latest Contact Info) Description 12/07/2024 4:00 PM EST Office Visit [facility] [address] [place] [address] [phone] Lolis Augustine MD [address] [place], [place] [phone] Jerking movements of extremities (Primary Dx); Moderate persistent asthma without complication; Dietary counseling; Exercise counseling; Overweight; Raymond disease (CMS/HCC); Tardive dyskinesia; Chronic prescription benzodiazepine use; Anxiety Social History Tobacco Use Types Packs/Day [...] PM EST documented as of this encounter Last Filed Vital Signs Vital Sign Reading Time Taken Comments Blood Pressure 151/88 12/07/2024 3:39 PM EST Pulse 75 12/07/2024 3:39 PM EST Temperature 36.6 ??C (97.8 ??F) 12/07/2024 3:39 PM ES T Respiratory Rate 18 12/07/2024 3:39 PM EST Oxygen Saturation 96% 12/07/2024 3:39 PM EST Inhaled Oxygen Concentration - - Weight 75.3 kg (166 lb) 12/07/2024 3:39 PM EST Height 160 cm (5' 3 ) 12/07/2024 3:39 PM EST Body Mass Index 29.41 12/07/2024 3:39 PM EST documented in this encounter Progress Notes * Lolis Augustine MD - 12/07/2024 4:00 PM EST SUBJECTIVE: Marky Pérez is a 54 y.o. year old male who presents for chronic disease management. Denies recent illness, ER visit, or hospitalization. Acute Concerns: He cannot get into [facility] neurology for appointments-- I will call and see what is happening. Interim Updates: Neck pain is very painful, his arthritis is bothering him. On Celebrex 50mg BID, would like to increase dose. - Increase Celebrex to 100mg BID States that Tylenol, Motrin, and muscle relaxers are unhelpful for pain. - tried trigger point injections 03/2024, which was not helpful - saw Pain Mgmtm 03/2024 but was unable to obtain MRI images of neck due to jerking movememnts. 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 Son is unclear if patient has actually been tested for Raymond's, he took over his dad's care when he moved up from [place], but has no medical records from that time. PT reports that these symptoms of jerking in [place] Started while on high dose Seroquel (800mgdaily) for auditory hallucinations He denies being on specific therapy for Minot's. He no-showed two appointment for neurology (12/2022 and 05/2023) - Has not been able to book into Neurology referral from 11/2023 He says all muscle relaxer medications make him jump or cramp more Anxiety Reports previous care with psychiatry in [place], moved here and has not re-established. Son says they were never able to book into [facility] referral - he was on Seroquel 150mg and Klonopin 1mg TID in [place], I have continued those prescriptions. He no-showed several [facility] appointments, first one 12/05/24 and urine positive for Cocaine and Fentanyl,send-outs pending Reports getting Klonopin from a friend when he is not prescribed it Klonopin 1mg TID, asked for at ER visit 06/21/23. He reports that he was being treated for anxiety and to calm his mind with Klonopin, review of PDMP shows several Klonopin prescriptions over the pastyear, all from ER and primary care providers. He denies establishing care with a psychiatrist here in [place]. He moved here about one year ago from [place], and previously lived in [place]. There is are notes in [facility] about patient being admitted for altered mental status 08/2023 to ICU for unclear etiology (opioid overdose? Resp status?) and confusion over the Minot's diagnosis at that point as well. HTN Not at goal here with diastolic elevated Checking BP as home Asthma: ACT = 8 On GOMEZ and Symbicort HLD: due for lipid panel On Atorvastatin 10mg daily Hydrocele/hernia: L groin Told by surgeon that they would not drain or operate on it Health Maintenance STI screening- ordered Colon- DUE, declines Imms- DUE for PCV, COVID, Zoster, Td Patient Active Problem List Diagnosis Raymond disease (CMS/HCC) Asthma Heartburn Full thickness burn of back Hallucinations Hypertriglyceridemia Sleep apnea Gastroesophageal reflux disease Acute bilateral thoracic back pain Periodontal disease Dental calculus Elevated blood pressure reading Shortness of breath Anxiety Muscle spasms of neck Jerking movements of extremities Missing teeth, acquired Generalized gingival recession Tardive dyskinesia Chronic prescription benzodiazepine use History reviewed. No pertinent surgical history. No family history on file. Social History Social History Narrative Not on file Review of Systems OBJECTIVE: Vitals: 12/07/24 1539 BP: (!) 151/88 BP Location: Left arm Patient Position: Sitting BP Cuff Size: Adult Pulse: 75 Resp: 18 Temp: 97.8 ??F (36.6 ??C) TempSrc: Temporal SpO2: 96% Weight: 166 lb (75.3 kg) Height: 5' 3 (1.6 m) Physical Exam ASSESSMENT/PLAN Problem List Items Addressed This Visit Raymond disease (CMS/HCC) Asthma Current Assessment & Plan Currently with exacerbation Prednisone 40mg daily x 5 days GOMEZ prn, nebulizer broken so ordered a new one Relevant Medications budesonide-formoterol (Symbicort) 80-4.5 MCG/ACT inhaler Anxiety Relevant Orders Referral to Psychiatry Jerking movements of extremities - Primary Current Assessment & Plan The differential for this is tardive dyskinesia verus Raymond's. Patient would be a candidate for VMAT2 inhibitors once either diagnosis is established. - explained to son that we need neurology to make the distinction between these two diagnoses before we can request a PA for specific therapy - in the meantime will continue to current regimen of low dose Seroquel and benzodiazepine TID - I will call [facility] Neurology as son says they have not been able to book there Relevant Orders Referral to Psychiatry Tardive dyskinesia Chronic prescription benzodiazepine use Overview Dx: Anxiety (? TD versus Minot's) Rx: Klonopin 1mg TID Last [facility] agreement: 12/05/24 Tier I (visit every 3 months) Additional considerations: Cocaine and fentanyl positive 12/05/24 Timeline: Current Assessment & Plan With concerning UDS on initial [facility] visit, I reviewed with patient that combining Klonopin with cocaine and Fentanyl is extremely dangerous and can result in respiratory depression and - he denies intentional use of Fentanyl, admits to cocaine use - I explained that if he uses cocaine continuously, he will be tapered off Klonopin - referred to psychiatry for anxiety prescribing, already enrolled in [facility] Other Visit Diagnoses Dietary counseling Exercise counseling Overweight Follow Up: 4 months or sooner prn No Known Allergies Current Outpatient Medications: albuterol (2.5 MG/3ML) 0.083% nebulizer solution, Take 3 mL (2.5 mg) by nebulization every 6 (six) hours if needed for wheezing., Disp: 75 mL, Rfl: 3 albuterol (Ventolin HFA) 108 (90 Base) MCG/ACT inhaler, INHALE 2 PUFFS EVERY 6 HOURS IF NEEDED FOR WHEEZING OR SHORTNESS OF BREATH, Disp: 18 g, Rfl: 3 amLODIPine (Norvasc) 2.5 MG tablet, TAKE 2 TABLETS BY MOUTH EVERY MORNING, Disp: 180 tablet, Rfl: 3 atorvastatin (Lipitor) 10 MG tablet, Take 1 tablet (10 mg) by mouth Once per day., Disp: 90 tablet,Rfl: 3 Atrovent HFA 17 MCG/ACT inhaler, INHALE 2 PUFFS IN THE MORNING, AT NOON, IN THE EVENING, AND AT BEDTIME., Disp: 12.9 g, Rfl: 0 Blood Pressure Monitoring (Blood Pressure Monitor 3) device, USE TWICE DAILY, Disp: 1 each, Rfl: 0 budesonide-formoterol (Symbicort) 80-4.5 MCG/ACT inhaler, Inhale 2 puffs in the morning and at bedtime. Rinse mouth with water after use to reduce aftertaste and incidence of candidiasis. Do not swallow., Disp: 1 each, Rfl: 11 celecoxib (CeleBREX) 100 MG capsule, Take 1 capsule (100 mg) by mouth 2 times daily., Disp: 60 capsule, Rfl: 0 clonazePAM (KlonoPIN) 1 MG tablet, Take 1 tablet (1 mg) by mouth every 8 (eight) hours if needed for anxiety for up to 10 days. Do not start before December 07, 2024., Disp: 30 tablet, Rfl: 0 Diclofenac Sodium 1 % gel, APPLY 2 G TOPICALLY IF NEEDED IN THE MORNING AND AT BEDTIME (MUSCLE PAIN)., Disp: 100 g, Rfl: 3 Humidifier misc, 1 each Once per day., Disp: 1 each, Rfl: 0 montelukast (Singulair) 10 MG tablet, Take 1 tablet (10 mg) by mouth at bedtime., Disp: 90 tablet, Rfl: 3 naloxone (Narcan) 4 mg/0.1 mL nasal spray, Administer 1 spray (4 mg) into affected nostril(s) if needed for opioid reversal. May repeat every 2-3 minutes if needed, alternating nostrils, until medical assistance becomes available., Disp: 2 each, Rfl: 3 omeprazole (PriLOSEC) [address] capsule, TOME RANGEL CAPSULA TODOS LOS SANCHES EN LA KINGSTONANA, Disp: 90 capsule, Rfl: 3 predniSONE (Deltasone) 20 MG tablet, Take 2 tablets (40 mg) by mouth Once per day for 5 days., Disp: 10 tablet, Rfl: 0 QUEtiapine XR (SEROquel XR) 150 MG 24 hr tablet, TOME 1 TABLETA POR VIA ORAL TODOS LOS SANCHES AL ACOSTARSE, Disp: 90 tablet, Rfl: 3 Spacer/Aero-Holding Chambers (Pro Comfort Spacer Adult) [facility] [place], Use as directed with inhaler, Disp: 1each, Rfl: 0 tiZANidine (Zanaflex) 2 MG tablet, TOME 1 TABLETA POR V A ORAL DANE VECES AL D A PARA EL ESPASMO MUSCULAR CUANDO SEA NECESARIO, Disp: , Rfl: traZODone (Desyrel) 150 MG tablet, TAKE 1 TABLET BY MOUTH AT BEDTIME, Disp: 90 tablet, Rfl: 3 Cuban Translation: Provided by [facility] staff member LAUREN Krause documented in this encounter Miscellaneous Notes * Assessment & Plan Note - Lolis Augustine MD - 12/12/2024 10:16 AM EST Associated Problem(s): Asthma Currently with exacerbation Prednisone 40mg daily x 5 days GOMEZ prn, nebulizer broken so ordered a new one * Assessment & Plan Note - Lolis Augustine MD - 12/12/2024 10:15 AM EST Associated Problem(s): Jerking movements of extremities The differential for this is tardive dyskinesia verus Minot's. Patient would be a candidate for VMAT2 inhibitors once either diagnosis is established. - explained to son that we need neurology to make the distinction between these two diagnoses before we can request a PA for specific therapy - in the meantime will continue to current regimen of low dose Seroquel and benzodiazepine TID - I will call [facility] Neurology as son says they have not been able to book there * Assessment & Plan Note - Lolis Augustine MD - 12/12/2024 10:12 AM EST Associated Problem(s): Chronic prescription benzodiazepine use With concerning UDS on initial [facility] visit, I reviewed with patient that combining Klonopin with cocaine and Fentanyl is extremely dangerous and can result in respiratory depression and - he denies intentional use of Fentanyl, admits to cocaine use - I explained that if he uses cocaine continuously, he will be tapered off Klonopin - referred to psychiatry for anxiety prescribing, already enrolled in [facility] documented in this encounter Plan of Treatment Upcoming Encounters Date Type Department Care Team (Late st Contact Info) Description 01/11/2025 2:00 PM EDT Office Visit [facility] 230 [place] [address] Gaviota Mendes 230 [place] [address] 01/19/2025 2:00 PM EDT Clinical Support [address] [address] Kim Donald RN 03/07/2025 11:00 AM EDT Office Visit [address] [address] Lolis Augustine MD [address] [place] [address] Scheduled Referrals Name Type Priority Associated Diagnoses Orde r Schedule Referral to Psychiatry Outpatient Referral Routine Anxiety Jerking movements of extremities Expected: 12/12/2024 (Approximate), Expires: 12/12/2025 documented as of this encounter Visit Diagnoses Diagnosis Jerking movements of extremities- Primary Moderate persistent asthma without complication Dietary counseling Dietary surveillance and counseling Exercise counseling Overweight 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
--- OUTSIDE RECORDS SUMMARY | 2024-12-14 16:43 | XMS_ITS | Encounter Summary ---
Author Organization [employer] Address [address] [facility] 7t [place] [address] Care Team Providers Care Product Introduction Manager Name Role Phone Lolis Augustine MD Primary Care Provider [phone] Encounter Details Date Type Department Care Team (Latest Contact Info) Description 12/14/2024 Travel Social History Tobacco Use Types Packs/Day [...] Description 01/11/2025 2:00 PM EDT Office Visit [facility] 230 [place] [address] Cinthya Gaviota 230 [place] [address] 01/19/2025 2:00 PM EDT Clinical Support [facility] [address] [place] [phone] Kim Donald RN 03/07/2025 11:00 AM EDT Office Visit [facility] [address] [place] [address] Lolis Augustine MD 230 [place] [address] documented as of this encounter Visit Diagnoses Not on filedocumented in this encounter Additional Health Concerns Assessment Noted Time PHQ-9 Depression Total Score: 0 07/18/20 24 2:10 PM EDT documented as of this encounter Care Teams Product Introduction Manager Relationship Specialty Start Date End Date Lolis Augustine MD [address] [place] [phone] PCP - General Family Medicine 07/16/23 documented as of this encounter
--- OUTSIDE RECORDS SUMMARY | 2024-12-14 16:43 | XMS_ITS | Encounter Summary ---
Author Organization [employer] Address [address] [facility] 7t [place] [address] Care Team Providers Care Sample Paster Name Role Phone Lolis Augustine MD Primary Care Provider Encounter Details Date Type Department Care Team (Latest Contact Info) Description 12/07/2024 Travel Social History Tobacco Use Types Packs/Day [...] Description 01/11/2025 2:00 PM EDT Office Visit [facility] 230 [place] [address] Cinthya Gaviota [address] [place] [address] 01/19/2025 2:00 PM EDT Clinical Support [facility] [address] [place] [address] Kim Donald RN 03/07/2025 11:00 AM EDT Office Visit [facility] [address] [place] [phone] Lolis Augustine MD 230 [place] [address] documented as of this encounter Visit Diagnoses Not on filedocumented in this encounter Additional Health Concerns Assessment Noted Time PHQ-9 Depression Total Score: 0 07/18/20 24 2:10 PM EDT documented as of this encounter Care Teams Sample Paster Relationship Specialty Start Date End Date Lolis Augustine MD [address] [place] [address] PCP - General Family Medicine 07/16/23 documented as of this encounter
--- OUTSIDE RECORDS SUMMARY | 2024-12-14 16:43 | XMS_ITS | Encounter Summary ---
Author Organization [employer] Address [address] [place] [address] 7 [place] [address] Care Team Providers Care Unemployment Examiner Name Role Phone Vargas Reynoso Primary Care Provider Unavail Avril Richey Primary Care Provider [phone] Lolis Augustine MD Primary Care Provider [phone] Encounter Details Date Type Department Care Team (Late Contact Info) Description 03/04/2023 Abstract [facility] [address] [place] [address] Cinthya, Gaviota [address] [place] [address] Social History Tobacco Use Types Packs/Day Years [...] Upcoming Encounters Date Type Department Care Team ([facility] Contact Info) Description 01/11/2025 2:00 PM EDT Office Visit [facility] [address] [place], [place] [phone] Vipul Mendesaris [address] [place] [address] 01/19/2025 2:00 PM EDT Clinical Support [facility] [address] [place] [address] Kim Donald, TAZ 03/07/2025 11:00 AM EDT Office Visit [address] [address] Lolis Augustine MD 230 [place], [place] [phone] documented as of this encounter Visit Diagnoses Not on filedocumented in this encounter Additional Health Concerns Assessment Noted Time PHQ-9 Depression Total Score: 5 12/12/19 23 2:22 PM EST documented as of this encounter Care Teams Unemployment Examiner Relationship Specialty Start Date End Date Vargas Reynoso AGNP PCP - General Family Medicine 12/01/22 07/05/23 Avril Campa FNP [address] [place] [address] [phone] PCP - General Family Medicine 07/06/23 07/15/23 Lolis Augustine MD [address] [place] [address] [phone] PCP - General Family Medicine 07/16/23 documented as of this encounter
--- OUTSIDE RECORDS SUMMARY | 2024-12-14 16:43 | XMS_ITS | Encounter Summary ---
Author Organization [employer] [facility] Address [address] [place] [address] 7t [place] [address] Care Team Providers Care Radio Sales Account Executive Name Role Phone Vargas Reynoso Primary Care Provider Unavail Avril Richey Primary Care Provider [phone] Lolis Augustine MD Primary Care Provider [phone] Reason for Visit * Reason Comments Med Refill Encounter Details Date Type Department Care Team (Late st Contact Info) Description 03/10/2023 Refill [facility] [address] [place] [address] Vargas Reynoso AGNP Acute bilateral thoracic back [...] 2:00 PM EDT Office Visit [facility] ADULT D[facility] [address] [place] [address] Vipul Mendesaris [address] [place] [address] 01/19/2025 2:00 PM EDT Clinical Support [facility] [address] [place] [address] Kim Donald RN 03/07/2025 11:00 AM EDT Office Visit [facility] [address] [place] [address] Lolis Augustine MD 230 [place] [address] documented as of this encounter Visit Diagnoses Diagnosis Acute bilateral thoracic back pain documented in this encounter Additional Health Concerns Assessment Noted Time PHQ-9 Depression Total Score: 5 12/12/19 23 2:22 PM EST documented as of this encounter Care Teams Radio Sales Account Executive Relationship Specialty Start Date End Date Vargas Reynoso AGNP PCP - General Family Medicine 12/01/22 07/05/23 Avril Campa FNP [address] [place] [phone] PCP - General Family Medicine 07/06/23 07/15/23 Lolis Augustine MD [address] [place] [address] [phone] PCP - General Family Medicine 07/16/23 documented as of this encounter
--- OUTSIDE RECORDS SUMMARY | 2024-12-14 16:43 | XMS_ITS | Encounter Summary ---
Author Organization [employer] Address [address] [facility] 7t [place] [address] Care Team Providers Care Tester Food Products Name Role Phone Lolis Augustine MD Primary Care Provider [phone] Reason for Visit * Reason Onset Date Comments UTOX Conf. Pos ALMA & FENT 12/13/2024 Encounter Details Date Type Department Care Team ([facility] st Contact Info) Description 12/13/2024 Telephone [facility] [address] [place] [address] Kim Donald, TAZ UTOX Conf. Pos ALMA & FENT Social History Tobacco Use Types Packs/Day Years [...] Telephone Encounter - Kim Donald RN - 12/13/2024 8:03 AM EST Pt had [facility] Initial appt 12/05/24. UTOX was Pos KACI & FENT, confirmation returned Pos ALMA and Pos FENT. documented in this encounter Plan of Treatment Upcoming Encounters Date Type Department Care Team (Late st Contact Info) Description 01/11/2025 2:00 PM EDT Office Visit [facility] ADULT DENTAL [address] [place] [phone] Gaviota Mendes [address] [place] [address] 01/19/2025 2:00 PM EDT Clinical Support [facility] [address] [place] [phone] Kim Donald RN 03/07/2025 11:00 AM EDT Office Visit [facility] [address] [place] [address] Lolis Augustine MD [address] [place] [address] documented as of this encounter Visit Diagnoses Not on filedocumented in this encounter Additional Health Concerns Assessment Noted Time PHQ-9 Depression Total Score: 0 07/18/20 24 2:10 PM EDT documented as of this encounter Care Teams Tester Food Products Relationship Specialty Start Date End Date Lolis Augustine MD [address] [place] [address] PCP - General Family Medicine 07/16/23 documented as of this encounter
--- OUTSIDE RECORDS SUMMARY | 2024-12-14 16:43 | XMS_ITS | Encounter Summary ---
Author Organization [facility] Address [address] [facility] 7t [place] [address] Care Team Providers Care Recreational Vehicle Repairer Name Role Phone Lolis Augustine MD Primary Care Provider [phone] Reason for Visit * Reason Comments BINDERY OPERATOR RV BINDERY OPERATOR RV Encounter Details Date Type Department Care Team (Latest Contact Info) Description 12/14/2024 2:00 PM EST Clinical Support [facility] [address] [place] [address] Kim Donald RN Anxiety (Primary Dx) Social [...] Progress Notes * Kim Donald RN - 12/14/2024 2:00 PM EST S: Pt here for BINDERY OPERATOR Revisit, interpretation provided by staff member Nelida Siu Prescribed Clonazepam 1mg Q8hr PRN. States he has been taking medication as prescribed, last dose taken was this morning. He smokes 2 cigarettes a day and has smoked since he was 11 years old. He denies ETOH. States he used cocaine recently at a constitution party and over did it, but doesn't use it regularly. He smokes marijuana nightly to help him sleep. He states he gets his marijuana from a dispensary only and denies having amedical marijuana card. States he's traveling to [place] 12/20/24 and has no date for return as of now. O: BINDERY OPERATOR Tier 1. Pt currently prescribed Clonazepam 1mg Q8hr PRN. NETWORK SYSTEMS ANALYST verified today. Rx last filled on 11/09/24. Pill count performed. Pt has 0 pills as this time, 0 at least expected. Medication is not overused by Pt. UTOX completed. Positive for THC, Negative for AMP, BAR, BUP, BZO, ALMA, FTY, MDMA,MET, MOP, MTD, OXY, PCP, TCA. UTOX not as expected. Reviewed his UTOX results. Explained his urine not showing BZO and I would send to lab for confirmatio and call him if results are abnormal. Will update PCP with UTOX results and request Clonazepam refill. Last PCP visit was 12/07/24. A: BINDERY OPERATOR Revisit, Chronic BZO use r/t anxiety. P: Pt to continue taking medication only as prescribed; Next BINDERY OPERATOR RV appointment scheduled for 01/19/25 @ 2pm d/t patient traveling to [place] for an unsure amount of time, F/U sooner PRN. Appointment reminder given. Pt verbalized understanding and agreed to plan. documented in this encounter Plan of Treatment Upcoming Encounters Date Type Department Care Team (Late st Contact Info) Description 01/11/2025 2:00 PM EDT Office Visit [facility] [address] [place] [address] Cinthya[facility]ul[facility] [address] [place] [address] 01/19/2025 2:00 PM EDT Clinical Support [facility] [address] [place] [address] Kim Donald RN 03/07/2025 11:00 AM EDT Office Visit [address] [address] Lolis Augustine MD [address] [place] [address] Scheduled Orders Name Type Priority Associated Diagnoses Orde r Schedule Drug Monitoring, Benzodiazepines, Quantitative, Urine Lab Routine Anxiety Ordered: 12/14/2024 documented as of this encounter Procedures Procedure Name Priority Date/Time Associated Diagnosis Comments POCT MARIA G-14 URINE DRUG SCREEN Routine 12/14/2024 2:22 PM EST Anxiety documented in this encounter Results * (ABNORMAL) POCT MARIA G-14 Urine Drug Screen (12/14/2024 2:22 PM EST) THC Positive Benzodiazepines Screen, Urine Negative Urine Urine specimen obtained by clean catch procedure / Unknown 12/14/2024 2:22 PM EST Narrative Kim Donald RN - 12/14/2024 2:22 PM EST UTOX cup Lot#[id number] Exp. 06/14/26 Internal Pass Control Lolis Augustine MD POINT OF CARE TEST ENTER/EDIT ORDERABLES Final Result documented in this encounter Visit Diagnoses Diagnosis Anxiety- Primary Anxiety state, unspecified documented in this encounter Additional Health Concerns Assessment Noted Time PHQ-9 Depression Total Score: 0 07/18/20 24 2:10 PM EDT documented as of this encounter Care Teams Recreational Vehicle Repairer Relationship Specialty Start Date End Date Lolis Augustine MD [address] [place] [address] PCP - General Family Medicine 07/16/23 documented as of this encounter
--- OUTSIDE RECORDS SUMMARY | 2024-12-14 16:43 | XMS_ITS | Encounter Summary ---
Author Organization [facility] Address [address] [place] [address] 7 [place] [address] Care Team Providers Care Strip Cutter Name Role Phone Vargas Reynoso Primary Care Provider Unavail able Avril Campa Primary Care Provider [phone] Lolis Augustine MD Primary Care Provider Reason for Visit * Reason Comments Med Change Request Encounter Details Date Type Department Care Team ([facility] Contact Info) Description 03/13/2023 Refill [facility] [address] [place] [address] Vargas Reynoso AGNP Gastroesophageal reflux disease, unspecified [...] Upcoming Encounters Date Type Department Care Team ([facility] Contact Info) Description 01/11/2025 2:00 PM EDT Office Visit [facility] ADULT D[facility]AL [address] [place] [address] Vipul Mendesaris [address] [place] [address] 01/19/2025 2:00 PM EDT Clinical Support [facility] [address] [place] [address] Kim Donald RN 03/07/2025 11:00 AM EDT Office Visit [facility] [address] [place] [address] Lolis Augustine MD [address] [place] [address] documented as of this encounter Visit Diagnoses Diagnosis Gastroesophageal reflux disease, unspecified whether esophagitis present documented in this encounter Additional Health Concerns Assessment Noted Time PHQ-9 Depression Total Score: 5 12/12/19 2:22 PM EST documented as of this encounter Care Teams Strip Cutter Relationship Specialty Start Date End Date Vargas Reynoso AGNP PCP - General Family Medicine 12/01/22 07/05/23 Avril Campa FNP [address] [place] [address] PCP - General Family Medicine 07/06/23 07/15/23 Lolis Augustine MD [address] [place] [address] PCP - General Family Medicine 07/16/23 documented as of this encounter
--- OUTSIDE RECORDS SUMMARY | 2024-12-14 16:43 | XMS_ITS | Encounter Summary ---
Author Organization [facility] Address [address] [facility] [address]t [place] [address] Care Team Providers Care Labor/Excavator Name Role Phone Lolis Augustine MD Primary Care Provider [phone] Reason for Visit * Reason Comments TRAFFIC RECORDER Initial TRAFFIC RECORDER Initial Encounter Details Date Type Department Care Team (Latest Contact Info) Description 12/05/2024 1:30 PM EST Clinical Support [facility] [address] [place] [address] Kim Donald RN Anxiety (Primary Dx) Social [...] PM EST S: Pt here for initial TRAFFIC RECORDER Visit, accompanied by his son/CARE NURSE RN Marky Rangel and his girlfriend Angeles. Interpretation provided by medical/surgery registered nurse Xi. Prescribed Clonazepam 1mg Q8hr PRN. States [...] marijuana card. He has been diagnosed with Ventura's disease afew years ago. He relocated to this area from [place] a few years ago as well. States he's traveling to [place] 12/20/24 and has no date for return as of now. O: TRAFFIC RECORDER Tier 1. Pt currently prescribed Clonazepam 1mg Q8hr PRN. STEVEDORE DOCK verified today. Rx last filled on 11/09/24. [...] a psychiatrist, said he had one in [place] but hasn't been able to get one here. Will update PCP with UTOX results, request Narcan Rx and a referral to Pablo Collado chalk tester prescriber. Last PCP visit was 07/18/24, scheduled next 12/07/24. A: TRAFFIC RECORDER Contract Initiation Visit, Chronic BZO use r/t anxiety. P: TRAFFIC RECORDER contract reviewed and signed, pt declined copy. Pt to continue taking medication only as prescribed; Next TRAFFIC RECORDER RV appointment scheduled for 12/14/24 @ 2pm, F/U sooner PRN. Appointment reminder given. Pt verbalized understanding and agreed to plan. documented in this encounter Plan of Treatment Upcoming Encounters Date Type Department Care Team (Late st Contact Info) Description 01/11/2025 2:00 PM EDT Office Visit [facility] [address] [place] [address] Gaviota Mendes [address] [place] [address] 01/19/2025 2:00 PM EDT Clinical Support [facility] [address] [place] [address] Kim Donald RN 03/07/2025 11:00 AM EDT Office Visit [facility] [address] [place] [address] Lolis Augustine MD [address] [place] [address] documented as of this encounter Procedures Procedure Name Priority Date/Time Associated Diagnosis Comments POCT MARIA G-14 URINE DRUG SCREEN Routine 12/05/2024 1:44 PM EST Anxiety DRUG MONITOR, FENTANYL, W/CONF, URINE Routine 12/05/2024 1:30 PM EST Anxiety DRUG MONITOR, COCAINE METAB, QN, URINE Routine 12/05/2024 1:30 PM EST Anxiety documented in this encounter Results * (ABNORMAL) POCT MARIA G-14 Urine Drug Screen (12/05/2024 1:44 PM EST) THC Positive Cocaine Screen, Urine Positive Benzodiazepines Screen, Urine Positive Fentanyl, Urine Positive Urine Urine specimen obtained by clean catch procedure / Unknown 12/05/2024 1:44 PM EST Kim Bartlett, RN - 12/05/2024 1:44 PM EST UTOX cup Lot#[id number] Exp. 07/20/26 Internal Pass Control Lolis Augustine MD POINT OF CARE TEST ENTER/EDIT ORDERABLES Final Result * Drug Monitoring, Fentanyl, with Confirmation, Urine (12/05/2024 1:30 PM EST) Fentanyl, Ur 0.5 [facility] Comment:REFERENCE RANGE: < 0 .5 ng/mLTHIS TEST PERFORMED AT:[facility] [address] [place] [phone] DIRECTOR: VALERIE RAMIREZ MD Norfentanyl, Ur 5.6 [facility] Comment:REFERENCE RANGE: < 0 .5 ng/mLTHIS TEST PERFORMED AT:[facility] [address] [place] [phone] DIRECTOR: VALERIE RAMIREZ MD Fentanyl Note SEE NOTE [facility] Comment:This drug testing is for medical treatment only. Analysiswas performed as non-forensic testing and these resultsshould be used only by healthcare providers to renderdiagnosis or treatment, or to monitor progress of medicalconditions.Fentanyl Notes:Fentanyl, Norfentanyl detected is consistent with the use ofthe drug Fentanyl.LDT Notes:Confirmation tests were developed and their analyticalperformance characteristics have been determined by [facility]. It has not been cleared or approved by the FDA.This assay has been validated pursuant to the CLIAregulations and is used for clinical purposes.Healthcare Providers needing Interpretation assistance,please contact us at [phone] ( ) M-F,8am to 10pm ESTTHIS TEST PERFORMED AT:[facility] [address] [phone] DIRECTOR: VALERIE RAMIREZ MD Urine (Urine, Random) 12/05/2024 1:30 PM EST 12/05/2024 6:08 PM EST us Lolis Augustine MD LAB URINE ORDERABLES Final Res ult [facility] [address] [place] [phone] * Drug Monitoring, Cocaine Metabolite, Quantitative, Urine (12/05/2024 1:30 PM EST) Benzoylecgonine [address] [facility] Comment:REFERENCE RANGE: <10 0 ng/mL Cocaine Comments SEE NOTE [facility] Comment:This drug testing is for medical treatment only. Analysiswas performed as non-forensic testing and these resultsshould be used only by healthcare providers to renderdiagnosis or treatment, or to monitor progress of medicalconditions.Cocaine Notes:Benzoylecgonine detected is consistent with the use of thedrug Cocaine.LDT Notes:Confirmation tests were developed and their analyticalperformance characteristics have been determined by [facility]. It has not been cleared or approved by the FDA.This assay has been validated pursuant to the CLIAregulations and is used for clinical purposes.Healthcare Providers needing Interpretation assistance,please contact us at [phone] ( ) M-F,8am to 10pm ESTTHIS TEST PERFORMED AT:[facility] [address] [phone] DIRECTOR: VALERIE RAMIREZ MD Urine (Urine, Random) 12/05/2024 1:30 PM EST 12/05/2024 6:08 PM EST us Lolis Augustine MD LAB URINE ORDERABLES Final Res ult [facility] [address] [place] [phone] documented in this encounter Visit Diagnoses Diagnosis Anxiety- Primary Anxiety state, unspecified documented in this encounter Additional Health Concerns Assessment Noted Time PHQ-9 Depression Total Score: 0 07/18/20 24 2:10 PM EDT documented as of this encounter Care Teams Labor/Excavator Relationship Specialty Start Date End Date Lolis Augustine MD [address] [place] [address] PCP - General Family Medicine 07/16/23 documented as of this encounter
--- OUTSIDE RECORDS SUMMARY | 2024-12-14 16:43 | XMS_ITS | Encounter Summary ---
Author Organization [employer] Address [address] [facility] 7t [place] [address] Care Team Providers Care Starter Mechanic Name Role Phone Lolis Augustine MD Primary Care Provider [phone] Reason for Visit * Reason Comments Med Refill Encounter Details Date Type Department Care Team ([facility] Contact Info) Description 11/24/2024 Refill [facility] [address] [place], [place] [phone] Lolis Augustine MD [address] [place] [address] Unspecified mood (affective) disorder (CMS/HCC) Social History [...] Description 01/11/2025 2:00 PM EDT Office Visit [facility] [address] [place] [address] Gaviota Mendes [address] [place] [address] 01/19/2025 2:00 PM EDT Clinical Support [facility] [address] [place] [address] Kim Donald RN 03/07/2025 11:00 AM EDT Office Visit [facility] [address] [place] [address] Lolis Augustine MD [address] [place] [address] documented as of this encounter Visit Diagnoses Diagnosis Unspecified mood (affective) disorder (CMS/HCC) documented in this encounter Additional Health Concerns Assessment Noted Time PHQ-9 Depression Total Score: 0 07/18/20 24 2:10 PM EDT documented as of this encounter Care Teams Starter Mechanic Relationship Specialty Start Date End Date Lolis Augustine MD [address] [place] [address] PCP - General Family Medicine 07/16/23 documented as of this encounter
--- OUTSIDE RECORDS SUMMARY | 2024-12-14 16:43 | XMS_ITS | Encounter Summary ---
Author Organization [employer] [facility] Address [address] [facility] 7 [place] [address] Care Team Providers Care Registered Nurse First Assistant Name Role Phone Lolis Augustine MD Primary Care Provider [phone] Reason for Visit * Reason Onset Date Comments Med Refill 12/14/2024 UTOX Neg BZO, sent out 12/14/2024 Encounter Details Date Type Department Care Team (Late st Contact Info) Description 12/14/2024 Refill [facility] [address] [place] [address] Kim Donald, TAZ Anxiety Social History Tobacco Use Types Packs/Day [...] Telephone Encounter - Kim Donald RN - 12/14/2024 2:27 PM EST Pt had INSPECTOR SHELLS RV appt today UTOX Neg BZO, sent out for confirmation Pt traveling to [place] 12/20/24 and unsure when he will return, depends on how his mother is doing. N Next INSPECTOR SHELLS appt booked 01/19/25 TC to [facility], spoke with Ignacio, confirmed Clonazepam RX sent 12/07/24 was never picked up. RequestedRX be cancelled. documented in this encounter Plan of Treatment Upcoming Encounters Date Type Department Care Team (Late st Contact Info) Description 01/11/2025 2:00 PM EDT Office Visit [facility] [address] [place] [address] Gaviota Mendes [address] [place] [address] 01/19/2025 2:00 PM EDT Clinical Support [facility] [address] [place] [address] Kim Donald RN 03/07/2025 11:00 AM EDT Office Visit [facility] [address] [place] [address] Lolis Augustine MD [address] [place] [address] documented as of this encounter Visit Diagnoses Diagnosis Anxiety Anxiety state, unspecified documented in this encounter Additional Health Concerns Assessment Noted Time PHQ-9 Depression Total Score: 0 07/18/20 24 2:10 PM EDT documented as of this encounter Care Teams Registered Nurse First Assistant Relationship Specialty Start Date End Date Lolis Augustine MD [address] [place] [address] PCP - General Family Medicine 07/16/23 documented as of this encounter
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
--- OUTSIDE RECORDS SUMMARY | 2024-12-14 16:44 | XMS_ITS | Encounter Summary ---
Author Organization [employer] Address [address] [facility] [address] [place] [address] Care Team Providers Care Financial Management Consultant Name Role Phone Lolis Augustine MD Primary Care Provider [phone] Reason for Visit * Reason Comments Med Refill Encounter Details Date Type Department Care Team ([facility] Contact Info) Description 10/26/2024 Refill [facility] [address] [place], [place] [phone] Lolis Augustine MD [address] [place] [address] Social History Tobacco Use Types Packs/Day Years [...] Visit [facility] ADULT DENTAL [address] [place] [address] Gaviota Mendes [address] [place] [address] 01/19/2025 2:00 PM EDT Clinical Support [facility] [address] [place] [phone] Kim Donald RN 03/07/2025 11:00 AM EDT Office Visit [facility] [address] [place] [phone] Lolis Augustine MD [address] [place] [phone] documented as of this encounter Visit Diagnoses Not on filedocumented in this encounter Additional Health Concerns Assessment Noted Time PHQ-9 Depression Total Score: 0 07/18/20 24 2:10 PM EDT documented as of this encounter Care Teams Financial Management Consultant Relationship Specialty Start Date End Date Lolis Augustine MD [address] [place] [phone] PCP - General Family Medicine 07/16/23 documented as of this encounter
--- OUTSIDE RECORDS SUMMARY | 2024-12-14 16:44 | XMS_ITS | Continuity of Care Document ---
Author Organization [facility] Address [address] [place] [address] Phone Care Team Providers Care Cream Hauler Name Role Phone José Miguel Posada Unavailable Unavailable Procedures Procedure Date INITIAL HOSPITAL VISIT LEVEL 2 16 Advance Directives Directive Yes / No Effective Date File Name No Information Encounters Encounter Description Practice Location Reason(s) For Visit Diagnoses Date Provider Providers Copied on Encounter INITIAL HOSPITAL VISIT LEVEL 2 [facility], [address] [place] [id number], tel:[phone] [facility] No Information 4-201 6 Albino Val[address]. [address] [place], [place], [id number] , [place]. tel:[phone] Referring Provider: Emma Jean [address], [address]. tel:[phone] Family History Family Member Type Diagnosis Age At Onset No Information Payers Payer name Insurance type Covered democrat ID Authoriza tiglo(s) [place] Medicaid Plan [id number] Social History Type Description Quantity Date Captured [...]
[2024-12-20 10:55] LABS: Alphahydroxymidazolam,GCMS Ur NEGATIVE; Alphahydroxytriazolam, GCMS Ur NEGATIVE; Alprazolam, GCMS Urine NEGATIVE; Aminoclonazepam, GCMS Urine 467; Flurazepam Metabolite,GCMS Ur NEGATIVE; Lorazepam GCMS Urine NEGATIVE; Nordiazepam, GCMS Urine NEGATIVE; Oxazepam, GCMS Urine NEGATIVE; Temazepam, GCMS Urine NEGATIVE
== END 2024-12-14 16:39 | disposition home or self-care (01) ==
LOC: HO.HHCLNP 16:38
PROVIDERS: Visit Provider General Practice
DX: F41.9 Anxiety disorder, unspecified (principal)
CPT/HCPCS: 80346